=== PATIENT | male | born 1955 | race Caucasian/White ===

== ENCOUNTER → 2017-06-20 | Outpatient (CLI) | payer MEDICARE ==
[~2017-06-20] MED LIST: ACETAMINOPHEN-1 EAC1 PO; ACETAMINOPHEN325 M1 PO; ACID CONTROL20 MG; ALLOPURINOL 10100 M1 PO; AMOX TR-K CLV1 EAC3 PO; ANTACID650 MG PO; ANTIBIOTIC; APAP650 PO; ASCORBIC ACID500 MG PO; ASPIR 8181 MG PO; ASPIRIN325 PO; ATORVASTATIN CA40 MG PO; B COMPLEX1 EACH PO; BACITRACIN TOP; BACITRACIN3.5 GM TOP; BACTRIM 400-801 EACH PO; BACTRIM DS TAB1 EAC1 PO; BACTRIM DS TAB1 EACH PO; BACTROBAN CREAM30 G1 TOP; BENADRYL25 MG PO; BENGAY GREASELE57 GM TOP; BIOFREEZE118 ML TOP; BOUDREAUXS10 GM TOP; CARDIZEM CD120 MG PO; CARVEDILOL25 MG PO; CEFTIN 250250 MG/5 M PO; CEFTIN500 MG PO; CEFUROXIME500 MG PO; CENTRUM SILVER1 EAC2 PO; CEPHALEXIN 500500 M3 PO; CIPRO250 M1 PO; CIPRO500 MG PO; CIPROFLOXACIN500 M1 PO; CLONIDINE0.1 PO; COLACE100 MG PO; COREG25 MG PO; CRESTOR10 MG; CRESTOR10 MG PO; DARBEPOETIN ALFA IM; DIFLUCAN200 MG PO; EPOGEN10000 UNIT IV; FENTANYL 0.50 MCG/ML IV PUSH; FISH OIL 1,0001 EAC5; FISH OIL 1,001000 M2 PO; FLOMAX0.4 MG PO; FOLIC ACID 1 MG1 MG PO; FOLIC ACID1 MG PO; GABAPENTIN100 MG PO; GEMFIBROZIL 60600 MG; GEMFIBROZIL 60600 MG PO; GLUCAGEN1 MG IM; GLUCOSE1 EACH PO; HUMALOG KW100 UNIT/1 SUBQ; HUMALOG100 UNIT/1 SUBQ; HYDRALAZINE 2525 M1 PO; HYDRALAZINE 2525 MG; HYDRALAZINE 2525 MG PO; HYDROCODON-ACE1 EAC7 PO; HYDROCODONE-AP1 EAC6 PO; IBUPROFEN 800800 M1 PO; IMDUR 30 MG TAB30 M1 PO; IMDUR 60 MG TAB60 M1 PO; INDIGESTION MED; ISOSORBIDE MON120 MG PO; KEFLEX250 MG PO; KEFLEX500 MG PO; LANTUS SUBQ; LASIX 40 MG TAB40 MG; LEVAQUIN 500 M500 M2 PO; LEVSIN-SL0.125 MG SL; LEVSIN0.125 MG SUBLING; LIDOCAINE1 EACH TOP; LISINOPRIL20 MG PO; LOPRESSOR100 M1 PO; LOPRESSOR50 PO; MELATONIN5 M1 PO; MINOCIN100 MG PO; MIRALAX17 GM PO; NEURONTIN 300300 M1 PO; NITROSTAT0.4 MG SUBLING; NORCO 10-325 T1 EACH PO; NORCO 5-325 TA1 EACH PO; NORVASC10 MG; NORVASC10 MG PO; NOVOLOG100 UNIT/1; NYSTATIN 100,0015 G1 TOP; OMEGA 3 1,0001 EACH PO; OMEGA-31000 M1 PO; OMEPRAZOLE40 MG; OMEPRAZOLE40 MG PO; OXYCODONE HCL 55 MG PO; PANTOPRAZOLE SO40 M1 PO; PAXIL10 MG; PEPCID20 MG PO; PLAVIX 75 MG TA75 M1; PLAVIX 75 MG TA75 M1 PO; POTASSIUM20 PO; PROTONIX40 M1 PO; RANEXA1000 MG PO; RANEXA500 MG PO; REMERON15 MG PO; RENAL CAPS SOFTG1 MG PO; SIMVASTATIN40 MG; TOPROL XL100 MG PO; TRAMADOL 50 MG50 MG PO; TRULICITY0.75 MG/0. SUBQ; TYLENOL325 MG PO; VAN500AD IV; VENOFER50 MG/2.5 IV; VITAMIN B 50; VITAMIN B-12500 MCG PO; VITAMIN B-150 MG; VITAMIN D1000 UNI1 PO; VYTORIN 10-801 EACH; ZANTAC 150MG T150 MG; ZESTRIL20 MG; ZINC SULFATE 2220 M1 PO; ZYLOPRIM100 MG PO
--- NOTE | 2017-06-21 13:25 | CON ---
[address] [address] CONSULTATION Name: JESSICA GARCES Room: [facility] aGlindo#: [id number] Admission: 06/20/17 Attend Phys: Holden Vee DPM Discharge: Date of : 53 Report #: [id number] THIS REPORT FOR: //name// CC: Holden Suresh DATE OF SERVICE: 06/20/2017 Seen in wound care clinic. ATTENDING PHYSICIAN: Dr. Holden Vee. Follow up post-second toe amputation, removal from metatarsal as well. Chronic ulceration to the deep infection, probable chronic osteomyelitis. He generally has been doing fairly well. Denies any fevers or chills. Appetite has been fair. On examination, the wound actually showed some healing. There is much less depth. There is no exposed bone to probing. Overall, has improved. Chronic osteomyelitis. At this point, would extend the antibiotics. He does get the vancomycin with dialysis for additional 2 weeks. We will see him back at that time. Continue weekly labs. <ELECTRONICALLY SIGNED> By: Jesus Alberto Oneil MD 06/21/17 1325 0751 1057Jesus Alberto Oneil MD /nt
== END ==
LOC: M.WC 01:52
DX: T87.89 Other complications of amputation stump (principal); E11.621 Type 2 diabetes mellitus with foot ulcer; L97.421 Non-pressure chronic ulcer of left heel and midfoot limited to breakdown of skin; L97.521 Non-pressure chronic ulcer of other part of left foot limited to breakdown of skin; L89.893 Pressure ulcer of other site, stage 3; E11.40 Type 2 diabetes mellitus with diabetic neuropathy, unspecified; L84 Corns and callosities; E11.51 Type 2 diabetes mellitus with diabetic peripheral angiopathy without gangrene; E11.22 Type 2 diabetes mellitus with diabetic chronic kidney disease; I13.2 Hypertensive heart and chronic kidney disease with heart failure and with stage 5 chronic kidney disease, or end stage renal disease; N18.6 End stage renal disease; I50.9 Heart failure, unspecified; E78.5 Hyperlipidemia, unspecified; I25.10 Atherosclerotic heart disease of native coronary artery without angina pectoris; Z86.73 Personal history of transient ischemic attack (TIA), and cerebral infarction without residual deficits; Z89.421 Acquired absence of other right toe(s); Z72.89 Other problems related to lifestyle; Z99.2 Dependence on renal dialysis; Y83.5 Amputation of limb(s) as the cause of abnormal reaction of the patient, or of later complication, without mention of misadventure at the time of the procedure

== ENCOUNTER → 2017-06-27 | Outpatient (CLI) | payer MEDICARE | LOC: M.WC 02:43 | DX: E11.621 Type 2 diabetes mellitus with foot ulcer (principal); L97.511 Non-pressure chronic ulcer of other part of right foot limited to breakdown of skin; L89.893 Pressure ulcer of other site, stage 3; L89.894 Pressure ulcer of other site, stage 4; E11.40 Type 2 diabetes mellitus with diabetic neuropathy, unspecified; E11.51 Type 2 diabetes mellitus with diabetic peripheral angiopathy without gangrene; I25.10 Atherosclerotic heart disease of native coronary artery without angina pectoris; E11.22 Type 2 diabetes mellitus with diabetic chronic kidney disease; I13.0 Hypertensive heart and chronic kidney disease with heart failure and stage 1 through stage 4 chronic kidney disease, or unspecified chronic kidney disease; N18.6 End stage renal disease; Z99.2 Dependence on renal dialysis; I50.9 Heart failure, unspecified; E78.5 Hyperlipidemia, unspecified; Z72.89 Other problems related to lifestyle; Z86.73 Personal history of transient ischemic attack (TIA), and cerebral infarction without residual deficits; Z89.421 Acquired absence of other right toe(s) ==

== ENCOUNTER 2017-07-03 09:42 | Inpatient (IN) | payer MEDICARE ==
[~2017-07-03] VITALS: Ht 188 cm; Wt 104.8 kg
[~2017-07-03 09:42] MED LIST changes: -ACETAMINOPHEN325 M1 PO; -APAP650 PO; -BACITRACIN TOP; -BACITRACIN3.5 GM TOP; -BACTROBAN CREAM30 G1 TOP; -BENGAY GREASELE57 GM TOP; -BIOFREEZE118 ML TOP; -BOUDREAUXS10 GM TOP; -CEFUROXIME500 MG PO; -COREG25 MG PO; -DARBEPOETIN ALFA IM; -DIFLUCAN200 MG PO; -EPOGEN10000 UNIT IV; -FENTANYL 0.50 MCG/ML IV PUSH; -FISH OIL 1,001000 M2 PO; -FOLIC ACID 1 MG1 MG PO; -FOLIC ACID1 MG PO; -HUMALOG KW100 UNIT/1 SUBQ; -HYDRALAZINE 2525 MG PO; -LEVAQUIN 500 M500 M2 PO; -LIDOCAINE1 EACH TOP; -LOPRESSOR100 M1 PO; -MELATONIN5 M1 PO; -NORCO 10-325 T1 EACH PO; -NOVOLOG100 UNIT/1; -NYSTATIN 100,0015 G1 TOP; -OMEGA 3 1,0001 EACH PO; -OXYCODONE HCL 55 MG PO; -PEPCID20 MG PO; -POTASSIUM20 PO; -REMERON15 MG PO; -RENAL CAPS SOFTG1 MG PO; -TRULICITY0.75 MG/0. SUBQ; -VENOFER50 MG/2.5 IV; -VITAMIN B-12500 MCG PO; -VITAMIN D1000 UNI1 PO
[2017-07-03 09:44] VITALS: BP 169/83
[2017-07-03 10:19] LABS: ABSOLUTE BASOPHILS 0.1 thou/uL (0.0-0.2); ABSOLUTE EOSINOPHILS 0.2 thou/uL (0.0-0.7); ABSOLUTE LYMPHOCYTES 1.5 thou/uL (0.8-5.3); ABSOLUTE MONOCYTES 0.3 thou/uL (0.0-1.2); ABSOLUTE NEUTROPHILS 4.7 thou/uL (1.6-8.1); BASOPHILS 1.1 %; HEMATOCRIT 33.9 % (42.0-52.0); HEMOGLOBIN 11.3 gm/dL (14.0-18.0); LYMPHOCYTES 21.8 %; MCH 29.3 pg (26.0-34.0); MCHC 33.4 g/dL (28.0-37.0); MCV 87.5 fL (80.0-100.0); MONOCYTES 4.8 %; MPV 8.3 fl. (7.2-11.1); NUCLEATED RBCS 0 /100WBC; PLATELET COUNT* 217 thou/uL (150-400); POLYS 69.3 %; RBC 3.87 mil/uL (4.50-6.00); RDW-CV 15.9 % (10.5-14.5); WBC 6.7 thou/uL (4.0-11.0)
[2017-07-03 10:24] LABS: ANION GAP 11 mmol/L (7-16); BUN 66 mg/dL (7-18); CALCIUM 9.2 mg/dL (8.5-10.1); CHLORIDE 96 mmol/L (98-107); CO2 24 mmol/L (21-32); CREATININE 4.2 mg/dL (0.6-1.3); GLUCOSE 465 mg/dL (70-99); POTASSIUM 4.5 mmol/L (3.5-5.1); SODIUM 131 mmol/L (136-145)
[2017-07-03 10:35] LABS: ALBUMIN 3.4 g/dL (3.4-5.0); ALKALINE PHOSPHATASE 100 U/L (46-116); NT-PRO BRAIN NAT PEPTIDE 6324 pg/mL (<300); SGOT 20 U/L (15-37); SGPT 24 U/L (30-65); TOTAL BILIRUBIN 0.4 mg/dL (<0.1-1.0); TOTAL PROTEIN 8.1 g/dL (6.4-8.2); TROPONIN-I LEVEL <0.06 ng/mL (<0.06)
[2017-07-03 10:36] LABS: APTT 24.3 Seconds (25.0-31.3); PROTIME 9.7 Seconds (9.20-11.50)
[2017-07-03 13:32] VITALS: BP 143/68
[2017-07-03 13:55] VITALS: BP 146/76
[2017-07-03] MEDS ORDERED: HUMALOG100 UNIT/1 SUBQ (14:43)
[2017-07-03 15:46] LABS: CHOLESTEROL 204 mg/dL (<200); HDL CHOLESTEROL 37 mg/dL (>40); TC:HDL 5.5 Ratio (Not establshd); TRIGLYCERIDE 587 mg/dL (<150); VLDL 117 mg/dL (<40)
[2017-07-03 15:50] LABS: SERUM ASSESSMENT Slight Lipemia
[2017-07-03 15:53] VITALS: BP 149/77
--- NOTE | 2017-07-03 17:45 | EKG ---
[place] [address] ELECTROCARDIOGRAM REPORT Name: JESSICA GARCES Room: [address] ADM IN .R.#: [id number] Admission: 07/03/17 Attend Phys: Juliana Miller Discharge: Date of : 53 Report #: [id number] THIS REPORT FOR: //name// [facility] ED Test Date: 2017-07-03 Test Time: 09:48:36 Pat Name: JESSICA GARCES Department: Room: [facility] Gender: M Building Cleaning Supervisor: [facility] : 1955 Requested By: Ila Yoder Order Number: [id number] MD: Austin Brooks Measurements Intervals [place] Rate: 81 P: 29 W[place]: 143 QRS: -30 QRSD: 136 T: 140 QT: 400 QTc: 465 Interpretive Statements Sinus rhythm Left bundle branch block Baseline wander in lead(s) V6 Compared to ECG 09/30/2016 15:18:59 No significant changes Electronically Signed On 07-03-2017 17:45:48 PERSONNEL CLERK by Austin Brooks [email or web address] <ELECTRONICALLY SIGNED> By: Austin Brooks MD, FACC 07/03/17 1745 0948 0948 Austin Brooks MD, FAC /EPI
[2017-07-03 20:00] VITALS: BP 150/78
[2017-07-04] VITALS (21 sets, daily range): BP systolic 98–146; BP diastolic 58–80
--- NOTE | 2017-07-04 17:41 | EKG ---
[place] [address] ELECTROCARDIOGRAM REPORT Name: DEZJESSICA Room: [address] ADM IN M.R.#: [id number] Admission: 07/03/17 Attend Phys: Juliana Miller Discharge: Date of : 53 Report #: [id number] THIS REPORT FOR: //name// [facility] Test Date: 2017-07-04 Test Time: 14:29:33 Pat Name: JESSICA GARCES Department: Room: [address] Gender: M Operations Logistics Analyst: : 1955 Requested By: Vikas Gifford Order Number: [id number] Víctor MD: Austin Brooks Measurements Intervals [place] Rate: 61 P: 23 SD: 159 QRS: -26 QRSD: 128 T: 146 QT: 457 QTc: 461 Interpretive Statements Sinus rhythm Left bundle branch block Compared to ECG 07/03/2017 09:48:36 No significant changes Electronically Signed On 07-04-2017 17:41:44 REAMING MACHINE TENDER by Austin Brooks [email or web address] <ELECTRONICALLY SIGNED> By: Austin Brooks MD, [facility] 07/04/17 1741 1429 1429 Austin Brooks MD, FAC /EPI
--- NOTE | 2017-07-04 17:41 | EKG ---
[place] [address] ELECTROCARDIOGRAM REPORT Name: JESSICA GARCES Room: [address] ADM IN M.R.#: [id number] Admission: 07/03/17 Attend Phys: Juliana Miller Discharge: Date of : 53 Report #: [id number] THIS REPORT FOR: //name// [facility] Test Date: 2017-07-04 Test Time: 09:34:35 Pat Name: JESSICA GARCES Department: Room: [address] Gender: M Marketing Operations Assistant: : 1955 Requested By: Ila Yoder Order Number: [id number] Víctor MD: Austin Brooks Measurements Intervals [place] Rate: 67 P: 49 [place]: 203 QRS: -29 QRSD: 129 T: 144 QT: 437 QTc: 462 Interpretive Statements Sinus rhythm Left bundle branch block Baseline wander in lead(s) V1,V2 Compared to ECG 07/03/2017 09:48:36 No significant changes Electronically Signed On 07-04-2017 17:40:48 CONTINUOUS PICKLING LINE PICKLER by Austin Brooks [email or web address] <ELECTRONICALLY SIGNED> By: Austin Brooks MD, FAC 07/04/17 1740 0934 0934 Austin Brooks MD, [facility] /EPI
[2017-07-05 03:37] VITALS: BP 127/63
[2017-07-05 05:01] LABS: HEMATOCRIT 32.8 % (42.0-52.0); MCH 29.2 pg (26.0-34.0); MCHC 33.7 g/dL (28.0-37.0); MCV 86.7 fL (80.0-100.0); MPV 7.9 fl. (7.2-11.1); RBC 3.78 mil/uL (4.50-6.00); RDW-CV 15.7 % (10.5-14.5); WBC 6.1 thou/uL (4.0-11.0)
[2017-07-05 05:24] LABS: ANION GAP 10 mmol/L (7-16); BUN 45 mg/dL (7-18); CALCIUM 8.5 mg/dL (8.5-10.1); CHLORIDE 97 mmol/L (98-107); CO2 27 mmol/L (21-32); CREATININE 3.7 mg/dL (0.6-1.3); GLUCOSE 144 mg/dL (70-99); SODIUM 134 mmol/L (136-145); TROPONIN-I LEVEL <0.06 ng/mL (<0.06)
[2017-07-05 08:00] VITALS: BP 142/74
[2017-07-05 12:46] VITALS: BP 129/60
--- NOTE | 2017-07-05 12:50 | 2DMMODE ---
[place] [address] 2 D/M-MODE ECHOCARDIOGRAM Name: JESSICA GARCES Room: [address] IN [facility]#: [id number] Admission: 07/03/17 Attend Phys: Lance De Luna Discharge: Date of : 53 Date of Service: 07/05/17 1250 Report #: [id number] THIS REPORT FOR: //name// APPROVED REPORT Study performed: 07/05/2017 10:52:44 EXAM: Comprehensive 2D, Doppler, and color-flow Echocardiogram Patient Location: In-Patient Room #: [facility] Status: routine BSA: 2.31 HR: 70 bpm BP: 142/74 mmHg Rhythm: NSR Other Information Study Quality: Good Indications CAD Chest Pain 2D Dimensions LVEF(%): 61.36 (>50%) IVSd: 10.44 (7-11mm) LVOT Diam: 21.04 (18-24mm) LVDd: 57.82 mm PWd: 11.87 (7-11mm) Ascending Ao: 39.12 (22-36mm) LVDs: 38.49 (25-40mm) Aortic Root: 33.80 mm Polanco's LVEF: 61.36 % Volumes Left Atrial Volume (Systole) LA ESV Index: 34.50 mL/m2 Aortic Valve AoV Peak Zeus.: 2.07 m/s AO Peak Gr.: 17.12 mmHg LVOT Max P.26 mmHg AO Mean Gr.: 9.69 mmHg LVOT Mean P.95 mmHg LVOT Max V: 1.03 m/s AO V2 VTI: 39.06 cm LVOT Mean V: 0.63 m/s LALITA (VTI): 1.90 cm2 LVOT V1 VTI: 21.34 [place] [address] 2 D/M-MODE ECHOCARDIOGRAM Name: JESSICA GARCES Room: [address] IN .R.#: [id number] Admission: 07/03/17 Attend Phys: Lance De Luna Discharge: Date of : 53 Date of Service: 07/05/17 1250 Report #: [id number] E/A Ratio: 0.69 MV Decel. Time: 254.85 ms MV E Max Zeus.: 0.81 m/s MV PHT: 73.91 ms MVA (PHT): 2.98 cm2 TDI E/Lateral E': 8.10 E/Medial E': 20.25 Medial E' Zeus.: 0.04 m/s Lateral E' Zeus.: 0.10 m/s Pulmonary Valve PV Peak Zeus.: 1.20 m/s PV Peak Gr.: 5.80 mmHg Tricuspid Valve TR Peak Gr.: 16.66 mmHg RVSP: 21.00 mmHg Left Ventricle The left ventricle is normal size. There is normal LV segmental wall motion. There is normal left ventricular wall thickness. Left ventricular systolic function is mildly decreased. LVEF is 45-50%. Grade I - abnormal relaxation pattern. Right Ventricle The right ventricle is normal size. The right ventricular systolic function is normal. Atria Left atrium is mildly dilated. The right atrium size is normal. Aortic Valve Mild aortic valve sclerosis. Bioprosthetic aortic valve is present. Trace aortic regurgitation. No hemodynamically significant valvular aortic stenosis. Mitral Valve The mitral valve is normal in structure. Mild mitral regurgitation. No evidence of mitral valve stenosis. Tricuspid Valve The tricuspid valve is normal in structure. Trace tricuspid regurgitation. The RVSP is ___21____ mmHg. Pulmonic Valve The pulmonary valve is normal in structure. [place] [address] 2 D/M-MODE ECHOCARDIOGRAM Name: JESSICA GARCES Room: [address] IN ..#: [id number] Admission: 07/03/17 Attend Phys: Lance De Luna Discharge: Date of : 53 Date of Service: 07/05/17 1250 Report #: [id number] valvular regurgitation. Great Vessels The aortic root is normal in size. IVC is normal in size and collapses with >50% inspiration Pericardium There is no pericardial effusion. <Conclusion> The left ventricle is normal size. There is normal left ventricular wall thickness. Left ventricular systolic function is mildly decreased. Grade I - abnormal relaxation pattern. The right ventricle is normal size. Left atrium is mildly dilated. Mild aortic valve sclerosis. Trace aortic regurgitation. No hemodynamically significant valvular aortic stenosis. The mitral valve is normal in structure. Mild mitral regurgitation. The tricuspid valve is normal in structure. Trace tricuspid regurgitation. The RVSP is ___21____ mmHg. IVC is normal in size and collapses with >50% inspiration There is no pericardial effusion. There is normal LV segmental wall motion. Bioprosthetic aortic valve is present. LVEF is 45-50%. <ELECTRONICALLY SIGNED> By: Vikas Gifford MD, FACC 07/05/17 1250 1250 1250 Vikas Gifford MD, FACC /INF
[2017-07-05] MEDS ORDERED: COLACE100 MG PO (14:04)
[2017-07-05] MEDS ORDERED: PEPCID20 MG PO (14:05)
[2017-07-05] MEDS ORDERED: APAP650 PO (14:15)
[2017-07-05] MEDS ORDERED: MELATONIN5 M1 PO (14:15)
[2017-07-05] MEDS ORDERED: PLAVIX 75 MG TA75 M1 PO (14:33)
--- NOTE | 2017-07-05 15:49 | EKG ---
[place] [address] ELECTROCARDIOGRAM REPORT Name: JESSICA GARCES Room: [address] ADM IN M.R.#: [id number] Admission: 07/03/17 Attend Phys: Juliana Miller Discharge: Date of : 53 Report #: [id number] THIS REPORT FOR: //name// [facility] Test Date: 2017-07-05 Test Time: 09:35:32 Pat Name: JESSICA GARCES Department: Room: [address] Gender: M System Auditor: NIYA : 1955 Requested By: Vikas Gifford Order Number: [id number] Víctor MD: Vikas Gifford Measurements Intervals [place] Rate: 67 P: 0 [place]: 168 QRS: -32 QRSD: 131 T: 137 QT: 444 QTc: 469 Interpretive Statements Sinus rhythm Left bundle branch block Baseline wander in lead(s) V1 Compared to ECG 07/04/2017 14:29:33 No significant changes Electronically Signed On 07-05-2017 15:49:01 TAKER OFF BRAKER MACHINE by Vikas Gifford [email or web address] <ELECTRONICALLY SIGNED> By: Vikas Gifford MD, [facility] 07/05/17 1549 0935 0935 Vikas Gifford MD, [facility] /EPI
[2017-07-05] MEDS ORDERED: COREG25 MG PO (16:42)
--- NOTE | 2017-07-06 10:24 | CARD ---
[facility] [address] [place] [address] CARDIAC CATH REPORT Name: JESSICA GARCES Room: [address] IN [facility]#: [id number] Admission: 07/03/17 Attend Phys: Juliana Miller Discharge: 07/05/17 Date of : 53 Report #: [id number] THIS REPORT FOR: //name// APPROVED REPORT Patient Details Patient Status: In-Patient Room #: 228 The patient is a 62 year-old male Event Personnel Vikas Gifford Lead Game Designer, Maribel Welch RN Scene Painter, Leatha Stern Monitor, Ligia Hopper RTR Scrub, Peter Pritchard ARRT (R) Monitor Procedures Performed LUZ Place w/wo Plasty Single LAD, PTCA Single Vessel CIRC; selective coronary arteriography, saphenous vein graft the CORMIER graft study Indication Unstable angina Risk Factors Hypercholesterolemia, HypertensionRenal Failure Admission/Lab Medications/Medications given during procedure Aspirin, Platelet Aff. Inhib., Angiomax bolus and infusion Procedure Narrative The patient was brought electively to the Cardiac Catheterization Laboratory and was prepped and draped in a sterile manner. The left femoral was infiltrated with 1% Lidocaine subcutaneous anesthesia. A Erie 6 FR sheath was inserted into the left femoral artery. Coronary angiography was performed using coronary diagnostic catheters. The right coronary system was accessed and visualized with a Diagnostic AR1 Mod 6fr catheter. The left coronary system was accessed and visualized with a Diagnostic JL4 catheter. The patient tolerated the procedure well and there were no complications associated with the procedure. There was no hematoma. Fluid The CORMIER graft was accessed with a 6 [place] CORMIER catheter; the vein graft to the circumflex was accessed with a 6 [place] ARL-1 diagnostic catheter and the vein graft the right was accessed with a 6 [place] AR-1 [place] [address] CARDIAC CATH REPORT Name: JESSICA GARCES Room: [address]#: [id number] Admission: 07/03/17 Attend Phys: Juliana Miller Discharge: 07/05/17 Date of : 53 Report #: [id number] Sedation start time: 11:43 Case end Time: 13:11 Fentanyl 50 mcg Versed 2 mg Fluoro Time: 29.0 minutes Dose: DAP 340031 cGycm2 4301 mGy Contrast Type and Amount: Visipaque 340 ml [place] Artery Percent Stenosis #1 widely patent CORMIER graft to the LAD, #2 widely patent vein graft to 2 marginal branches of the circumflex, #3 widely patent vein graft to the dominant right coronary artery with 50% distal right coronary narrowing beyond the distal anastomotic site Diagnostic Cath Left Main 20% distal narrowing LAD 90% tubular proximal stenosis with total mid LAD occlusion Circumflex Total occlusion of the marginal branches with 80% ostial and proximal circumflex narrowing Right Coronary Total occlusion of this dominant vessel proximally Hemodynamics The aortic pressure is 105/52 mmHg with a mean of 69 mmHg. PCI Technique Lesion Anticoagulation was achieved with Angiomax. Patient was preloaded with Angiomax IV 16 mg per kg. Percutaneous coronary intervention was performed on the proximal left anterior descending artery segment. The lesion stenosis prior to intervention was 90% with COREY 3 flow. A 6FR XB 3.0 100CM Guide Catheter was used to engage the ostium. A IG: ProwaterFlex 180CM Interventional Guidewire was used to cross the lesion. BALLOON DILATION A Balloon catheter Trek RX 2.25 X 12 was inserted and inflated up to 16.00atm for 17seconds. Additional Inflation: 16.00atm for 12seconds. STENT DEPLOYMENT A drug-eluting stent Xience Alpine RX 2.5X18 [place] [address] CARDIAC CATH REPORT Name: JESSICA GARCES Room: [address]#: [id number] Admission: 07/03/17 Attend Phys: Juliana Miller Discharge: 07/05/17 Date of : 53 Report #: [id number] inflated up to 15atm for 15seconds. Final angiography reveals 10 % stenosis with COREY 3 flow. BALLOON DILATION A Balloon catheter was inserted and inflated up to 20.00atm for 17seconds. Additional Inflation: 22.00atm for 13seconds. Additional Inflation: 22.00atm for 16seconds. STENT DEPLOYMENT A drug-eluting stent Xience Alpine RX 2.5X18 was inserted and inflated up to 12.00atm for 14seconds. Additional Inflation: 16.00atm for 12seconds. Additional Inflation: 17.00atm for 10seconds. PCI Technique Lesion 2 Percutaneous Coronary Intervention was performed on the proximal circumflex artery segment. Percutaneous coronary intervention was performed on the proximal circumflex artery segment. The lesion stenosis prior to intervention was 80% with COREY 3 flow. A 6FR XB 3.0 100CM Guide Catheter was used to engage the ostium. A IG: BMW 190cm Interventional Guidewire was used to cross the lesion. Balloon Dilation A Balloon catheter NC Trek RX 2.5 X 12 was inserted and inflated up to 16.00atm for 16seconds. Additional Inflation: 22.00atm for 14seconds. Final angiography reveals 20 % stenosis with COREY 3 flow. PCI Technique Lesion Percutaneous coronary intervention was performed on the mid circumflex artery segment. BALLOON DILATION A Balloon catheter NC Trek RX 2.75 X 12 was inserted and inflated up to 16.00atm for 14seconds. Additional Inflation: 17.00atm for 15seconds. Additional Inflation: 16.00atm for 10seconds. PCI Technique Lesion 3 Percutaneous Coronary Intervention was performed on the proximal circumflex artery segment. Conclusion #1 significant coronary artery disease characterized by the following: [place] [address] CARDIAC CATH REPORT Name: JESSICA GARCES Room: [address] IN [facility].#: [id number] Admission: 07/03/17 Attend Phys: Juliana Miller Discharge: 07/05/17 Date of : 53 Report #: [id number] A 20% distal left main coronary artery narrowing, B 90% tubular proximal LAD stenosis with 100% mid vessel occlusion, C 80% ostial proximal circumflex narrowing with total occlusion of the marginal system, D dominant right coronary artery which is 100% occluded proximally #2 graft study characterized by the following: A widely patent CORMIER graft to the LAD, B widely patent vein graft to 2 marginal branches of the circumflex, C widely patent vein graft to the right coronary artery with 50% distal right coronary narrowing beyond the distal anastomotic site #3 normal systemic pressure throughout the study, #4 successful percutaneous coronary intervention with deployment of drug-eluting stent at the site of 90% proximal LAD stenosis with 10% residual narrowing following stent deployment and COREY-3 flow the distal vessel, #5 successful percutaneous transluminal coronary angioplasty at the site of 80% ostial proximal circumflex narrowing with 20% residual narrowing following final dilatation and COREY-3 flow the distal vessel. Recommendations Cardiac Risk Reduction Program Aggressive Medical Therapy Medications Administered Aspirin (any) Clopidogrel <ELECTRONICALLY SIGNED> By: Vikas Gifford MD, FACC 07/06/17 1024 1024 1024Vikas Gifford MD, FAC /INF
--- NOTE | 2017-07-16 09:12 | CON ---
[address] [address] CONSULTATION Name: JESSICA GARCES Room: [address]#: [id number] Admission: 07/03/17 Attend Phys: Juliana Miller Discharge: 07/05/17 Date of : 53 Report #: [id number] THIS REPORT FOR: //name// CC: Abhishek De Luna DATE OF SERVICE: 07/04/2017 REQUESTING PHYSICIAN: Lance De Luna DO. REASON FOR CONSULTATION: Assistance providing dialysis. HISTORY OF PRESENT ILLNESS: The patient is a very pleasant 62-year-old gentleman with medical history significant for end-stage renal disease, diabetes mellitus type 2, peripheral vascular disease, hypertension, coronary artery disease, nonhealing left foot ulcer. He presents to the hospital with complaints of chest pain. PAST MEDICAL HISTORY: As I described earlier. FAMILY HISTORY: Noncontributory. SOCIAL HISTORY: No current tobacco or alcohol abuse. MEDICATIONS: Reviewed. PHYSICAL EXAMINATION: GENERAL: Awake, alert, oriented, no acute distress. VITAL SIGNS: Blood pressure 136/66, heart rate is 61, afebrile. HEENT: Pupils are round. NECK: Supple. LUNGS: Clear. CARDIOVASCULAR: Regular rate. ABDOMEN: Soft. LOWER EXTREMITIES: Left foot is dressed. He also has left radiocephalic fistula, which is patent. LABORATORY DATA: Revealed hemoglobin 11.3. Serum sodium 131, potassium 4.5, BUN 66, creatinine 4.2. He had chest CTA that revealed no evidence of pulmonary embolism. No evidence of thoracic, aortic aneurysm or dissection. No acute infiltration, pleural effusion, or pneumothorax. Also, history of aortic valve replacement surgery and coronary artery bypass graft surgery. ASSESSMENT AND PLAN: End-stage renal disease. The patient admitted with chest pain. Workup as per Director Of Religious Life. From my standpoint, I will dialyze him today and tomorrow. He missed his dialysis yesterday, so [place] [address] CONSULTATION Name: JESSICA GARCES Room: [address] IN M.R.#: [id number] Admission: 07/03/17 Attend Phys: Juliana Miller Discharge: 07/05/17 Date of : 53 Report #: [id number] and full treatment tomorrow. Thank you very much for asking my assistance providing dialysis. <ELECTRONICALLY SIGNED> By: Hector Farmer MD 07/16/17 0912 1133 1520Hector Farmer MD /PMT
[2017-11-08] MEDS ORDERED: HUMALOG KW100 UNIT/1 SUBQ (08:51)
== END 2017-07-05 19:00 | disposition home health service (06) | DRG 246 ==
LOC: M.ERS 09:42 → M.TBA-ER 12:45 → M.2W 13:39
PROVIDERS: Internal Medicine; Personal Emergency Response Attendant; ADMIT Internal Medicine
PROC: B211YZZ Fluoroscopy of Multiple Coronary Arteries using Other Contrast (ICD-10-PCS; principal; 2017-07-05)
PROC: B21FYZZ Fluoroscopy of Other Bypass Graft using Other Contrast (ICD-10-PCS; principal; 2017-07-05)
PROC: 4A023N7 Measurement of Cardiac Sampling and Pressure, Left Heart, Percutaneous Approach (ICD-10-PCS; principal; 2017-07-05)
PROC: 027034Z Dilation of Coronary Artery, One Artery with Drug-eluting Intraluminal Device, Percutaneous Approach (ICD-10-PCS; principal; 2017-07-05)
DX: I25.119 Atherosclerotic heart disease of native coronary artery with unspecified angina pectoris (principal); N18.6 End stage renal disease; I12.0 Hypertensive chronic kidney disease with stage 5 chronic kidney disease or end stage renal disease; E78.5 Hyperlipidemia, unspecified; I25.10 Atherosclerotic heart disease of native coronary artery without angina pectoris; E11.42 Type 2 diabetes mellitus with diabetic polyneuropathy; E11.22 Type 2 diabetes mellitus with diabetic chronic kidney disease; E11.51 Type 2 diabetes mellitus with diabetic peripheral angiopathy without gangrene; A49.02 Methicillin resistant Staphylococcus aureus infection, unspecified site; Z82.49 Family history of ischemic heart disease and other diseases of the circulatory system; Z88.2 Allergy status to sulfonamides; Z88.8 Allergy status to other drugs, medicaments and biological substances; Z99.2 Dependence on renal dialysis; Z95.1 Presence of aortocoronary bypass graft; Z89.411 Acquired absence of right great toe; Z86.73 Personal history of transient ischemic attack (TIA), and cerebral infarction without residual deficits; Z83.6 Family history of other diseases of the respiratory system; I25.2 Old myocardial infarction; Z95.3 Presence of xenogenic heart valve; Z79.899 Other long term (current) drug therapy; Z79.82 Long term (current) use of aspirin

== ENCOUNTER → 2017-07-11 | Outpatient (CLI) | payer MEDICARE ==
[~2017-07-11] MED LIST changes: +ACETAMINOPHEN325 M1 PO; +APAP650 PO; +BACITRACIN TOP; +BACITRACIN3.5 GM TOP; +BACTROBAN CREAM30 G1 TOP; +BENGAY GREASELE57 GM TOP; +BIOFREEZE118 ML TOP; +BOUDREAUXS10 GM TOP; +CEFUROXIME500 MG PO; +COREG25 MG PO; +DARBEPOETIN ALFA IM; +DIFLUCAN200 MG PO; +EPOGEN10000 UNIT IV; +FENTANYL 0.50 MCG/ML IV PUSH; +FISH OIL 1,001000 M2 PO; +FOLIC ACID 1 MG1 MG PO; +FOLIC ACID1 MG PO; +HUMALOG KW100 UNIT/1 SUBQ; +HYDRALAZINE 2525 MG PO; +LEVAQUIN 500 M500 M2 PO; +LIDOCAINE1 EACH TOP; +LOPRESSOR100 M1 PO; +MELATONIN5 M1 PO; +NORCO 10-325 T1 EACH PO; +NOVOLOG100 UNIT/1; +NYSTATIN 100,0015 G1 TOP; +OMEGA 3 1,0001 EACH PO; +OXYCODONE HCL 55 MG PO; +PEPCID20 MG PO; +POTASSIUM20 PO; +REMERON15 MG PO; +RENAL CAPS SOFTG1 MG PO; +TRULICITY0.75 MG/0. SUBQ; +VENOFER50 MG/2.5 IV; +VITAMIN B-12500 MCG PO; +VITAMIN D1000 UNI1 PO
--- NOTE | 2017-07-12 10:51 | CON ---
[address] [address] CONSULTATION Name: GARCESJESSICA E Room: [facility] Galindo#: [id number] Admission: 07/11/17 Attend Phys: Holden Vee DPM Discharge: Date of : 53 Report #: [id number] THIS REPORT FOR: //name// CC: Holden Suresh DATE OF SERVICE: 07/11/2017 ATTENDING PHYSICIAN: Dr. Holden Vee. REASON FOR FOLLOWUP: Post osteoectomy for chronic osteomyelitis, left foot. He has got a persistent ulceration at the site. SUBJECTIVE: Generally, he has been doing fairly well, actually was hospitalized due to cardiac related disease with unstable angina, was discharged roughly a week ago with adjustment of his medications. Unfortunately, the IV antibiotic he was getting with dialysis was not continued. Therefore, he has been off the antibiotics for roughly a week. I do believe he completed roughly 6 weeks of parenteral therapy. OBJECTIVE: On examination, the wound actually looks quite good, in fact improved. There is no really significant depth to it at this point, no exposed bone. The surface does not exhibit significant or even mild inflammation. ASSESSMENT AND PLAN: Chronic osteomyelitis. At this point, would not reinstitute the antibiotics. Clearly, clinically he has continued to improve in spite of being off them. We will see him back as needed. <ELECTRONICALLY SIGNED> By: Jesus Alberto Oneil MD 07/12/17 1051 0757 0935Jesus Alberto Oneil MD /ana
== END ==
LOC: M.WC 01:20
DX: T87.89 Other complications of amputation stump (principal); E11.621 Type 2 diabetes mellitus with foot ulcer; L97.521 Non-pressure chronic ulcer of other part of left foot limited to breakdown of skin; L97.421 Non-pressure chronic ulcer of left heel and midfoot limited to breakdown of skin; E11.40 Type 2 diabetes mellitus with diabetic neuropathy, unspecified; E11.51 Type 2 diabetes mellitus with diabetic peripheral angiopathy without gangrene; E11.22 Type 2 diabetes mellitus with diabetic chronic kidney disease; I13.2 Hypertensive heart and chronic kidney disease with heart failure and with stage 5 chronic kidney disease, or end stage renal disease; N18.6 End stage renal disease; I50.9 Heart failure, unspecified; I25.10 Atherosclerotic heart disease of native coronary artery without angina pectoris; E78.5 Hyperlipidemia, unspecified; L84 Corns and callosities; Z86.73 Personal history of transient ischemic attack (TIA), and cerebral infarction without residual deficits; Z72.89 Other problems related to lifestyle; Y83.5 Amputation of limb(s) as the cause of abnormal reaction of the patient, or of later complication, without mention of misadventure at the time of the procedure

== ENCOUNTER → 2017-07-18 | Outpatient (CLI) | payer MEDICARE | LOC: M.WC 01:28 | DX: T87.89 Other complications of amputation stump (principal); E11.621 Type 2 diabetes mellitus with foot ulcer; L97.521 Non-pressure chronic ulcer of other part of left foot limited to breakdown of skin; L97.421 Non-pressure chronic ulcer of left heel and midfoot limited to breakdown of skin; E11.51 Type 2 diabetes mellitus with diabetic peripheral angiopathy without gangrene; E11.40 Type 2 diabetes mellitus with diabetic neuropathy, unspecified; I25.10 Atherosclerotic heart disease of native coronary artery without angina pectoris; E78.5 Hyperlipidemia, unspecified; E11.22 Type 2 diabetes mellitus with diabetic chronic kidney disease; I13.2 Hypertensive heart and chronic kidney disease with heart failure and with stage 5 chronic kidney disease, or end stage renal disease; I50.9 Heart failure, unspecified; N18.6 End stage renal disease; Z72.89 Other problems related to lifestyle; Z86.73 Personal history of transient ischemic attack (TIA), and cerebral infarction without residual deficits; Z89.421 Acquired absence of other right toe(s); Y83.5 Amputation of limb(s) as the cause of abnormal reaction of the patient, or of later complication, without mention of misadventure at the time of the procedure ==

== ENCOUNTER → 2017-07-25 | Outpatient (CLI) | payer MEDICARE | LOC: M.WC 02:57 | DX: T87.89 Other complications of amputation stump (principal); E11.621 Type 2 diabetes mellitus with foot ulcer; L97.421 Non-pressure chronic ulcer of left heel and midfoot limited to breakdown of skin; L97.521 Non-pressure chronic ulcer of other part of left foot limited to breakdown of skin; E11.40 Type 2 diabetes mellitus with diabetic neuropathy, unspecified; E11.51 Type 2 diabetes mellitus with diabetic peripheral angiopathy without gangrene; I25.10 Atherosclerotic heart disease of native coronary artery without angina pectoris; E78.5 Hyperlipidemia, unspecified; E11.22 Type 2 diabetes mellitus with diabetic chronic kidney disease; I13.2 Hypertensive heart and chronic kidney disease with heart failure and with stage 5 chronic kidney disease, or end stage renal disease; I50.9 Heart failure, unspecified; N18.6 End stage renal disease; Z72.89 Other problems related to lifestyle; Z86.73 Personal history of transient ischemic attack (TIA), and cerebral infarction without residual deficits; Z89.421 Acquired absence of other right toe(s) ==

== ENCOUNTER 2017-07-30 19:01 | Inpatient (IN) | payer MEDICARE ==
[~2017-07-30] VITALS: Ht 182.9 cm; Wt 100.7 kg
[~2017-07-30 19:01] MED LIST changes: -ACETAMINOPHEN325 M1 PO; -BACITRACIN TOP; -BACITRACIN3.5 GM TOP; -BACTROBAN CREAM30 G1 TOP; -BENGAY GREASELE57 GM TOP; -BIOFREEZE118 ML TOP; -BOUDREAUXS10 GM TOP; -CEFUROXIME500 MG PO; -DARBEPOETIN ALFA IM; -DIFLUCAN200 MG PO; -EPOGEN10000 UNIT IV; -FENTANYL 0.50 MCG/ML IV PUSH; -FISH OIL 1,001000 M2 PO; -FOLIC ACID 1 MG1 MG PO; -FOLIC ACID1 MG PO; -HUMALOG KW100 UNIT/1 SUBQ; -HYDRALAZINE 2525 MG PO; -LEVAQUIN 500 M500 M2 PO; -LIDOCAINE1 EACH TOP; -LOPRESSOR100 M1 PO; -NORCO 10-325 T1 EACH PO; -NOVOLOG100 UNIT/1; -NYSTATIN 100,0015 G1 TOP; -OMEGA 3 1,0001 EACH PO; -OXYCODONE HCL 55 MG PO; -POTASSIUM20 PO; -REMERON15 MG PO; -RENAL CAPS SOFTG1 MG PO; -TRULICITY0.75 MG/0. SUBQ; -VENOFER50 MG/2.5 IV; -VITAMIN B-12500 MCG PO; -VITAMIN D1000 UNI1 PO
[2017-07-30 19:19] VITALS: BP 139/73
[2017-07-30 19:52] LABS: ABSOLUTE BASOPHILS 0.1 thou/uL (0.0-0.2); ABSOLUTE EOSINOPHILS 0.1 thou/uL (0.0-0.7); ABSOLUTE LYMPHOCYTES 1.2 thou/uL (0.8-5.3); ABSOLUTE MONOCYTES 0.9 thou/uL (0.0-1.2); ABSOLUTE NEUTROPHILS 9.7 thou/uL (1.6-8.1); BASOPHILS 0.7 %; EOSINOPHILS 0.8 %; HEMATOCRIT 32.7 % (42.0-52.0); HEMOGLOBIN 10.9 gm/dL (14.0-18.0); MCH 28.9 pg (26.0-34.0); MCHC 33.2 g/dL (28.0-37.0); MONOCYTES 7.4 %; MPV 7.5 fl. (7.2-11.1); NUCLEATED RBCS 0 /100WBC; PLATELET COUNT* 255 thou/uL (150-400); POLYS 81.1 %; RBC 3.76 mil/uL (4.50-6.00); RDW-CV 15.7 % (10.5-14.5)
[2017-07-30 20:00] LABS: ANION GAP 13 mmol/L (7-16); BUN 54 mg/dL (7-18); CALCIUM 9.2 mg/dL (8.5-10.1); CHLORIDE 91 mmol/L (98-107); CO2 25 mmol/L (21-32); CREATININE 5.1 mg/dL (0.6-1.3); GLUCOSE 395 mg/dL (70-99); SODIUM 129 mmol/L (136-145)
[2017-07-30 20:03] LABS: INR 1.1; PROTIME 10.6 Seconds (9.20-11.50)
[2017-07-30 20:11] LABS: ALBUMIN 2.8 g/dL (3.4-5.0); ALKALINE PHOSPHATASE 84 U/L (46-116); LIPASE 194 U/L (73-393); NT-PRO BRAIN NAT PEPTIDE 10503 pg/mL (<300); SGOT 19 U/L (15-37); SGPT 19 U/L (30-65); TOTAL BILIRUBIN 0.7 mg/dL (<0.1-1.0); TROPONIN-I LEVEL <0.06 ng/mL (<0.06)
[2017-07-30] MEDS ORDERED: LOPRESSOR100 M1 PO (20:39)
[2017-07-30] MEDS ORDERED: NOVOLOG100 UNIT/1 (20:43)
[2017-07-30 20:52] LABS: INFLUENZA A ANTIGEN None Detected (None Detect); INFLUENZA B ANTIGEN None Detected (None Detect)
[2017-07-30 22:24] VITALS: BP 113/57
[2017-07-30 22:35] VITALS: BP 117/57
[2017-07-31 02:13] LABS: HEMATOCRIT 31.2 % (42.0-52.0); HEMOGLOBIN 10.4 gm/dL (14.0-18.0); MCH 29.2 pg (26.0-34.0); MCHC 33.4 g/dL (28.0-37.0); MCV 87.4 fL (80.0-100.0); MPV 7.8 fl. (7.2-11.1); RBC 3.57 mil/uL (4.50-6.00); RDW-CV 16.1 % (10.5-14.5); WBC 10.1 thou/uL (4.0-11.0)
[2017-07-31 02:52] LABS: ALBUMIN 2.4 g/dL (3.4-5.0); CALCIUM 8.5 mg/dL (8.5-10.1); CREATININE 5.3 mg/dL (0.6-1.3); POTASSIUM 3.7 mmol/L (3.5-5.1); TOTAL BILIRUBIN 0.5 mg/dL (<0.1-1.0); TOTAL PROTEIN 7.3 g/dL (6.4-8.2)
[2017-07-31 04:00] VITALS: BP 128/64
--- NOTE | 2017-07-31 06:49 | NUR ---
Pt arrived from ED at 2130. Denied pain at that time. Oriented but sleepy until this morning. Two wounds to L foot, look like non-healing ruptured blisters. One wound is on the sole just below the great toe, the other is on the heel. VSS. At 0638 pt given NTG SL X1 for CP, rated 5/10. Reported pain decreased to 3/10 afterwards, and denied need for additional NTG. Will continue to monitor.
[2017-07-31 08:48] VITALS: BP 145/66
--- NOTE | 2017-07-31 08:48 | NUR ---
PATIENT IS ALERT AND ORIENTED, ASSESSMENT CHARTED. NO CHEST PAIN AT THIS TIME, RELIEVED WITH MEDICATIONS BEFORE SHIFT CHANGE. NO NAUSEA OR SHORTNESS OF AIR. GOALS ARE TO CONTROL CHEST PAIN, CARDIO CONSULT, WOUND TREATMENT. BED IN LOWEST POSITION, CALL LIGHT IN REACH,
[2017-07-31 11:33] VITALS: BP 134/63
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
--- NOTE | 2017-07-31 14:31 | NUR ---
CM ASSESSMENT: Pt was sound asleep when CM went to assess, Pt known to this CM from previous hospital stay. CM reviewed chart and spoke with nurse. Pt resides at home with his . Independent with ADLs, assists as needed. Pt continues to drive. Pt has a RW and cane at home that he can use when needed. Hx of [facility]. Pt current at [facility] on a T, TH, Sat schedule. Hx of [employer] michael. CM will f/u with Pt tomorrow. Following for dc needs.
[2017-07-31 15:33] VITALS: BP 97/74
[2017-07-31 20:00] VITALS: BP 132/58
[2017-08-01 04:00] VITALS: BP 133/65
--- NOTE | 2017-08-01 04:05 | NUR ---
ASSUMED CARE OF PT AT 1930, NURSING ASSESSMENT COMPLETED AT START OF SHIFT, PT CONTINUES ON TELE MONITOR, TRACING SINUS RHYTHM THIS SHIFT. PT TAKEN UPSTAIRS TO DIALYSIS AT 2129. PT RETURNED AT 0. PER DIALYSIS NURSE, 2.2L FLUID DIALYSED FROM PT. PT C/O INTERMITTENT MILD PAIN TO RIGHT SIDE OF ABDOMEN, REFUSED PAIN MEDICATION, DENIES TENDERNESS. PT EDUCATED ON IMPORTANCE OF PAIN MANAGEMENT BEFORE PAIN GETS OUT OF HAND. HOURLY ROUNDING COMPLETED, CALL LIGHT WITHIN REACH. FALL PRECAUTIONS IN PLACE.
[2017-08-01 05:29] LABS: HEMATOCRIT 32.5 % (42.0-52.0); HEMOGLOBIN 10.7 gm/dL (14.0-18.0); MCH 28.5 pg (26.0-34.0); MCV 86.2 fL (80.0-100.0); MPV 8.1 fl. (7.2-11.1); RBC 3.77 mil/uL (4.50-6.00); RDW-CV 15.8 % (10.5-14.5)
[2017-08-01 05:46] LABS: CALCIUM 8.3 mg/dL (8.5-10.1); POTASSIUM 4.3 mmol/L (3.5-5.1)
[2017-08-01 05:55] LABS: CREATININE 3.5 mg/dL (0.6-1.3)
--- NOTE | 2017-08-01 06:15 | EKG ---
[place] [address] ELECTROCARDIOGRAM REPORT Name: JESSICA GARCES Room: [address] ADM IN M.R.#: [id number] Admission: 07/30/17 Attend Phys: Alexis Chavez MD Discharge: Date of : 53 Report #: [id number] THIS REPORT FOR: //name// [place] [facility] Test Date: 2017-07-30 Test Time: 19:11:34 Pat Name: JESSICA GARCES Department: Room: [facility] Gender: M Fur Dry Cleaner: TRUMAN : 1955 Requested By: Florence Lopez Order Number: [id number] MD: Austin Brooks Measurements Intervals [place] Rate: 81 P: IN: QRS: -27 QRSD: 125 T: 138 QT: 381 QTc: 443 Interpretive Statements Sinus rhythm Premature ventricular contraction Left bundle branch block Baseline wander in lead(s) V4,V6 Compared to ECG 07/05/2017 09:35:32 No significant changes noted Electronically Signed On 08-01-2017 6:15:13 PATCHER B[employer]LING BALL by Austin Brooks [email or web address] <ELECTRONICALLY SIGNED> By: Austin Brooks MD, FACC 08/01/17 0615 10 10 Austin Brooks MD, FAC /EPI
--- NOTE | 2017-08-01 06:25 | CON ---
[address] [address] CONSULTATION Name: JESSICA GARCES Room: [address] IN M.R.#: [id number] Admission: 07/30/17 Attend Phys: Alexis Chavez MD Discharge: Date of : 53 Report #: [id number] THIS REPORT FOR: //name// CC: Alexis Suresh DATE OF SERVICE: 07/31/2017 INDICATION: Chest pain. HISTORY OF PRESENT ILLNESS: The patient is a 62-year-old gentleman with coronary artery disease with remote history of coronary artery bypass grafting. He has had multiple interventions. He has a history of recent catheterization and intervention in June of this year. He was hospitalized with chest pain. Catheterization revealed a patent CORMIER graft to the LAD, patent saphenous vein graft to 2 obtuse marginal branches and a patent saphenous vein graft to the distal right coronary artery. The patient was found to have high-grade stenoses involving the proximal circumflex and proximal LAD for which he underwent a repeat intervention within a stent placement. He had excellent angiographic result. The patient returns to the hospital after being seen by his primary physician with complaints of foot pain. He does have severe peripheral vascular disease with nonhealing ulcers presently being evaluated by Vascular Surgery. Sometime yesterday, he developed chest discomfort as well that was prolonged in nature. He states that the pain persisted until he was given pain medication here at the hospital. The patient has had intermittent mild chest pain here in the hospital. Troponins are unremarkable. EKG shows sinus rhythm with left bundle-branch block, which is not new. At the time of my interview, the patient is comfortable and without chest pain. I did inquire as to his response to Ranexa in the past. He states that he has taken the medication without significant change in his symptoms. He denies orthopnea or paroxysmal nocturnal dyspnea. He does have end-stage renal disease and is on dialysis Tuesdays, and Saturdays. He is without other cardiac complaint. PAST MEDICAL HISTORY: 1. Coronary artery disease. 2. History of hypertension. 3. Hyperlipidemia. 4. Type 2 diabetes mellitus, insulin requiring. 5. Peripheral vascular disease. 6. End-stage renal disease, on dialysis. 7. Nonhealing ulcers secondary to diabetes [place] [address] CONSULTATION Name: JESSICA GARCES Room: [address]#: [id number] Admission: 07/30/17 Attend Phys: Alexis Chavez MD Discharge: Date of : 53 Report #: [id number] PAST SURGICAL HISTORY: 1. Four-vessel coronary artery bypass grafting with aortic valve replacement with a bioprosthetic aortic valve. 2. Multiple toe amputations. 3. Right herniorrhaphy with mesh placement. 4. Bilateral shoulder surgery. 5. Carpal tunnel surgery. FAMILY HISTORY: The patient's mother of heart attack. The patient's father of cancer. SOCIAL HISTORY: The patient is retired. He does not smoke. He does not drink alcohol. ALLERGIES: TOLECTIN, BACTRIM. HOME MEDICATIONS: Tylenol 650 mg q.4 hours p.r.n., aspirin 325 mg p.o. daily, carvedilol 12.5 mg b.i.d., clonidine 0.1 mg p.o. b.i.d., Plavix 75 mg daily, gabapentin 600 mg p.o. b.i.d., hydralazine 25 mg t.i.d., NovoLog 45 units at dinner, Lantus 65 units q.a.m., lispro 40 units q.a.m., Imdur 60 mg at bedtime, metoprolol tartrate 100 mg b.i.d., Nitrostat p.r.n., fish oil 1000 mg t.i.d., Crestor 40 mg at bedtime, Protonix 40 mg q. day, vitamin B complex 1 tablet daily. REVIEW OF SYSTEMS: A 14-point review of systems is positive for generalized weakness without focal paralysis, cough productive of clear sputum, chest discomfort, dyspnea, history of heart murmur, lower extremity edema, insulin requiring diabetes, remote history of ulcers, anemia and medical allergies as outlined above. Otherwise, 14-point review of systems unremarkable. PHYSICAL EXAMINATION: VITAL SIGNS: Stable. Blood pressure 134/63, pulse 83 and regular. GENERAL: This is a pleasant gentleman who is in no distress. Mood and affect appropriate. HEENT: Extraocular muscles intact. Mucous membranes are moist. NECK: Shows no jugular venous distention. I do not appreciate carotid bruit. CHEST: Reveals clear lung hannon. CARDIAC: Reveals a grade 2/6 holosystolic murmur heard throughout the precordium. I do not appreciate a gallop. ABDOMEN: Reveals normal bowel sounds. The abdomen is soft and nontender. EXTREMITIES: Show the left lower extremity to be wrapped. There is 1+ edema to the knees bilaterally. SKIN: Warm and dry. LABORATORY DATA: Reviewed. Sodium 129, potassium 3.7, chloride 95, bicarbonate 25, BUN 60, creatinine 5.3, serum glucose 396. LFTs within normal limits. [address] [place] [address] CONSULTATION Name: JESSICA GARCES Room: [address] ADM IN M.R.#: [id number] Admission: 07/30/17 Attend Phys: Alexis Chavez MD Discharge: Date of : 53 Report #: [id number] Troponin is less than 0.06. White blood cell count 10.1, hemoglobin 10.4, platelet count 234,000. Chest x-ray shows no acute cardiopulmonary abnormality. Echocardiogram in June of this year shows EF 45-50%. There is a grade 1 diastolic dysfunction. Bioprosthetic aortic valve functioning normally. IMPRESSION AND RECOMMENDATIONS: 1. Chest pain that is somewhat atypical in that it was prolonged with unremarkable enzymes. Doubt this represents acute coronary syndrome. The patient has had recent percutaneous coronary intervention. Would continue dual antiplatelet therapy at this point in time. I do not believe further invasive evaluation necessary. 2. 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 3. Hypertension, adequately controlled on current antihypertensive regimen. 4. History of hyperlipidemia. Continue Crestor 40 mg daily. 5. Peripheral vascular disease. The patient is being evaluated by Vascular Surgery with angiography tomorrow. 6. Nonhealing ulcers with infection. The patient is on IV antibiotics. Possible osteomyelitis. Infectious Disease following. 7. End-stage renal disease, on hemodialysis Tuesdays, and Saturdays. Nephrology is following. 8. Diabetes per primary physician. At the present time, the patient appears stable from a cardiac standpoint. I would not recommend further cardiac evaluation and continued current cardiac medications. We will follow as needed. <ELECTRONICALLY SIGNED> By: Austin Brooks MD, FACC 08/01/17 0625 1453 [id number] Brooks MD, FACC /nt
[2017-08-01 08:00] VITALS: BP 129/64
--- NOTE | 2017-08-01 08:40 | NUR ---
RECEIVED REPORT. ASSUMED CARE OF PT AT 0730. VSS, PT A&O X4. O2 SAT 99% ON ROOM AIR. SECOND CHEF IN PLACE TRACING SR. AM ASSESSMENT AND VITALS COMPLETED CHARTED. IV SALINE LOCKED. PT REPORTS PAIN IN HANDS AND FEET THAT IS CHRONIC, REFUSING MEDICATION FOR PAIN AT THIS TIME. PT NPO FOR POTENTIAL ANGIOGRAM. DRESSING TO LEFT FOOT C/D/I. LEFT HEEL BOOT ON. PT STATES HE HAS SEVERAL LOOSE STOOLS OVER THE NIGHT. WILL OBTAIN STOOL SAMPLE. FISTULA TO LEFT FOREARM NOTED. DIALYSIS T/TH/SAT. HIGH FALL RISK PRECAUTIONS IN PLACE. CALL LIGHT IS WITHIN REACH. WILL CONTINUE TO MONITOR.
[2017-08-01 11:25] VITALS: BP 104/60
--- NOTE | 2017-08-01 11:33 | CON ---
[address] [address] CONSULTATION Name: JESSICA GARCES Room: [address] IN M.R.#: [id number] Admission: 07/30/17 Attend Phys: Alexis Chavez MD Discharge: Date of : 53 Report #: [id number] THIS REPORT FOR: //name// CC: Alexis Suresh DATE OF SERVICE: 07/31/2017 INFECTIOUS DISEASE CONSULTATION ATTENDING PHYSICIAN: Alexis Chavez M.D. REASON FOR EVALUATION: Left foot deep infection, admitted with chest related pain and has a history of chronic unstable angina. HISTORY OF PRESENT ILLNESS: Chart reviewed, patient examined. This is a 62-year-old gentleman I am well familiar with, has extensive medical history given his age, much of which revolves around diabetes mellitus, type 2 complicated by diffuse and severe vasculopathy. He has got known coronary artery disease with multiple lesions, unstable angina, essentially ongoing basis, has had previous aortocoronary bypass grafting, has pretty profound peripheral neuropathy who as well as recently 3-4 weeks ago, has had an extended treatment of parenteral therapy post resection of second toe on the left. He noted over the course of the day or 2 prior to admission bilateral foot pain, somewhat confusing. It is unclear that he had any fevers initially, although developed some while here. Actually, the concerning part is he had chest pain that was not relieved by typical measures. He is not encephalopathic. Has dyspnea at rest noted. He is scheduled to undergo cardiac catheterization. He was started empirically on vancomycin. Review of cultures back in April 2017 with growth of oxacillin-resistant Staph aureus. At this point, he is not overtly toxic. ALLERGIES: LISTED TO BACTRIM. PAST MEDICAL HISTORY: As described above, the diabetes mellitus type 2 complicated by diffuse vasculopathy, peripheral neuropathy, end-stage renal disease, multiple amputations of distal lower extremities, previous strokes, hyperlipidemia. SOCIAL HISTORY: Nonsmoker, no ethanol. FAMILY HISTORY: Noncontributory. REVIEW OF SYSTEMS: As above. PHYSICAL EXAMINATION: [place] [address] CONSULTATION Name: GARCESJESSICA Room: [address]#: [id number] Admission: 07/30/17 Attend Phys: Alexis Chavez MD Discharge: Date of : 53 Report #: [id number] GENERAL: He is pleasant, alert and cooperative. He is chronically ill appearing, in mild to moderate distress. VITAL SIGNS: Temperature 97.3, pulse 71, respirations 18 and blood pressure 144/57. SKIN: Warm, dry, no rashes. HEENT: Otherwise, unremarkable. NECK: Supple. LUNGS: Diminished breath sounds, generally clear. HEART: Regular. No appreciated murmur. ABDOMEN: Soft, nontender. EXTREMITIES: Left distal lower extremity has what appears to be superficial ulcer overlying the first and second metatarsophalangeal sites. Additionally, he has plantar posterior heel ischemic pressure related ulcer as well. There is some moderate degree of inflammation. There is no particular odor. GENITOURINARY: Deferred. RECTAL: Deferred. LABORATORY DATA: Blood cultures sterile thus far. Prealbumin of 18.1. Electrolytes: Sodium 129, potassium 3.7, chloride 95, bicarbonate is 25, BUN and creatinine 60 and 5.3, glucose of 396. LFTs unremarkable. Albumin of 2.4, total protein 7.3, estimated GFR of 11. Troponin less than 0.06. Sed rate is elevated at 128. Culture in progress. Gram stain showed no white cells, few Gram-positive cocci. Influenza antigen was negative. Lactic acid of 1.0. Chest x-ray, no acute process. Foot x-ray compared to April 11, there has been erosion of the distal second metatarsal, which may be surgery related. CRP elevated at 666. ASSESSMENT AND PLAN: Inflammatory process involving the left foot. He is certainly at risk for deep infection, apparently as recently as last week was doing fairly well. We will continue the vancomycin. Await culture results. Discussed with Dr. Vee timing of the x-ray, comparison suggests this may have been prior to the last surgery. Certainly, his primary priority at this point is cardiac related. He is scheduled to undergo cardiac catheterization, certainly pending that there is the high risk for any sort of intervention. <ELECTRONICALLY SIGNED> By: Jesus Alberto Oneil MD 08/01/17 1133 1114 1947Jofederico Oneil MD /nt
--- NOTE | 2017-08-01 13:52 | NUR ---
CONTINUE TO FOLLOW. MET WITH PT AND . PT CONFIRMS HE IS USING A CANE NOW, GOING TO [facility] T/T/S AND IS CURRENT WITH LORET[facility] HUMPHREY. CALL TO LORETTA/FAHEEM, PT IS ON SERVICE, MADE AWARE HE IS IN THE HOSPITAL. [facility] ALSO. PT PLANS TO RETURN HOME WITH SAME SERVICES. WILL FOLLOW LORETTA [phone] FAX [phone]
[2017-08-01 16:01] VITALS: BP 115/46
[2017-08-01 16:08] LABS: HEPATITIS B SURFACE AG Negative (Negative)
--- NOTE | 2017-08-01 19:00 | NUR ---
VSS. PT REMAINS A&OX4 O2 SAT REMAINS >90% ON ROOM AIR. PROFESSOR OF SURGERY REMAINS IN PLACE WITH NO CHAGNES THIS SHIFT. IV SALINE LOCKED. PT DENIES PAIN OR DISCOMFORT AT THIS TIME. PT NPO STATUS CHAGNED EARLY THIS AFTERNOON, PT ABLE TO EAT LUNCH AND DINNER - EATING AND DRINKING WITHOUT ISSUE. PT SEEN BY DR LINTON, WOUND TO LEFT FOOT CLEANED AND READRESSED. THIS EVENING WOUND BLED THROUGH THE DRESSING, CHANGED DRESSING AGAIN. PT UP TO BEDSIDE COMMODE; STOOL SAMPLE OBTAINED AND SENT TO THE LAB. PT HAD VISITORS THIS AFTERNOON. ISOLATION MAINTAINED FOR MRSA; BLOOD CULTURES CAME BACK POSITIVE. FALL PRECAUTIONS IN PLACE. CALL LIGHT IS WITHIN REACH. HOURLY ROUNDING PERFORMED.
[2017-08-01 20:00] VITALS: BP 110/45
[2017-08-02] VITALS: BP 124/60
[2017-08-02 04:00] VITALS: BP 136/53
[2017-08-02 05:19] LABS: HEMATOCRIT 31.5 % (42.0-52.0); HEMOGLOBIN 10.3 gm/dL (14.0-18.0); MCH 28.7 pg (26.0-34.0); MCHC 32.8 g/dL (28.0-37.0); MCV 87.4 fL (80.0-100.0); MPV 7.9 fl. (7.2-11.1); RBC 3.61 mil/uL (4.50-6.00); RDW-CV 15.8 % (10.5-14.5); WBC 11.9 thou/uL (4.0-11.0)
[2017-08-02 05:54] LABS: CALCIUM 8.4 mg/dL (8.5-10.1); MAGNESIUM 2.3 mg/dL (1.8-2.4); POTASSIUM 4.9 mmol/L (3.5-5.1)
[2017-08-02 05:58] LABS: CREATININE 4.8 mg/dL (0.6-1.3)
[2017-08-02 08:00] VITALS: BP 128/60
--- NOTE | 2017-08-02 08:02 | NUR ---
ASSUMED CARE OF PT AT 1930, NURSING ASSESSMENT COMPLETED AT START OF SHIFT, PT VOICED NO CONCERNS THIS SHIFT, CONTINUES ON TELE MONITOR THIS SHIFT, HOURLY ROUNDING COMPLETED, PT CONTINUES ON CONTACT PRECAUTIONS FOR MRSA. FALL PRECAUTIONS IN PLACE. PT WEARING BOOT TO LEFT FOOT, DRESSING TO LEFT FOOT CDI. PT TO HAVE DIALYSIS TODAY, NO C/O PAIN THIS SHIFT.
--- NOTE | 2017-08-02 13:00 | NUR ---
ASSUMED CARE OF PT THIS AM ASSESSED AND DOCUMENTED. PT ON CARDIAC MONITER TRACING SR HR 80. PT WAS CHANGED TO MED SURG STATUS. VSS WNL. HELD PTS BP MEDS AND PT WAS TAKEN TO DYALYSIS. PT IS TO BE MOVED TO MED SURG AND REPORT WAS CALLED IN TO [facility]. PASSED ON FROM DR SPIVEY PT TO HAVE AN MRI WITHOUT CONTRAST OF THE L FOOT. DR SPIVEY WANTS A REPORT READ STAT AND CALLED TO HIM. HE ALSO WANTS VASCULAR CONSULT AND A L FISTULA EVAL. PASSED THIS ON TO ANGELITO BARNHART. PT WAS GIVEN 650 MG OF TYLENOL FOR PAIN RATED AN 8 ON PAIN SCALE.PT HAD SOME TREMORS NOTED IN HIS BL HANDS.
[2017-08-02 16:00] VITALS: BP 135/75
--- NOTE | 2017-08-02 19:51 | NUR ---
ASSUMED CARE OF PATIENT AT 1600 AFTER DIALYSIS TREATMENT. PATIENT SETTLED TO NEW ROOM. PATIENT HAS HAD COMPLAINTS OF PAIN TO LEFT FOOT X 1, HYDROCODONE GIVEN. PATIENT WENT FOR MRI THIS EVENING. DRESSING LOOSE UPON RETURN AND REDRESSED. PATIENT IS UP STANDBY TO COMMODE. PATIENT HAS GOOD APPETITE. WILL BE NPO AFTER MIDNIGHT FOR SURGERY TOMORROW AFTERNOON. PATIENT DENIES ANY NEEDS AT THIS TIME. CALL LIGHT WITHIN REACH. WILL CONTINUE TO MONITOR.
[2017-08-02 20:00] VITALS: BP 128/63
[2017-08-02 23:56] VITALS: BP 118/49
--- NOTE | 2017-08-03 07:28 | NUR ---
PT IS ALERT AND ORIENTED THIS SHIFT, COMPLAINS OF LEFT FOOT PAIN, MANAGED WITH PO AND IV MEDICATIONS, PT CONTINUES ON IV ABX FOR MRSA INFECTION AND IS ON ISOLATION, LEFT FOOT WOUND CLENSED AND DRESSINGS CHANGED THIS AM DUE TO INCREASED DRAINAGE, PT IS NPO, TO HAVE SURGERY THIS AFTERNOON, REPORTED TO DEEPALI EATON
[2017-08-03 08:09] VITALS: BP 92/46
[2017-08-03 09:10] VITALS: BP 92/46
--- NOTE | 2017-08-03 11:41 | NUR ---
Pt to go to surgery today. SW following as pt transferred to med surg floor. From previous notes, pt plans to be able to dc home with (pt was independent with ADLs). Pt is current with [facility]...orders to be faxed for resumption of care at pt dc. Pt has RW and cane. Pt may need IV Abx at dc to be determined if OP and on dialysis days (pt goes to [facility] T, , Sat) or home with HH. Pt has hx with Belen Chanel. SW to continue to follow to assist with safe dc planning.
[2017-08-03 13:18] VITALS: BP 92/46
--- NOTE | 2017-08-03 18:55 | NUR ---
PATIENT HAS BEEN ALERT AND ORIENTED TODAY, VITAL SIGNS STABLE. WENT FOR SURGERY THIS AFTERNOON AND JUST RETURNED TO THE FLOOR AT 1840 AND IS SLEEPING. CAPNO IN PLACE AFTER RETURNING AND 2 LITERS OF OXYGEN RUNNING. VITAL SIGNS STABLE. CALL LIGHT IS IN REACH, BED ALARM, WILL CONTINUE TO MONITOR.
[2017-08-03 20:00] VITALS: BP 112/59
[2017-08-04] VITALS (7 sets, daily range): BP systolic 105–127; BP diastolic 54–61
[2017-08-04 03:53] LABS: HEMATOCRIT 30.2 % (42.0-52.0); MCH 28.8 pg (26.0-34.0); MCV 87.3 fL (80.0-100.0); MPV 7.7 fl. (7.2-11.1); RBC 3.46 mil/uL (4.50-6.00); RDW-CV 15.7 % (10.5-14.5)
[2017-08-04 04:02] LABS: CALCIUM 8.9 mg/dL (8.5-10.1); MAGNESIUM 2.3 mg/dL (1.8-2.4); POTASSIUM 4.7 mmol/L (3.5-5.1)
[2017-08-04 04:19] LABS: CREATININE 6.3 mg/dL (0.6-1.3)
--- NOTE | 2017-08-04 05:23 | NUR ---
ASSUMED CARE OF PT AT 1900 PT STILL LETHARGIC FROM SURGERY BUT AROUSABLE AND ORIENTED X4. PT VS AND ASSESSMENT STABLE. DRSG TO LLE CDI AND TYREL REMAINS IN INTACT AND DRAINING SMALL AMOUNT SEROSANGENOUS FLUID. L ARM FISTULA POSITIVE BRUIT AND THRILL. PT DENIED ANY COMPLAINTS AND SLEPT THROUGHT THE NIGHT WILL CONTINUE PLAN OF CARE.
--- NOTE | 2017-08-04 10:15 | NUR ---
AT 0830 LAB CALLED WITH A CRITICAL VANCO OF 21. AT 0835 RAFAEL SHEN NP WAS CONTACTED AND SHE RECOMMENDED THAT I CONTACT ID AND HOLD CURRENT DOSE UNTIL VALUE WAS ACKNOWLEDGED. AT 0838 DR LANIER WAS CONTACTED AND HE SAID TO LET PHARMACY DOSE THE PATIENT. TAMMY IN PHARMACY SAID TO GIVE 0900 DOSAGE AND SHE WILL ADJUST FUTURE DOSES/FREQUENCY.
--- NOTE | 2017-08-04 19:43 | NUR ---
I ASSUMED CARE OF THE PATIENT AT 0700. HE IS ALERT AND ORIENTED X4 BUT SEEMS VERY DROWSY. HE IS BEDREST AND NON WEIGHTBEARING ON THE LEFT FOOT. DR FRYE CALLED AND WILL CHANGE THE BULKY SURGICAL DRESSING ON SUNDAY. CRITICAL VALUE VANC WAS CALLED IN. ISOLATION WAS MAINTAINED FOR MRSA IN THE WOUND. PATIENT WAS TAKEN TO DIALYSIS, BUT FISTULA WAS INFILTRATED AND THEY WERE NOT ABLE TO COMPLETE, THEREFORE 1800 VANC WAS HELD PER PHARMACY. HOURLY ROUNDING WAS COMPLETED AND PATIENT NEEDS WERE MET. PAIN WAS DENIED. TYREL DRAIN IS WORKING PROPERLY. WILL CONTINUE TO MONITOR.
[2017-08-05 00:11] LABS: ABSOLUTE BASOPHILS 0.1 thou/uL (0.0-0.2); ABSOLUTE EOSINOPHILS 0.3 thou/uL (0.0-0.7); ABSOLUTE LYMPHOCYTES 1.8 thou/uL (0.8-5.3); ABSOLUTE MONOCYTES 0.9 thou/uL (0.0-1.2); ABSOLUTE NEUTROPHILS 5.3 thou/uL (1.6-8.1); BASOPHILS 1.2 %; HEMATOCRIT 28.3 % (42.0-52.0); HEMOGLOBIN 9.4 gm/dL (14.0-18.0); LYMPHOCYTES 21.4 %; MCH 28.6 pg (26.0-34.0); MCHC 33.3 g/dL (28.0-37.0); MCV 85.9 fL (80.0-100.0); MONOCYTES 10.3 %; MPV 7.2 fl. (7.2-11.1); NUCLEATED RBCS 0 /100WBC; PLATELET COUNT* 315 thou/uL (150-400); POLYS 64.1 %; RDW-CV 15.4 % (10.5-14.5); WBC 8.3 thou/uL (4.0-11.0)
[2017-08-05 03:30] VITALS: BP 114/54
--- NOTE | 2017-08-05 04:52 | NUR ---
ASSUMED CARE OF PT AT 1900 PT ALERT AND ORIENTED X4 ASSESSMENT STABLE PT HAD T 100.0 GAVE PRN TYLENOL RECHECKED TEMP AT 2300 100.0 ALL OTHER VS STABLE NOTIFIED DR OBANDO ORDERS FOR CBC W/ DIFF ORDERED. PT HAD NO COMPLAINTS AND SLEPT THROUGH THE NIGHT. WILL CONTINUE PLAN OF CARE.
[2017-08-05 07:45] VITALS: BP 110/67
[2017-08-05 15:42] VITALS: BP 102/60
--- NOTE | 2017-08-05 19:42 | NUR ---
ALERT AND ORIENTED X4. UP WITH ASSISTANCE X1 TO THE COMMODE. IV IS PATENT AND SALINE LOCKED. DENIES NEED FOR PAIN MEDICATION. DENIES NAUSEA. TOLERATING DIET. DRESSING ON RIGHT FOOT CHANGED TODAY BY DR. LINTON. TYREL DRAIN IN PLACE. VSS ON ROOM AIR. HOURLY ROUNDS HAVE BEEN MAINTAINED THROUGHOUT SHIFT. CALL LIGHT IS WITHIN REACH. NURSING WILL CONTINUE TO MONITOR.
[2017-08-05 20:00] VITALS: BP 139/55
[2017-08-06 04:13] LABS: HEMATOCRIT 26.3 % (42.0-52.0); HEMOGLOBIN 8.8 gm/dL (14.0-18.0)
[2017-08-06 04:14] LABS: ALBUMIN 2.1 g/dL (3.4-5.0); CALCIUM 7.9 mg/dL (8.5-10.1); CREATININE 6.2 mg/dL (0.6-1.3); PHOSPHORUS* 6.5 mg/dL (2.5-4.9); POTASSIUM 4.7 mmol/L (3.5-5.1)
--- NOTE | 2017-08-06 04:26 | NUR ---
PATIENT RESTING QUIETLY THIS AM ON HOURLY ROUNDS. DENIES ANY PAIN. VOIDING ADEQUATELY PER URINAL, INCONTINENT AT TIMES. DRESSING INTACT TO LEFT FOOT, PRAFO BOOT IN PLACE. VITALS STABLE. REPOSITIONED FOR COMFORT. CONTINUE TO MONITOR.
--- NOTE | 2017-08-06 08:50 | NUR ---
Pt was seen d/t hospital LOS. Pt was admitted for CP & cellulitis to E. Note DM and insulin. Pt has good appetite and is tolerating diet without issue per RN note. Chart Reviewed. Pt considered low nutrition risk.
[2017-08-06 09:51] VITALS: BP 144/48
--- NOTE | 2017-08-06 12:35 | NUR ---
PATIENT HAS BEEN SLEEPING MOST OF THE DAY TODAY, NO COMPLAINTS OF ANY KIND. PATIENT IS GOING DOWN TO HAVE DIALYSIS FISTULA WORKED ON THIS AFTERNOON. VITAL SIGNS HAVE BEEN STABLE TODAY ON ROOM AIR. MEDICATIONS HELD TODAY EXCEPT HALF DOSE OF LEVEMIR AND CARVEDILOL. CALL LIGHT IS IN REACH, WILL CONTINUE TO MONITOR UNTIL REPORT IS PASSED ON TO ONCOMING NURSE.
[2017-08-06 13:48] VITALS: BP 144/48
[2017-08-06 13:49] VITALS: BP 92/46
[2017-08-06 13:50] VITALS: BP 92/46
--- NOTE | 2017-08-06 17:58 | NUR ---
PATIENT IS OFF UNIT AT THIS TIME. HAS BEEN ALERT AND ORIENTED X4. UP WITH STAND BY ASSIST TO THE COMMODE. IV PATENT AND SALINE LOCKED PRIOR TO LEAVING THE UNIT. VSS ON ROOM AIR. HOURLY ROUNDS HAVE BEEN MAINTAINED THROUGHOUT SHIFT WHILE ON UNIT. NURSING WILL CONTINUE TO MONITOR UPON ARRIVAL BACK TO UNIT.
[2017-08-06 20:20] VITALS: BP 128/60
[2017-08-06 23:55] VITALS: BP 105/47
[2017-08-07 03:35] VITALS: BP 104/52
[2017-08-07 04:22] LABS: CALCIUM 8.5 mg/dL (8.5-10.1); CREATININE 6.5 mg/dL (0.6-1.3); MAGNESIUM 2.4 mg/dL (1.8-2.4); POTASSIUM 5.1 mmol/L (3.5-5.1)
--- NOTE | 2017-08-07 05:17 | NUR ---
PT SLEPT ON AND OFF THROUGH NIGHT. ASSESSMENT DOCUMENTED. MEDS GIVEN PER E-AUG. IV PATENT. PT REPORTED PAIN IN HIS LOWER EXTREMETIES, TYLENOL GIVEN PER E-MAR WITH RELIEF. BANDAGE ON RIGHT FOOT C/D/I. DRESSING ON LEFT FOREARM C/D/I. INCISION ON LEFT AC IS WELL APROXIMATED, AREA DOES HAVE SOME EDEMA, BRUIT AND THRILL PRESENT. NO CONCERNS AT THIS TIME.
[2017-08-07 07:35] VITALS: BP 116/54
--- NOTE | 2017-08-07 12:04 | OP ---
[address] [address] OPERATIVE REPORT Name: JESSICA GARCES Room: [address] IN .R.#: [id number] Admission: 07/30/17 Attend Phys: Alexis Chavez MD Discharge: Date of : 53 Report #: [id number] THIS REPORT FOR: //name// CC: Alexis Suresh DATE OF SERVICE: 08/06/2017 PREOPERATIVE DIAGNOSIS: End-stage renal disease with poorly functioning left radiocephalic arteriovenous fistula. POSTOPERATIVE DIAGNOSIS: End-stage renal disease with poorly functioning left radiocephalic arteriovenous fistula. OPERATION: 1. Ultrasound-guided access to the left internal jugular vein. 2. Placement of left IJ tunneled dialysis catheter. 3. Creation of left brachiocephalic fistula. 4. Ligation of left radiocephalic fistula. SURGEON: Gutierrez Dubose DO GEOLOGICAL AIDE: None. ANESTHESIA: General LMA. ESTIMATED BLOOD LOSS: 75 mL. FLUIDS: 250 crystalloid. URINE OUTPUT: None. SPECIMENS: None. COMPLICATIONS: None. IMPLANTS: Bard RetrO 23 cm tunneled dialysis catheter in the left IJ. CLINICAL HISTORY: The patient is a 62-year-old man with end-stage renal disease, has been dialyzing through a left radiocephalic fistula; however, he has had multiple issues with this requiring multiple percutaneous interventions, most recently last week; however, over the week is accessing it. It was evaluated by Dr. Mayer, who recommended conversion to a left brachiocephalic fistula with tunneled dialysis catheter placement. [place] [address] OPERATIVE REPORT Name: JESSICA GARCES Room: [address] IN [facility].#: [id number] Admission: 07/30/17 Attend Phys: Alexis Chavez MD Discharge: Date of : 53 Report #: [id number] DETAILS OF PROCEDURE: After informed consent was obtained, the patient was taken to the operating room and placed on the OR bed in supine position. His left neck was prepped and draped in the usual sterile fashion. Full timeout was performed identifying correct patient and procedure. He was administered general anesthesia by the Anesthesia Team. Next, using ultrasound guidance, the left IJ was accessed with an 18 gauge needle. These images were preserved. Using a Seldinger technique, a wire was passed under fluoroscopic guidance in the IVC. A small skin incision was made in the neck. I then passed the introducer sheath over the wire and the second wire was passed under fluoroscopic guidance down the IVC. The tract was then serially dilated and then the catheter was passed over the wires with the tip at the right atrium SVC junction. The wires and stylets were removed. A small skin incision was made on the left chest wall. I then passed the tunneler in retrograde up to the left internal jugular vein. The catheter was affixed and tunneled under fluoroscopic guidance to ensure no kink or twist. The catheter was then tailored to length and both ports were applied. Both ports aspirated and flushed well. Both ports were then packed with concentrated heparin. Catheter was then secured into the left chest wall with 3-0 Monocryl suture and the neck incision was closed with 3-0 Monocryl suture. Sterile dressing was applied. We then turned our attention to the left upper extremity, which was then prepped and draped in usual sterile fashion. At this point, I made a transverse incision just proximal to antecubital fossa. Dissection was carried down through skin and subcutaneous tissues. I identified the cephalic vein, which was circumferentially mobilized proximally and distally and controlled with Silastic vessel loop. I then dissected out the left brachial artery, again circumferentially dissected this free proximally and distally and controlled with Silastic vessel loops in Galaviz fashion. I then administered 5000 units of intravenous heparin. This was allowed to circulate for 3 minutes. I then transected the vein distally and ligated the stump with a 2-0 silk suture ligature. I then tailored the vein her. The vein was easily 5-6 mm in diameter. I flushed with heparinized saline and marked it to prevent axial rotation. I then occluded the brachial artery. I made an arteriotomy and extended with Galaviz scissors. I then performed an end-to-side anastomosis with running 6-0 Prolene suture. Prior to completion of the suture line, the vein was allowed to backbleed. I then fore and backbled the artery and flushed the anastomosis with heparinized saline, completed the suture line and restored flow first up the fistula and then distally to the hand. He had a good thrill in the cephalic vein in the upper arm that augmented with proximal brachial artery compression. At this point, I partially reversed the heparin with 30 mg of protamine. Once hemostasis was ensured in the wound, it was irrigated with antibiotic solution and was closed in layers with 3-0 Vicryl and 4-0 Monocryl on the skin. I then turned my attention to the left wrist. I made a small incision over the cephalic vein, circumferentially dissected this free and ligated with 2-0 silk ties. Doppler interrogation confirmed no further flow through the radiocephalic fistula. At this point, the wound was irrigated. It was closed in layers with 3-0 Vicryl and 4-0 Monocryl on [place] [address] OPERATIVE REPORT Name: JESSICA GARCES Room: [address] IN M.R.#: [id number] Admission: 07/30/17 Attend Phys: Alexis Chavez MD Discharge: Date of : 53 Report #: [id number] was applied to all incisions. All sponge, sharp and instrument counts were reported as correct x 2. He tolerated the procedure well and was transferred to recovery room in stable condition. <ELECTRONICALLY SIGNED> By: Gutierrez Dubose DO 08/07/17 1204 1731 1828Amakayla Dubose DO /nt
--- NOTE | 2017-08-07 12:39 | CON ---
[address] [address] CONSULTATION Name: GARCESJESSICA E Room: [address] IN M.R.#: [id number] Admission: 07/30/17 Attend Phys: Alexis Chavez MD Discharge: Date of : 53 Report #: [id number] THIS REPORT FOR: //name// CC: Alexis Suresh DATE OF SERVICE: 07/31/2017 CONSULTING PHYSICIAN: Dr. Lopez. REASON FOR CONSULTATION: End-stage renal disease for maintenance hemodialysis. CHIEF COMPLAINT: Chest pain and left foot redness. HISTORY OF PRESENT ILLNESS: This is a 62-year-old male who has a past medical history of end-stage renal disease, goes to dialysis at [facility] [place], every Sunday, and Sunday; history of bilateral feet amputation of select toes with history of MRSA there, came in with a chief complaint of chest pain and he was also having pain in his left foot. Left foot x-ray shows osteomyelitis of distal second metatarsal bone. His troponin is negative and he is not having any chest pain right now. He is hemodynamically stable. His last dialysis was on Sunday. REVIEW OF SYSTEMS: The patient is not having any pain right now. A 10-point review of systems done, negative currently. PAST MEDICAL AND SURGICAL HISTORY: Includes: 1. CABG. 2. Diabetes type 2. 3. Hypertension. 4. Amputation of right great and right second toe. 5. MRSA of bilateral feet. 6. Seven heart attacks. 7. Fourteen stents. 8. Bilateral shoulder surgeries, carpal tunnel surgery, also has an artificial aortic valve, peripheral vascular disease, hyperlipidemia. 9. Stomach surgery. 10. He has a left arm AV graft. ALLERGIES: Reviewed. FAMILY HISTORY: Noncontributory. HOME MEDICATIONS: Reviewed. SOCIAL HISTORY: Does not smoke, drink alcohol [place] [address] CONSULTATION Name: JESSICA GARCES Room: [address]#: [id number] Admission: 07/30/17 Attend Phys: Alexis Chavez MD Discharge: Date of : 53 Report #: [id number] PHYSICAL EXAMINATION: VITAL SIGNS: Blood pressure is 144/57, temperature 36.3, pulse rate 71, respiratory rate is 18. He is on 2 L nasal cannula, pulse ox 95%. GENERAL: He is awake, alert, oriented x 3, no acute distress. HEAD, EYES, EARS, NOSE, THROAT: Mucous membranes are moist. NECK: No JVD. LUNGS: Clear to auscultation bilaterally. No crackles or wheezing. CARDIOVASCULAR: S1, S2 normal. No murmurs heard. ABDOMEN: Soft and nontender. Bowel sounds are present. EXTREMITIES: He has a left arm AV graft with good bruit. Lower extremities, he has symmetrical extremities and he has no edema and his left foot is in a dressing. NEUROLOGIC: Grossly neurological function is intact. PSYCHIATRIC: Mood and affect seem to be normal. LABORATORY DATA: Hemoglobin 10.4. Potassium was 3.7 yesterday and sodium was 129, but his glucose was 387. Other labs were reviewed. IMAGING: Chest x-ray and foot x-ray findings were reviewed. ASSESSMENT: 1. End-stage renal disease, on hemodialysis. 2. Hyponatremia. 3. Chest pain. 4. Left foot osteomyelitis. 5. Hypertension. PLAN: Blood pressure is currently controlled. From our standpoint, he will be dialyzed today as per his TTS dialysis schedule. His corrected sodium is 134, so it is not that bad. He is getting antibiotics for his left foot osteomyelitis as per primary team. His first troponin was negative. He is also going to be evaluated by Cardiology. Thank you for this consultation. I will continue to follow along. <ELECTRONICALLY SIGNED> By: Vani Faulkner MD 08/07/17 1239 0833 1058Anandini Faulkner MD /nt
--- NOTE | 2017-08-07 15:52 | S ---
[address] [address] SURGICAL PATH RPT PROCEDURE Name: VARGAS RODRIGUEZ Room: [address] IN M.R.#: [id number] Admission: 07/30/17 Date of : 53 Discharge: Report #: [id number] Path Case #: [id number] PATHOLOGY REPORT COLLECTION DATE: 08/03/2017 RECEIVED DATE: 08/03/2017 SUBMITTING PHYS: Dr. Holden Vee OTHER PHYS: Dr. Alexis Suresh SPECIMEN(S) RECEIVED: A.1st and 2nd metatarsals and 1st and 3rd toes left * * * * * * * * * * * * FINAL DIAGNOSIS: First and second metatarsals and first and third toes left: - Benign great toe with suggestion of remote fracture in phalangeal bone, without osteomyelitis. - Smaller (third) toe with chronic inflammation of soft tissues associated with stromal hemosiderin deposition and osteomyelitis near proximal aspect, with disarticulation margin free of involvement. - Larger (first) metatarsal segment with acute and chronic inflammation associated with abundant eosinophils in soft tissues near mid region with adjacent osteomyelitis and with transection margin free of osteomyelitis. - Second metatarsal segment with evidence or remote instrumentation and minimal osteomyelitis at one end and opposite transection end free of involvement. - Severe calcifying arteriosclerosis. - See comment. COMMENT: Per discussion of the operative findings with Dr. Tony Vee on afternoon of 08/07/17, the left distal first and second metatarsals were transected, with the 2nd toe having been previously, remotely amputated and the left great toe and third toe were disarticulated, with cultures also submitted from bone of left second metatarsal and from soft tissue left foot. The significance of the eosinophils in the inflammatory infiltrate in the soft tissues of the mid great toe metatarsal is not known but raises a question of an allergic response. (RICCARDO:db; 08/07/2017) PATHOLOGIST: Saw Troncoso M.D. REPORT ELECTRONICALLY SIGNED BY: Swa Troncoso M.D. DATE/TIME: 08/07/2017 15:52 * * * * * * * * * * * * [place] [address] SURGICAL PATH RPT PROCEDURE Name: VARGAS RODRIGUEZ Room: [address] IN [facility]#: [id number] Admission: 07/30/17 Date of : 53 Discharge: Report #: [id number] Path Case #: [id number] GROSS PATHOLOGY: The specimen is received in formalin labeled "Vargas Rodriguez, first and second metatarsals and first and third toe left foot". Received are two amputated digits measuring 8.3 x 4.8 x 3.4 and 6.5 x 2.6 x 2.0 cm in greatest dimensions. The bone margin of the large toe is smooth and concave in appearance, consistent with disarticulation. The bone and soft tissue margin is inked black. The nail is absent. The epidermal surface is pale chaudhry and wrinkled with a slight amount of overlying red-brown possible blood near the soft tissue margin. The bone margin of the smaller toe is not grossly identified. The soft tissue margin is inked black. The nail is present and is pale chaudhry and grossly unremarkable. The epidermal surface is pale chaudhry and wrinkled. The specimen is submitted representatively as follows: A1-A3 full-thickness longitudinal cross-section through large toe, from proximal to distal aspects, following decalcification A4-A6 full-thickness longitudinal cross-section through smaller toe, from proximal to distal aspects, following decalcification. Also received within the specimen container are two segments of bone measuring 5.3 x 3.6 x 2.1 and 3.4 x 1.2 x 1.2 cm in greatest dimension. The bone margins are blunt in appearance, consistent with transection. The bone margins are inked blue. The specimen is submitted representatively as follows: A7-A9 full-thickness longitudinal cross-section of larger segment of bone, from proximal to distal aspects, following decalcification A10-A11 full-thickness longitudinal cross-section of smaller segment of bone, from proximal to distal aspects, following decalcification. (CAA; 08/06/2017) CLINICAL HISTORY: Osteomyelitis left foot, end-stage renal disease INITIAL CPT CODE(S): A; 62372, 04891 Professional services performed by [facility] [place] [address] Technical services performed by [id number] at [address] [place] [address], [address], [place] [address]. [facility] [place] [address] PHONE: [phone] DIRECTOR: [place] [address] SURGICAL PATH RPT PROCEDURE Name: VARGAS RODRIGUEZ Room: [address] IN M.R.#: [id number] Admission: 07/30/17 Date of : 53 Discharge: Report #: [id number] Path Case #: [id number] * * * END OF REPORT * * *
[2017-08-07 16:00] VITALS: BP 119/57
--- NOTE | 2017-08-07 16:13 | NUR ---
PATEINT A&OX4, ROOM AIR, IV RIGHT FOREARM SALINE LOCK. UP WITH ASSISTX1 WITH NONWEIGHT BEARING TO LEFT FOOT. C/O PIAN, PARTIAL RELIEF WITH MEDICATION. NO C/O N/V. DIALYSIS TODAY, TEMPORY FISTULA LEFT CHEST. NO OTHER CONCERNS AT THIS TIME. APPROPRIATE AND COOPORATIVE WITH CARE.
[2017-08-07 20:00] VITALS: BP 113/53
--- NOTE | 2017-08-08 05:58 | NUR ---
ASSUMED PATIENT CARE AT 1900. PATIENT ALERT AND ORIENTED TIMED FOUR. DRESSING ON RIGHT FOOR CLEAN DRY AND INTACT. FALL RISK PRECAUTIONS IN PLACE. MINOR COMPLAINT OF "ACHINESS" IN LEFT UPPER ARM AREA WHERE NEW FISTULA WAS PLACED. FISTULA IS OPEN TO AIR, NO ORDERS FOUND FOR DRESSING. ALL OTHER WOUNDS ARE DRESSED AT THIS TIME. STAFF RADIOGRAPHER COMPLETED DOCUMENTED. HOURLY ROUNDING OCOMPLETED. IV PATENT TO FLUSHES.
[2017-08-08 08:00] VITALS: BP 102/44
[2017-08-08] MEDS ORDERED: VAN500AD IV (12:00)
[2017-08-08] MEDS ORDERED: NORCO 10-325 T1 EACH PO (12:07)
[2017-08-08 12:13] VITALS: BP 144/48
--- NOTE | 2017-08-08 13:12 | OP ---
[address] [address] OPERATIVE REPORT Name: JESSICA GARCES Room: [address] IN M.R.#: [id number] Admission: 07/30/17 Attend Phys: Alexis Chavez MD Discharge: Date of : 53 Report #: [id number] THIS REPORT FOR: //name// CC: Alexis Suresh MD DATE OF SERVICE: 08/03/2017 SURGEON: Holden Vee DPM PREOPERATIVE DIAGNOSIS: Osteomyelitis, left foot with nonhealing ulceration. POSTOPERATIVE DIAGNOSIS: Osteomyelitis, left foot with nonhealing ulceration. PROCEDURE: 1. Resection of left distal first and second metatarsals and left great toe and left third toes. 2. Pedicle skin flap, left foot. 3. Incision and drainage, left foot. ANESTHESIA: MAC. INJECTABLES: 30 mL of a 1:1 mixture of 0.5% Marcaine plain and 1% lidocaine plain. HEMOSTASIS: Left ankle pneumatic tourniquet at 275 mmHg. SPECIMENS: Left first and second metatarsals and first and third toes. CULTURES: 1. Bone, left second metatarsal, aerobic and anaerobic. 2. Soft tissue, left foot, aerobic and anaerobic. ESTIMATED BLOOD LOSS: Minimal. SUTURES: 3-0 nylon and 4-0 nylon. COMPLICATIONS: None. DESCRIPTION OF PROCEDURE: The patient was brought to the OR and placed on the table supine with induction of MAC anesthesia. A well-padded ankle pneumatic tourniquet was placed and a local ankle block was given. The extremity was prepped and draped aseptically. The foot was then exsanguinated with inflation of the tourniquet and a #10 blade was used to create a fishmouth incision around the remaining portion of the left distal foot. [place] [address] OPERATIVE REPORT Name: GARCESJESSICA Room: [address] IN [facility]#: [id number] Admission: 07/30/17 Attend Phys: Alexis Chavez MD Discharge: Date of : 53 Report #: [id number] utilized along with electrocautery for hemostasis. Dissection carried down to the proximal aspect of the first and second metatarsals, which were transected with a sagittal saw and removed. The great toe was also removed with the tibial and fibular sesamoids and the third toe was also removed. There was extensive lysis of the distal second metatarsal consistent with osteomyelitis. The bone was soft, discolored, and fragmented. The distal first metatarsal was also discolored and soft, as was the base of the great toe. The soft tissues surrounding the first MTP was inflamed and infected consistent with cellulitis and deep tissue infection. The skin flaps were reremodeled and the wounds were debrided of all tendons and as much infected tissue as possible. It was flushed with 1 liter of sterile saline with bacitracin irrigant and cauterization was further used. The plantar medial skin flap was mobilized dorsolaterally and sutured with simple interrupted fashion of 3-0 and 4-0 nylon. A #10 round TYREL was placed in the wound prior to complete closure. The tourniquet was deflated with vascular return to the carlos-incisional margins. A sterile bandage with Aquacel Ag, 4 x 4s, fluffs, Kerlix and Mathew were applied. The patient left the OR alert and oriented with no pain or complications. <ELECTRONICALLY SIGNED> By: Holden Vee DPM 08/08/17 1312 1328 1617Daantoinette Vee DPM /nt
--- NOTE | 2017-08-08 13:12 | CON ---
[address] [address] CONSULTATION Name: GARCESJESSICA E Room: [address] IN M.R.#: [id number] Admission: 07/30/17 Attend Phys: Alexis Chavez MD Discharge: Date of : 53 Report #: [id number] THIS REPORT FOR: //name// CC: Alexis Suresh MD CHIEF COMPLAINT: Followup of ulceration of left plantar first MTP joint with cellulitis. The patient's blood culture grew Staph aureus x 1. He is on parenteral vancomycin. Recent left foot x-ray shows bone resorption to the left second metatarsal, although I have worked on that bone through an open wound at [facility]. I performed serial bone debridements in the wound care setting using a rongeur to remove the distal aspect of the second metatarsal, which was necrotic consistent with osteomyelitis. Pathology of second metatarsal collected on 05/09/2017 was positive for osteomyelitis. He has been afebrile today, feels slightly better with less pain to both feet. LABORATORY DATA: WBC 11.0, RBC 3.77, hemoglobin 10.7, hematocrit 32.5, platelets 272. BUN 36, creatinine 3.5, glucose 213. PHYSICAL EXAMINATION: Ulceration to the left plantar first MTP is relatively unchanged since last week's wound care visit, although there has been a development of inflammation consistent with moderate cellulitis. There is no exposed bone, tendon or joint. There is no undermining, fluctuance or crepitation. The wound has a red granular base with an overlying thin film of translucent slough. There is mild macerated callus around parts of the large wound margin. The inflammation is surrounding the entire wound periphery and extends to the dorsal medial foot. There is no pallor, cyanosis or signs of acute vascular embarrassment. He does have dopplerable right dorsalis pedis and posterior tibial pulses. There is no right popliteal adenopathy or lymphangitis. The wound overlying the distal second metatarsal is well healed with no inflammation. IMPRESSION: Chronic ulceration, left plantar first metatarsophalangeal with cellulitis, septicemia, diabetes mellitus with peripheral arterial disease. PLAN: Excisional ulcer debridement with a scalpel to surgically excise subcutaneous tissue and slough from the left plantar foot wound. Bleeding was stopped with pressure. The wound was cleansed and rewrapped with silver foam, Kerlix gauze, and PRAFO boot. I performed an aerobic and anaerobic swab culture of the wound. I ordered a noninvasive arterial Doppler study with ABIs, segmental pressures and PVRs. I suspect he has adequate [place] [address] CONSULTATION Name: JESSICA GARCES Room: [address] IN .R.#: [id number] Admission: 07/30/17 Attend Phys: Alexis Chavez MD Discharge: Date of : 53 Report #: [id number] since he healed the second toe amputation and distal metatarsal site well over the last many weeks. <ELECTRONICALLY SIGNED> By: Holden Vee DPM 08/08/17 1312 1617 0527Holden Vee DPM /nt
--- NOTE | 2017-08-08 13:12 | CON ---
[address] [address] CONSULTATION Name: JESSICA GARCES Room: [address] IN M.R.#: [id number] Admission: 07/30/17 Attend Phys: Alexis Chavez MD Discharge: Date of : 53 Report #: [id number] THIS REPORT FOR: //name// CC: Alexis Suresh MD DATE OF SERVICE: 08/02/2017 CHIEF COMPLAINT: Followup of a chronic ulceration to the left plantar forefoot with cellulitis. His blood culture grew MRSA, as well as recent wound culture. He is on parenteral vancomycin with good tolerance. He is currently on hemodialysis. He is somewhat lethargic today, although responds to voice commands. He says he is tired, he relates left distal foot pain. Noninvasive arterial Doppler report is pending. Foot radiographs negative for bone destruction to the first MTP or first metatarsal. He has had resection of the distal right third metatarsal through his existing wound at the [facility] with subsequent overlying wound healing at the second toe amputation site. I spoke with his dialysis nurse, and she says his left fistula is sluggish and occludes easily. He does have an upcoming appointment with the vascular surgeon for a fistulogram; however, perhaps we can have this addressed during his current hospitalization. LABORATORY DATA: WBC 11.9, RBC 3.61, hemoglobin 10.3, hematocrit 31.5, platelets 282. BUN 52, creatinine 4.8, glucose 252. PHYSICAL EXAMINATION: Temperature 97.6, pulse 77, respirations 14, blood pressure 136/53. The left foot remains inflamed surrounding the plantar first MTP wound, relatively unchanged since yesterday. The foot is warm to the touch, immediate periwound capillary refill. No exposed bone, tendon or joint. The cellulitis appears roughly the same as yesterday. No pallor, cyanosis or signs of acute vascular embarrassment. IMPRESSION: Soft, chronic ulceration with soft tissue infection, rule out osteomyelitis to first metatarsophalangeal. PLAN: I ordered a Vascular Surgery consult to evaluate both the blood flow to the left lower extremity as well as his left arm fistula. I ordered a stat MRI without contrast to evaluate for osteomyelitis. [place] [address] CONSULTATION Name: JESSICA GARCES Room: [address] IN [facility]#: [id number] Admission: 07/30/17 Attend Phys: Alexis Chavez MD Discharge: Date of : 53 Report #: [id number] completion of the transmetatarsal amputation pending radiology results and clinical progress. <ELECTRONICALLY SIGNED> By: Holden Vee DPM 08/08/17 1312 1227 1852Dmarta Vee DPM /ana
--- NOTE | 2017-08-08 13:12 | CON ---
[address] [address] CONSULTATION Name: DEZJESSICA Rock Room: [address] IN M.R.#: [id number] Admission: 07/30/17 Attend Phys: Alexis Chavez MD Discharge: Date of : 53 Report #: [id number] THIS REPORT FOR: //name// CC: Alexis Suresh DATE OF SERVICE: 08/03/2017 CHIEF COMPLAINT: Follow up regarding chronic ulceration to the left plantar forefoot with chronic osteomyelitis to the distal second metatarsal and cellulitis. The patient's blood culture grew MRSA x 1, and foot wound from 07/30/2017 labelled blister grew MRSA as well. The left foot wound that I cultured is currently growing Staph aureus with pending sensitivities. He is on parenteral vancomycin with good tolerance. Left foot radiographs from 07/30/2017 show osteomyelitis of the distal second metatarsal bone with periosteal reaction. He did have confirmed osteomyelitis in this region from submitted bone I had previously removed in the outpatient wound clinic. MRI from 08/02/2017 shows findings consistent with osteomyelitis of the distal second metatarsal with probable extension to the proximal aspect to the level of the second metatarsal base. There is periosteal reaction and abnormal marrow signal consistent with osteomyelitis. There are no findings consistent with osteomyelitis to the first metatarsal or great toe. There are no new labs for review. He relates a slight decrease in left foot pain since yesterday. The patient has poor function of his left arm fistula graft, and requires surgical intervention for proper function. PHYSICAL EXAMINATION: Large plantar ulceration to left first MTP extending to the second metatarsal head unchanged in size since hospital admission. The inflammation is still fairly high grade, but decreased since yesterday. There is a red granulation tissue across the base of the first metatarsal head extending to the second metatarsal head region. There is some translucent slough overlying the granular bed with slough and callus around the margin. The foot is warm with no pallor, cyanosis or signs of acute vascular embarrassment. He has had prior transmetatarsal amputation of the left third, fourth and fifth metatarsals, so he only has the first and second metatarsals remaining. The second toe has previously been amputated, and he does have a third toe, there is no third metatarsal bone, so it is basically an appendage. IMPRESSION: Osteomyelitis, left second metatarsal with chronic ulceration and MRSA septicemia. PLAN: I discussed all the treatment options with the patient and his verbally today. We discussed conservative care such as prolonged oral and/or IV antibiotics and localized wound care when offloading. We also discussed possible surgical procedures, including resection [place] [address] CONSULTATION Name: GARCESJESSICA E Room: [address] IN .R.#: [id number] Admission: 07/30/17 Attend Phys: Alexis Chavez MD Discharge: Date of : 53 Report #: [id number] the second metatarsal versus removing an adjacent portion of the first metatarsal and great toe to attempt wound closure and give a more functional foot. The patient and his would like me to complete the transmetatarsal amputation through the first metatarsal bone, so that he will have a better chance of a more functional foot to bear weight in the future and hopefully eradicate the ulceration to the plantar foot. Certainly, by resecting the distal first metatarsal and removing the great toe, I will be able to remove most if not all the existing wound and hopefully achieve primary surgical closure. The patient understands the risks of blood loss and he is a Christianity and will not take blood transfusion products. His hemoglobin is currently at 10.3 as of yesterday, and he is willing to proceed with the surgery. He understands that he will have some degree of blood loss and his hemoglobin will likely drop. He and his understand this and they want to proceed with the surgery since they have done conservative treatment with previous IV antibiotics and the wound has not resolved and he has become septic. We will plan surgery today in conjunction with Dr. Mayer working on his left arm fistula. <ELECTRONICALLY SIGNED> By: Holden Vee DPM 08/08/17 1312 1318 [id number] Vee DPM /nt
--- NOTE | 2017-08-08 13:12 | CON ---
[address] [address] CONSULTATION Name: JESSICA GARCES Room: [address] IN M.R.#: [id number] Admission: 07/30/17 Attend Phys: Alexis Chavez MD Discharge: Date of : 53 Report #: [id number] THIS REPORT FOR: //name// CC: Alexis Suresh MD DATE OF SERVICE: 08/05/2017 CHIEF COMPLAINT: Postoperative day #2 for completion of left transmetatarsal amputation, which consisted of resection of left second and first metatarsals along with third digit and great toe. Surgical bone and tissue culture is growing MRSA. Surgical pathology is pending. He is on parenteral vancomycin with no intolerance. Apparently, his left arm fistula was not functioning well enough for dialysis yesterday, so they will attempt dialysis today. I have been told that Vascular Surgery has been informed of this. He has been afebrile since surgery. He spiked a 100.0 fever yesterday, but is now afebrile. His TYREL output has been 15 mL since surgery, although it did come off in the middle of the night with drainage on his bed sheets. He denies pain to the left foot. LABORATORY DATA: WBC 8.3, RBC 3.30, hemoglobin 9.4, hematocrit 28.3, platelets 315. BUN 51, creatinine 6.3, glucose 163. PHYSICAL EXAMINATION: Incision well coapted with mild inflammation to the medial aspect. No dehiscence, drainage, bleeding or necrosis. TYREL drain is functioning. The foot is warm with no pallor, cyanosis or signs of acute vascular embarrassment. No calf pain or popliteal adenopathy to either extremity. No postoperative complications thus far. PLAN: The incision and heel wounds were cleansed and redressed with Aquacel Ag, ABDs and Kerlix gauze with PRAFO boot. Continue nonweightbearing and elevation. Planned dialysis today pending the patient's fistula status. <ELECTRONICALLY SIGNED> By: Holden Vee DPM 08/08/17 1312 1147 [id number] Vee DPM /nt
--- NOTE | 2017-08-08 13:12 | CON ---
[address] [address] CONSULTATION Name: JESSICA GARCES Room: [address] IN M.R.#: [id number] Admission: 07/30/17 Attend Phys: Alexis Chavez MD Discharge: Date of : 53 Report #: [id number] THIS REPORT FOR: //name// CC: Alexis Suresh The patient is well known to me from outpatient wound care and prior foot surgeries. He was admitted for chest pain with coronary artery disease. His foot was cleansed and redressed today by the wound nurse, and there is no inflammation or cardinal signs of infection to it. I have reviewed their note and foot photos. I agree with topical wound treatment, I will see him tomorrow and change the bandage as I would do during his weekly wound care visit. <ELECTRONICALLY SIGNED> By: Holden Vee DPM 08/08/17 1312 1235 [id number] Vee DPM /nt
--- NOTE | 2017-08-08 13:12 | CON ---
[address] [address] CONSULTATION Name: JESSICA GARCES Room: [address] IN M.R.#: [id number] Admission: 07/30/17 Attend Phys: Alexis Chavez MD Discharge: Date of : 53 Report #: [id number] THIS REPORT FOR: //name// CC: Alexis Suresh DATE OF SERVICE: 08/06/2017 CHIEF COMPLAINT: Status post left foot surgery for resection distal first and second metatarsals for completion of the transmetatarsal amputation. Surgical bone and tissue growing MRSA, surgical pathology pending. He is on parenteral vancomycin. He is scheduled for a vascular procedure to the right arm today for dialysis access. He is tired, relates low grade left foot pain. Today's H and H was 8.8 and 26.3. PHYSICAL EXAMINATION: Incisions are well approximated. Minimal inflammation, no zhanna cellulitis. There is no dehiscence or drainage. The foot is warm to the touch with no pallor, cyanosis or signs of acute vascular embarrassment. TYREL drain is functioning. Heel wound was inspected and stable with contraction with smaller measurements since last week. No exposed bone, tendon or joint. No inflammation to the left heel wound. PLAN: The incision and heel wound were cleansed and redressed with Aquacel Ag, ABDs, and Kerlix gauze. He is offloading in a PRAFO boot. <ELECTRONICALLY SIGNED> By: Holden Vee DPM 08/08/17 1312 1351 [id number] Vee DPM /nt
--- NOTE | 2017-08-08 15:34 | OP ---
[address] [address] OPERATIVE REPORT Name: GARCESJESSICA E Room: [address] IN .R.#: [id number] Admission: 07/30/17 Attend Phys: Alexis Chavez MD Discharge: Date of : 53 Report #: [id number] THIS REPORT FOR: //name// CC: Alexis Suresh DATE OF SERVICE: 08/03/2017 PREOPERATIVE DIAGNOSIS: End-stage renal disease with poorly-functioning left upper extremity radiocephalic fistula. POSTOPERATIVE DIAGNOSIS: End-stage renal disease with poorly-functioning left upper extremity radiocephalic fistula. SURGEON: Robbin Mayer DO. CIRCUIT CLERK: Tonia Hirsch PA-C. ANESTHESIA: General. ESTIMATED BLOOD LOSS: Minimal. PROCEDURE: 1. Ultrasound-guided access of left cephalic vein. 2. Fistulogram. 3. Angioplasty with a 4 x 40 mm and 6 x 40 mm Ultraverse balloon at radiocephalic anastomosis. SPECIMEN: None. COMPLICATIONS: None. CONDITION: Stable. DISPOSITION: Floor. INDICATIONS FOR THE PROCEDURE AND CONSENT: The patient is a 62-year-old male with left upper extremity radiocephalic fistula, which has been declining in function over the last several weeks. He last had a fistulogram with angioplasty in April by my partner, Dr. Dubose, who ballooned the inflow anastomosis. This was likely a restenosing and a recommendation for repeat fistulogram with possible intervention, possible tunneled dialysis catheter, possible revision was made. Risks and benefits were discussed including infection, bleeding, need for additional procedures, pain, damage to the fistula, stroke, heart attack, . The patient wished to proceed, was consented and scheduled. [address] [address] OPERATIVE REPORT Name: GARCESJESSICA E Room: [address] IN .R.#: [id number] Admission: 07/30/17 Attend Phys: Alexis Chavez MD Discharge: Date of : 53 Report #: [id number] PROCEDURE IN DETAIL: After timeout was performed, the patient was placed in supine position with circumferential sterile prep and drape of left upper extremity. Ultrasound was utilized to map out the radiocephalic fistula. Two side branches were noted in the proximal forearm approaching the antecubital fossa. The rest of the cephalic vein fistula appeared to be free of significant branching. A soft portion of the vein away from usual access site was selected and a 5-Pakistani micropuncture needle used to access the vein. A micropuncture wire advanced, the needle was retracted and 5-Pakistani micropuncture sheath advanced over wire. This was then exchanged for a 5-Pakistani sheath. The fistula was then compressed and a retrograde fistulogram performed which demonstrated severe stenosis of the inflow anastomosis and a small 2-3 mm radial artery was noted. Although there was good flow, this was clearly inhibiting the flow within the fistula and likely the source of the patient's clinical difficulties. The patient was systemically heparinized with 4000 units of heparin. A Glidewire Advantage then advanced through the anastomosis into the radial artery distally. I was unable to advance it retrograde into the radial artery. The anastomosis was then ballooned with a 4 mm and 6 mm sequential angioplasty. Repeat fistulogram demonstrated improved radiographic result with improved inflow. Additionally, I did an outflow venogram, which demonstrated an excellent cephalic vein. I did additional ultrasound at proximal antecubital fossae. The patient does have an excellent cephalic vein for new brachiocephalic fistula formation. There was some concern of brachial artery stenosis at this level as well and this may need to be further worked up if brachiocephalic fistula is created. A sheath and wire were then removed and pressure was held for hemostasis. The patient tolerated the procedure well. All lap, needle, and instrument counts correct. <ELECTRONICALLY SIGNED> By: Robbin Mayer DO 08/08/17 1534 1740 [id number] Mayer DO /nt
--- NOTE | 2017-08-08 15:35 | CON ---
[address] [address] CONSULTATION Name: JESSICA GARCES Room: [address] IN .R.#: [id number] Admission: 07/30/17 Attend Phys: Alexis Chavez MD Discharge: Date of : 53 Report #: [id number] THIS REPORT FOR: //name// CC: Alexis Suresh DATE OF SERVICE: 08/02/2017 REASON FOR CONSULTATION: End-stage renal disease with poorly functioning left upper extremity arteriovenous fistula, peripheral artery disease with left foot wounds. HISTORY OF PRESENT ILLNESS: The patient is a very pleasant 62-year-old male who is well known to our service with a history of end-stage renal disease. He previously underwent creation of a left radiocephalic arteriovenous fistula on 08/14/2016. He underwent a fistulogram on 02/26/[address] Dubose with drug-coated balloon angioplasty of a juxta-anastomotic stenosis as well as stenosis of his cephalic vein. His dialysis unit contacted our outpatient office on 07/25 with concerns of poor low flow volumes. He was scheduled as an outpatient for fistulogram with Dr. Dubose on 08/08/2017. He was admitted to the hospital this admission with fever, diarrhea and a cough. He does have a history of bilateral diabetic foot ulcers, previously undergoing toe amputations with Dr. Aguilar. He currently has left foot wounds with MRSA septicemia. He is scheduled for surgical intervention with Dr. Aguilar tomorrow morning. We have also been asked to evaluate the patient for evaluation of the arterial perfusion for wound healing. He previously underwent a CO2 aortogram with bilateral lower extremity angiogram on 06/02/[address] Robbin Mayer. He was found to have occluded anterior tibial arteries bilaterally, otherwise patent arterial system, with no significant stenoses, no intervention was required. He currently complains of chills as well as generally not feeling well. He is lethargic, seen on dialysis. The dialysis nurse expresses concern that his fistula will not run for another treatment. She is having some difficulty with the arterial side of his fistula with poor flow pressures. PAST MEDICAL HISTORY: 1. End-stage renal disease, on chronic hemodialysis on Tuesdays, and Saturdays. 2. Hypertension. 3. Coronary artery disease. 4. Diabetes mellitus. 5. Peripheral neuropathy. 6. History of stroke. 7. Hyperlipidemia. PAST SURGICAL HISTORY: 1. Left brachiocephalic arteriovenous fistula creation in 07/2016. [place] [address] CONSULTATION Name: JESSICA GARCSE Room: [address]#: [id number] Admission: 07/30/17 Attend Phys: Alexis Chavez MD Discharge: Date of : 53 Report #: [id number] 2. Left upper extremity fistulogram with drug-coated balloon angioplasty on 02/26/2017. 3. Fistulogram on 04/23/2017. 4. Tunneled dialysis catheter placement and subsequent removal. 5. Aortogram, bilateral lower extremities on 06/02/2016. 6. Coronary artery bypass grafting in 2011. 7. Multiple coronary artery stents. 8. Multiple toe amputations. SOCIAL HISTORY: He is a former smoker, denies any alcohol or illicit drug use. He is . FAMILY HISTORY: Significant for cancer in his father who is . His mother of a heart attack. ALLERGIES: 1. TOLECTIN. 2. BACTRIM. HOME MEDICATIONS: 1. Tylenol 650 mg every 4 hours as needed for pain. 2. Aspirin 325 mg daily. 3. Carvedilol 12.5 mg twice daily. 4. Clonidine 0.1 mg twice daily. 5. Plavix 75 mg daily. 6. Gabapentin 600 mg twice daily. 7. Hydralazine 25 mg 3 times daily. 8. NovoLog insulin 45 units at dinner. 9. Lantus insulin 65 units in the morning. 10. Lispro 40 units per morning. 11. Imdur 60 mg at bedtime. 12. Metoprolol tartrate 100 mg twice daily. 13. Nitrostat as needed for chest pain. 14. Fish oil 1000 mg 3 times daily. 15. Crestor 40 mg daily. 16. Protonix 40 mg daily. 17. Vitamin B complex once daily. REVIEW OF SYSTEMS: A 12-point review of systems has been reviewed and is negative except for the above-mentioned in the history of present illness. PHYSICAL EXAMINATION: VITAL SIGNS: Temperature 36.8, heart rate 76, respiratory rate 16, blood pressure 128/60. GENERAL: He is alert, oriented, in no acute distress. HEENT: Head is normocephalic, atraumatic. [address] [address] CONSULTATION Name: JESSICA GARCES Room: [address] IN M.R.#: [id number] Admission: 07/30/17 Attend Phys: Alexis Chavez MD Discharge: Date of : 53 Report #: [id number] NECK: Supple, without jugular venous distention or carotid bruit. HEART: Regular rate and rhythm with a murmur. CHEST: Lungs are clear to auscultation bilaterally. ABDOMEN: Soft, mild generalized tenderness, hypoactive bowel sounds. EXTREMITIES: Nonpalpable bilateral radial, femoral, right DP and PT pulses, left PT pulse. I am unable to assess his left DP as he has a dressing that is clean, dry and intact. It was just changed by Dr. Vee. NEUROLOGIC: Alert and oriented, diminished sensation in his feet. LABORATORY DATA: Hemoglobin 10.3, hematocrit 31.5, white blood cell count 11.9, platelets 282. Sodium 138, potassium 4.9, chloride 99, CO2 25, BUN 52, creatinine 4.8, glucose is 351. ASSESSMENT AND PLAN: 1. End-stage renal disease, on chronic hemodialysis. He has a left upper extremity arteriovenous fistula that has not been running well with dialysis. The dialysis nurse is concerned that he will not be able to dialyze on Sunday. We will attempt to proceed with a fistulogram tomorrow if able to coordinate in the operating room as well as with Dr. Vee when he takes him for surgery for his foot debridement/toe amputations. 2. Peripheral artery disease. His previous aortogram with bilateral lower extremity arteriogram in 05/2016 demonstrated occluded bilateral anterior tibial arteries, otherwise no significant arterial disease. Ankle brachial indices obtained today demonstrate an PETE of 1.2 in the right, 1.3 on the left. He likely has adequate arterial perfusion for wound healing. He reportedly bled well following his recent debridement. 3. Diabetes mellitus. 4. Methicillin-resistant Staphylococcus aureus sepsis with left foot osteomyelitis. 5. Coronary artery disease. 6. Hypertension. We thank you for the opportunity to participate in the care of the patient. Please feel free to contact our office with any questions or concerns. <ELECTRONICALLY SIGNED> By: Robbin Mayer DO 08/08/17 1535 1603 [id number] Malloy /ana
[2017-08-08 17:37] VITALS: BP 144/48
--- NOTE | 2017-08-08 17:39 | NUR ---
CM SPOKE TO THE PATIENT TO DISCUSS DISCHARGE PLANNING NEEDS AND CHOICE OF HH. PATIENT CHOSE [facility]. CM SPOKE TO FAHEEM AT [facility] TO INFORM OF THE REFERRAL FOR HH AND FAXED PATIENTS FACESHEET, H&P, AND D/C ORDERS. CM ALSO CONTACTED [facility] TO INFORM OF THE PATIENTS D/C AND FAXED PATIENTS FACESHEET, H&P, AND D/C ORDERS. CM WILL REMAIN AVAILABLE TO ASSIST AND FOLLOW NEEDED.
--- NOTE | 2017-08-08 17:46 | NUR ---
PATEINT DISCHARGED TO HOME WITH HOME HEALTH. DISCHARGE PAPERS REVIEWED AND SIGNED. PRESCRIPTION AND INFORMATION SHEETS GIVEN. IV REMOVED. DRESSINGS CHANGED TO RIGHT FOOT AND PICTURES PLACED IN CHART. DRESSING CHANGE SUPPLIES GIVEN. [facility] TO SEE PATIENT FOR WOUND CARE. PATIENT ASSISTED WITH CLOTHING. PATIENT DENIES ANY FURTHER NEEDS. PATIENT TAKEN BY WHEELCHAIR TO EXIT. LEFT WITH BROTHER IN LAW.
--- NOTE | 2017-08-15 13:10 | CON ---
[address] [address] CONSULTATION Name: GARCESJESSICA Room: [address] IN M.R.#: [id number] Admission: 07/30/17 Attend Phys: Alexis Chavez MD Discharge: 08/08/17 Date of : 53 Report #: [id number] THIS REPORT FOR: //name// CC: Alexis Suresh DATE OF SERVICE: 08/08/2017 CHIEF COMPLAINT: Status post transection left distal first and second metatarsals with completion of the transmetatarsal amputation with primary closure over TYREL drain. He is scheduled for home discharge today. He dialyzes on a Sunday, , Sunday schedule. He is on parenteral vancomycin with dialysis, as his surgical bone and tissue cultures grew MRSA. PHYSICAL EXAMINATION: I did not examine his foot, as the nurse rewrapped it today. I discussed with her and she said the incision was well coapted with no bleeding or drainage or signs of vascular compromise. His TYREL drain is functioning. PLAN: I will have a home health nurse change his bandage 2 times a week and pull his TYREL drain this Sunday, which is in 2 days. I will follow up with him next week at [facility]. <ELECTRONICALLY SIGNED> By: Holden Vee DPM 08/15/17 1310 1349 Dao Vee DPM /ana
[2017-11-08] MEDS ORDERED: HUMALOG KW100 UNIT/1 SUBQ (08:51)
== END 2017-08-08 16:55 | disposition home health service (06) | DRG 853 ==
LOC: M.ERS 19:01 → M.TBA-ER 20:26 → M.2W 20:26 → M.3W 08-02 14:41
PROVIDERS: Emergency Medicine; Family Medicine; Internal Medicine; Internal Medicine Nephrology; ADMIT Internal Medicine
PROC: 5A1D70Z Performance of Urinary Filtration, Intermittent, Less than 6 Hours Per Day (ICD-10-PCS; 2017-07-31)
PROC: 5A1D70Z Performance of Urinary Filtration, Intermittent, Less than 6 Hours Per Day (ICD-10-PCS; 2017-08-01)
PROC: 5A1D70Z Performance of Urinary Filtration, Intermittent, Less than 6 Hours Per Day (ICD-10-PCS; 2017-08-02)
PROC: 0Y6S0Z3 Detachment at Left 2nd Toe, Low, Open Approach (ICD-10-PCS; 2017-08-03)
PROC: 0Y6Q0Z3 Detachment at Left 1st Toe, Low, Open Approach (ICD-10-PCS; 2017-08-03)
PROC: 0Y6U0Z0 Detachment at Left 3rd Toe, Complete, Open Approach (ICD-10-PCS; 2017-08-03)
PROC: B51N1ZZ Fluoroscopy of Left Upper Extremity Veins using Low Osmolar Contrast (ICD-10-PCS; 2017-08-03)
PROC: 05743ZZ Dilation of Left Innominate Vein, Percutaneous Approach (ICD-10-PCS; 2017-08-03)
PROC: 03180ZD Bypass Left Brachial Artery to Upper Arm Vein, Open Approach (ICD-10-PCS; principal; 2017-08-06)
PROC: 03LC0ZZ Occlusion of Left Radial Artery, Open Approach (ICD-10-PCS; 2017-08-06)
PROC: B544ZZA Ultrasonography of Left Jugular Veins, Guidance (ICD-10-PCS; 2017-08-06)
PROC: 05HN33Z Insertion of Infusion Device into Left Internal Jugular Vein, Percutaneous Approach (ICD-10-PCS; 2017-08-06)
PROC: 5A1D70Z Performance of Urinary Filtration, Intermittent, Less than 6 Hours Per Day (ICD-10-PCS; 2017-08-07)
DX: A41.02 Sepsis due to Methicillin resistant Staphylococcus aureus (principal); N18.6 End stage renal disease; L03.116 Cellulitis of left lower limb; I12.0 Hypertensive chronic kidney disease with stage 5 chronic kidney disease or end stage renal disease; I25.110 Atherosclerotic heart disease of native coronary artery with unstable angina pectoris; M86.172 Other acute osteomyelitis, left ankle and foot; K52.1 Toxic gastroenteritis and colitis; T82.858A Stenosis of other vascular prosthetic devices, implants and grafts, initial encounter; E87.1 Hypo-osmolality and hyponatremia; E11.22 Type 2 diabetes mellitus with diabetic chronic kidney disease; Y83.8 Other surgical procedures as the cause of abnormal reaction of the patient, or of later complication, without mention of misadventure at the time of the procedure; E11.51 Type 2 diabetes mellitus with diabetic peripheral angiopathy without gangrene; E11.42 Type 2 diabetes mellitus with diabetic polyneuropathy; E11.69 Type 2 diabetes mellitus with other specified complication; T36.95XA Adverse effect of unspecified systemic antibiotic, initial encounter; N13.9 Obstructive and reflux uropathy, unspecified; E78.5 Hyperlipidemia, unspecified; Z99.2 Dependence on renal dialysis; Z79.4 Long term (current) use of insulin; Z79.82 Long term (current) use of aspirin; Z95.1 Presence of aortocoronary bypass graft; Z80.9 Family history of malignant neoplasm, unspecified; Z88.1 Allergy status to other antibiotic agents; Z88.2 Allergy status to sulfonamides; Y92.89 Other specified places as the place of occurrence of the external cause; Z86.73 Personal history of transient ischemic attack (TIA), and cerebral infarction without residual deficits; I25.2 Old myocardial infarction; Z82.49 Family history of ischemic heart disease and other diseases of the circulatory system; Z83.6 Family history of other diseases of the respiratory system

== ENCOUNTER 2017-08-15 13:09 | Inpatient (IN) | payer MEDICARE ==
[~2017-08-15] VITALS: Ht 182.9 cm; Wt 92.5 kg
[~2017-08-15 13:09] MED LIST changes: +LOPRESSOR100 M1 PO; +NORCO 10-325 T1 EACH PO; +NOVOLOG100 UNIT/1
[2017-08-15 13:14] VITALS: BP 111/54
[2017-08-15 13:48] LABS: ABSOLUTE BASOPHILS 0.1 thou/uL (0.0-0.2); ABSOLUTE EOSINOPHILS 0.2 thou/uL (0.0-0.7); ABSOLUTE LYMPHOCYTES 1.5 thou/uL (0.8-5.3); ABSOLUTE MONOCYTES 0.8 thou/uL (0.0-1.2); ABSOLUTE NEUTROPHILS 6.6 thou/uL (1.6-8.1); BASOPHILS 1.1 %; HEMATOCRIT 23.4 % (42.0-52.0); HEMOGLOBIN 7.8 gm/dL (14.0-18.0); LYMPHOCYTES 16.1 %; MCH 28.6 pg (26.0-34.0); MCHC 33.3 g/dL (28.0-37.0); MCV 85.7 fL (80.0-100.0); MONOCYTES 9.1 %; MPV 7.3 fl. (7.2-11.1); NUCLEATED RBCS 0 /100WBC; PLATELET COUNT* 362 thou/uL (150-400); POLYS 71.7 %; RBC 2.73 mil/uL (4.50-6.00); RDW-CV 16.3 % (10.5-14.5); WBC 9.2 thou/uL (4.0-11.0)
[2017-08-15 13:57] LABS: ANION GAP 10 mmol/L (7-16); BUN 33 mg/dL (7-18); CALCIUM 8.5 mg/dL (8.5-10.1); CHLORIDE 94 mmol/L (98-107); CO2 26 mmol/L (21-32); CREATININE 4.5 mg/dL (0.6-1.3); GLUCOSE 326 mg/dL (70-99); POTASSIUM 4.2 mmol/L (3.5-5.1); SODIUM 130 mmol/L (136-145)
[2017-08-15 14:01] LABS: ALBUMIN 2.4 g/dL (3.4-5.0); ALKALINE PHOSPHATASE 75 U/L (46-116); SGOT 21 U/L (15-37); SGPT 17 U/L (30-65); TOTAL BILIRUBIN 0.4 mg/dL (<0.1-1.0); TROPONIN-I LEVEL <0.06 ng/mL (<0.06)
[2017-08-15 14:05] LABS: APTT 31.1 Seconds (25.0-31.3); INR 1.1; PROTIME 10.7 Seconds (9.20-11.50)
[2017-08-15 14:18] LABS: INFLUENZA A ANTIGEN None Detected (None Detect); INFLUENZA B ANTIGEN None Detected (None Detect)
[2017-08-15 18:28] VITALS: BP 112/52
[2017-08-15 20:00] VITALS: BP 119/49
[2017-08-16] VITALS: BP 116/55
[2017-08-16 04:00] VITALS: BP 122/55
[2017-08-16 08:20] VITALS: BP 119/58
[2017-08-16 11:48] VITALS: BP 94/37
--- NOTE | 2017-08-16 12:45 | EKG ---
[place] [address] ELECTROCARDIOGRAM REPORT Name: CIELO GARCESNIE Rock Room: [address] ADM IN M.R.#: [id number] Admission: 08/15/17 Attend Phys: Josh Burton Discharge: Date of : 53 Report #: [id number] THIS REPORT FOR: //name// [facility] ED Test Date: 2017-08-15 Test Time: 13:16:13 Pat Name: JESSICA GARCES Department: Room: [facility] Gender: M Black Top Raker: Oscar MIRELES : 1955 Requested By: Paulino Salazar Order Number: [id number] MD: Austin Brooks Measurements Intervals Reeds Rate: 70 P: 12 DE: 183 QRS: -25 QRSD: 127 T: 138 QT: 433 QTc: 468 Interpretive Statements Sinus rhythm Left bundle branch block Compared to ECG 07/30/2017 19:11:34 Ventricular premature complex(es) no longer present Electronically Signed On 08-16-2017 12:45:07 TOWER ERECTOR HELPER by Austin Brooks [email or web address] <ELECTRONICALLY SIGNED> By: Austin Brooks MD, FACC 08/16/17 1245 1316 1316 Austin Brooks MD, FAC /EPI
[2017-08-16 19:55] VITALS: BP 89/44
[2017-08-16 23:41] VITALS: BP 128/61
[2017-08-17 04:14] VITALS: BP 120/57
--- NOTE | 2017-08-17 07:53 | CON ---
[address] [address] CONSULTATION Name: DEZJESSICA Wilkerson Room: [address] IN M.R.#: [id number] Admission: 08/15/17 Attend Phys: Josh Burton Discharge: Date of : 53 Report #: [id number] THIS REPORT FOR: //name// CC: Holden Win DATE OF SERVICE: 08/16/2017 INFECTIOUS DISEASE CONSULTATION ATTENDING PHYSICIAN: Jerzy Win MD REASON FOR EVALUATION: Ongoing treatment for chronic osteomyelitis involving the left foot multisite. HISTORY OF PRESENT ILLNESS: Chart reviewed, patient examined. This is a 62-year-old with diabetes mellitus type 2 complicated by severe vasculopathy as well as other sequelae of end-stage renal disease on hemodialysis, has had issues with lower extremity wounds. He has had chronic osteomyelitis more than one occasion. He has had amputations now more recently earlier this month had a transmetatarsal amputation, culture proven MRSA and also noted at that time he had a septicemia that cleared fairly quickly. He has been on twice weekly vancomycin with dialysis. [facility] and felt he appeared quite ill. He was hypotensive. He notes he has not been feeling well for the last 24-36 hours. He notes he did have a fall, which he broke a rib in the left side, has had some difficulty breathing as well. Chest x-ray was performed, which showed no acute abnormality from a cardiopulmonary standpoint on 08/15/2017. Denies any recent fevers. Appetite has been diminished. He is not having significant abdominal related complain. ALLERGIES: Listed to BACTRIM, TOLECTIN. CURRENT MEDICATIONS: Include insulin, isosorbide mononitrate, vancomycin 500 three times a week, Sunday, , Sunday with dialysis, metoprolol, clopidogrel, aspirin, gabapentin, carvedilol, fish oil. PAST MEDICAL HISTORY: In addition to above, diabetes, sequelae of myocardial infarcts x 7, 14 stents, previous strokes x 2, peripheral vascular disease, obstructive uropathy, peripheral neuropathy. SOCIAL HISTORY: Nonsmoker, no ethanol. FAMILY HISTORY: [place] [address] CONSULTATION Name: JESSICA GARCES Room: [address]#: [id number] Admission: 08/15/17 Attend Phys: Josh Burton Discharge: Date of : 53 Report #: [id number] REVIEW OF SYSTEMS: As above. PHYSICAL EXAMINATION: GENERAL: He had flattened affect, appears mild distress. He is on dialysis. He is certainly not as responsive is typical for him, chronically ill appearing. VITAL SIGNS: Temperature 97.9, pulse 59, respirations 18, blood pressure is 94/37. SKIN: Warm, dry. HEENT: Unremarkable. NECK: Supple. LUNGS: Diminished breath sounds. HEART: Regular. There is a soft systolic murmur. ABDOMEN: Soft. EXTREMITIES: There is a layered compression dressing over his left foot. GENITOURINARY: Deferred. RECTAL: Deferred. LABORATORY DATA: Blood cultures sterile thus far. Prealbumin of 17.8. Chest x-ray as noted above. Influenza antigen for both A and B was not detected. Lactic acid 1.1. Electrolytes: Sodium 130, potassium 4.2, chloride 94, bicarbonate is 26, anion gap of 10, BUN and creatinine 33 and 4.5, glucose of 326, albumin of 2.4, total protein of 8.0, estimated GFR of 13. LFTs unremarkable. CBC: White count of 9.2, H and H 7.8 and 23.4, platelets of 362. ASSESSMENT AND PLAN: Chronic osteomyelitis involving his left foot. He is roughly 2-1/2 weeks into therapy. We will continue current plan as prescribed. He will need at least 3-1/2 additional weeks. We will try to inspect the site. Dr. Vee will see him as well. It is not clear to me exactly what is driving his ill feeling other than some of the totality of his medical disease burden. There is no evidence of pneumonitis on recent chest x-ray in spite of the fact that he does complain of significant pain with deep breathing, which he attributes to a rib fracture secondary to fall. We will await blood cultures. At this point, I do not see a focal pyogenic site of infection other than the foot. We will monitor expectantly. <ELECTRONICALLY SIGNED> By: Jesus Alberto Oneil MD 08/17/17 0753 1511 30Jofederico Oneil MD /nt
[2017-08-17 07:55] VITALS: BP 124/44
--- NOTE | 2017-08-17 17:27 | EKG ---
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
[2017-08-17 18:05] VITALS: BP 109/57
[2017-08-17 20:00] VITALS: BP 109/63
[2017-08-18] VITALS: BP 94/60
[2017-08-18 03:35] VITALS: BP 109/54
[2017-08-18 04:22] LABS: ABSOLUTE MONOCYTES 0.3 thou/uL (0.0-1.2); ABSOLUTE NEUTROPHILS 6.8 thou/uL (1.6-8.1); BASOPHILS 0.3 %; HEMATOCRIT 25.6 % (42.0-52.0); HEMOGLOBIN 8.6 gm/dL (14.0-18.0); LYMPHOCYTES 12.6 %; MCH 28.6 pg (26.0-34.0); MCHC 33.6 g/dL (28.0-37.0); MCV 85.2 fL (80.0-100.0); MONOCYTES 3.7 %; MPV 7.7 fl. (7.2-11.1); NUCLEATED RBCS 0 /100WBC; PLATELET COUNT* 401 thou/uL (150-400); POLYS 83.4 %; RBC 3.01 mil/uL (4.50-6.00); RDW-CV 16.2 % (10.5-14.5); WBC 8.2 thou/uL (4.0-11.0)
[2017-08-18 04:34] LABS: CALCIUM 8.2 mg/dL (8.5-10.1); CREATININE 4.7 mg/dL (0.6-1.3)
[2017-08-18 04:51] LABS: POTASSIUM 6.2 mmol/L (3.5-5.1)
[2017-08-18 06:42] LABS: ESR (SEDRATE) 138 mm/hr (0-20)
[2017-08-18 08:00] VITALS: BP 123/57
[2017-08-18 16:00] VITALS: BP 122/54
[2017-08-18 20:30] VITALS: BP 105/46
[2017-08-18 23:07] VITALS: BP 112/54
[2017-08-19 04:29] VITALS: BP 130/61
[2017-08-19 04:37] LABS: HEMATOCRIT 24.3 % (42.0-52.0); HEMOGLOBIN 8.1 gm/dL (14.0-18.0); MCH 28.4 pg (26.0-34.0); MCHC 33.5 g/dL (28.0-37.0); MCV 84.9 fL (80.0-100.0); MPV 7.6 fl. (7.2-11.1); RBC 2.86 mil/uL (4.50-6.00); RDW-CV 15.9 % (10.5-14.5)
[2017-08-19 05:55] LABS: CALCIUM 7.6 mg/dL (8.5-10.1); CREATININE 3.8 mg/dL (0.6-1.3); MAGNESIUM 1.7 mg/dL (1.8-2.4); POTASSIUM 3.8 mmol/L (3.5-5.1)
[2017-08-19 08:15] VITALS: BP 138/66
[2017-08-19 12:05] VITALS: BP 106/56
[2017-08-19 16:38] VITALS: BP 118/57
[2017-08-20 00:30] VITALS: BP 117/52
[2017-08-20 04:17] VITALS: BP 106/53
[2017-08-20 04:38] LABS: HEMATOCRIT 22.8 % (42.0-52.0); HEMOGLOBIN 7.6 gm/dL (14.0-18.0); MCH 28.5 pg (26.0-34.0); MCHC 33.5 g/dL (28.0-37.0); MCV 85.1 fL (80.0-100.0); MPV 7.5 fl. (7.2-11.1); RBC 2.68 mil/uL (4.50-6.00); RDW-CV 16.1 % (10.5-14.5); WBC 8.5 thou/uL (4.0-11.0)
[2017-08-20 05:07] LABS: CALCIUM 7.7 mg/dL (8.5-10.1); CREATININE 4.8 mg/dL (0.6-1.3); MAGNESIUM 1.6 mg/dL (1.8-2.4); POTASSIUM 4.1 mmol/L (3.5-5.1)
[2017-08-20 12:14] VITALS: BP 91/46
[2017-08-20 16:15] VITALS: BP 125/59
[2017-08-21 00:27] VITALS: BP 135/61
[2017-08-21 04:20] VITALS: BP 118/60
[2017-08-21 11:44] VITALS: BP 139/67
[2017-08-21 17:20] VITALS: BP 100/39
[2017-08-21 20:00] VITALS: BP 102/43
[2017-08-21 22:39] VITALS: BP 152/62
[2017-08-22] VITALS: BP 104/45
[2017-08-22 04:00] VITALS: BP 130/56
[2017-08-22 08:00] VITALS: BP 122/61
[2017-08-22 12:25] VITALS: BP 109/49
--- NOTE | 2017-08-22 12:49 | CON ---
[address] [address] CONSULTATION Name: DEZJESSICA Rock Room: [address] IN M.R.#: [id number] Admission: 08/15/17 Attend Phys: Josh Burton Discharge: Date of : 53 Report #: [id number] THIS REPORT FOR: //name// CC: Holden Win DATE OF SERVICE: 08/22/2017 CHIEF COMPLAINT: Followup of osteomyelitis, left foot with prior transmetatarsal amputation. Surgical bone and tissue cultures growing polymicrobial bacteria including MRSA, VRE, and achromobacter. He is on parenteral vancomycin with dialysis, he is scheduled for left BKA amputation in 2 days by Vascular Surgery. He has been afebrile with stable vitals, denies pain to the left lower extremity. His appetite is stable. Surgical pathology of the first metatarsal is pending. No new labs for review, his last hemoglobin from 08/20 was 7.6. PHYSICAL EXAMINATION: EXTREMITIES: Open wound to left foot, has Gelfoam with some fibronecrotic tissue. The foot is warm with no pallor, cyanosis or signs of acute vascular embarrassment. Good color, temperature, and turgor to the periwound. The heel wound is stable. There is no popliteal adenopathy, negative Homans' or Grimm sign to either leg. Overall, the left leg is stable with low-grade inflammation, but no zhanna cellulitis to the surgical wound. PLAN: The patient is scheduled for BKA amputation. Continue daily dressing change to keep the area clean. <ELECTRONICALLY SIGNED> By: Holden Vee DPM 08/22/17 1249 0808 0822Holden Vee DPM /nt
--- NOTE | 2017-08-22 12:49 | CON ---
[address] [address] CONSULTATION Name: JESSICA GARCES Room: [address] IN M.R.#: [id number] Admission: 08/15/17 Attend Phys: Josh Burton Discharge: Date of : 53 Report #: [id number] THIS REPORT FOR: //name// CC: Holden Win DATE OF SERVICE: 08/19/2017 CHIEF COMPLAINT: Postoperative day #2 for resection portion of left proximal first metatarsal with wound debridement. The patient had recent completion of a left transmetatarsal amputation with subsequent deep tissue infection. He was walking on the foot against medical advice after discharge and he had postoperative dehiscence with worsening of infection. Surgical bone and tissue was growing enterococcus species and Staphylococcus aureus, presumptive MRSA. Surgical pathology is pending. The patient feels well, has stable appetite, he has been afebrile with stable vitals since surgery. He denies left foot pain, although he has profound peripheral sensory neuropathy. He is on parenteral vancomycin with dialysis with good tolerance. LABORATORY DATA: WBC 9.0, RBC 2.86, hemoglobin 8.1, hematocrit 24.3 and platelets 358. ESR 138. BUN 27, creatinine 3.8 and glucose 228. PHYSICAL EXAMINATION: No active bleeding from wound, surgical wound margins stable with no pallor, cyanosis or necrosis. Moderate inflammation to the medial aspect of the dorsal skin flap. Gelfoam intact since placement surgery. Heel wound stable with no inflammation, no signs of acute vascular embarrassment. No active bleeding, although there was some sanguinous drainage on his bandage. PLAN: I removed a portion of Gelfoam and cleansed the wound interior. I left some of the Gelfoam in to aid in hemostasis, which can be removed later. The wound was dressed with Aquacel Ag, ABDs and Kerlix gauze and offloaded in the PRAFO boot. I discussed possible need for a left below knee amputation given the extensive infection. The patient would like to attempt to preserve his leg, if at all possible. I explained that the surgical bone pathology is still pending, and I have not confirmed whether he had osteomyelitis, and if so if the margin was clear. I explained to the patient that his foot will likely require further surgical debridement should we attempt foot salvage. He was agreeable to have vascular surgery discuss what a below-knee amputation entails in terms of the perioperative care, convalescence and [place] [address] CONSULTATION Name: JESSICA GARCES Room: [address] IN [facility]#: [id number] Admission: 08/15/17 Attend Phys: Josh Burton Discharge: Date of : 53 Report #: [id number] continue current daily wound care and follow the patient daily during his hospitalization. <ELECTRONICALLY SIGNED> By: Holden Vee DPM 08/22/17 1249 1715 0005Holden Vee DPM /nt
--- NOTE | 2017-08-22 12:49 | CON ---
[address] [address] CONSULTATION Name: DEZJESSICA Rock Room: [address] IN .R.#: [id number] Admission: 08/15/17 Attend Phys: Josh Burton Discharge: Date of : 53 Report #: [id number] THIS REPORT FOR: //name// CC: Holden Win DATE OF SERVICE: 08/16/2017 CHIEF COMPLAINT: The patient was admitted to the hospital from the wound care center yesterday due to hypotension, lethargy and hyperglycemia. He underwent completion of the left transmetatarsal amputation on 08/03/2017 with subsequent growth of MRSA species. He is on parenteral vancomycin with dialysis, managed by infectious disease. Since admission, he has been afebrile with stable vital signs. He is currently hemodialyzing. He denies fevers or chills, denies left foot pain. He admits to walking on his foot at home against medical advice. He purchased a new car battery and installed it, none other ambulatory activities, which he was instructed against. Blood cultures are negative x 2. He is anemic, Anabaptist, so denies blood transfusion products. LABORATORY DATA: WBC 9.2, RBC 2.73, hemoglobin 7.8, hematocrit 23.4, platelets 362. BUN 33, creatinine 4.5, glucose 326. PHYSICAL EXAMINATION: There is a high grade inflammation to the medial aspect of the left transmetatarsal site with incision dehiscence. I am able to probe acute sterile Q-tips through the medial sutures to the underlying bone, roughly 3 cm deep. I am unable to express any purulence, and there is no active bleeding. There is serosanguineous drainage on his bandage. The lateral 50% of the incision is intact and well coapted without inflammation. No popliteal adenopathy. No Homans' or Grimm sign in either extremity. No pallor, cyanosis or signs of acute vascular embarrassment. IMPRESSION: Soft tissue infection, left foot, possible osteomyelitis, type 2 diabetes mellitus with peripheral arterial disease. PLAN: The wound was examined with Ayla Donnelly, wound nurse. The incision was packed with Aquacel Ag and covered with Aquacel Ag, ABD and Kerlix. The left heel wound was also covered with Aquacel Ag. I ordered a PRAFO boot to offload the heel. I ordered foot x-rays and an MRI without contrast to evaluate for osteomyelitis. The patient will require some soft tissue debridement, but this could not be done today since he was currently dialyzing[place] [address] CONSULTATION Name: GARCESJESSICA E Room: [address] IN M.R.#: [id number] Admission: 08/15/17 Attend Phys: Josh Burton Discharge: Date of : 53 Report #: [id number] patient tomorrow at bedside for some limited suture removal, wound debridement and open packing. <ELECTRONICALLY SIGNED> By: Holden Vee DPM 08/22/17 1249 1722 [id number] Vee DPM /nt
--- NOTE | 2017-08-22 12:49 | OP ---
[address] [address] OPERATIVE REPORT Name: JESSICA GARCES Room: [address] IN M.R.#: [id number] Admission: 08/15/17 Attend Phys: Josh Burton Discharge: Date of : 53 Report #: [id number] THIS REPORT FOR: //name// CC: Holden Win DATE OF SERVICE: 08/17/2017 SURGEON: Holden Vee DPM PREOPERATIVE DIAGNOSES: Deep tissue infection of the left foot with history of osteomyelitis, diabetes mellitus with peripheral neuropathy and end-stage renal disease with peripheral vascular disease. POSTOPERATIVE DIAGNOSES: Deep tissue infection of the left foot with history of osteomyelitis, diabetes mellitus with peripheral neuropathy and end-stage renal disease with peripheral vascular disease. PROCEDURE: 1. Resection left proximal first metatarsal segment. 2. Excision soft tissue, left foot. 3. Incision and drainage, left foot. ANESTHESIA: General LMA. INJECTABLES: 20 mL of a 1:1 mixture of 0.5% Marcaine plain and 1% lidocaine plain. HEMOSTASIS: Left ankle pneumatic tourniquet at 250 mmHg. SPECIMENS: 1. Left proximal first metatarsal, distal resection segment. 2. Left proximal first metatarsal, proximal resection segment. CULTURES: 1. Bone, left proximal first metatarsal. 2. Soft tissue, left foot, aerobic and anaerobic. ESTIMATED BLOOD LOSS: Minimal. COMPLICATIONS: None. DESCRIPTION OF PROCEDURE: The patient was brought to the [place] [address] OPERATIVE REPORT Name: JESSICA GARCES Room: [facility] IN .R.#: [id number] Admission: 08/15/17 Attend Phys: Josh Burton Discharge: Date of : 53 Report #: [id number] table supine with induction of general LMA anesthesia. A well-padded left ankle pneumatic tourniquet was placed. A local anesthetic block was given to the left foot proximal to the surgical site and the extremity was prepped and draped aseptically. The foot was exsanguinated with an Esmarch and tourniquet inflated. A #10 blade surgical blade was used to excise the dehisced and infected surgical incision with removal of all sutures as well as all necrotic incisional tissue. I opened up the fishmouth incision of the transmetatarsal amputation and the wound had grossly necrotic tissue to the anterior. I thoroughly debrided the wound interior of all tendons and soft tissue, which was infected and nonviable. Electrocautery was utilized for hemostasis. I inspected the base of the first metatarsal at the proximal transection site, and it had a grayish brown appearance. The bone was hard to the touch with no visible lysis and had a smooth surgical transection margin. I used the sagittal bone saw to remove a slice of bone for pathology, which I labelled distal transection segment. I then removed a second section of bone for pathology, which I labelled proximal first metatarsal resection. I sent a direct marketing representative portion of bone from the distal resection specimen for aerobic and anaerobic bone cultures. I sent necrotic soft tissue for aerobic and anaerobic soft tissue cultures. The wound was pulse lavaged with 3 liters of sterile saline with 150,000 units of bacitracin irrigant and dried. The tourniquet was sequentially deflated and I inspected for any active bleeding, which was cauterized during the deflation process. The wound was packed with Gelfoam and the foot was dressed with fluffs, ABDs, Kerlix and Mathew wrap. The patient left the OR alert and oriented with no bleed through the dressing or pain. I did order CBC with diff and BMP in the morning. <ELECTRONICALLY SIGNED> By: Holden Vee DPM 08/22/17 1249 1136 1300Daantoinette Vee DPM /nt
--- NOTE | 2017-08-22 12:49 | CON ---
[address] [address] CONSULTATION Name: GARCESJESSICA E Room: [address] IN M.R.#: [id number] Admission: 08/15/17 Attend Phys: Josh Burton Discharge: Date of : 53 Report #: [id number] THIS REPORT FOR: //name// CC: Holden Win DATE OF SERVICE: 08/17/2017 CHIEF COMPLAINT: Followup of left foot infection, status post completion of transmetatarsal amputation roughly 2 weeks ago. He has had postoperative dehiscence of the wound with subsequent deep tissue infection. His MRI showed inflammation to the tarsometatarsal articulation with no osteolysis or zhanna bone destruction. These findings were felt most likely to represent a reactionary bone edema, but could possibly reflect osteomyelitis. No abscess was present. The patient is on parenteral vancomycin with dialysis. He feels better today. PHYSICAL EXAMINATION: There is extensive necrosis along the surgical incision with wound dehiscence. There is localized inflammation and I am able to express some slight purulence from the medial incision. I removed several sutures and I was able to probe to bone. I did a tissue debridement with a scalpel to excise subcutaneous tissue from the wound interior. This was an excisional surgical wound debridement. Bleeding was stopped with pressure. The wound was cleansed and packed with Aquacel Ag and covered with ABDs and Kerlix gauze. PLAN: I will take him to surgery later today for a thorough wound debridement and possible bone debridement. <ELECTRONICALLY SIGNED> By: Holden Vee DPM 08/22/17 1249 1157 1954Dmarta Vee DPM /ana
--- NOTE | 2017-08-22 12:49 | CON ---
[address] [address] CONSULTATION Name: GARCESJESSICA Room: [address] IN M.R.#: [id number] Admission: 08/15/17 Attend Phys: Josh Burton Discharge: Date of : 53 Report #: [id number] THIS REPORT FOR: //name// CC: Holden Win DATE OF SERVICE: 08/20/2017 CHIEF COMPLAINT: Postoperative left foot with bone cultures growing MRSA and Enterococcus species. Surgical pathology is pending. I consulted Vascular Surgery to discuss left B-K amputation, and the patient is agreeable to proceed. He has been afebrile with stable vitals. He dialyzes Tuesdays, and Saturdays. His dressing was changed earlier today, so I did not rechange it. There was no bleed through or drainage on it. LABORATORY DATA: WBC was 8.5, RBC 2.68, hemoglobin 7.6, hematocrit 22.8, platelets 355. PLAN: I will change his bandage tomorrow and inspect foot wound. The patient is agreeable to left below-knee amputation. <ELECTRONICALLY SIGNED> By: Holden Vee DPM 08/22/17 1249 1751 [id number] Vee DPM /ana
--- NOTE | 2017-08-22 12:49 | CON ---
[address] [address] CONSULTATION Name: JESSICA GARCES Room: [address] IN M.R.#: [id number] Admission: 08/15/17 Attend Phys: Josh Burton Discharge: Date of : 53 Report #: [id number] THIS REPORT FOR: //name// CC: Holden Win DATE OF SERVICE: 08/18/2017 CHIEF COMPLAINT: Postoperative day #1 for resection, left proximal first metatarsal with wound debridement and incision and drainage of left foot. He feels well, scheduled dialysis later today. He is on parenteral vancomycin with dialysis with good tolerance. Preoperative wound cultures growing gram-positive rods and gram-positive cocci. Surgical tissue cultures showed same on the Gram stain. Surgical pathology is pending. He has been afebrile with stable vitals. He has some postoperative hyperkalemia. LABORATORY DATA: WBC 8.2, RBC 3.01, hemoglobin 8.6, hematocrit 25.6, platelets 401. BUN 37, creatinine 4.7, glucose 272. PHYSICAL EXAMINATION: The foot is much improved with minimal inflammation. All the necrotic incisional tissue has been removed and the wound has intact Gelfoam with slight active bleeding during the dressing change. I left the Gelfoam intact. There is no pallor, cyanosis or signs of acute vascular embarrassment. The foot is warm to the touch. Heel wound is stable with no inflammation. Negative Homans or Grimm sign in either extremity. No calf tenderness or left popliteal adenopathy. IMPRESSION: Status post resection, right proximal first metatarsal with incision and drainage and tissue debridement. PLAN: The wound was cleansed and redressed with Aquacel Ag over the existing operative Gelfoam. The foot was then wrapped with ABDs, Kerlix and Mathew bandage and offloaded in a PRAFO boot. I will see the patient tomorrow for followup, awaiting further surgical cultures and pathology. <ELECTRONICALLY SIGNED> By: Holden Vee DPM 08/22/17 1249 1154 1953Dmarta Vee DPM /nt
[2017-08-22 16:02] VITALS: BP 97/34
--- NOTE | 2017-08-22 16:04 | S ---
[place] [address] SURGICAL PATH RPT PROCEDURE Name: VARGAS RODRIGUEZ Room: [address] IN M.R.#: [id number] Admission: 08/15/17 Date of : 53 Discharge: Report #: [id number] Path Case #: [id number] PATHOLOGY REPORT COLLECTION DATE: 08/17/2017 RECEIVED DATE: 08/20/2017 SUBMITTING PHYS: Dr. Holden Vee OTHER PHYS: Dr. Jerzy Suresh SPECIMEN(S) RECEIVED: A.Left first metatarsal distal B.Left first metatarsal proximal * * * * * * * * * * * * FINAL DIAGNOSIS: A. Left first metatarsal, distal: - Benign bone with osteomyelitis. B. Left first metatarsal, proximal: - Benign bone with osteomyelitis. (RICCARDO:[facility]; 08/21/2017) PATHOLOGIST: Saw Troncoso M.D. REPORT ELECTRONICALLY SIGNED BY: Saw Troncoso M.D. DATE/TIME: 08/22/2017 16:04 * * * * * * * * * * * * GROSS PATHOLOGY: A. Received in formalin labeled "Vargas Rodriguez, left first metatarsal, distal" and consists of a portion of bone measuring 2.5 cm in diameter by 0.7 cm in length. The periphery resembles cortical bone while the remainder resembles cancellous bone. Each margin is smooth. Receiver Bulk System sections are submitted as A1 following decalcification. B. Received in formalin labeled "left first metatarsal proximal" and consists of a flat portion of bone measuring 3.2 cm in diameter by 0.5 cm thick. The is no articular cartilage identified. Receiver Bulk System sections are submitted as B1 following decalcification. (MAIN; 08/20/2017) CLINICAL HISTORY: Necrotic left foot wound INITIAL CPT CODE(S): A; 13095, [address] [place] [address] SURGICAL PATH RPT PROCEDURE Name: VARGAS RODRIGUEZ [place] Room: [address]#: [id number] Admission: 08/15/17 Date of : 53 Discharge: Report #: [id number] Path Case #: [id number]; [id number], [id number] Professional services performed by [facility] at [facility], [address] [place] [address] [place] [address]. Technical services performed by [facility] at [address] [place] [address], [address], [place] [address]. [facility] [address] [place] [address] PHONE: [phone] DIRECTOR: Tiago Broussard M.D. * * * END OF REPORT * * *
[2017-08-22 20:00] VITALS: BP 93/38
[2017-08-23 00:31] VITALS: BP 115/54
[2017-08-23 03:56] LABS: HEMOGLOBIN 8.3 gm/dL (14.0-18.0)
[2017-08-23 04:08] VITALS: BP 85/29
[2017-08-23 04:42] LABS: ALBUMIN 2.3 g/dL (3.4-5.0); CALCIUM 8.2 mg/dL (8.5-10.1); CREATININE 4.8 mg/dL (0.6-1.3); PHOSPHORUS* 4.7 mg/dL (2.5-4.9)
[2017-08-23 05:45] VITALS: BP 122/55
[2017-08-23 08:15] VITALS: BP 134/63
[2017-08-23 09:51] LABS: URINE BILIRUBIN NEGATIVE (Negative); URINE BLOOD NEGATIVE (Negative); URINE CLARITY CLEAR; URINE COLOR YELLOW; URINE GLUCOSE-RANDOM NEGATIVE (Negative); URINE KETONES NEGATIVE (Negative); URINE LEUKOCYTES-REFLEX NEGATIVE (Negative); URINE NITRITE-REFLEX NEGATIVE (Negative); URINE PROTEIN TRACE (Negative); URINE SPECIFIC GRAVITY <= 1.005 (1.005-1.030); URINE UROBILINOGEN 0.2 E.U./dl (0.2-1.0)
[2017-08-23 20:00] VITALS: BP 131/57
[2017-08-24] VITALS (23 sets, daily range): BP systolic 75–163; BP diastolic 18–66
[2017-08-25] VITALS (14 sets, daily range): BP systolic 130–168; BP diastolic 33–63
[2017-08-25 04:00] LABS: ABSOLUTE BASOPHILS 0.1 thou/uL (0.0-0.2); ABSOLUTE EOSINOPHILS 0.1 thou/uL (0.0-0.7); ABSOLUTE LYMPHOCYTES 2.3 thou/uL (0.8-5.3); ABSOLUTE MONOCYTES 1.1 thou/uL (0.0-1.2); ABSOLUTE NEUTROPHILS 7.4 thou/uL (1.6-8.1); BASOPHILS 0.6 %; HEMATOCRIT 24.7 % (42.0-52.0); HEMOGLOBIN 7.8 gm/dL (14.0-18.0); MCH 27.2 pg (26.0-34.0); MCHC 31.6 g/dL (28.0-37.0); MONOCYTES 10.4 %; MPV 7.2 fl. (7.2-11.1); NUCLEATED RBCS 0 /100WBC; PLATELET COUNT* 367 thou/uL (150-400); RBC 2.87 mil/uL (4.50-6.00); RDW-CV 16.4 % (10.5-14.5)
[2017-08-25 04:24] LABS: CALCIUM 8.3 mg/dL (8.5-10.1); CREATININE 5.3 mg/dL (0.6-1.3)
[2017-08-25 04:50] LABS: POTASSIUM 6.2 mmol/L (3.5-5.1)
[2017-08-26] VITALS (7 sets, daily range): BP systolic 85–142; BP diastolic 36–69
[2017-08-26 05:27] LABS: HEMATOCRIT 22.5 % (42.0-52.0); HEMOGLOBIN 7.4 gm/dL (14.0-18.0); MCH 27.9 pg (26.0-34.0); MCHC 32.7 g/dL (28.0-37.0); MCV 85.5 fL (80.0-100.0); MPV 6.8 fl. (7.2-11.1); RBC 2.63 mil/uL (4.50-6.00); RDW-CV 16.2 % (10.5-14.5); WBC 10.8 thou/uL (4.0-11.0)
[2017-08-26 05:44] LABS: ALBUMIN 2.4 g/dL (3.4-5.0); CALCIUM 8.8 mg/dL (8.5-10.1); POTASSIUM 4.4 mmol/L (3.5-5.1); TOTAL BILIRUBIN 0.6 mg/dL (<0.1-1.0); TOTAL PROTEIN 7.4 g/dL (6.4-8.2)
[2017-08-26 05:54] LABS: CREATININE 4.2 mg/dL (0.6-1.3)
[2017-08-27 04:23] VITALS: BP 158/69
[2017-08-27 05:29] LABS: HEMATOCRIT 22.4 % (42.0-52.0); HEMOGLOBIN 7.3 gm/dL (14.0-18.0); MCH 27.9 pg (26.0-34.0); MCHC 32.6 g/dL (28.0-37.0); MCV 85.6 fL (80.0-100.0); MPV 7.4 fl. (7.2-11.1); RBC 2.62 mil/uL (4.50-6.00); RDW-CV 16.1 % (10.5-14.5); WBC 12.7 thou/uL (4.0-11.0)
[2017-08-27 05:34] LABS: CALCIUM 8.9 mg/dL (8.5-10.1); CREATININE 5.1 mg/dL (0.6-1.3); MAGNESIUM 2.1 mg/dL (1.8-2.4); POTASSIUM 3.9 mmol/L (3.5-5.1)
[2017-08-27 08:00] VITALS: BP 137/68
[2017-08-27 11:39] VITALS: BP 107/59
[2017-08-27 15:53] VITALS: BP 118/60
[2017-08-27 20:00] VITALS: BP 124/50
[2017-08-28] VITALS: BP 123/59
[2017-08-28 08:00] VITALS: BP 111/51
--- NOTE | 2017-08-28 11:21 | S ---
[place] [address] SURGICAL PATH RPT PROCEDURE Name: VARGAS RODRIGUEZ Room: [address] IN M.R.#: [id number] Admission: 08/15/17 Date of : 53 Discharge: Report #: [id number] Path Case #: [id number] PATHOLOGY REPORT COLLECTION DATE: 08/24/2017 RECEIVED DATE: 08/24/2017 SUBMITTING PHYS: Dr. Robbin Mayer OTHER PHYS: Dr. Jerzy Salazar SPECIMEN(S) RECEIVED: A.L leg below knee amputation * * * * * * * * * * * * FINAL DIAGNOSIS: Leg, "left leg below knee amputation": - Multifocal acute ulceration of the heel and at the transmetatarsal previous surgery site extending deeply into the underlying bone with acute osteomyelitis. - Extensive necrosis of the skin with ulceration and necrotic acute inflammatory infiltrate with gangrenous type of necrosis. - The anterior and posterior tibial arteries reveal calcific atherosclerotic narrowing with almost total occlusion. - The proximal skin and soft tissue resection margins appear viable. - Financial Services Rep sections of the tibia and fibular bone margins also appear viable. ([facility]:; 08/28/2017) COMMENT: PATHOLOGIST: Ran Rogers M.D. REPORT ELECTRONICALLY SIGNED BY: Ran Rogers M.D. DATE/TIME: 08/28/2017 11:20 * * * * * * * * * * * * GROSS PATHOLOGY: Received fresh labeled "Vargas Rodriguez, left below the knee amputation" is a left below knee amputation specimen which measures 38.5 cm from proximal bone resection margin to heel, with the leg measuring 8.5 cm from anterior to posterior, and 7.2 cm from medial to lateral. The proximal tibia and fibular resection margins are smooth and grossly consistent with surgical resections. The foot has a previous transmetatarsal amputation stump, with the remaining proximal foot measuring 17.2 cm from anterior to posterior, 8.5 cm from medial to lateral, and 8.0 cm from superior to [place] [address] SURGICAL PATH RPT PROCEDURE Name: VARGAS RODRIGUEZ Room: [address] IN [facility].#: [id number] Admission: 08/15/17 Date of : 53 Discharge: Report #: [id number] Path Case #: [id number] soft tissue flap defect on the posterior aspect of the leg, which measures 10.5 x 6.5 x 4.0 cm. The transmetatarsal stump site is pink-red and ulcerated with circumferential chaudhry-brown possible necrotic discoloration over a 7.8 x 6.0 cm area. This area is located 22.6 cm from the closest skin and soft tissue resection margin (at flap defect area), and 37.2 cm from the tibia and fibula bone resection margins. Present on the heel is a separate chaudhry-brown ulcerated discolored area which measures 5.7 x 3.8 cm, and is located 16.2 cm from the closest skin and soft tissue resection margin and 29.8 cm from the closest bone resection margin. The remaining uninvolved skin is chaudhry-white with pink edematous discoloration in the foot. The skin and soft tissue resection margins appear grossly viable. The anterior and posterior tibial arteries are palpable and calcified at the resection margin, and the anterior artery appears approximately 20% stenosed. Financial Services Rep sections of the specimen are submitted as follows: A1 closest skin and soft tissue resection margin A2 student services representative tibia and fibula bone margins following decalcification A3 anterior and posterior tibial arteries at resection margin A4-A5 sections of skin and soft tissue at transmetatarsal resection site A6 bone underlying ulcerated area at transmetatarsal resection site following decalcification A7-A8 section of skin and soft tissue at heel ulceration A9 bone underlying heel ulceration following decalcification ([facility]; 08/26/2017) CLINICAL HISTORY: ESRD, non-healing wounds left leg. INITIAL CPT CODE(S): A; 18246, 64665 Professional services performed by [facility] at [facility], [address] [place], [place] [address] [address]. Technical services performed by [employer] at [address] [place] [address], [address], [place] [address]. [facility] [address] [place] [address] PHONE: [phone] DIRECTOR: Tiago Broussard M.D. * * * END OF REPORT * * *
[2017-08-28 17:27] VITALS: BP 109/50
[2017-08-28 20:28] VITALS: BP 118/57
[2017-08-29 05:17] LABS: MCH 27.7 pg (26.0-34.0); MCHC 32.9 g/dL (28.0-37.0); MCV 84.1 fL (80.0-100.0); MPV 7.7 fl. (7.2-11.1); RBC 2.38 mil/uL (4.50-6.00); RDW-CV 16.1 % (10.5-14.5); WBC 11.9 thou/uL (4.0-11.0)
[2017-08-29 05:23] LABS: HEMOGLOBIN 6.6 gm/dL (14.0-18.0)
[2017-08-29 05:51] LABS: CALCIUM 8.5 mg/dL (8.5-10.1); CREATININE 4.4 mg/dL (0.6-1.3); MAGNESIUM 2.2 mg/dL (1.8-2.4); POTASSIUM 4.8 mmol/L (3.5-5.1)
[2017-08-29 08:00] VITALS: BP 115/59
[2017-08-29 09:15] LABS: URINE BILIRUBIN NEGATIVE (Negative); URINE BLOOD 2+ (Negative); URINE CLARITY CLEAR; URINE COLOR YELLOW; URINE GLUCOSE-RANDOM NEGATIVE (Negative); URINE KETONES NEGATIVE (Negative); URINE LEUKOCYTES NEGATIVE (Negative); URINE NITRITE NEGATIVE (Negative); URINE PROTEIN 2+ (Negative); URINE SPECIFIC GRAVITY 1.025 (1.005-1.030); URINE UROBILINOGEN 0.2 E.U./dl (0.2-1.0)
[2017-08-29 09:22] LABS: AMORPHOUS URATES Moderate /LPF (None Seen); BACTERIA 1-9 Few /HPF (None Seen); CASTS None Seen /LPF (None Seen); SQUAMOUS 0-3 Few /LPF (0-3)
[2017-08-29 09:23] LABS: URINE RBC 3-10 Few /HPF (0-2); URINE WBC None Seen /HPF (0-5)
--- NOTE | 2017-08-29 10:41 | CON ---
[facility] [address] [place] [address] CONSULTATION Name: GARCESJESSICA Rock Room: [address] IN M.R.#: [id number] Admission: 08/15/17 Attend Phys: Josh Burton Discharge: Date of : 53 Report #: [id number] THIS REPORT FOR: //name// CC: Holden Bob [facility] Jerzy Win DATE OF SERVICE: 08/16/2017 REQUESTING PHYSICIAN: Jerzy Win M.D. REASON FOR CONSULTATION: Assistance providing dialysis. HISTORY OF PRESENT ILLNESS: The patient is a very pleasant 62-year-old gentleman, with medical history significant for end-stage renal disease, anemia, coronary artery disease, presents to the hospital with complaints of being very weak and tired. He was having hypotensive episodes after dialysis. He also has a history of coronary artery disease, diabetes mellitus type 2. MEDICATIONS: Reviewed. FAMILY HISTORY: Noncontributory. SOCIAL HISTORY: No current tobacco or alcohol abuse. PHYSICAL EXAMINATION: GENERAL: He is awake and alert. VITAL SIGNS: His blood pressure 119/58, heart rate 69, afebrile. HEENT: Pupils are round. NECK: Supple. He has a tunneled dialysis catheter in the left internal jugular vein. He also has a newly placed fistula in his left upper arm. ABDOMEN: Soft. LUNGS: Clear. CARDIOVASCULAR: Regular rate. LABORATORY DATA: Revealed hemoglobin 7.8, serum sodium 130, potassium 4.2, BUN 33, creatinine 4.5, this is from yesterday. ASSESSMENT: A 62-year-old gentleman admitted with complaints of being weak, tired and being hypotensive after dialysis. We will dialyze him today. I will try to be gentle on his fluid removal. Hopefully, he will be able to tolerate [place] [address] CONSULTATION Name: JESSICA GARCES Room: [address]#: [id number] Admission: 08/15/17 Attend Phys: Josh Burton Discharge: Date of : 53 Report #: [id number] Thank you very much for asking my assistance providing dialysis for this patient. <ELECTRONICALLY SIGNED> By: Hector Farmer MD 08/29/17 1041 1113 [id number] Farmer MD /[facility]
[2017-08-29 17:58] VITALS: BP 112/56
[2017-08-29 20:10] VITALS: BP 111/60
[2017-08-30] VITALS: BP 117/59
[2017-08-30 05:05] LABS: MCH 27.6 pg (26.0-34.0); MCHC 32.7 g/dL (28.0-37.0); MCV 84.3 fL (80.0-100.0); MPV 7.9 fl. (7.2-11.1); RBC 2.19 mil/uL (4.50-6.00); RDW-CV 15.8 % (10.5-14.5); WBC 11.8 thou/uL (4.0-11.0)
[2017-08-30 05:15] LABS: HEMATOCRIT 18.5 % (42.0-52.0)
[2017-08-30 06:00] LABS: CALCIUM 8.3 mg/dL (8.5-10.1); POTASSIUM 5.3 mmol/L (3.5-5.1)
[2017-08-30 19:50] VITALS: BP 123/63
[2017-08-31 04:31] LABS: MCHC 33.3 g/dL (28.0-37.0); MPV 7.9 fl. (7.2-11.1); RBC 2.09 mil/uL (4.50-6.00); RDW-CV 16.5 % (10.5-14.5); WBC 9.9 thou/uL (4.0-11.0)
[2017-08-31 05:12] LABS: HEMATOCRIT 17.5 % (42.0-52.0); HEMOGLOBIN 5.8 gm/dL (14.0-18.0)
[2017-08-31 05:13] LABS: CALCIUM 8.3 mg/dL (8.5-10.1)
[2017-08-31 05:16] LABS: CREATININE 4.1 mg/dL (0.6-1.3)
[2017-08-31 08:40] VITALS: BP 123/61
[2017-08-31 16:06] VITALS: BP 114/58
[2017-09-01 00:15] VITALS: BP 114/55
[2017-09-01 02:07] LABS: HEPATITIS B SURFACE AG Negative (Negative)
[2017-09-01 08:00] VITALS: BP 115/64
--- NOTE | 2017-09-01 14:18 | OP ---
[address] [address] OPERATIVE REPORT Name: GARCESJESSICA Room: [address] IN M.R.#: [id number] Admission: 08/15/17 Attend Phys: Josh Burton Discharge: Date of : 53 Report #: [id number] THIS REPORT FOR: //name// CC: Holden Win DATE OF SERVICE: 08/24/2017 PREOPERATIVE DIAGNOSIS: Nonhealing left foot ulcers. POSTOPERATIVE DIAGNOSIS: Nonhealing left foot ulcers. SURGEON: Robbin Mayer DO. CHIEF DIVERSITY OFFICER: None. PROCEDURE: Left below-knee amputation. ANESTHESIA: General endotracheal anesthesia. ESTIMATED BLOOD LOSS: 300 mL. SPECIMEN: Left lower extremity. COMPLICATIONS: None. CONDITION: Stable. DISPOSITION: Floor. INDICATIONS FOR THE PROCEDURE AND CONSENT: The patient is a 62-year-old male who presented with diabetic foot ulcers, status post transmetatarsal amputation, which had failed to heal. Recommendation for left below-knee amputation was made. Risks and benefits were discussed including infection, bleeding, need for additional procedures. The patient wished to proceed, was consented and scheduled. PROCEDURE IN DETAIL: After timeout was performed, the patient was placed in supine position with circumferential sterile prep and drape of the left lower extremity. A transverse incision was made at about a handbreadth below the tibial tuberosity and dissection carried down using Bovie electrocautery. The saphenous vein was ligated between silk sutures and divided. The anterior tibial artery bundle was also identified and ligated and transected between 2-0 silk sutures. The tibia was freed of its attachments using a hopkins periosteal [address] [address] OPERATIVE REPORT Name: JESSICA GARCES Room: [address] IN .R.#: [id number] Admission: 08/15/17 Attend Phys: Josh Burton Discharge: Date of : 53 Report #: [id number] elevators and Bovie electrocautery. The fibula was identified, cleaned of its attachments as well and transected with a bone cutter proximally within the wound and tibia was then transected with a bone saw. The posterior flap was then created using amputation knife. Prior to doing this, the tourniquet was applied to 250 mmHg. There was some delay as it was not actually hooked to the machine. This was discovered when the bleeding was still persistent despite the tourniquet. We did hold pressure on the popliteal artery with a digit while it was applied. I then passed the leg as specimen. All bleeding vessels were then controlled with 3-0 silk pop-off sutures. The wound was then copiously irrigated with a liter of antibiotic saline. The tibia was beveled with the bone saw and sanded for a smooth anterior surface to avoid ulceration of the anterior portion of the prosthetic at a later date. The wound was then irrigated again. The posterior flap was cut to length using Bovie electrocautery and additional bleeding was controlled with a 3-0 silk pop-off sutures. The posterior flap was then mobilized and closed using 2-0 Vicryl suture in an interrupted fashion. The subdermal layer was then closed with 2-0 Vicryl as well and rashel were applied. A Prevena wound VAC, Kerlix, Mathew and a posterior knee immobilizer applied as dressing. The patient tolerated the procedure well. Lap, needle and instrument counts were correct. <ELECTRONICALLY SIGNED> By: Robbin Mayer DO 09/01/17 1418 1238 [id number] Mayer DO /nt
[2017-09-02 00:41] VITALS: BP 128/61
[2017-09-02 00:53] VITALS: BP 132/59
[2017-09-02 08:00] VITALS: BP 122/56
[2017-09-02 08:32] VITALS: BP 122/56
[2017-09-02 15:43] VITALS: BP 114/65
[2017-09-02 23:30] VITALS: BP 133/63
[2017-09-03 10:30] VITALS: BP 141/66
[2017-09-03 16:30] VITALS: BP 119/56
[2017-09-03 21:20] VITALS: BP 117/49
[2017-09-04 05:38] LABS: CALCIUM 8.4 mg/dL (8.5-10.1); CREATININE 5.4 mg/dL (0.6-1.3); POTASSIUM 3.9 mmol/L (3.5-5.1)
[2017-09-04 05:57] LABS: ABSOLUTE BASOPHILS 0.1 thou/uL (0.0-0.2); ABSOLUTE EOSINOPHILS 0.4 thou/uL (0.0-0.7); ABSOLUTE LYMPHOCYTES 1.9 thou/uL (0.8-5.3); ABSOLUTE MONOCYTES 1.1 thou/uL (0.0-1.2); ABSOLUTE NEUTROPHILS 7.2 thou/uL (1.6-8.1); BASOPHILS 0.6 %; EOSINOPHILS 3.3 %; LYMPHOCYTES 17.6 %; MCH 27.5 pg (26.0-34.0); MCHC 32.8 g/dL (28.0-37.0); MCV 83.9 fL (80.0-100.0); MONOCYTES 10.6 %; MPV 8.1 fl. (7.2-11.1); NUCLEATED RBCS 0 /100WBC; PLATELET COUNT* 447 thou/uL (150-400); POLYS 67.9 %; RBC 2.36 mil/uL (4.50-6.00); RDW-CV 16.9 % (10.5-14.5); WBC 10.6 thou/uL (4.0-11.0)
[2017-09-04 06:03] LABS: HEMATOCRIT 19.8 % (42.0-52.0); HEMOGLOBIN 6.5 gm/dL (14.0-18.0)
[2017-09-04 11:50] VITALS: BP 130/60
[2017-09-04 12:42] VITALS: BP 116/59
[2017-09-04 19:40] VITALS: BP 110/56
[2017-09-05 09:15] VITALS: BP 124/62
[2017-09-05 16:11] VITALS: BP 115/58
[2017-09-06 04:00] VITALS: BP 115/60
[2017-09-06 09:19] VITALS: BP 122/74
[2017-09-06 12:50] LABS: % SATURATION 11 % (20-39); IRON 17 ug/dL (50-175)
[2017-09-06 16:19] VITALS: BP 96/50
[2017-09-06 23:07] VITALS: BP 114/56
[2017-09-07 16:15] VITALS: BP 107/52
[2017-09-07 23:31] VITALS: BP 98/50
[2017-09-08 07:30] VITALS: BP 115/61
[2017-09-08 16:54] VITALS: BP 136/54
[2017-09-08 21:00] VITALS: BP 121/58
[2017-09-09 07:30] VITALS: BP 122/60
[2017-09-09 16:52] VITALS: BP 104/51
[2017-09-09 23:54] VITALS: BP 120/62
[2017-09-10 06:55] LABS: HEMATOCRIT 19.8 % (42.0-52.0); HEMOGLOBIN 6.5 gm/dL (14.0-18.0)
[2017-09-10 08:00] VITALS: BP 119/57
[2017-09-10 16:00] VITALS: BP 124/64
[2017-09-11 00:12] VITALS: BP 111/59
[2017-09-11 08:00] VITALS: BP 111/59; BP 140/88
[2017-09-11 16:00] VITALS: BP 103/52
[2017-09-11 23:21] VITALS: BP 99/57
--- NOTE | 2017-09-12 07:39 | OP ---
[address] [address] OPERATIVE REPORT Name: GARCESJESSICA E Room: [address] IN M.R.#: [id number] Admission: 08/15/17 Attend Phys: Josh Burton Discharge: Date of : 53 Report #: [id number] THIS REPORT FOR: //name// CC: Holden Win DATE OF SERVICE: 09/11/2017 PREOPERATIVE DIAGNOSIS: Necrosed left below knee amputation incision and anterior ulcer. POSTOPERATIVE DIAGNOSIS: Necrosed left below knee amputation incision and anterior ulcer. SURGEON: Robbin Mayer DO. NEURORADIOLOGIST: None. PROCEDURE: Incision and drainage of left BKA stump with excisional debridement of 10 x 10 cm area of muscle, tendon, and full thickness skin. ESTIMATED BLOOD LOSS: 50 mL. SPECIMEN: Muscle for culture. COMPLICATIONS: None. CONDITION: Stable. DISPOSITION: Floor. INDICATIONS FOR THE PROCEDURE AND CONSENT: The patient is a 62-year-old male, a Jehovah Witness, who underwent a below-knee amputation. He did have down trending of his hemoglobin postoperatively, was not able to have blood transfusions due to his caodaism beliefs. He did appear to have developed a small hematoma underneath his below knee amputation incision; however, the suture line remained intact and appeared viable. However, anteriorly he developed full thickness skin necrosis of uncertain reason as he was thought preoperatively to have adequate blood flow for amputation. Several discussions were had with the family given his low preoperative anemia with hemoglobin of less than 7, renal failure. Several long discussions were had to discuss best approach and safest approach. We did give them opportunity as well as the patient to consider autologous blood transfusion methods as well to hopefully enrich his oxygenated blood to assist with wound [place] [address] OPERATIVE REPORT Name: GARCESJESSICA Room: [address] IN [facility].#: [id number] Admission: 08/15/17 Attend Phys: Josh Burton Discharge: Date of : 53 Report #: [id number] surgical needs. I did discuss with them attempt at below-knee amputation salvage with excisional debridement, possible wound VAC therapy and stump salvage. I also discussed above knee amputation. I was concerned about proceeding immediately to above-knee amputation as there is a higher propensity for blood loss and he has already had significant anemia without ability to transfuse. Ultimately, we decided to plan for incision and drainage of his below knee amputation with hopeful wound VAC therapy and delayed primary closure over several months. He was consented for this with plan for Cell Sa[employer] technology, which the patient also agreed to and he stated it was within his belief system. PROCEDURE IN DETAIL: After timeout was performed, the patient was placed in supine position with circumferential sterile prep and drape of the left lower extremity. A 10 blade scalpel was used to open the incision after removing rashel with a hemostat. This demonstrated full tissue necrosis with necrosed muscle, tendon and flap. The anterior tibia was immediately exposed with no viable tissue between the skin and the bone. The entire area of full thickness necrosis was then excised with a 10 blade scalpel and a small area of necrosed muscle was sent for culture. I then debrided and excised a large area of muscle, which appeared decayed. It was clearly apparent that there was no option for below knee salvage at this point. I continued to debride the deadened areas to hopefully avoid a secondary infection. I then cauterized one area of venous oozing that was primarily from the bone marrow. I then briefly irrigated the wound and packed the wound with Surgicel, Mo and iodoform 1/2 inch gauze tightly to hopefully avoid any additional oozing. The wound was then wrapped with a Kerlix, ABD and GAEL compression. The patient tolerated the procedure well. Lap, needle and instrument counts were correct. The patient was transferred to recovery in stable condition. <ELECTRONICALLY SIGNED> By: Robbin Mayer DO 09/12/17 0739 1524 [id number] Mayer DO /nt
[2017-09-12 07:50] VITALS: BP 131/60
[2017-09-12 15:58] VITALS: BP 110/56
[2017-09-12 22:00] VITALS: BP 118/60; BP 128/62
[2017-09-13 04:30] LABS: HEMOGLOBIN 6.6 gm/dL (14.0-18.0)
[2017-09-13 04:31] LABS: HEMATOCRIT 19.9 % (42.0-52.0)
[2017-09-13 04:34] LABS: ALBUMIN 1.8 g/dL (3.4-5.0); CALCIUM 8.6 mg/dL (8.5-10.1); CREATININE 4.1 mg/dL (0.6-1.3); PHOSPHORUS* 3.7 mg/dL (2.5-4.9); POTASSIUM 3.7 mmol/L (3.5-5.1)
[2017-09-13 07:40] VITALS: BP 119/58
--- NOTE | 2017-09-13 15:33 | S ---
[place] [address] SURGICAL PATH RPT PROCEDURE Name: VARGAS RODRIGUEZ Room: [address] IN .R.#: [id number] Admission: 08/15/17 Date of : 53 Discharge: Report #: [id number] Path Case #: [id number] PATHOLOGY REPORT COLLECTION DATE: 09/11/2017 RECEIVED DATE: 09/12/2017 SUBMITTING PHYS: Dr. Robbin Mayer OTHER PHYS: Dr. Abhishek Win SPECIMEN(S) RECEIVED: A.Necrotic muscle left leg * * * * * * * * * * * * FINAL DIAGNOSIS: Necrotic muscle left leg: - Necrotic, benign skeletal muscle with acute inflammation and calcification. (RICCARDO:db; 09/13/2017) PATHOLOGIST: Saw Troncoso M.D. REPORT ELECTRONICALLY SIGNED BY: Saw Troncoso M.D. DATE/TIME: 09/13/2017 15:33 * * * * * * * * * * * * GROSS PATHOLOGY: Received in formalin labeled "Vargas Rodriguez, necrotic muscle left leg" and consists of a red to red-brown and slightly reyes portion of skeletal muscle which is serially sectioned and entirely submitted as A1. (MAIN; 09/12/2017) CLINICAL HISTORY: Necrotic left BKA wound INITIAL CPT CODE(S): 71648 Professional services [place] [facility] [address] Technical services performed by [facility] at [address] [place] [address], [address], [place] [address]. [facility] [address] [place] [address] SURGICAL PATH RPT PROCEDURE Name: VARGAS RODRIGUEZ Room: [address] IN M.R.#: [id number] Admission: 08/15/17 Date of : 53 Discharge: Report #: [id number] Path Case #: [id number] [facility] [id number] [address] PHONE: [phone] DIRECTOR: Tiago Broussard M.D. * * * END OF REPORT * * *
[2017-09-13 16:30] VITALS: BP 94/46
[2017-09-13 20:20] VITALS: BP 104/53
[2017-09-14 08:00] VITALS: BP 107/48
[2017-09-14 19:35] VITALS: BP 88/38
[2017-09-14 23:50] VITALS: BP 133/67
[2017-09-15 03:59] VITALS: BP 150/68
[2017-09-15 05:52] LABS: CALCIUM 8.6 mg/dL (8.5-10.1); CREATININE 3.3 mg/dL (0.6-1.3); PHOSPHORUS* 3.5 mg/dL (2.5-4.9); POTASSIUM 4.4 mmol/L (3.5-5.1)
[2017-09-15 05:59] LABS: HEMOGLOBIN 6.7 gm/dL (14.0-18.0)
[2017-09-15 08:00] VITALS: BP 139/68
[2017-09-15 16:00] VITALS: BP 118/57
[2017-09-15 20:15] VITALS: BP 139/68
[2017-09-16 08:00] VITALS: BP 145/67
[2017-09-16 15:57] VITALS: BP 100/45
[2017-09-16 23:25] VITALS: BP 122/57
[2017-09-17 08:00] VITALS: BP 117/76
--- NOTE | 2017-09-17 15:06 | CON ---
[address] [address] CONSULTATION Name: GARCESJESSICA Room: [address] IN .R.#: [id number] Admission: 08/15/17 Attend Phys: Josh Burton Discharge: Date of : 53 Report #: [id number] THIS REPORT FOR: //name// CC: Holden Win REASON FOR CONSULTATION: Evaluation and recommendations regarding post-acute rehabilitation in a 62-year-old male, status post end-stage renal disease, on dialysis and multiple chronic wounds, where he was then admitted on 08/15/2017 and ultimately, underwent below-knee amputation. He has had significant debility in the postoperative period, with some altered mental status and fevers. He is being followed by Internal Medicine as well as by Infectious Disease. He has not been able to participate in much therapy as previous level of function was modified independent. His current level of function is dependent for most or all cares. PAST MEDICAL HISTORY: He has got multiple medical problems including anemia; cellulitis; chest pain; non-healing diabetic foot ulcer; end-stage renal disease, on dialysis; obstructive uropathy; open toe wound and elevated white count. ALLERGIES: BACTRIM AND TRIMETHOPRIM. LABORATORY DATA: Laboratories are reviewed. VITAL SIGNS: Reviewed. REVIEW OF SYSTEMS: A 14-point review of systems is unable to be obtained due to the patient's altered mental status and inability to follow multi-step commands and questions. PHYSICAL EXAMINATION: Limited again due to the patient's current state. He is not really following greater than one-step commands. He does appear to have 5/5 strength in the bilateral upper and lower extremities. Skin is warm and dry. Incision is not visualized at this time. It is freshly dressed. At the time of this, he is running a low-grade fever. ASSESSMENT: 1. Status post below-knee amputation due to non-healing diabetic foot ulcer with methicillin-resistant Staphylococcus aureus. 2. Multiple medical comorbidities. 3. Altered mental status, unknown etiology. PLAN: We will follow along with the patient through his acute phase and continue to make attempts with physical and [place] [address] CONSULTATION Name: JESSICA GARCES Room: [address] IN [facility]#: [id number] Admission: 08/15/17 Attend Phys: Josh Burton Discharge: Date of : 53 Report #: [id number] speech and language pathology as needed. We will make recommendations on post-acute rehabilitation when appropriate. <ELECTRONICALLY SIGNED> By: Kim Renee DO 09/17/17 1506 1226 [id number] Renee DO /nt
[2017-09-17 15:58] VITALS: BP 111/51
[2017-09-17 23:21] VITALS: BP 109/59
[2017-09-18 05:40] LABS: HEMATOCRIT 20.3 % (42.0-52.0); MCH 27.3 pg (26.0-34.0); MCHC 31.8 g/dL (28.0-37.0); MPV 6.7 fl. (7.2-11.1); RBC 2.36 mil/uL (4.50-6.00); RDW-CV 19.6 % (10.5-14.5)
[2017-09-18 05:45] LABS: HEMOGLOBIN 6.5 gm/dL (14.0-18.0)
[2017-09-18 05:53] LABS: CALCIUM 8.5 mg/dL (8.5-10.1); MAGNESIUM 2.3 mg/dL (1.8-2.4); POTASSIUM 4.1 mmol/L (3.5-5.1)
[2017-09-18 05:56] LABS: CREATININE 4.3 mg/dL (0.6-1.3)
[2017-09-18 07:35] VITALS: BP 118/60
[2017-09-18] MEDS ORDERED: EPOGEN10000 UNIT IV (12:40)
[2017-09-18] MEDS ORDERED: FENTANYL 0.50 MCG/ML IV PUSH (12:42)
[2017-09-18] MEDS ORDERED: FISH OIL 1,001000 M2 PO (12:43)
[2017-09-18] MEDS ORDERED: FLOMAX0.4 MG PO (12:45)
[2017-09-18] MEDS ORDERED: FOLIC ACID 1 MG1 MG PO (12:47)
[2017-09-18] MEDS ORDERED: LIDOCAINE1 EACH TOP (12:49)
[2017-09-18] MEDS ORDERED: OXYCODONE HCL 55 MG PO (12:50)
[2017-09-18] MEDS ORDERED: PLAVIX 75 MG TA75 M1 PO (12:51)
[2017-09-18] MEDS ORDERED: PROTONIX40 M1 PO (12:52)
[2017-09-18] MEDS ORDERED: REMERON15 MG PO (12:53)
[2017-09-18] MEDS ORDERED: ACETAMINOPHEN325 M1 PO (12:54)
[2017-09-18] MEDS ORDERED: VENOFER50 MG/2.5 IV (12:56)
[2017-09-18] MEDS ORDERED: VITAMIN B-12500 MCG PO (12:57)
[2017-09-18 13:54] VITALS: BP 118/60
[2017-09-18 16:00] VITALS: BP 113/57
--- NOTE | 2017-09-18 17:36 | S ---
[place] [address] SURGICAL PATH RPT PROCEDURE Name: DEZVARGAS E Room: [address] IN M.R.#: [id number] Admission: 08/15/17 Date of : 53 Discharge: Report #: [id number] Path Case #: [id number] PATHOLOGY REPORT COLLECTION DATE: 09/14/2017 RECEIVED DATE: 09/17/2017 SUBMITTING PHYS: Dr. Adama Fountain OTHER PHYS: Dr. Jerzy Suresh SPECIMEN(S) RECEIVED: A.Left upper extremity, midthigh to knee * * * * * * * * * * * * FINAL DIAGNOSIS: Left upper extremity, mid thigh to knee: - Benign portion of above the knee extremity with prominent necrosis and acute inflammation of soft tissues at distal aspect including around stapled incision and with severe calcifying arteriosclerosis of popliteal artery. (see comment) COMMENT: Sections of the marrow from the exposed distal tibia show abundant acute inflammation in association with bone fragments, attributable to recent amputation wound, and possibly in association with osteomyelitis. Marrow submitted from the femur margin is benign and does not show evidence of osteomyelitis. (RICCARDO:mgnicky; 09/18/2017) PATHOLOGIST: Saw Troncoso M.D. REPORT ELECTRONICALLY SIGNED BY: Saw Troncoso M.D. DATE/TIME: 09/18/2017 17:36 * * * * * * * * * * * * GROSS PATHOLOGY: Received fresh in a biohazard bag labeled Vargas Rodriguez, left above knee amputation and consists of a leg amputated above the knee. The specimen is status post below knee amputation. The "stump" measures 35 cm proximal-distal and up to 17 cm in diameter. There is 7.5 cm of femur extending above the soft tissue margin. There is a non-healing gangrenous wound at the distal anterior leg that measures 13.7 x 9.5 cm. The distal stump shows a partially healed incision that measures 13.0 cm in length. The incision is closed with metallic rashel. The skin surrounding the incision is necrotic. Sectioning the anterior distal leg reveals marked soft tissue necrosis. The necrotic tissue clears [place] [address] SURGICAL PATH RPT PROCEDURE Name: VARGAS RODRIGUEZ Room: [address] IN [facility].#: [id number] Admission: 08/15/17 Date of : 53 Discharge: Report #: [id number] Path Case #: [id number] 8.0 cm. The probable popliteal artery shows marked atherosclerosis beginning at the cut margin and extending for a linear length of 7.0 cm. The soft tissue and cutaneous margins appear grossly viable. Waste Treatment Operator sections are submitted A1 necrotic tissue A2 popliteal artery A3 margin (skeletal muscle and skin A4 marrow from tibia, exposed at anterior distal wound A5 marrow of femur at margin (MAIN; 09/17/2017) CLINICAL HISTORY: Left chronic leg wound. Patient has had a previous gagwa-wtfv-javwelxsyk. INITIAL CPT CODE(S): A; 27780 Professional services performed by [facility] at [facility], [address], [place] [address]. Technical services performed by [employer] at [address] [place] [address], [address], [place] [address]. [facility] [address] [place] [address] PHONE: [phone] DIRECTOR: Tiago Broussard M.D. * * * END OF REPORT * * *
[2017-09-18 21:00] VITALS: BP 117/62
[2017-09-19 08:15] VITALS: BP 113/58
[2017-09-19 08:48] LABS: ABSOLUTE BASOPHILS 0.1 thou/uL (0.0-0.2); ABSOLUTE EOSINOPHILS 0.2 thou/uL (0.0-0.7); ABSOLUTE LYMPHOCYTES 1.7 thou/uL (0.8-5.3); ABSOLUTE MONOCYTES 0.7 thou/uL (0.0-1.2); ABSOLUTE NEUTROPHILS 3.9 thou/uL (1.6-8.1); BASOPHILS 1.3 %; EOSINOPHILS 2.4 %; LYMPHOCYTES 25.7 %; MCH 27.7 pg (26.0-34.0); MCHC 32.3 g/dL (28.0-37.0); MCV 85.5 fL (80.0-100.0); MONOCYTES 10.7 %; MPV 7.2 fl. (7.2-11.1); NUCLEATED RBCS 0 /100WBC; PLATELET COUNT* 418 thou/uL (150-400); POLYS 59.9 %; RBC 2.46 mil/uL (4.50-6.00); RDW-CV 18.9 % (10.5-14.5); WBC 6.5 thou/uL (4.0-11.0)
[2017-09-19 08:50] LABS: HEMOGLOBIN 6.8 gm/dL (14.0-18.0)
[2017-09-19] MEDS ORDERED: ASPIR 8181 MG PO (09:24)
--- NOTE | 2017-09-19 12:05 | OP ---
[facility] [address] [place] [address] OPERATIVE REPORT Name: DEZJESSICA Rock Room: [address] IN M.R.#: [id number] Admission: 08/15/17 Attend Phys: Josh Burton Discharge: Date of : 53 Report #: [id number] THIS REPORT FOR: //name// CC: Holden Win DATE OF SERVICE: 09/14/2017 PREOPERATIVE DIAGNOSIS: Infected necrotic left below knee amputation. POSTOPERATIVE DIAGNOSIS: Infected necrotic left below knee amputation. SURGEON: Robbin Mayer DO EMD TEACHER: Tonia Hirsch PA-C PROCEDURE: Left above knee amputation. ESTIMATED BLOOD LOSS: 100 mL. SPECIMEN: None. COMPLICATIONS: None. CONDITION: Stable. DISPOSITION: Floor. INDICATIONS FOR THE PROCEDURE AND CONSENT: The patient is a 62-year-old male with end-stage renal disease, diabetes mellitus who also has a significant anemia and is a Advent. The patient underwent a below-knee amputation for failing left foot necrosis and inability to heal. The patient unfortunately necrosed his incision in anterior skin postoperatively despite a presumed adequate blood flow. The patient underwent I and D and was found to have necrosed posterior flap. Recommendation for a left above knee amputation was made. Risks and benefits were discussed; infection, bleeding, blood loss and inability to transfuse due to the patient's wishes and a belief system. The patient wished to proceed, was consented and scheduled. PROCEDURE IN DETAIL: After timeout was performed, the patient was placed in supine position with sterile prep and drape of the left lower extremity. A sterile tourniquet was applied to the high thigh and made available for use. It was tested preoperatively [place] [address] OPERATIVE REPORT Name: JESSICA GARCES Room: [address]#: [id number] Admission: 08/15/17 Attend Phys: Josh Burton Discharge: Date of : 53 Report #: [id number] Once this was done, the tourniquet was let down immediately. A Cell Saver was requested given the patient's Advent status and severe anemia. A transverse incision was then made using 10 blade scalpel and careful dissection down with Bovie electrocautery to maintain hemostasis throughout the procedure. The femur was identified and cleaned meticulously with Bovie electrocautery instead of hopkins or Soto dissection to avoid any unnecessary blood loss. The femoral artery and vein were then identified and suture ligated with a 3-0 Prolene and divided. The great saphenous vein was also identified and ligated with 2-0 silk ties. The femur was then transected with the bone saw and the posterior muscle belly divided with an amputation knife. The tourniquet was applied to limit blood loss while meticulous hemostasis was achieved with Bovie cautery and 2-3 [id number] 2-0 Vicryl sutures were required as well. The tourniquet was then released to identify any additional bleeding and none was seen. The wound was copiously irrigated with a liter of normal saline. The bone saw sanded anteriorly to avoid sharp edge. Wound was then again briefly irrigated and then the muscle bellies closed in layers using 2-0 Vicryl, 3-0 Vicryl and rashel. Prevena VAC was applied and a compressive dressing was applied. The patient tolerated the procedure well. Lap, needle, instrument counts correct. <ELECTRONICALLY SIGNED> By: Robbin Mayer DO 09/19/17 1205 1751 1814Robbin Mayer DO /nt
[2017-09-19] MEDS ORDERED: BENGAY GREASELE57 GM TOP (14:10)
[2017-09-19] MEDS ORDERED: HUMALOG100 UNIT/1 SUBQ (14:12)
[2017-09-19 15:11] VITALS: BP 106/52
== END 2017-09-19 20:10 | DRG 474 ==
LOC: M.WC 14:00 → M.3W 15:30 → M.TBA-ER 15:30 → M.3W 18:53 → M.ICU 08-24 14:58 → M.2W 08-25 15:38 → M.3W 08-30 15:50
PROVIDERS: Emergency Medicine Emergency Medical Services; Family Medicine; Internal Medicine; Internal Medicine Nephrology; Podiatrist Foot & Ankle Surgery; Registered Nurse; Specialist; Surgery; ADMIT Internal Medicine
PROC: 0QTP0ZZ Resection of Left Metatarsal, Open Approach (ICD-10-PCS; principal; 2017-08-18)
PROC: 5A1D70Z Performance of Urinary Filtration, Intermittent, Less than 6 Hours Per Day (ICD-10-PCS; 2017-08-21)
PROC: 0Y6J0Z1 Detachment at Left Lower Leg, High, Open Approach (ICD-10-PCS; 2017-08-24)
PROC: 5A1D70Z Performance of Urinary Filtration, Intermittent, Less than 6 Hours Per Day (ICD-10-PCS; 2017-08-25)
PROC: 5A1D70Z Performance of Urinary Filtration, Intermittent, Less than 6 Hours Per Day (ICD-10-PCS; 2017-08-30)
PROC: 5A1D70Z Performance of Urinary Filtration, Intermittent, Less than 6 Hours Per Day (ICD-10-PCS; 2017-09-02)
PROC: 0LBR0ZZ Excision of Left Knee Tendon, Open Approach (ICD-10-PCS; 2017-09-11)
PROC: 0Y6J0Z1 Detachment at Left Lower Leg, High, Open Approach (ICD-10-PCS; 2017-09-14)
DX: M86.172 Other acute osteomyelitis, left ankle and foot (principal); A41.9 Sepsis, unspecified organism; N18.6 End stage renal disease; G93.40 Encephalopathy, unspecified; E87.1 Hypo-osmolality and hyponatremia; N13.4 Hydroureter; Z99.2 Dependence on renal dialysis; B95.62 Methicillin resistant Staphylococcus aureus infection as the cause of diseases classified elsewhere; E11.69 Type 2 diabetes mellitus with other specified complication; E11.51 Type 2 diabetes mellitus with diabetic peripheral angiopathy without gangrene; K21.9 Gastro-esophageal reflux disease without esophagitis; I10 Essential (primary) hypertension; E87.5 Hyperkalemia; I25.10 Atherosclerotic heart disease of native coronary artery without angina pectoris; D50.9 Iron deficiency anemia, unspecified; R33.9 Retention of urine, unspecified; E78.5 Hyperlipidemia, unspecified; E11.42 Type 2 diabetes mellitus with diabetic polyneuropathy; D63.1 Anemia in chronic kidney disease; Z95.1 Presence of aortocoronary bypass graft; Z89.411 Acquired absence of right great toe; Z89.421 Acquired absence of other right toe(s); Z79.02 Long term (current) use of antithrombotics/antiplatelets; Z79.82 Long term (current) use of aspirin; Z79.899 Other long term (current) drug therapy; Z95.5 Presence of coronary angioplasty implant and graft; I25.2 Old myocardial infarction; Z79.4 Long term (current) use of insulin; Z79.84 Long term (current) use of oral hypoglycemic drugs; Z86.73 Personal history of transient ischemic attack (TIA), and cerebral infarction without residual deficits; Z80.7 Family history of other malignant neoplasms of lymphoid, hematopoietic and related tissues; Z83.6 Family history of other diseases of the respiratory system; Z82.49 Family history of ischemic heart disease and other diseases of the circulatory system

== ENCOUNTER → 2017-09-27 | Outpatient (CLI) | payer MEDICARE ==
[~2017-09-27] VITALS: Ht 182.9 cm; Wt 76.2 kg
[~2017-09-27] MED LIST changes: +ACETAMINOPHEN325 M1 PO; +BACITRACIN TOP; +BACITRACIN3.5 GM TOP; +BACTROBAN CREAM30 G1 TOP; +BENGAY GREASELE57 GM TOP; +BIOFREEZE118 ML TOP; +BOUDREAUXS10 GM TOP; +CEFUROXIME500 MG PO; +DARBEPOETIN ALFA IM; +DIFLUCAN200 MG PO; +DOXYCYCLINE 10100 MG PO; +EPOGEN10000 UNIT IV; +FENTANYL 0.50 MCG/ML IV PUSH; +FISH OIL 1,001000 M2 PO; +FOLIC ACID 1 MG1 MG PO; +FOLIC ACID1 MG PO; +HYDRALAZINE 2525 MG PO; +LEVAQUIN 500 M500 M2 PO; +LIDOCAINE1 EACH TOP; +NYSTATIN 100,0015 G1 TOP; +OMEGA 3 1,0001 EACH PO; +OXYCODONE HCL 55 MG PO; +POTASSIUM20 PO; +REMERON15 MG PO; +RENAL CAPS SOFTG1 MG PO; +TRULICITY0.75 MG/0. SUBQ; +VENOFER50 MG/2.5 IV; +VITAMIN B-12500 MCG PO; +VITAMIN D1000 UNI1 PO
[2017-09-27 10:26] VITALS: BP 125/50
[2017-09-27 12:48] VITALS: BP 134/56
== END | disposition home or self-care (01) ==
LOC: M.INT 09:44
DX: Z49.01 Encounter for fitting and adjustment of extracorporeal dialysis catheter (principal); I13.2 Hypertensive heart and chronic kidney disease with heart failure and with stage 5 chronic kidney disease, or end stage renal disease; N18.6 End stage renal disease; E11.22 Type 2 diabetes mellitus with diabetic chronic kidney disease; I25.2 Old myocardial infarction; I25.10 Atherosclerotic heart disease of native coronary artery without angina pectoris; E78.5 Hyperlipidemia, unspecified; I73.89 Other specified peripheral vascular diseases; Z95.1 Presence of aortocoronary bypass graft; Z86.73 Personal history of transient ischemic attack (TIA), and cerebral infarction without residual deficits; Z98.890 Other specified postprocedural states; Z88.2 Allergy status to sulfonamides; Z88.8 Allergy status to other drugs, medicaments and biological substances; Z79.82 Long term (current) use of aspirin; Z79.891 Long term (current) use of opiate analgesic; Z79.4 Long term (current) use of insulin; Z79.899 Other long term (current) drug therapy

== ENCOUNTER 2017-11-08 08:31 | Inpatient (IN) | payer MEDICARE ==
[~2017-11-08] VITALS: Ht 182.9 cm; Wt 81.2 kg
[~2017-11-08 08:31] MED LIST changes: -BACITRACIN TOP; -BACITRACIN3.5 GM TOP; -BACTROBAN CREAM30 G1 TOP; -BIOFREEZE118 ML TOP; -BOUDREAUXS10 GM TOP; -CEFUROXIME500 MG PO; -DARBEPOETIN ALFA IM; -DIFLUCAN200 MG PO; -DOXYCYCLINE 10100 MG PO; -FOLIC ACID1 MG PO; -HYDRALAZINE 2525 MG PO; -LEVAQUIN 500 M500 M2 PO; -NYSTATIN 100,0015 G1 TOP; -OMEGA 3 1,0001 EACH PO; -POTASSIUM20 PO; -RENAL CAPS SOFTG1 MG PO; -TRULICITY0.75 MG/0. SUBQ; -VITAMIN D1000 UNI1 PO
[2017-11-08 08:32] VITALS: BP 138/64
[2017-11-08] MEDS ORDERED: BACITRACIN TOP (08:47)
[2017-11-08] MEDS ORDERED: BACTROBAN CREAM30 G1 TOP (08:48)
[2017-11-08] MEDS ORDERED: BIOFREEZE118 ML TOP (08:49)
[2017-11-08] MEDS ORDERED: DARBEPOETIN ALFA IM (08:49)
[2017-11-08] MEDS ORDERED: DIFLUCAN200 MG PO (08:50)
[2017-11-08] MEDS ORDERED: HUMALOG100 UNIT/1 SUBQ (08:51)
[2017-11-08] MEDS ORDERED: REMERON15 MG PO (08:51)
[2017-11-08] MEDS ORDERED: NYSTATIN 100,0015 G1 TOP (08:52)
[2017-11-08] MEDS ORDERED: OMEGA 3 1,0001 EACH PO (08:52)
[2017-11-08] MEDS ORDERED: POTASSIUM20 PO (08:53)
[2017-11-08] MEDS ORDERED: TRULICITY0.75 MG/0. SUBQ (08:53)
[2017-11-08] MEDS ORDERED: BOUDREAUXS10 GM TOP (08:54)
[2017-11-08 08:58] LABS: HEMATOCRIT 35.7 % (42.0-52.0); HEMOGLOBIN 11.8 gm/dL (14.0-18.0); MCH 28.6 pg (26.0-34.0); MCHC 32.9 g/dL (28.0-37.0); MCV 86.9 fL (80.0-100.0); MPV 8.2 fl. (7.2-11.1); NUCLEATED RBCS 0 /100WBC; PLATELET COUNT* 231 thou/uL (150-400); RBC 4.11 mil/uL (4.50-6.00); RDW-CV 15.9 % (10.5-14.5)
[2017-11-08 09:12] LABS: CALCIUM 9.1 mg/dL (8.5-10.1); CREATININE 4.3 mg/dL (0.6-1.3); POTASSIUM 5.5 mmol/L (3.5-5.1)
[2017-11-08 09:13] LABS: APTT 28.7 Seconds (25.0-31.3); INR 1.1; PROTIME 10.7 Seconds (9.20-11.50)
[2017-11-08 09:28] LABS: ALBUMIN 2.9 g/dL (3.4-5.0); CK-MB MASS 0.6 ng/mL (<0.5-3.6); TOTAL BILIRUBIN 0.8 mg/dL (<0.1-1.0); TOTAL PROTEIN 8.4 g/dL (6.4-8.2); TROPONIN-I LEVEL 0.07 ng/mL (<0.06)
[2017-11-08 09:43] LABS: ABSOLUTE LYMPHOCYTES 0.8 thou/uL (0.8-5.3); ABSOLUTE MONOCYTES 0.2 thou/uL (0.0-1.2); ABSOLUTE NEUTROPHILS 10.9 thou/uL (1.6-8.1); ANISOCYTOSIS 1+; PLATELET ESTIMATE ADEQUATE; POIKILOCYTOSIS 1+
[2017-11-08 09:46] LABS: URINE BILIRUBIN NEGATIVE (Negative); URINE BLOOD 2+ (Negative); URINE CLARITY CLEAR; URINE COLOR YELLOW; URINE GLUCOSE-RANDOM NEGATIVE (Negative); URINE KETONES NEGATIVE (Negative); URINE NITRITE-REFLEX NEGATIVE (Negative); URINE PROTEIN 2+ (Negative); URINE UROBILINOGEN 0.2 E.U./dl (0.2-1.0)
[2017-11-08 09:47] LABS: URINE LEUKOCYTES-REFLEX 3+ (Negative)
[2017-11-08 09:54] LABS: CRYSTALS None Seen /LPF (None Seen); SQUAMOUS NONE SEEN /LPF (0-3); URINE WBC-REFLEX >25 Many /HPF (0-5)
[2017-11-08 09:55] LABS: BACTERIA-REFLEX >30 Many /HPF (None Seen); CASTS None Seen /LPF (None Seen); URINE RBC 3-10 Few /HPF (0-2)
[2017-11-08 12:53] VITALS: BP 109/51
[2017-11-08 13:23] VITALS: BP 135/55
[2017-11-08] MEDS ORDERED: BACITRACIN3.5 GM TOP (13:54)
[2017-11-08 15:58] VITALS: BP 141/66
[2017-11-08 20:00] VITALS: BP 99/55
[2017-11-09 00:39] VITALS: BP 140/59
[2017-11-09 04:10] VITALS: BP 114/56
--- NOTE | 2017-11-09 07:32 | CON ---
[address] [address] CONSULTATION Name: GARCESJESSICA Room: [address] IN .R.#: [id number] Admission: 11/08/17 Attend Phys: Juliana Miller Discharge: Date of : 53 Report #: [id number] THIS REPORT FOR: //name// CC: Stas De Luna DATE OF SERVICE: 11/08/2017 ATTENDING PHYSICIAN: Dr. De Luna. REASON FOR EVALUATION: Sepsis, complicated urinary tract infection. HISTORY OF PRESENT ILLNESS: Chart reviewed, patient examined. This is a 62-year-old gentleman, well familiar with, who has extensive medical history given his age, has longstanding diabetes mellitus with severe complications including vasculopathy, has end-stage renal disease, on dialysis,. He had a recent left above the knee amputation who presented to the Emergency Room with significant encephalopathy, also apparently had fevers, myalgias, nonproductive cough. At this point, he is quite somnolent, difficult to arouse. Evaluation noted pyuria, greater than 25 white cells, greater than 30 bacteria. Chest x-ray was otherwise unrevealing. He was started on broad spectrum antimicrobials, given a dose of Zosyn and Levaquin. ALLERGIES: LISTED TO BACTRIM. CURRENT MEDICATIONS: Include antibiotics and aspirin. Medications taken at home include gabapentin, insulin lispro, nitroglycerin, insulin glargine, metoprolol, tamsulosin, oxycodone, pantoprazole, cyanocobalamin, aspirin, mupirocin, thrombopoietin, mirtazapine, omega-3 fatty acids, potassium chloride, Trulicity, zinc oxide. PAST MEDICAL HISTORY: Includes diabetes mellitus, is complicated by widespread vasculopathy, has known coronary artery disease, peripheral vascular disease. Has got end-stage renal disease, on hemodialysis. Recent above-knee amputation on the left. Chronic anemia, peripheral neuropathy, hypertension, aortic valve replacement, previous strokes, hyperlipidemia. SOCIAL AND FAMILY HISTORY: Available in chart. REVIEW OF SYSTEMS: As above. PHYSICAL EXAMINATION: GENERAL: He is in lateral decubitus position, somewhat oriented, difficult to arouse. It is not clear that he recognized me in spite of multiple interactions. VITAL SIGNS: T-max 102.2, more recently 99. Pulse 72, respirations 16, [place] [address] CONSULTATION Name: JESSICA GARCES Room: [address] IN [facility]#: [id number] Admission: 11/08/17 Attend Phys: Juliana Miller Discharge: Date of : 53 Report #: [id number] pressure 135/55. SKIN: Warm, dry, no rashes. NECK: Supple. LUNGS: Few scattered coarse breath sounds. HEART: Regular. He does have soft systolic murmur. ABDOMEN: Soft. There are no apparent peritoneal signs. GENITOURINARY AND RECTAL: Deferred. LABORATORY DATA: Urinalysis described above, greater than 25 white cells, greater than 30 bacteria. CBC: White count of 12.0, H and H 11.8 and 35.7, platelets of 231. Electrolytes: Sodium 133, potassium 5.5, chloride 97, bicarbonate is 27, BUN and creatinine 41 and 4.3, anion gap of 9, glucose of 247. Albumin of 2.9, total protein of 8.4. Lactic acid 1.7. ASSESSMENT: Early sepsis, likely secondary to complicated urinary tract infection. Other sources include pneumonitis, although evidence infection, otherwise unremarkable as well on exam. There could be viral or some septicemia. We will go ahead and continue therapy with cefepime, vancomycin, pending those results. <ELECTRONICALLY SIGNED> By: Jesus Alberto Oneil MD 11/09/17 0732 1443 1734Jofederico Oneil MD /nt
[2017-11-09 08:30] VITALS: BP 155/68
[2017-11-09 11:52] VITALS: BP 158/70
[2017-11-09 13:34] LABS: CALCIUM 8.2 mg/dL (8.5-10.1); POTASSIUM 3.9 mmol/L (3.5-5.1)
[2017-11-09 13:36] LABS: CREATININE 2.8 mg/dL (0.6-1.3)
[2017-11-09 16:18] VITALS: BP 146/74
--- NOTE | 2017-11-09 17:05 | EKG ---
[place] [address] ELECTROCARDIOGRAM REPORT Name: JESSICA GARCES Room: [address] IN [facility]#: [id number] Admission: 11/08/17 Attend Phys: Juliana Miller Discharge: Date of : 53 Report #: [id number] THIS REPORT FOR: //name// [facility] ED Test Date: 2017-11-08 Test Time: 08:40:45 Pat Name: JESSICA GARCES Department: Room: Gender: Crystal Gazer: Oscar MIRELES : 1955 Requested By: Paulino Salazar Order Number: [id number] MD: Yovanny Couch Measurements Intervals [place] Rate: 80 P: 44 MI: 196 QRS: -30 QRSD: 120 T: 132 QT: 399 QTc: 461 Interpretive Statements Sinus rhythm Ventricular bigeminy Incomplete left bundle branch block LVH with secondary repolarization abnormality Anterior ST elevation, probably due to LVH Compared to ECG 08/17/2017 08:31:11 Ventricular premature complex(es) now present Left ventricular hypertrophy now present Early repolarization now present ST (T wave) deviation now present Electronically Signed On 11-09-2017 17:05:02 CDT by Yovanny Couch [email or web address] <ELECTRONICALLY SIGNED> By: Yovanny Couch MD, [facility] 11/09/17 1705 9 08 Yovanny Couch MD, [facility] /EPI
[2017-11-09 20:00] VITALS: BP 146/54
[2017-11-10] VITALS: BP 118/83
[2017-11-10 04:00] VITALS: BP 153/69
[2017-11-10 04:49] LABS: CALCIUM 8.4 mg/dL (8.5-10.1); CREATININE 2.9 mg/dL (0.6-1.3); POTASSIUM 3.7 mmol/L (3.5-5.1)
[2017-11-10 07:45] VITALS: BP 156/66
[2017-11-10 16:00] VITALS: BP 128/69
[2017-11-10 20:00] VITALS: BP 125/67
[2017-11-11] VITALS: BP 138/57
[2017-11-11 04:00] VITALS: BP 126/66
[2017-11-11 05:18] LABS: CREATININE 2.3 mg/dL (0.6-1.3); POTASSIUM 3.4 mmol/L (3.5-5.1)
[2017-11-11 07:45] VITALS: BP 150/67
[2017-11-11 12:00] VITALS: BP 133/62
[2017-11-11 16:00] VITALS: BP 133/70
[2017-11-11 20:15] VITALS: BP 148/67
[2017-11-12] VITALS: BP 155/73
[2017-11-12 04:50] VITALS: BP 138/69
[2017-11-12 06:10] LABS: CALCIUM 8.3 mg/dL (8.5-10.1); CREATININE 2.7 mg/dL (0.6-1.3); POTASSIUM 3.9 mmol/L (3.5-5.1)
[2017-11-12 08:00] VITALS: BP 133/62
--- NOTE | 2017-11-12 09:53 | CON ---
[address] [address] CONSULTATION Name: JESSICA GARCES Room: [address] IN .R.#: [id number] Admission: 11/08/17 Attend Phys: Juliana Miller Discharge: Date of : 53 Report #: [id number] THIS REPORT FOR: //name// CC: Stas De Luna DATE OF SERVICE: 11/08/2017 REQUESTING PHYSICIAN: Lance De Luna DO. REASON FOR CONSULTATION: Assist in providing dialysis. HISTORY OF PRESENT ILLNESS: The patient is a 62-year-old male with medical history significant for end-stage renal disease, peripheral artery disease, history of left above-knee amputation, history of coronary artery disease, diabetes mellitus type 1. He presents with confusion. He was found to have most likely urosepsis. His urine looked infected. His white count in the blood was with a left shift. Cultures are pending. So, he is admitted with diagnosis of possible urosepsis and today is his dialysis day, so we will provide dialysis. PHYSICAL EXAMINATION: GENERAL: The patient is examined on dialysis. He is confused, has been shivering. VITAL SIGNS: His blood pressure 141/66, heart rate 87, respiratory rate 18. He is producing urine and he already produced 1000 mL of urine. HEENT: Pupils are round. NECK: Supple. LUNGS: Fairly clear. CARDIOVASCULAR: Regular rate. ABDOMEN: Soft. EXTREMITIES: He has got left below-knee amputation. ASSESSMENT: This is a 62-year-old gentleman, admitted with pictures of urosepsis. He is a dialysis patient, so the patient is on dialysis now. He is tolerating treatment, received already a liter and half of fluids, but still looks dry. We will continue with IV fluids, a total of 3 liters and antibiotics. I will provide dialysis while he is here. <ELECTRONICALLY SIGNED> By: Hector Farmer MD 11/12/17 0953 1702 0122Alexflaco Farmer MD /[facility]
[2017-11-12 11:00] VITALS: BP 136/65
[2017-11-12 15:00] VITALS: BP 128/74
[2017-11-12 20:40] VITALS: BP 145/57
[2017-11-13] VITALS: BP 154/71
[2017-11-13 04:00] VITALS: BP 117/69
[2017-11-13 05:13] LABS: HEMATOCRIT 33.7 % (42.0-52.0); HEMOGLOBIN 11.1 gm/dL (14.0-18.0); MCH 28.7 pg (26.0-34.0); MCHC 33.1 g/dL (28.0-37.0); MCV 86.8 fL (80.0-100.0); MPV 7.5 fl. (7.2-11.1); RBC 3.88 mil/uL (4.50-6.00); RDW-CV 15.6 % (10.5-14.5); WBC 7.6 thou/uL (4.0-11.0)
[2017-11-13 05:36] LABS: CALCIUM 8.5 mg/dL (8.5-10.1)
[2017-11-13 08:00] VITALS: BP 152/75
[2017-11-13 11:00] VITALS: BP 124/60
[2017-11-13 15:57] VITALS: BP 124/60
[2017-11-13] MEDS ORDERED: KEFLEX250 MG PO (16:14)
== END 2017-11-13 17:49 | DRG 871 ==
LOC: M.ERS 08:31 → M.TBA-ER 09:59 → M.2W 09:59
PROVIDERS: Emergency Medicine Emergency Medical Services; Nurse Practitioner Family; ADMIT Internal Medicine
PROC: 5A1D70Z Performance of Urinary Filtration, Intermittent, Less than 6 Hours Per Day (ICD-10-PCS; principal; 2017-11-08)
PROC: 5A1D70Z Performance of Urinary Filtration, Intermittent, Less than 6 Hours Per Day (ICD-10-PCS; 2017-11-10)
PROC: 5A1D70Z Performance of Urinary Filtration, Intermittent, Less than 6 Hours Per Day (ICD-10-PCS; 2017-11-13)
DX: A41.9 Sepsis, unspecified organism (principal); N18.6 End stage renal disease; G93.40 Encephalopathy, unspecified; N39.0 Urinary tract infection, site not specified; I12.0 Hypertensive chronic kidney disease with stage 5 chronic kidney disease or end stage renal disease; I25.10 Atherosclerotic heart disease of native coronary artery without angina pectoris; E11.22 Type 2 diabetes mellitus with diabetic chronic kidney disease; E78.5 Hyperlipidemia, unspecified; B96.20 Unspecified Escherichia coli [E. coli] as the cause of diseases classified elsewhere; E87.6 Hypokalemia; D64.9 Anemia, unspecified; I73.9 Peripheral vascular disease, unspecified; E11.42 Type 2 diabetes mellitus with diabetic polyneuropathy; E11.51 Type 2 diabetes mellitus with diabetic peripheral angiopathy without gangrene; Z79.4 Long term (current) use of insulin; Z99.2 Dependence on renal dialysis; Z89.422 Acquired absence of other left toe(s); Z88.1 Allergy status to other antibiotic agents; Z88.0 Allergy status to penicillin; Z89.411 Acquired absence of right great toe; Z95.5 Presence of coronary angioplasty implant and graft; Z95.1 Presence of aortocoronary bypass graft; Z86.73 Personal history of transient ischemic attack (TIA), and cerebral infarction without residual deficits; Z88.8 Allergy status to other drugs, medicaments and biological substances; Z79.82 Long term (current) use of aspirin; Z79.899 Other long term (current) drug therapy; Z86.14 Personal history of Methicillin resistant Staphylococcus aureus infection; Z89.612 Acquired absence of left leg above knee; Z95.2 Presence of prosthetic heart valve; Z82.5 Family history of asthma and other chronic lower respiratory diseases; Z82.49 Family history of ischemic heart disease and other diseases of the circulatory system

== ENCOUNTER 2018-01-05 10:34 | Inpatient (IN) | payer MEDICARE ==
[~2018-01-05] VITALS: Ht 182.9 cm; Wt 86.6 kg
[~2018-01-05 10:34] MED LIST changes: +BACITRACIN TOP; +BACITRACIN3.5 GM TOP; +BACTROBAN CREAM30 G1 TOP; +BIOFREEZE118 ML TOP; +BOUDREAUXS10 GM TOP; +DARBEPOETIN ALFA IM; +DIFLUCAN200 MG PO; +NYSTATIN 100,0015 G1 TOP; +OMEGA 3 1,0001 EACH PO; +POTASSIUM20 PO; +TRULICITY0.75 MG/0. SUBQ
[2018-01-05 10:35] VITALS: BP 90/52
[2018-01-05] MEDS ORDERED: HUMALOG100 UNIT/1 SUBQ ×2 (10:49)
[2018-01-05] MEDS ORDERED: FOLIC ACID1 MG PO (10:51)
[2018-01-05] MEDS ORDERED: DIFLUCAN200 MG PO (10:51)
[2018-01-05] MEDS ORDERED: VITAMIN D1000 UNI1 PO (10:52)
[2018-01-05] MEDS ORDERED: PROTONIX40 M1 PO (10:52)
[2018-01-05] MEDS ORDERED: RENAL CAPS SOFTG1 MG PO ×2 (10:52→10:55)
[2018-01-05] MEDS ORDERED: HYDRALAZINE 2525 MG PO (10:52)
[2018-01-05] MEDS ORDERED: IMDUR 60 MG TAB60 M1 PO (10:55)
[2018-01-05 12:16] LABS: ABSOLUTE BASOPHILS 0.1 thou/uL (0.0-0.2); ABSOLUTE EOSINOPHILS 0.3 thou/uL (0.0-0.7); ABSOLUTE LYMPHOCYTES 2.3 thou/uL (0.8-5.3); ABSOLUTE MONOCYTES 0.9 thou/uL (0.0-1.2); ABSOLUTE NEUTROPHILS 6.5 thou/uL (1.6-8.1); EOSINOPHILS 2.7 %; HEMATOCRIT 32.5 % (42.0-52.0); HEMOGLOBIN 10.9 gm/dL (14.0-18.0); LYMPHOCYTES 23.1 %; MCH 30.2 pg (26.0-34.0); MCHC 33.4 g/dL (28.0-37.0); MCV 90.5 fL (80.0-100.0); MONOCYTES 9.1 %; MPV 8.2 fl. (7.2-11.1); NUCLEATED RBCS 0 /100WBC; PLATELET COUNT* 156 thou/uL (150-400); POLYS 64.1 %; RBC 3.59 mil/uL (4.50-6.00); RDW-CV 17.7 % (10.5-14.5); WBC 10.2 thou/uL (4.0-11.0)
[2018-01-05 12:24] LABS: URINE BLOOD 3+ (Negative); URINE CLARITY CLOUDY; URINE COLOR DARK YELLOW; URINE GLUCOSE-RANDOM NEGATIVE (Negative); URINE KETONES TRACE (Negative); URINE NITRITE-REFLEX NEGATIVE (Negative); URINE PROTEIN 3+ (Negative); URINE SPECIFIC GRAVITY 1.025 (1.005-1.030); URINE UROBILINOGEN 0.2 E.U./dl (0.2-1.0)
[2018-01-05 12:26] LABS: CALCIUM 9.3 mg/dL (8.5-10.1); CREATININE 6.9 mg/dL (0.6-1.3); POTASSIUM 4.3 mmol/L (3.5-5.1)
[2018-01-05 12:27] LABS: URINE BILIRUBIN 1+ (Negative); URINE LEUKOCYTES-REFLEX 3+ (Negative)
[2018-01-05 12:28] LABS: ICTOTEST (BILI CONFIRMATORY) Positive (Negative)
[2018-01-05 12:30] LABS: ALBUMIN 2.9 g/dL (3.4-5.0); TOTAL BILIRUBIN 0.5 mg/dL (<0.1-1.0); TOTAL PROTEIN 7.6 g/dL (6.4-8.2)
[2018-01-05 12:39] LABS: BACTERIA-REFLEX >30 Many /HPF (None Seen); CRYSTALS None Seen /LPF (None Seen); HYALINE CASTS 0-3 Few /LPF (None Seen); MUCUS 4-6 Moderate strn/LPF (None Seen); SQUAMOUS 0-3 Few /LPF (0-3); URINE RBC 3-10 Few /HPF (0-2); URINE WBC-REFLEX >25 Many /HPF (0-5)
[2018-01-05 14:20] VITALS: BP 107/54
--- NOTE | 2018-01-05 15:00 | NUR ---
PT. ARRIVED TO ROOM 206. HE IS AROUSABLE AND ORIENTED X4, BUT DROWSY AND FALLING ASLEEP QUICKLY POST CONVERSATIONS. PT. ON 2L NC @ 99%. BP IMPROVED AT 107/55. FULL ASSESSMENT AND ADMISSION PROCESS COMPLETED, REFER TO CHARTING. PT. DENIES ANY BODY PAIN EXCEPT AT CATHETER SITE IN PENIS. PT. ORIENTED TO ROOM/PROCEDURES. PROVIDED BOX LUNCH AT THIS TIME. CALL LIGHT IN REACH, FALL PRECAUTIONS IN PLACE.
[2018-01-05 15:19] VITALS: BP 107/55
[2018-01-05 16:00] VITALS: BP 104/53
--- NOTE | 2018-01-05 18:33 | NUR ---
PT. STABLE THROUGH REMAINDER OF SHIFT. MORE AWAKE AND ALERT THIS AFTERNOON. SPOKE WITH NEPHROLOGY, UPDATE GIVEN. HOLDING OFF ON DIALYSIS TODAY. HOURLY ROUNDING COMPLETED THROUGH OUT THE SHIFT FOR PT. SAFETY.
[2018-01-05 19:35] VITALS: BP 98/52
[2018-01-05 23:44] VITALS: BP 101/49
[2018-01-06 04:00] VITALS: BP 117/54
[2018-01-06 08:11] VITALS: BP 130/61
--- NOTE | 2018-01-06 08:11 | NUR ---
ASSUMED PT. CARE AND RECEIVED REPORT AT 0730. PT A/OX4 WITH IMPROVED DROWSINESS FROM YESTERDAY, VSS, MONITOR ON TRACING SR BBB. PT. DENIES CURRENT PAIN EXCEPT AT CATHETER SITE. DENIES SOB ON 2L NC @ 100%. STOVALL NOTED TO DD WITH DARK YELLOW URINE. FULL ASSESSMENT COMPLETED, REFER TO CHARTING. PT. REPORTS VISION IS IMPROVED, BUT REMAINS BLURRY. CALL LIGHT IN REACH, WILL CONTINUE WITH PLAN OF CARE.
[2018-01-06 08:38] LABS: CALCIUM 8.5 mg/dL (8.5-10.1); CREATININE 7.1 mg/dL (0.6-1.3); POTASSIUM 4.7 mmol/L (3.5-5.1)
[2018-01-06 11:40] VITALS: BP 137/65
--- NOTE | 2018-01-06 12:03 | EKG ---
[place] [address] ELECTROCARDIOGRAM REPORT Name: JESSICA GARCES Room: [address] ADM IN M.R.#: [id number] Admission: 01/05/18 Attend Phys: Juliana Miller Discharge: Date of : 53 Report #: [id number] THIS REPORT FOR: //name// [facility] ED Test Date: 2018-01-05 Test Time: 13:29:45 Pat Name: JESSICA GARCES Department: Room: [address] Gender: M Making Machine Operator: : 1955 Requested By: Ila Yoder Order Number: [id number] Víctor MD: Yovanny Couch Measurements Intervals [place] Rate: 71 P: 36 PA: 208 QRS: -25 QRSD: 127 T: 128 QT: 455 QTc: 495 Interpretive Statements Sinus rhythm Left bundle branch block Baseline wander in lead(s) V2 Compared to ECG 11/08/2017 08:40:45 Ventricular premature complex(es) no longer present Left ventricular hypertrophy no longer present Early repolarization no longer present ST (T wave) deviation no longer present Electronically Signed On 01-06-2018 12:03:39 CDT by Yovanny Couch [email or web address] <ELECTRONICALLY SIGNED> By: Yovanny Couch MD, [facility] 01/06/18 1203 1329 1329 Yovanny Couch MD, [facility] /EPI
--- NOTE | 2018-01-06 12:03 | EKG ---
[place] [address] ELECTROCARDIOGRAM REPORT Name: JESSICA GARCES Room: [address] IN [facility].#: [id number] Admission: 01/05/18 Attend Phys: Juliana Miller Discharge: Date of : 53 Report #: [id number] THIS REPORT FOR: //name// [facility] ED Test Date: 2018-01-05 Test Time: 11:05:34 Pat Name: JESSICA GARCES Department: Room: Gender: Plasma Specialist: : 1955 Requested By: Ila Yoder Order Number: [id number] MD: Yovanny Couch Measurements Intervals [place] Rate: 65 P: 34 OR: 204 QRS: -26 QRSD: 126 T: 147 QT: 455 QTc: 474 Interpretive Statements Sinus rhythm Left bundle branch block Baseline wander in lead(s) V2 Compared to ECG 11/08/2017 08:40:45 Ventricular premature complex(es) no longer present Left ventricular hypertrophy no longer present Early repolarization no longer present ST (T wave) deviation no longer present Electronically Signed On 01-06-2018 12:03:23 CDT by Yovanny Couch [email or web address] <ELECTRONICALLY SIGNED> By: Yovanny Couch MD, [facility] 01/06/18 1203 1105 1105 Yovanny Couch MD, [facility] /EPI
[2018-01-06 15:41] VITALS: BP 148/62
[2018-01-06 19:10] VITALS: BP 141/65
[2018-01-07] VITALS: BP 134/58
[2018-01-07 04:00] VITALS: BP 141/65
--- NOTE | 2018-01-07 04:00 | NUR ---
RESTING IN BED MOST OF NIGHT. DIALYSIS THIS AM THEN POSSIBLE DC HM. DENIES COMPLAINTS O PAIN, DISCOMFORT, OR SOA. WILL CONT. TO MONITOR TELL. SR WITH BBB ON MONITOR. BED IN LWO POSITION, CALL LIGHT IN REACH BED ALARM ON. NO SIGN OF DISTRESS. CONT. WITH PLAN OF CARE AT THIS TIME.
[2018-01-07 08:00] VITALS: BP 153/66
[2018-01-07] MEDS ORDERED: CEFUROXIME500 MG PO (10:19)
[2018-01-07 10:31] VITALS: BP 153/66
[2018-01-07 11:26] VITALS: BP 153/66
--- NOTE | 2018-01-07 11:32 | NUR ---
CM SPOKE TO THE PATIENT TO DISCUSS HOME SITUATION, DISCHARGE PLANNING, AND TO INFORM OF THE ROLE OF CM. PATIENT ALERT AND ORIENTED, BUT FORGETFUL. PATIENT RESIDES AT HOME WITH SPOUSE, AND HAD RECENTLY DISCHARGED FROM [facility] ON SUNDAY (01/02/18). PATIENT WAS ON SERVICE WITH [facility] PRIOR TO ADMISSION WITH PT/OT/ST. PATIENT RECIEVES DIALAYSIS AT [facility]. PATIENT PLANS TO RETURN HOME AT D/C. CM WILL REMAIN AVAILABLE TO ASSIST AND FOLLOW NEEDED.
--- NOTE | 2018-01-07 11:42 | NUR ---
ASSESSMENT COMPLETED REFER TO COMPUTER. PATIENT RESTING IN BED REPORTING NO PAIN, NAUSEA OR SHORTNESS OF BREATH. BED IN LOW AND LOCKED POSITION. CALL LIGHT WITHIN REACH. IV AND LIFELINE REPRESENTATIVES DISCONTINUED AND REMOVED. ALL PERSONAL BELONGINGS GATHERED AND SENT WITH PATIENT. HERE AT THIS TIME. PATIENT TAKEN TO THE FRONT DOORS VIA WHEEL CHAIR BY NURSING STAFF.
--- NOTE | 2018-01-09 13:36 | CON ---
[address] [address] CONSULTATION Name: JESSICA GARCES Room: [address] IN M.R.#: [id number] Admission: 01/05/18 Attend Phys: Juliana Miller Discharge: 01/07/18 Date of : 53 Report #: [id number] THIS REPORT FOR: //name// CC: STEPHON physician/PCP Lance De Luna DATE OF SERVICE: 01/06/2018 CHIEF COMPLAINT: The patient well known to me from prior foot surgery and wounds. He has a wound to the distal aspect of the right fourth toe, he denies drainage or pain. He has had prior left AK amputation. He has type 2 diabetes mellitus, peripheral arterial disease and end-stage renal disease, on dialysis. PHYSICAL EXAMINATION: There is a dry scab to the right distal fourth toe with no inflammation or drainage. The toenail is thickened, dystrophic and the distal aspect of the nail blends into the corn. He has a hammertoe deformity. IMPRESSION: Keratoma with ulceration right distal fourth toe, onychomycosis. PLAN: I debrided the corn and the distal toenail. Scant bleeding was achieved and stopped. I applied Neosporin and a bordered foam gauze. We will have nursing do the same daily. No further treatment needed. <ELECTRONICALLY SIGNED> By: Holden Vee DPM 01/09/18 1336 1007 1220Holden Vee DPM /ana
--- NOTE | 2018-01-10 08:40 | CON ---
[address] [address] CONSULTATION Name: JESSICA GARCES Room: [address] IN M.R.#: [id number] Admission: 01/05/18 Attend Phys: Juliana Miller Discharge: 01/07/18 Date of : 53 Report #: [id number] THIS REPORT FOR: //name// CC: STEPHON physician/PCP Lance De Luna DATE OF SERVICE: 01/06/2018 ATTENDING PHYSICIAN: Dr. De Luna REASON FOR NEPHROLOGY CONSULTATION: End-stage renal disease on hemodialysis for maintenance hemodialysis needs REASON FOR ADMISSION: The patient was sent from his dialysis unit because he was seeing blurry and also his blood pressure was really low. HISTORY OF PRESENT ILLNESS: This is a 62-year-old male who has a past medical history of end-stage renal disease was on hemodialysis every Sunday, and Sunday, was sent in from his dialysis unit yesterday because his blood pressure was 60-70 systolic and he was also not able to see clear. He was brought to the ER, given 1 liter of normal saline and his blood pressure improved. He still makes some urine, but his urine output has declined and he does have a chronic Wilson catheter. His blood pressure is good in 130s today and he is feeling okay. His labs yesterday showed potassium of 4.3 and BMP from today is not back yet. He has a left arm AV fistula. REVIEW OF SYSTEMS: The patient was weak and he was seeing blurry, which has now improved. Other review of system was done and they were negative. ALLERGIES: HIS ALLERGIES WHICH ARE TO BACTRIM, TRIMETHOPRIM AND TOLECTIN. PAST MEDICAL AND SURGICAL HISTORY: Which includes coronary artery disease. 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 CURRENT HOME MEDICATIONS: Include Remeron, gabapentin, oxycodone, omega 3 fatty acid, nitroglycerin, metoprolol, tamsulosin, clopidogrel, pantoprazole, acetaminophen, cyanocobalamin, Lantus, lispro, fluconazole, hydralazine, folic acid, cholecalciferol [place] [id number] CONSULTATION Name: JESSICA GARCES Room: [address]#: [id number] Admission: 01/05/18 Attend Phys: Juliana Miller Discharge: 01/07/18 Date of : 53 Report #: [id number] FAMILY HISTORY: Which is noncontributory. SOCIAL HISTORY: Lives at home with his and does not smoke or take alcohol or recreational drugs. PHYSICAL EXAMINATION: VITAL SIGNS: Blood pressure is 130/61, respiratory rate is 14, pulse rate 65, temperature 36.3 and pulse ox is on room air 100%. GENERAL: He is awake, alert and oriented and eating his breakfast. HEAD, EYES, EARS, NOSE AND THROAT: Mucous membranes are moist. NECK: There is no JVD. CHEST: Clear to auscultation bilaterally. No crackles or wheezing. CARDIOVASCULAR: S1, S2 normal. No murmur heard. ABDOMEN: Soft, nondistended, nontender. Bowel sounds are present. EXTREMITIES: No lower extremity edema. He has bilateral lower extremity weakness. NEUROLOGIC FUNCTION: Gross neurological function is intact. He has lower extremity weakness bilaterally. PSYCHIATRIC: Mood and affect seems to be normal. LABORATORY DATA: From yesterday, hemoglobin was 10.9 and from today potassium is 4.7, his BUN is 63, his CO2 of 24, his sodium is 136 and other labs were reviewed. His imaging, there was a chest x-ray, which was normal. ASSESSMENT AND PLAN: 1. End-stage renal disease on hemodialysis every Sunday, and Sunday: The patient was not able to be dialyzed yesterday because he was hypotensive and the exact reason for hypotension is not known. He does not need any acute dialysis today. His potassium is normal and he is looking euvolemic. We will plan for 2 hours dialysis tomorrow and then again his regular treatment on Sunday. Extensive labs are okay today. If team wants to discharge him that will be also okay from renal standpoint. 2. Hypotension: Exact reason for hypotension was not known. Hold any antihypertensive medications if he is on any and he did have not a clear urine and some bacteria in the urine, but at the same time he does have a chronic Wilson catheter as well and he is having no fevers and no other signs or symptoms of infection. 3. Anemia of chronic kidney disease: Hemoglobin is 10.9 and the patient gets Epogen with dialysis and that will be continued. Thank you for this consultation and we will continue to follow for dialysis needs. Discussed with the patient as well as the patient's nurse. <ELECTRONICALLY SIGNED> By: Vani Faulkner MD 01/10/18 0840 0906 1233Anandini Faulkner MD /nt
== END 2018-01-07 11:49 | disposition home or self-care (01) | DRG 314 ==
LOC: M.ERS 10:34 → M.2W 13:26 → M.TBA-ER 13:26 → M.2W 14:29
PROVIDERS: Internal Medicine; Personal Emergency Response Attendant; ADMIT Internal Medicine
DX: I95.9 Hypotension, unspecified (principal); N18.6 End stage renal disease; I12.0 Hypertensive chronic kidney disease with stage 5 chronic kidney disease or end stage renal disease; N39.0 Urinary tract infection, site not specified; D63.1 Anemia in chronic kidney disease; Z66 Do not resuscitate; E78.5 Hyperlipidemia, unspecified; E11.51 Type 2 diabetes mellitus with diabetic peripheral angiopathy without gangrene; L57.0 Actinic keratosis; B35.1 Tinea unguium; L97.519 Non-pressure chronic ulcer of other part of right foot with unspecified severity; I25.10 Atherosclerotic heart disease of native coronary artery without angina pectoris; Z99.2 Dependence on renal dialysis; Z89.612 Acquired absence of left leg above knee; Z79.2 Long term (current) use of antibiotics; Z79.899 Other long term (current) drug therapy; Z88.2 Allergy status to sulfonamides; Z88.8 Allergy status to other drugs, medicaments and biological substances; Z95.1 Presence of aortocoronary bypass graft; Z95.5 Presence of coronary angioplasty implant and graft; Z89.411 Acquired absence of right great toe; Z86.73 Personal history of transient ischemic attack (TIA), and cerebral infarction without residual deficits; Z89.422 Acquired absence of other left toe(s); Z79.4 Long term (current) use of insulin; Z82.49 Family history of ischemic heart disease and other diseases of the circulatory system; Z82.5 Family history of asthma and other chronic lower respiratory diseases; Z80.8 Family history of malignant neoplasm of other organs or systems

== ENCOUNTER 2018-02-20 09:49 | Emergency (ER) | payer MEDICARE ==
[~2018-02-20] VITALS: Ht 182.9 cm; Wt 83.9 kg
[~2018-02-20 09:49] MED LIST changes: +CEFUROXIME500 MG PO; +FOLIC ACID1 MG PO; +HYDRALAZINE 2525 MG PO; +RENAL CAPS SOFTG1 MG PO; +VITAMIN D1000 UNI1 PO
[2018-02-20 10:09] LABS: ABSOLUTE BASOPHILS 0.1 thou/uL (0.0-0.2); ABSOLUTE EOSINOPHILS 0.2 thou/uL (0.0-0.7); ABSOLUTE LYMPHOCYTES 2.5 thou/uL (0.8-5.3); ABSOLUTE MONOCYTES 0.8 thou/uL (0.0-1.2); ABSOLUTE NEUTROPHILS 5.4 thou/uL (1.6-8.1); EOSINOPHILS 2.4 %; HEMATOCRIT 32.2 % (42.0-52.0); HEMOGLOBIN 10.9 gm/dL (14.0-18.0); LYMPHOCYTES 27.7 %; MCH 30.6 pg (26.0-34.0); MCHC 33.9 g/dL (28.0-37.0); MCV 90.4 fL (80.0-100.0); MONOCYTES 8.6 %; MPV 7.5 fl. (7.2-11.1); NUCLEATED RBCS 0 /100WBC; PLATELET COUNT* 220 thou/uL (150-400); POLYS 60.3 %; RBC 3.56 mil/uL (4.50-6.00); RDW-CV 16.6 % (10.5-14.5); WBC 8.9 thou/uL (4.0-11.0)
[2018-02-20 10:11] LABS: URINE BLOOD 3+ (Negative); URINE CLARITY TURBID; URINE COLOR BROWN; URINE GLUCOSE-RANDOM 1+ (Negative); URINE KETONES TRACE (Negative); URINE PROTEIN 3+ (Negative); URINE SPECIFIC GRAVITY 1.025 (1.005-1.030)
[2018-02-20 10:16] LABS: CALCIUM 8.7 mg/dL (8.5-10.1); CREATININE 4.6 mg/dL (0.6-1.3); POTASSIUM 3.8 mmol/L (3.5-5.1)
[2018-02-20 10:21] LABS: TOTAL BILIRUBIN 0.5 mg/dL (<0.1-1.0); TOTAL PROTEIN 7.9 g/dL (6.4-8.2)
[2018-02-20 10:21] LABS: URINE BILIRUBIN 2+ (Negative); URINE LEUKOCYTES-REFLEX 3+ (Negative); URINE NITRITE-REFLEX POSITIVE (Negative)
[2018-02-20 10:24] LABS: ICTOTEST (BILI CONFIRMATORY) Negative (Negative)
[2018-02-20 10:38] LABS: SQUAMOUS NONE SEEN /LPF (0-3); WBC CLUMPS Moderate (None Seen)
[2018-02-20 10:39] LABS: BACTERIA-REFLEX >30 Many /HPF (None Seen); CASTS None Seen /LPF (None Seen); CRYSTALS None Seen /LPF (None Seen); MUCUS None Seen strn/LPF (None Seen); URINE RBC >20 Many /HPF (0-2); URINE WBC-REFLEX >25 Many /HPF (0-5)
[2018-02-20] MEDS ORDERED: LEVAQUIN 500 M500 M2 PO (11:33)
[2018-02-20 12:05] VITALS: BP 98/65
== END 2018-02-20 12:05 | disposition home or self-care (01) ==
LOC: M.ERS 09:49
PROVIDERS: Personal Emergency Response Attendant
DX: N30.91 Cystitis, unspecified with hematuria (principal); I25.10 Atherosclerotic heart disease of native coronary artery without angina pectoris; I12.0 Hypertensive chronic kidney disease with stage 5 chronic kidney disease or end stage renal disease; E11.22 Type 2 diabetes mellitus with diabetic chronic kidney disease; N18.6 End stage renal disease; E78.5 Hyperlipidemia, unspecified; I73.9 Peripheral vascular disease, unspecified; E11.42 Type 2 diabetes mellitus with diabetic polyneuropathy; Z95.1 Presence of aortocoronary bypass graft; Z89.411 Acquired absence of right great toe; Z98.890 Other specified postprocedural states; Z88.1 Allergy status to other antibiotic agents; Z99.2 Dependence on renal dialysis; Z79.4 Long term (current) use of insulin; Z86.14 Personal history of Methicillin resistant Staphylococcus aureus infection; Z95.5 Presence of coronary angioplasty implant and graft; Z88.2 Allergy status to sulfonamides; Z88.8 Allergy status to other drugs, medicaments and biological substances

== ENCOUNTER → 2018-02-27 | Day surgery (SDC) | payer MEDICARE ==
[~2018-02-27] MED LIST changes: +DOXYCYCLINE 10100 MG PO; +LEVAQUIN 500 M500 M2 PO
[2018-02-27 13:20] LABS: CALCIUM 9.2 mg/dL (8.5-10.1); CREATININE 4.8 mg/dL (0.6-1.3); POTASSIUM 3.9 mmol/L (3.5-5.1)
--- NOTE | 2018-03-05 11:10 | PATH ---
[address] [place] [address] PATHOLOGY RPT PROCEDURE Name: VARGAS RODRIGUEZ Room: [facility].Stuart.#: [id number] Admission: 02/27/18 Date of : 53 Discharge: Report #: [id number] Path Case #: [id number] LCA Accession Number: [id number] . 01 Material submitted: . RIGHT 4TH AND 5TH TOES . 01 Clinician provided ICD-10: L97.519 . 01 Clinical history: . Ulceration to right 4th and 5th toes non-healing . 02 Diagnosis: Right fourth and fifth toes: - Benign, larger (fourth) toe with nonspecific ulceration and osteomyelitis ofphalanx, with disarticulation margin free of osteomyelitis. - Benign, smaller (fifth) toe including phalangeal bones, without osteomyelitis identified. (RICCARDO:aguila; 03/04/2018) QMS/03/05/2018 . 02 Electronically signed: . Saw Troncoso MD, Pathologist NPI- [id number] . 01 Gross description: . Received in formalin labeled "Vargas Rodriguez, right 4th and 5th toes" are two digit amputation segments measuring 5.2 x 2.3 x 2.2 cm and 4.7 x 1.8 x 1.7 cm in greatest dimensions. The digits are loosely attached by a narrow segment of skin. The larger digit displays a bone margin that is smooth and concave in appearance, consistent with disarticulation. The nail is absent, and the nailbed is obscured by an ulcerative lesion measuring 1.6 x 1.5 cm that extends to within 1.5 cm of the nearest soft tissue margin. The ulcerative lesion is partially surrounded by thickened, yellow-brown skin. The bone and soft tissue margins are inked black. A full-thickness cross-section is submitted proximal to distal in cassettes A1 through A3, following decalcification. Additional representative personal service sections of the nailbed ulcerative lesion are submitted in cassette A4, following decalcification. . The smaller digit displays a bone margin that is smooth and concave in appearance, consistent with disarticulation. A nail is present in the nailbed that is slightly thickened and yellow-chaudhry in appearance. The epidermal surface is pale chaudhry in appearance, and no lesions are noted grossly. The bone and soft tissue margins are inked red. A full-thickness cross section is submitted proximal to distal in cassettes A5 and A6, [place] [address] PATHOLOGY RPT PROCEDURE Name: VARGAS RODRIGUEZ Room: [facility]#: [id number] Admission: 02/27/18 Date of : 53 Discharge: Report #: [id number] Path Case #: [id number] (DAC; 03/01/2018) XDC/XDC . 02 Pathologist provided ICD-10: L97.519, M86.8X7 . 02 CPT . 972472, 118064 Specimen Comment: A courtesy copy of this report has been sent to Specimen Comment: [phone]. Specimen Comment: Report sent to Performed at: [address] [facility] [id number] [facility] [address], [place], [place] [id number] MD John Gonzalez MD Phone: [phone] Performed at: [facility] [address], [place], [place] [id number] MD Saw Troncoso MD Phone: [phone]
--- NOTE | 2018-03-06 13:56 | OP ---
[address] [address] OPERATIVE REPORT Name: DEZJESSICA Wilkerson Room: [facility]#: [id number] Admission: 02/27/18 Attend Phys: Holden Vee DPM Discharge: Date of : 53 Report #: [id number] THIS REPORT FOR: //name// CC: Holden Suresh DATE OF SERVICE: 02/27/2018 SURGEON: Holden Vee DPM. PREOPERATIVE DIAGNOSIS: Likely osteomyelitis, right distal fourth toe with nonhealing ulceration and soft tissue infection. POSTOPERATIVE DIAGNOSIS: Likely osteomyelitis, right distal fourth toe with nonhealing ulceration and soft tissue infection. PROCEDURE: Amputation, right fourth and fifth toes with primary closure at MTP joint. ESTIMATED BLOOD LOSS: None. SUTURES: 3-0 nylon. HEMOSTASIS: Right ankle pneumatic tourniquet at 250 mmHg. SPECIMENS: Right fourth and fifth toes. CULTURES: Soft tissue, right fourth toe, aerobic and anaerobic. COMPLICATIONS: None. DESCRIPTION OF PROCEDURE: The patient was brought to the OR and placed on the table supine with induction of MAC anesthesia. A well-padded right ankle pneumatic tourniquet was placed. Local anesthetic block was given to the foot and the extremity was prepped and draped aseptically. After exsanguination, the tourniquet was inflated and a #15 blade was used to create a circumferential incision around the base of the fourth and fifth toes. Electrocautery was utilized for cutting and coagulation. Dissection carried down to the MTP joints, and the toes were disarticulated with the surgical scalpel from the fourth and fifth MTPs. A payable representative portion of soft tissue from the fourth toe ulcer was sent for aerobic and anaerobic wound culture. The fourth and fifth toes were sent for pathology. The wound was debulked, cauterized and flushed with sterile saline and dried. The skin flaps were closed with 3-0 nylon in simple interrupted fashion. The tourniquet was deflated with normal vascular return. A sterile gentle compressive bandage [place] [address] OPERATIVE REPORT Name: JESSICA GARCES Room: [facility]#: [id number] Admission: 02/27/18 Attend Phys: Holden Vee DPM Discharge: Date of : 53 Report #: [id number] Adaptic, 4 x 4s, Kerlix and Mathew wrap were applied. The patient left the OR alert and oriented with no pain or complications noted. <ELECTRONICALLY SIGNED> By: Holden Vee DPM 03/06/18 1356 1608 1710Holden Vee DPM /nt
== END | disposition home or self-care (01) ==
LOC: M.SUR 07:07
PROVIDERS: Podiatrist Foot & Ankle Surgery
DX: L97.519 Non-pressure chronic ulcer of other part of right foot with unspecified severity (principal); E11.621 Type 2 diabetes mellitus with foot ulcer; M86.8X7 Other osteomyelitis, ankle and foot; I25.10 Atherosclerotic heart disease of native coronary artery without angina pectoris; G89.29 Other chronic pain; E11.22 Type 2 diabetes mellitus with diabetic chronic kidney disease; I12.0 Hypertensive chronic kidney disease with stage 5 chronic kidney disease or end stage renal disease; N18.6 End stage renal disease; Z79.899 Other long term (current) drug therapy; Z79.4 Long term (current) use of insulin; Z99.2 Dependence on renal dialysis; Z98.890 Other specified postprocedural states

== ENCOUNTER → 2018-04-24 | Outpatient (CLI) | payer MEDICARE ==
[~2018-04-24] VITALS: Ht 182.9 cm; Wt 83.4 kg
[2018-04-24 13:54] LABS: HEMATOCRIT 36.6 % (42.0-52.0); HEMOGLOBIN 12.3 gm/dL (14.0-18.0); MCH 30.6 pg (26.0-34.0); MCHC 33.5 g/dL (28.0-37.0); MCV 91.5 fL (80.0-100.0); MPV 8.7 fl. (7.2-11.1); WBC 5.4 thou/uL (4.0-11.0)
[2018-04-24 14:04] LABS: POTASSIUM 3.8 mmol/L (3.5-5.1)
[2018-04-24 14:08] LABS: ALBUMIN 3.3 g/dL (3.4-5.0); TOTAL BILIRUBIN 0.6 mg/dL (<0.1-1.0); TOTAL PROTEIN 7.8 g/dL (6.4-8.2)
[2018-04-24 14:27] VITALS: BP 153/78; BP 160/55
[2018-04-24 14:36] LABS: APTT 24.7 Seconds (25.0-31.3); PROTIME 9.9 Seconds (9.20-11.50)
[2018-04-24 17:00] VITALS: BP 174/65
[2018-04-24 17:18] VITALS: BP 174/65
[2018-04-24 17:30] VITALS: BP 160/70
--- NOTE | 2018-04-25 13:12 | OP ---
[address] [address] OPERATIVE REPORT Name: GARCESJESSICA Rock [facility] [id number] Admission: 04/24/18 Attend Phys: Gutierrez Dubose DO Discharge: Date of : 53 Report #: [id number] THIS REPORT FOR: //name// CC: Gutierrez Suresh DATE OF SERVICE: 04/24/2018 PREOPERATIVE DIAGNOSIS: Functioning left upper extremity arteriovenous fistula with high venous pressures and prolonged decannulation bleeding. POSTOPERATIVE DIAGNOSIS: Functioning left upper extremity arteriovenous fistula with high venous pressures and prolonged decannulation bleeding. OPERATION: 1. Ultrasound-guided access to left upper extremity fistula. 2. Left upper extremity fistulogram. 3. Angioplasty of the left innominate vein. SURGEON: Gutierrez Dubose DO CREAM DUMPER: NARGIS Giron ANESTHESIA: Local. ESTIMATED BLOOD LOSS: 25 mL. FLUIDS: 100 crystalloid. URINE OUTPUT: None. FINDINGS: Ultrasound demonstrated patent fistula circuit suitable for access. Left upper extremity fistulogram demonstrated again a patent fistula circuit. There is no real stenosis within the cephalic vein or anastomosis, but he did have moderately severe to severe stenosis in the left innominate vein. Following angioplasty, there was a good result with some mild residual stenosis in the collateral veins, there were no longer filling around this segment. CLINICAL HISTORY: The patient is a 63-year-old man with end-stage renal disease, currently dialyzing through left upper extremity fistula. There have been having issues with high venous pressures and some prolonged decannulation bleeding. Recommendation was made for fistulogram and presents today for the same. DESCRIPTION OF PROCEDURE: After informed consent was obtained, the patient was taken to the angio suite, placed on the angio bed in supine position, was [address] [address] OPERATIVE REPORT Name: JESSICA GARCES Room: [facility] DAISHA Medley#: [id number] Admission: 04/24/18 Attend Phys: Gutierrez Dubose DO Discharge: Date of : 53 Report #: [id number] administered 25 mcg of fentanyl and local anesthetic was infiltrated. The fistula was just proximal to antecubital fossa. The left upper extremity was prepped and draped in the usual sterile fashion. Full timeout was performed identifying correct patient and procedure. Using ultrasound guidance, the fistula was accessed with a micropuncture needle. These images were preserved. Using Seldinger technique, a microwire and microsheath was placed. I performed a left upper extremity fistulogram with the findings noted above. I then exchanged out for a 7-Kazakh sheath over a Glidewire Advantage, confirmed that the Glidewire Advantage was in the superior vena cava angiographically. I then did serial angioplasty of the innominate vein stenosis with a 10 mm and then subsequently a 14 mm Weehawken balloon. Followup imaging demonstrated good result with mild residual stenosis showing no filling of the collateral veins around the segment at this point. The fistula had improved thrill. At this point, the wire and the sheath were removed and 4-0 Monocryl pursestring suture was placed. Once hemostasis was ensured, sterile dressing was applied. All sponge, sharp and instrument counts reported correct x 2. He tolerated the procedure well and was transferred back to recovery in stable condition. The fistula may be used immediately for dialysis needs. <ELECTRONICALLY SIGNED> By: Gutierrez Dubose DO 04/25/18 1312 1713 1835Amakayla Dubose DO /nt
== END | disposition home or self-care (01) ==
LOC: M.INT 12:30
PROVIDERS: Surgery
DX: T82.838A Hemorrhage due to vascular prosthetic devices, implants and grafts, initial encounter (principal); I13.2 Hypertensive heart and chronic kidney disease with heart failure and with stage 5 chronic kidney disease, or end stage renal disease; E11.22 Type 2 diabetes mellitus with diabetic chronic kidney disease; N18.6 End stage renal disease; Z99.2 Dependence on renal dialysis; E11.621 Type 2 diabetes mellitus with foot ulcer; E11.42 Type 2 diabetes mellitus with diabetic polyneuropathy; I25.10 Atherosclerotic heart disease of native coronary artery without angina pectoris; I25.2 Old myocardial infarction; E78.5 Hyperlipidemia, unspecified; I73.9 Peripheral vascular disease, unspecified; Z79.01 Long term (current) use of anticoagulants; Z95.2 Presence of prosthetic heart valve; Z89.612 Acquired absence of left leg above knee; Z98.890 Other specified postprocedural states; Z86.73 Personal history of transient ischemic attack (TIA), and cerebral infarction without residual deficits; Z87.440 Personal history of urinary (tract) infections; Z95.1 Presence of aortocoronary bypass graft; Z88.2 Allergy status to sulfonamides; Z88.8 Allergy status to other drugs, medicaments and biological substances; Z79.899 Other long term (current) drug therapy; Y83.8 Other surgical procedures as the cause of abnormal reaction of the patient, or of later complication, without mention of misadventure at the time of the procedure

== ENCOUNTER 2018-05-08 07:37 | Inpatient (IN) | payer MEDICARE ==
[~2018-05-08] VITALS: Ht 182.9 cm; Wt 85.7 kg
[~2018-05-08 07:37] MED LIST changes: -DOXYCYCLINE 10100 MG PO
[2018-05-08 07:39] VITALS: BP 169/78
[2018-05-08 08:07] LABS: ABSOLUTE BASOPHILS 0.1 thou/uL (0.0-0.2); ABSOLUTE EOSINOPHILS 0.1 thou/uL (0.0-0.7); ABSOLUTE LYMPHOCYTES 1.1 thou/uL (0.8-5.3); ABSOLUTE MONOCYTES 0.4 thou/uL (0.0-1.2); ABSOLUTE NEUTROPHILS 5.9 thou/uL (1.6-8.1); HEMATOCRIT 30.5 % (42.0-52.0); HEMOGLOBIN 10.3 gm/dL (14.0-18.0); LYMPHOCYTES 14.4 %; MCH 30.6 pg (26.0-34.0); MCHC 33.8 g/dL (28.0-37.0); MCV 90.8 fL (80.0-100.0); MONOCYTES 5.1 %; MPV 8.7 fl. (7.2-11.1); NUCLEATED RBCS 0 /100WBC; PLATELET COUNT* 196 thou/uL (150-400); POLYS 78.5 %; RBC 3.36 mil/uL (4.50-6.00); RDW-CV 14.4 % (10.5-14.5); WBC 7.5 thou/uL (4.0-11.0)
[2018-05-08 08:12] LABS: ANION GAP 8 mmol/L (7-16); BUN 31 mg/dL (7-18); CALCIUM 8.5 mg/dL (8.5-10.1); CHLORIDE 93 mmol/L (98-107); CO2 28 mmol/L (21-32); CREATININE 2.9 mg/dL (0.6-1.3); GLUCOSE 485 mg/dL (70-99); POTASSIUM 3.4 mmol/L (3.5-5.1); SODIUM 129 mmol/L (136-145)
[2018-05-08 08:13] LABS: APTT 27.5 Seconds (25.0-31.3); PROTIME 10.1 Seconds (9.20-11.50)
[2018-05-08 08:18] LABS: BE 3.9 mmol/L (-2 to +3); HCO3 27.6 mmol/L (22.0-26.0); PCO2 38.3 mmHg (35.0-45.0); PO2 93.6 mmHg (75.0-100.0); pH 7.476 (7.340-7.450)
[2018-05-08 08:25] LABS: ALBUMIN 2.7 g/dL (3.4-5.0); ALKALINE PHOSPHATASE 92 U/L (46-116); NT-PRO BRAIN NAT PEPTIDE > 35000 pg/mL (<300); SGOT 14 U/L (15-37); SGPT 16 U/L (30-65); TOTAL PROTEIN 6.9 g/dL (6.4-8.2); TROPONIN-I LEVEL 0.09 ng/mL (<0.06)
[2018-05-08 10:30] VITALS: BP 157/80
--- NOTE | 2018-05-08 10:30 | NUR ---
ADMIT ER TO 212 TELEPHONE REPORT GIVEN PATIENT TO VIA CART SETTLED INTO BED PATIENT DENIES PAIN VITAL SIGNS STABLE ORIENTED TO AND CALL LIGHT
[2018-05-08 10:40] VITALS: BP 136/72
--- NOTE | 2018-05-08 13:22 | NUR ---
WOUND CARE NOTE: CONSULT RECEIVED FOR DM FOOT ULCER. PATIENT PRESENTS WITH A FULL THICKNESS ULCERATION TO THE RIGHT LATERAL FOOT NEAR THE 5TH METATARSAL HEAD. CHONG-WOUND WITH SLIGHT ERYTHEMA AND CALLUS. WOUND BED IS MOIST, YELLOW. WOUND MEASURES 0.4X0.4X0.7. CLEANSED WITH WOUND CLEANSER, PATTED DRY. LEFT OPEN TO AIR AT THIS TIME, PHOTOGRAPHS NEEDED. ABLE TO DOPPLE PEDAL PULSES. 2+ PITTING EDEMA NEAR MEDIAL MALLEOLUS. HEEL DRY, FLAKEY WITH FISSURE. BLANCHABLE REDNESS. RECOMMEND PODUS BOOT TO OFFLOAD HEEL PODIATRY CONSULT TIGHT BLOOD GLUCOSE CONTROL ENCOURAGE GOOD NUTRTION/HYDRATION POSSIBLE DEBRIDEMENT OF CALLUSED AREA
--- NOTE | 2018-05-08 14:31 | EKG ---
[place] [address] ELECTROCARDIOGRAM REPORT Name: JESSICA GARCES Room: [address] ADM IN .R.#: [id number] Admission: 05/08/18 Attend Phys: Lion Romero MD Discharge: Date of : 53 Report #: [id number] THIS REPORT FOR: //name// [facility] ED Test Date: 2018-05-08 Test Time: 07:45:40 Pat Name: JESSICA GARCES Department: Room: [facility] Gender: Script Artist: Oscar MIRELES : 1955 Requested By: Gus Sheridan Order Number: [id number] MD: Janak Malloy Measurements Intervals [place] Rate: 98 P: 77 NE: 125 QRS: -31 QRSD: 141 T: 147 QT: 280 QTc: 358 Interpretive Statements Sinus rhythm Multiple premature complexes, vent & supraven Left bundle branch block Baseline wander in lead(s) V1 Compared to ECG 01/05/2018 13:29:45 pvc noted Electronically Signed On 05-08-2018 14:31:00 INDUSTRIAL MAINTENANCE MANAGER by Janak Malloy [email or web address] <ELECTRONICALLY SIGNED> By: Janak Malloy MD, FACC 05/08/18 1431 0745 0745 Janak Malloy MD, [facility] /EPI
[2018-05-08 16:00] VITALS: BP 143/61
[2018-05-08 20:00] VITALS: BP 131/64
--- NOTE | 2018-05-09 01:58 | NUR ---
ASSUMED PT CARE AT 1930. ASSESSMENT COMPLETED CHARTED. PT WENT TO DIALYSIS AT BEGINNING OF SHIFT AND ARRIVED BACK ON THE UNIT AT 0055. ABLE TO MAKE NEEDS KNOWN. C/O HEADACHE DURING RETURN TO ROOM, GAVE PRN PAIN MEDICATION. PT RESTING IN BED AT THIS TIME. WILL CONTINUE TO MONITOR.
[2018-05-09 04:00] VITALS: BP 110/66
[2018-05-09 04:59] LABS: HEMOGLOBIN 9.9 gm/dL (14.0-18.0); MCH 30.1 pg (26.0-34.0); MCHC 34.2 g/dL (28.0-37.0); MCV 87.9 fL (80.0-100.0); MPV 8.5 fl. (7.2-11.1); NUCLEATED RBCS 0 /100WBC; PLATELET COUNT* 247 thou/uL (150-400); RDW-CV 14.6 % (10.5-14.5); WBC 14.2 thou/uL (4.0-11.0)
[2018-05-09 05:16] LABS: % SATURATION 20 % (20-39); IRON 39 ug/dL (50-175)
[2018-05-09 05:29] LABS: CALCIUM 8.8 mg/dL (8.5-10.1); CREATININE 2.1 mg/dL (0.6-1.3); PHOSPHORUS* 2.1 mg/dL (2.5-4.9); POTASSIUM 3.7 mmol/L (3.5-5.1)
[2018-05-09 06:06] LABS: ABSOLUTE LYMPHOCYTES 0.9 thou/uL (0.8-5.3); ABSOLUTE NEUTROPHILS 13.3 thou/uL (1.6-8.1); PLATELET ESTIMATE ADEQUATE
[2018-05-09 08:30] VITALS: BP 120/68
[2018-05-09 12:00] VITALS: BP 110/57
[2018-05-09 16:00] VITALS: BP 114/54
--- NOTE | 2018-05-09 16:39 | NUR ---
ASSUMED PT CARE AT 0700 PT DENIES PAIN OR SOA ON 2L/NC, PT IS ALERT AND ORIENTED X 4 PT IS A FALL RISK BED ALARM IS ON, PT IS SR ON THE MONITOR, PT PROGRESSING TOWARD GOALS, PT IS Q 2 TURNS, PT HAS SLEPT DURING SHIFT, WILL CONTINUE TO MONITOR
[2018-05-09 20:00] VITALS: BP 114/60
[2018-05-10 00:11] VITALS: BP 128/62
--- NOTE | 2018-05-10 04:13 | NUR ---
ASSUMED PT CARE AT 1930. NURSING ASSESSMENT COMPLETED AT START OF SHIFT. 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
[2018-05-10 04:28] VITALS: BP 134/70
[2018-05-10 04:53] LABS: HEMATOCRIT 30.1 % (42.0-52.0); MCH 29.7 pg (26.0-34.0); MCHC 33.1 g/dL (28.0-37.0); MCV 89.8 fL (80.0-100.0); RBC 3.36 mil/uL (4.50-6.00); RDW-CV 14.3 % (10.5-14.5); WBC 13.3 thou/uL (4.0-11.0)
[2018-05-10 05:10] LABS: CREATININE 3.8 mg/dL (0.6-1.3); MAGNESIUM 2.1 mg/dL (1.8-2.4); POTASSIUM 3.9 mmol/L (3.5-5.1)
[2018-05-10 08:30] VITALS: BP 131/61
--- NOTE | 2018-05-10 10:12 | CON ---
[address] [address] CONSULTATION Name: JESSICA GARCES Room: [address] IN .R.#: [id number] Admission: 05/08/18 Attend Phys: Lion Romero MD Discharge: Date of : 53 Report #: [id number] THIS REPORT FOR: //name// CC: Abhishek Romero DATE OF SERVICE: 05/08/2018 CONSULTING PHYSICIAN: Dr. Sheridan. REASON FOR NEPHROLOGY CONSULTATION: End-stage renal disease for hemodialysis need. REASON FOR ADMISSION: Shortness of breath. HISTORY OF PRESENT ILLNESS: This is a 63-year-old male who is on hemodialysis every Sunday, and Sunday, but this week he is going Sunday, Sunday and Sunday because of Day schedule; history of COPD and other medical problems who came in with shortness of breath and was unable to go for his dialysis today, hence came to the hospital. His chest x-ray does not show evidence of fluid, but he does have edema in his right ankle and he was given breathing treatment and he is feeling better. He is due for dialysis today. REVIEW OF SYSTEMS: As mentioned above. ALLERGIES: SULFA, TRIMETHOPRIM, TOLECTIN. PAST MEDICAL AND SURGICAL HISTORY: CAD, CABG, ESRD due to diabetes, diabetic nephropathy, on hemodialysis normally Sunday, , Sunday; hypertension, amputation of right great and right second toe, MRSA of bilateral feet, 7 heart attacks 14 stents, right groin mesh, bilateral shoulder surgery, carpal tunnel surgery in 2006, failed right leg bypass, artificial aortic valve, CVA x 2, he had a broken back in 1977, hyperlipidemia, peripheral vascular disease, left ring finger repair, obstructive uropathy, peripheral neuropathy, left above-knee amputation. HOME MEDICATIONS: Include mirtazapine, cholecalciferol, nitroglycerin, gabapentin, insulin glargine, metoprolol, oxycodone, acetaminophen, insulin lispro, omega 3 fatty acid, hydralazine, folic acid, isosorbide, tamsulosin, clopidogrel, pantoprazole and cyanocobalamin. FAMILY HISTORY: Noncontributory. SOCIAL HISTORY: He lives at home. Does not smoke or take alcohol [place] [address] CONSULTATION Name: JESSICA GARCES Room: [address]#: [id number] Admission: 05/08/18 Attend Phys: Lion Romero MD Discharge: Date of : 53 Report #: [id number] PHYSICAL EXAMINATION: VITAL SIGNS: Blood pressure is 157/80, oxygen flow rate is 2 liters, pulse rate is 97, temperature 37.2, respiratory rate of 16. GENERAL: He is awake and alert, in no acute distress. HEAD, EYES, EARS, NOSE AND THROAT: Mucous membranes are moist. NECK: There is no JVD. LUNGS: Bilateral diminished breath sounds anteriorly. No crackles or wheezing. CARDIOVASCULAR: S1, S2 normal. No murmurs. ABDOMEN: Soft, nontender, nondistended. Bowel sounds are present. EXTREMITIES: There is left above knee amputation and right 2+ ankle edema. NEUROLOGICAL: Gross neurological function is intact. PSYCHOLOGICAL: Mood and affect seem to be normal. LABORATORY DATA: Hemoglobin 10.3. Sodium is 129, potassium 3.4 and his BUN is 31. Other labs were reviewed. IMAGING: Chest x-ray was reviewed. ASSESSMENT: 1. End-stage renal disease, on hemodialysis Sunday, and Sunday, but this week he was supposed to be on Sunday, Sunday, Sunday and could not go for his dialysis today. 2. Shortness of breath, chronic obstructive pulmonary disease exacerbation plus some element of fluid overload. 3. Anemia of chronic kidney disease, hemoglobin is 10.3. 4. Hyponatremia due to impaired free water excretion. 5. Hypokalemia, potassium is 3.4. PLAN: We will dialyze him today, will use a 4 K bath to help with his dialysis and will use a constant sodium bath of 137 to prevent rapid improvement in the sodium level. We will try to remove 2-2.5 liters off of him if he tolerates it. We will continue to follow along with you. His next dialysis will be most likely on Sunday or Sunday now depending upon if he stays in the hospital or not and depending upon if he has any urgent need develop for dialysis. We will give him a break from dialysis tomorrow. Thank you for this consultation. <ELECTRONICALLY SIGNED> By: Vani Faulkner MD 05/10/18 1012 1047 1559Anandini Faulkner MD /nt
[2018-05-10 12:14] VITALS: BP 134/72
--- NOTE | 2018-05-10 12:57 | NUR ---
Pt was sound asleep when CM went to assess, will f/u later
[2018-05-10 16:16] VITALS: BP 130/70
--- NOTE | 2018-05-10 16:38 | NUR ---
ASSUMED PT CARE AT 0700 PT IS ALERT AND ORIENTED X 4 PT DENIES PAIN OR SOA ON 2L/NC, PT IS A FALL RISK BED ALARM IS ON, PT IS SR ON HTE MONITOR, NEPHROLOGY SAW PT WILL DO DIALYSIS TOMORROW ON SUNDAY, CHANGED PT DRESSING, WILL CONTINUE TO MONITOR
[2018-05-10 20:00] VITALS: BP 133/65
[2018-05-11] VITALS: BP 121/72
[2018-05-11 04:00] VITALS: BP 123/61
[2018-05-11 04:34] LABS: HEMATOCRIT 29.3 % (42.0-52.0); MCH 30.9 pg (26.0-34.0); MCHC 34.2 g/dL (28.0-37.0); MCV 90.3 fL (80.0-100.0); MPV 8.8 fl. (7.2-11.1); RBC 3.24 mil/uL (4.50-6.00); RDW-CV 14.3 % (10.5-14.5); WBC 10.8 thou/uL (4.0-11.0)
[2018-05-11 04:42] LABS: CALCIUM 9.2 mg/dL (8.5-10.1); CREATININE 4.5 mg/dL (0.6-1.3); MAGNESIUM 2.1 mg/dL (1.8-2.4); POTASSIUM 3.8 mmol/L (3.5-5.1)
--- NOTE | 2018-05-11 06:45 | NUR ---
THIS NURSE ASSUMES CARE OF PT 05/10/18 AT 1900, PT IS ALERT AND ORIENTED X4, PLEASANT MOOD, DENIES PAIN/DISCOMFORT, PT DOES DESCRIBE CHRONIC PAIN AND NUMBNESS TO HANDS, AND NUMBNESS TO RT LOWER EXTREMITY, PT ON ROOM AIR, SATS 95%, DENIES SOA, DENIES COUGH, DENIES CHEST PAIN, PT TRACING NSR WITH PVCS AND BBB NOTED THROUGHOUT THE NIGHT, PT NOT UP OUT OF BED THIS SHIFT, INDEPENDENT BED MOBILITY IS GOOD, CONTINUES ON CONTACT ISOLATION FOR MRSA IN WOUND, DRESSING TO WOUND ON RT FOOD DRY AND INTACT, NO S/S ACUTE DISTRESS
[2018-05-11 08:26] VITALS: BP 140/69
--- NOTE | 2018-05-11 11:15 | NUR ---
REC'D REPORT FROM NOC RN, ASSUMED CARE OF PT APPROX 0730. A&O X4, ABLE TO COMMUNICATE NEEDS TO STAFF. LAYOUT TECHNICIAN IN PLACER, SR, BBB, 1ST DEGREE AV BLOCK. O2 SATS >92% RA. ASSESSMENT COMPLETE, DOCUMENTED. VSS. MEDS PER MAR. CALL LIGHT WITHIN REACH.
[2018-05-11] MEDS ORDERED: DOXYCYCLINE 10100 MG PO (14:27)
[2018-05-11 14:29] VITALS: BP 140/69
--- NOTE | 2018-05-13 13:08 | CON ---
[address] [address] CONSULTATION Name: JESSICA GARCES Room: [address] IN M.R.#: [id number] Admission: 05/08/18 Attend Phys: Lion Romero MD Discharge: 05/11/18 Date of : 53 Report #: [id number] THIS REPORT FOR: //name// CC: Abhishek Romero DATE OF SERVICE: 05/08/2018 TYPE OF REPORT: Cardiology consultation. HISTORY OF PRESENT ILLNESS: The patient is a 63-year-old white male who I was asked to see in the hospital today after he complained of chest pain. The patient has an extensive past medical history. He has a long history of diabetes, hypertension and hyperlipidemia. He states that he has had a total of 14 coronary artery stents placed in the past. He has had stents placed at [facility]. He actually had a coronary artery stent placed here at [facility] in June of this year by Dr. Gifford. Heart catheterization at that time from the left femoral artery showed a patent CORMIER graft to the LAD, a vein graft to the circumflex and vein graft to the right coronary artery. The mid [place] LAD was occluded, the circumflex was occluded and right coronary artery was occluded. Dr. Gifford then placed a single drug-eluting stent in the proximal circumflex artery. The patient has had significant leg disease. He has been followed by the [facility]. Lower extremity arterial Doppler in 2016 showed moderate atherosclerosis. He has required a left bpcir-zua-mneh amputation. He has had multiple toes removed from the right foot. He currently developed a sore on his right foot and has been receiving therapy. Because of toe pain, he finally came to Emergency Room today and was admitted. The patient does have frequent episodes of chest pain, occurs about every other day. He described a sharp pain in his chest, can make him short of breath. It is not related to food. He has had no bleeding. He does get short of breath on exertion. He uses a cane. He has had no palpitations or syncope. PAST MEDICAL HISTORY: Significant for end-stage renal disease, the patient has been on dialysis in the past couple of years. CURRENT MEDICATIONS: Consist of Remeron, insulin, Neurontin, metoprolol, hydralazine, Imdur, Flomax, Plavix and Protonix. ALLERGIES: He has an intolerance to SULFA DRUGS. FAMILY HISTORY: His mother of heart disease. SOCIAL HISTORY: He is . He and his live in [place], [place]. 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 No smoking and no longer uses alcohol. REVIEW OF SYSTEMS: He has had apparently previous [place] [address] CONSULTATION Name: JESSICA GARCES Room: [address] IN ..#: [id number] Admission: 05/08/18 Attend Phys: Lion Romero MD Discharge: 05/11/18 Date of : 53 Report #: [id number] side of his body. He has no history of asthma, liver disease or peptic ulcer disease. He has chronic renal failure. No cancer. No psychiatric illness. PHYSICAL EXAMINATION: GENERAL: Revealed an elderly male, lying in bed, appeared in no acute distress. VITAL SIGNS: Blood pressure 130/70, pulse 90s and he is afebrile. HEENT: He is anicteric. Conjunctivae pink. Mucous membranes moist. NECK: Veins do not appear distended. CHEST: Clear to auscultation. CARDIOVASCULAR: Regular rate and rhythm. ABDOMEN: Soft. EXTREMITIES: The right lower extremity had no edema. SKIN: Cool and dry. NEUROLOGICAL: Nonfocal. RADIOLOGICAL DATA: ECG on admission showed a sinus rhythm, nonspecific T-wave changes. Workup in the Emergency Room today, he had portable chest x-ray, normal heart size and clear lung hannon. The patient had an echocardiogram in June that showed left ventricular systolic function was mildly decreased, left atrial enlargement, aortic sclerosis and the ejection fraction was estimated at 45%. LABORATORY DATA: BUN 31 and creatinine 2.9. Liver function studies were normal. Troponin 0.07. His white blood cell count 7.5 and hemoglobin 10.3. IMPRESSION AND RECOMMENDATIONS: 1. Coronary artery disease. Multiple stents. The patient is on aspirin and Plavix. He currently is on a beta nadia and nitrates. I will continue aspirin and Plavix. I would consider adding Ranexa. 2. Hypertension. The patient is on hydralazine and a beta nadia. 3. Diabetes. 4. Hyperlipidemia. I would consider statin drug. 5. End-stage renal disease. 6. Neuropathy with previous ubszl-def-jjxu amputation. <ELECTRONICALLY SIGNED> By: Janak Malloy MD, FACC 05/13/18 1308 1638 2104Dprecious Malloy MD, FAC /nt
[2018-05-14 02:06] LABS: ADENOVIRUS Negative (Negative); INFLUENZA A Negative (Negative); INFLUENZA B Negative (Negative); METAPNEUMOVIRUS Negative (Negative); PARAINFLUENZA 1 Negative (Negative); PARAINFLUENZA 2 Negative (Negative); PARAINFLUENZA 3 Negative (Negative); RHINOVIRUS Negative (Negative); RSV A Negative (Negative); RSV B Positive (Negative)
== END 2018-05-11 18:00 | disposition home or self-care (01) | DRG 637 ==
LOC: M.ERS 07:37 → M.2W 08:48 → M.TBA-ER 08:48 → M.2W 10:48
PROVIDERS: Family Medicine; ADMIT Family Medicine
PROC: 5A1D70Z Performance of Urinary Filtration, Intermittent, Less than 6 Hours Per Day (ICD-10-PCS; principal; 2018-05-11)
DX: E11.00 Type 2 diabetes mellitus with hyperosmolarity without nonketotic hyperglycemic-hyperosmolar coma (NKHHC) (principal); N18.6 End stage renal disease; J44.1 Chronic obstructive pulmonary disease with (acute) exacerbation; E87.1 Hypo-osmolality and hyponatremia; I50.32 Chronic diastolic (congestive) heart failure; I13.2 Hypertensive heart and chronic kidney disease with heart failure and with stage 5 chronic kidney disease, or end stage renal disease; R65.10 Systemic inflammatory response syndrome (SIRS) of non-infectious origin without acute organ dysfunction; I25.10 Atherosclerotic heart disease of native coronary artery without angina pectoris; E87.6 Hypokalemia; E78.5 Hyperlipidemia, unspecified; E11.51 Type 2 diabetes mellitus with diabetic peripheral angiopathy without gangrene; J40 Bronchitis, not specified as acute or chronic; G89.29 Other chronic pain; E11.622 Type 2 diabetes mellitus with other skin ulcer; E11.22 Type 2 diabetes mellitus with diabetic chronic kidney disease; D63.8 Anemia in other chronic diseases classified elsewhere; E11.42 Type 2 diabetes mellitus with diabetic polyneuropathy; Z88.2 Allergy status to sulfonamides; Z82.49 Family history of ischemic heart disease and other diseases of the circulatory system; Z95.5 Presence of coronary angioplasty implant and graft; I25.2 Old myocardial infarction; Z95.1 Presence of aortocoronary bypass graft; Z89.411 Acquired absence of right great toe; Z86.73 Personal history of transient ischemic attack (TIA), and cerebral infarction without residual deficits; Z89.612 Acquired absence of left leg above knee; Z88.8 Allergy status to other drugs, medicaments and biological substances; Z83.6 Family history of other diseases of the respiratory system; Z80.8 Family history of malignant neoplasm of other organs or systems; Z79.4 Long term (current) use of insulin; Z79.899 Other long term (current) drug therapy; Z99.2 Dependence on renal dialysis

== ENCOUNTER → 2018-05-15 | Outpatient (CLI) | payer MEDICARE ==
[~2018-05-15] MED LIST changes: +DOXYCYCLINE 10100 MG PO
== END ==
LOC: M.WC 12:55
DX: T81.89XD Other complications of procedures, not elsewhere classified, subsequent encounter (principal); E11.40 Type 2 diabetes mellitus with diabetic neuropathy, unspecified; E11.51 Type 2 diabetes mellitus with diabetic peripheral angiopathy without gangrene; E11.22 Type 2 diabetes mellitus with diabetic chronic kidney disease; I13.2 Hypertensive heart and chronic kidney disease with heart failure and with stage 5 chronic kidney disease, or end stage renal disease; N18.6 End stage renal disease; I50.9 Heart failure, unspecified; E78.5 Hyperlipidemia, unspecified; I25.10 Atherosclerotic heart disease of native coronary artery without angina pectoris; K21.9 Gastro-esophageal reflux disease without esophagitis; Z86.73 Personal history of transient ischemic attack (TIA), and cerebral infarction without residual deficits; Z99.2 Dependence on renal dialysis; Y92.89 Other specified places as the place of occurrence of the external cause; Y83.8 Other surgical procedures as the cause of abnormal reaction of the patient, or of later complication, without mention of misadventure at the time of the procedure

== ENCOUNTER 2018-05-22 13:14 | Inpatient (IN) | payer MEDICARE ==
[2018-05-22] VITALS (10 sets, daily range): BP systolic 128–172; BP diastolic 66–84
[~2018-05-22] VITALS: Ht 182.9 cm; Wt 25.9 kg
--- NOTE | ~2018-05-22 | CON ---
[address] [address] CONSULTATION Name: DEZJESSICA Rock Room: [address] IN .R.#: [id number] Admission: 05/22/18 Attend Phys: Alexis Chavez MD Discharge: Date of : 53 Report #: [id number] THIS REPORT FOR: //name// CC: Alexis Lovelaceterry Weiss Suresh DATE OF SERVICE: 05/23/2018 REQUESTING PHYSICIAN: Alexis Chavez MD REASON FOR CONSULTATION: End-stage renal disease, need for dialysis. HISTORY OF PRESENT ILLNESS: The patient is a 63-year-old white male with medical history significant for end-stage renal disease. He missed his dialysis. He got admitted with chest discomfort. He does have history of diabetes mellitus type 2 and history of severe peripheral artery disease. FAMILY HISTORY: Noncontributory. SOCIAL HISTORY: No current tobacco or alcohol abuse. MEDICATIONS: Prior to admission reviewed. PHYSICAL EXAMINATION: GENERAL: Examined on dialysis, no acute distress. HEENT: Pupils are round. LUNGS: Decreased air movement. CARDIOVASCULAR: Regular rate. ABDOMEN: Soft. VASCULAR: Dialysis via IV fistula in his left arm. ASSESSMENT: 1. A 63-year-old female admitted with chest pain and cardiac catheterization done yesterday showed some chronic disease, but no need for acute intervention. 2. End-stage renal disease. Examined on dialysis. Dialysis without any complications. PLAN: Continue dialysis if he stays inpatient as necessary, but from my standpoint, he could be discharged as soon as he is cleared by fitness director. By: 1201 1922Alexflaco Farmer MD /nt
[2018-05-22 13:54] LABS: BE -1.5 mmol/L (-2 to +3); HCO3 20.5 mmol/L (22.0-26.0); PCO2 25.7 mmHg (35.0-45.0); pH 7.519 (7.340-7.450)
[2018-05-22 13:55] LABS: ABSOLUTE BASOPHILS 0.1 thou/uL (0.0-0.2); ABSOLUTE EOSINOPHILS 0.1 thou/uL (0.0-0.7); ABSOLUTE LYMPHOCYTES 1.3 thou/uL (0.8-5.3); ABSOLUTE MONOCYTES 0.3 thou/uL (0.0-1.2); ABSOLUTE NEUTROPHILS 7.4 thou/uL (1.6-8.1); BASOPHILS 0.7 %; EOSINOPHILS 1.1 %; HEMATOCRIT 30.3 % (42.0-52.0); HEMOGLOBIN 10.3 gm/dL (14.0-18.0); LYMPHOCYTES 13.9 %; MCH 30.2 pg (26.0-34.0); MCV 88.8 fL (80.0-100.0); MONOCYTES 3.5 %; MPV 8.4 fl. (7.2-11.1); NUCLEATED RBCS 0 /100WBC; PLATELET COUNT* 214 thou/uL (150-400); POLYS 80.8 %; RBC 3.41 mil/uL (4.50-6.00); RDW-CV 14.9 % (10.5-14.5); WBC 9.2 thou/uL (4.0-11.0)
[2018-05-22 13:56] LABS: PO2 137.3 mmHg (75.0-100.0)
[2018-05-22 14:03] LABS: CALCIUM 9.2 mg/dL (8.5-10.1); CREATININE 3.6 mg/dL (0.6-1.3); POTASSIUM 3.7 mmol/L (3.5-5.1)
[2018-05-22 14:10] LABS: ALBUMIN 2.9 g/dL (3.4-5.0); MAGNESIUM 1.9 mg/dL (1.8-2.4); TOTAL BILIRUBIN 0.8 mg/dL (<0.1-1.0); TOTAL PROTEIN 7.6 g/dL (6.4-8.2); TROPONIN-I LEVEL 0.23 ng/mL (<0.06)
--- NOTE | 2018-05-22 15:14 | EKG ---
[place] [address] ELECTROCARDIOGRAM REPORT Name: CIELO GARCESNIRock Wilkerson Room: [place] [address] ADM IN .R.#: [id number] Admission: 05/22/18 Attend Phys: Janak Malloy MD, F Discharge: Date of : 53 Report #: [id number] THIS REPORT FOR: //name// [facility] ED Test Date: 2018-05-22 Test Time: 13:19:07 Pat Name: JESSICA GARCES Department: Room: [facility] Gender: M Outside Sales: [facility] : 1955 Requested By: Ila Yoder Order Number: [id number] MD: Janak Malloy Measurements Intervals [place] Rate: 98 P: 69 NM: 142 QRS: -33 QRSD: 138 T: 139 QT: 383 QTc: 490 Interpretive Statements Sinus rhythm LVH with secondary repolarization abnormality Anterior Q waves, possibly due to LVH Baseline wander in lead(s) V4 Compared to ECG 05/08/2018 07:45:40 pvc no longer noted Electronically Signed On 05-22-2018 15:13:54 ADJUNCT WRITING INSTRUCTOR by Janak Malloy [email or web address] <ELECTRONICALLY SIGNED> By: Janak Malloy MD, [facility] 05/22/18 1513 1319 1319 Janak Malloy MD, [facility] /EPI
--- NOTE | 2018-05-22 18:15 | CARD ---
[address] [address] CARDIAC CATH REPORT Name: JESSICA GARCES Room: [address] IN .R.#: [id number] Admission: 05/22/18 Attend Phys: Janak Malloy MD, F Discharge: Date of : 53 Report #: [id number] THIS REPORT FOR: //name// APPROVED REPORT Study performed: 05/22/2018 15:05:34 Patient Details Patient Status: ED Room #: 17 The patient is a 63 year-old male Event Personnel Janak Malloy Physical Science Teacher, Christin Rucker RN RN, Aaliyah Mazariegos RN Monitor, Peter Pritchard (R) Scrub, Patricia Williamson RTR Scrub Procedures Performed Art Access - R femoral artery* Coronaries Angiography and Bypass Grafts Hemostasis w/ Mynx Indication Abnormal ECG, Dyspnea, Chest pain Risk Factors Coronary Artery DiseaseHypertensionRenal Failure, Diabetes Previous Procedures/Diagnoses Previous CABGPrevious PCI Procedure Narrative The patient was brought electively to the Cardiac Catheterization Laboratory and was prepped and draped in a sterile manner. The right femoral was infiltrated with 2% Lidocaine subcutaneous anesthesia. A [place] 6 FR sheath was inserted into the right femoral artery. Coronary angiography was performed using coronary diagnostic catheters. The right coronary system was accessed and visualized with a 6Fr. JR4 catheter. The left coronary system was accessed and visualized with a 6Fr. JL4 catheter. Pre-demployment femoral angiogram was performed [place]. Closure device was deployed with a 6 Fr MynxGrip. The patient tolerated the procedure well and there were no complications associated with the procedure. There was no hematoma. Arteriograms of the 2 separate SVG's were visualized using the JR4 catheter. Arteriogram of the CORMIER graft was visualized using the CORMIER catheter. The aortic valve was not crossed because of the presence of [place] [address] CARDIAC CATH REPORT Name: JESSICA GARCES Room: [address] IN [facility].#: [id number] Admission: 05/22/18 Attend Phys: Janak Malloy MD, F Discharge: Date of : 53 Report #: [id number] Intraoperative Conscious Sedation Sedation start time: 15:53 Case end Time: 16:25 Versed 2 mg Fluoro Time: 4.7 minutes Dose: DAP 79094 cGycm2 1243 mGy Contrast Type and Amount: Visipaque 210 ml Coronary Angiography The patient's coronary anatomy is co- dominant. [place] Artery Percent Stenosis Patent CORMIER graft noted to the mid lad. 2 SVG's were identified. The first arose from the aorta and had anastomoses to the mid and distal marginal branches of the circumflex. 50% stenosis noted in the jump portion of the vein graft between the 2 marginal branches. The second arose from the aorta and had an anastomosis to the distal RCA. Diagnostic Cath Left Main stent noted with 40% restenosis LAD proximal stent noted with 50% restenosis. 90% stenosis noted beyond the stent and the lad 99% stenosis beyond the second diagonal branch Circumflex 50% mid stenosis noted OM1 stent noted and was occluded Right Coronary 100% occluded Left Ventriculography Left Ventriculography was not performed. Hemodynamics The aortic pressure is 157/71 mmHg with a mean of 105 mmHg. Conclusion 1. patent stents in the left main, proximal lad, and proximal circumflex 2. patent SVG's to the mid and distal marginal branches, and separate SVG to the rca 3. patent [place] [address] CARDIAC CATH REPORT Name: JESSICA GARCES Room: [address] IN [facility].#: [id number] Admission: 05/22/18 Attend Phys: Janak Malloy MD, F Discharge: Date of : 53 Report #: [id number] Recommendations Aggressive Medical Therapy <ELECTRONICALLY SIGNED> By: Janak Malloy MD, [facility] 05/22/181814 14 14Damercedes Malloy MD, FACC /INF
[2018-05-23] VITALS: BP 122/63; BP 134/70
[2018-05-23 04:00] VITALS: BP 139/71
[2018-05-23 04:52] LABS: ABSOLUTE BASOPHILS 0.1 thou/uL (0.0-0.2); ABSOLUTE EOSINOPHILS 0.1 thou/uL (0.0-0.7); ABSOLUTE LYMPHOCYTES 1.4 thou/uL (0.8-5.3); ABSOLUTE MONOCYTES 0.4 thou/uL (0.0-1.2); ABSOLUTE NEUTROPHILS 5.4 thou/uL (1.6-8.1); BASOPHILS 0.7 %; EOSINOPHILS 1.8 %; HEMOGLOBIN 9.4 gm/dL (14.0-18.0); MCH 30.2 pg (26.0-34.0); MCHC 33.7 g/dL (28.0-37.0); MCV 89.7 fL (80.0-100.0); MONOCYTES 5.7 %; MPV 8.2 fl. (7.2-11.1); NUCLEATED RBCS 0 /100WBC; PLATELET COUNT* 200 thou/uL (150-400); POLYS 72.8 %; RBC 3.12 mil/uL (4.50-6.00); RDW-CV 14.9 % (10.5-14.5); WBC 7.5 thou/uL (4.0-11.0)
[2018-05-23 05:30] LABS: CALCIUM 8.6 mg/dL (8.5-10.1); CREATININE 3.4 mg/dL (0.6-1.3)
[2018-05-23 08:00] VITALS: BP 141/71
[2018-05-23 08:51] VITALS: BP 139/71
--- NOTE | 2018-05-23 14:46 | CON ---
[address] [address] CONSULTATION Name: JESSICA GARCES Room: [address] IN M.R.#: [id number] Admission: 05/22/18 Attend Phys: Alexis Chavez MD Discharge: Date of : 53 Report #: [id number] THIS REPORT FOR: //name// CC: Alexis Suresh DATE OF SERVICE: 05/22/2018 TYPE OF REPORT: Cardiology consultation. HISTORY OF PRESENT ILLNESS: The patient is a 63-year-old white male who I was asked to see in the hospital today after he had an episode of chest pain. The patient has a long history of diabetes, hypertension and hyperlipidemia. He apparently has had a total of 14 coronary artery stents placed in the past. Most of the stents were placed at [facility]. He eventually required coronary artery bypass surgery at [facility] about 3 years ago. Apparently, a total of 5 grafts were performed. In June of this year, Dr. Gifford performed a repeat cardiac catheterization from the left femoral artery. There is a patent CORMIER graft to the LAD. There is a vein graft to the circumflex and a vein graft to the right coronary artery. The mid LAD was chronically occluded. The circumflex and right coronaries were also chronically occluded. Dr. Gifford placed a single drug-eluting stent in the proximal circumflex artery. He also has a long history of PAD. He eventually required left mmrrk-rim-ojuf amputation. He has also had multiple toes removed from the right foot. He was actually admitted to [facility] 2 weeks ago with a sharp pain in his chest. He ruled out for myocardial infarction. He was treated medically. He was discharged but continues to have the chest pain. It is not related to exertion or meals. It can make him nauseated. He occasionally takes nitroglycerin. He has been coughing and short of breath. He has been complaining of fatigue. He has had no syncope. He did fall recently. He was brought to the Emergency Room today for further evaluation and treatment. PAST MEDICAL HISTORY: Significant for end-stage renal disease, has been on dialysis past couple of years with a fistula in the left arm. MEDICATIONS: Include Remeron, insulin, Neurontin, metoprolol, hydralazine, Imdur, Flomax, Plavix and Protonix. ALLERGIES: He has intolerance to SULFA DRUGS. FAMILY HISTORY: His mother of heart disease. SOCIAL HISTORY: He is . He and his live in [place], [place]. 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 No smoking[place] [address] CONSULTATION Name: GARCESJESSICA Room: [address] IN M.R.#: [id number] Admission: 05/22/18 Attend Phys: Alexis Chavez MD Discharge: Date of : 53 Report #: [id number] REVIEW OF SYSTEMS: He apparently has had a previous stroke involving the left side of his body. No history of asthma, liver disease, peptic ulcer disease. He has renal failure. He is on dialysis. No cancer. No psychiatric illness. PHYSICAL EXAMINATION: GENERAL: Elderly male, lying in stretcher, appeared in no acute distress. VITAL SIGNS: Blood pressure 130/70, pulse 80 and he was afebrile. HEENT: He is anicteric. Conjunctivae pink. Mucous members moist. NECK: Veins do not appear distended. Neck was supple. CHEST: Clear to auscultation. CARDIOVASCULAR: Regular rate and rhythm. ABDOMEN: Soft and nontender. EXTREMITIES: Right lower extremity had no edema. SKIN: Cool and dry. NEUROLOGICAL: Nonfocal. RADIOLOGICAL DATA: ECG, sinus rhythm, left ventricular hypertrophy, repolarization changes. X-rays, portable chest x-ray showed cardiomegaly, clear lung hannon. He had a CT scan of the head last October that showed prior infarction of the right posterior medial occipital lobe and no acute hemorrhage. LABORATORY DATA: Sodium 136, BUN 47, creatinine 3.6 and glucose 200. Albumin is 2.9. Troponin 0.23. His white blood cell count 9.2; hemoglobin 10.3, which is unchanged from December and hematocrit .3. IMPRESSION AND RECOMMENDATIONS: 1. Possible unstable angina. Recommend repeat cardiac catheterization. 2. End-stage renal disease. The patient is on dialysis. 3. Hypertension. 4. Hyperlipidemia. 5. Peripheral artery disease with previous amputation. 6. Anemia. <ELECTRONICALLY SIGNED> By: Janak Malloy MD, [facility] 05/23/18 1446 1506 2020Davicandi Malloy MD, FACC /nt
[2018-05-23 17:00] VITALS: BP 122/62
[2018-05-23 20:00] VITALS: BP 127/59
[2018-05-24] VITALS (7 sets, daily range): BP systolic 103–127; BP diastolic 50–60
[2018-05-24 04:54] LABS: ABSOLUTE BASOPHILS 0.1 thou/uL (0.0-0.2); ABSOLUTE EOSINOPHILS 0.1 thou/uL (0.0-0.7); ABSOLUTE LYMPHOCYTES 1.4 thou/uL (0.8-5.3); ABSOLUTE MONOCYTES 0.4 thou/uL (0.0-1.2); ABSOLUTE NEUTROPHILS 5.7 thou/uL (1.6-8.1); BASOPHILS 0.8 %; EOSINOPHILS 1.5 %; HEMATOCRIT 25.8 % (42.0-52.0); HEMOGLOBIN 8.9 gm/dL (14.0-18.0); LYMPHOCYTES 18.2 %; MCH 30.8 pg (26.0-34.0); MCHC 34.5 g/dL (28.0-37.0); MCV 89.2 fL (80.0-100.0); MONOCYTES 5.6 %; MPV 8.1 fl. (7.2-11.1); NUCLEATED RBCS 0 /100WBC; PLATELET COUNT* 208 thou/uL (150-400); POLYS 73.9 %; RBC 2.89 mil/uL (4.50-6.00); RDW-CV 14.8 % (10.5-14.5); WBC 7.7 thou/uL (4.0-11.0)
[2018-05-24 05:13] LABS: ALBUMIN 2.2 g/dL (3.4-5.0); CALCIUM 8.1 mg/dL (8.5-10.1); CREATININE 3.2 mg/dL (0.6-1.3); POTASSIUM 3.9 mmol/L (3.5-5.1); TOTAL BILIRUBIN 0.5 mg/dL (<0.1-1.0); TOTAL PROTEIN 6.1 g/dL (6.4-8.2)
[2018-05-24 09:39] LABS: URINE BILIRUBIN NEGATIVE (Negative); URINE BLOOD 1+ (Negative); URINE CLARITY CLEAR; URINE COLOR YELLOW; URINE GLUCOSE-RANDOM 1+ (Negative); URINE KETONES NEGATIVE (Negative); URINE NITRITE-REFLEX NEGATIVE (Negative); URINE PROTEIN 2+ (Negative); URINE UROBILINOGEN 0.2 E.U./dl (0.2-1.0)
[2018-05-24 09:43] LABS: URINE LEUKOCYTES-REFLEX 3+ (Negative)
[2018-05-24 09:46] LABS: CASTS None Seen /LPF (None Seen); CRYSTALS None Seen /LPF (None Seen); MUCUS None Seen strn/LPF (None Seen); SQUAMOUS 0-3 Few /LPF (0-3); URINE RBC 3-10 Few /HPF (0-2); URINE WBC-REFLEX >25 Many /HPF (0-5)
[2018-05-25 01:10] VITALS: BP 107/54
[2018-05-25 04:22] VITALS: BP 136/63
[2018-05-25 08:00] VITALS: BP 107/52
[2018-05-25 12:30] VITALS: BP 115/55
[2018-05-25] MEDS ORDERED: CEFUROXIME500 MG PO (16:17)
--- NOTE | 2018-05-29 13:02 | CON ---
[facility] [address] [place] [address] CONSULTATION Name: JESSICA GARCES Room: [address] IN M.R.#: [id number] Admission: 05/22/18 Attend Phys: Alexis Chavez MD Discharge: 05/25/18 Date of : 53 Report #: [id number] THIS REPORT FOR: //name// CC: Alexis Suresh DATE OF SERVICE: 05/25/2018 CHIEF COMPLAINT: Followup of postoperative wound to the right lateral digital amputation site. 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 b.i.d. with good tolerance. He was recently hospitalized for chest pain with coronary artery disease and recent coronary artery stenting, likely discharge back today after dialysis. PHYSICAL EXAMINATION: Ulceration measures roughly 1.3 x 1.3 x 0.2 cm, red granulation with some pale slough and callus around the margins, low grade inflammation, no underlying fluctuance or crepitation. No signs of acute vascular embarrassment with immediate periwound capillary refill. IMPRESSION: Postoperative wound, right fifth toe amputation site, complicated by type 2 diabetes mellitus, peripheral arterial disease and end-stage renal disease, on dialysis. PLAN: Excisional ulcer debridement with scissors and forceps to remove subcutaneous tissue, slough and callus from the wound. Scant bleeding stopped with pressure. The wound was cleansed and dressed with silver foam and a below-knee Tubigrip stockinette. The patient to follow up with me in roughly 10 days at [facility]. <ELECTRONICALLY SIGNED> By: [place] Vee DPM 05/29/18 1302 1118 [id number] Vee DPM /nt
== END 2018-05-25 19:20 | disposition home or self-care (01) | DRG 264 ==
LOC: M.ERS 13:14 → M.TBA-ER 14:07 → M.2W 14:07 → M.TBA-ER 14:47 → M.2W 17:09
PROVIDERS: Internal Medicine Cardiovascular Disease; Personal Emergency Response Attendant; ADMIT Internal Medicine
PROC: B2111ZZ Fluoroscopy of Multiple Coronary Arteries using Low Osmolar Contrast (ICD-10-PCS; principal; 2018-05-22)
PROC: B2181ZZ Fluoroscopy of Left Internal Mammary Bypass Graft using Low Osmolar Contrast (ICD-10-PCS; principal; 2018-05-22)
PROC: B2131ZZ Fluoroscopy of Multiple Coronary Artery Bypass Grafts using Low Osmolar Contrast (ICD-10-PCS; principal; 2018-05-22)
PROC: 4A023N7 Measurement of Cardiac Sampling and Pressure, Left Heart, Percutaneous Approach (ICD-10-PCS; principal; 2018-05-22)
PROC: 5A1D70Z Performance of Urinary Filtration, Intermittent, Less than 6 Hours Per Day (ICD-10-PCS; 2018-05-23)
PROC: 0JBQ0ZZ Excision of Right Foot Subcutaneous Tissue and Fascia, Open Approach (ICD-10-PCS; 2018-05-25)
PROC: 5A1D70Z Performance of Urinary Filtration, Intermittent, Less than 6 Hours Per Day (ICD-10-PCS; 2018-05-25)
DX: I21.4 Non-ST elevation (NSTEMI) myocardial infarction (principal); N18.6 End stage renal disease; I13.2 Hypertensive heart and chronic kidney disease with heart failure and with stage 5 chronic kidney disease, or end stage renal disease; G93.40 Encephalopathy, unspecified; N39.0 Urinary tract infection, site not specified; I25.110 Atherosclerotic heart disease of native coronary artery with unstable angina pectoris; I50.9 Heart failure, unspecified; E11.22 Type 2 diabetes mellitus with diabetic chronic kidney disease; E78.5 Hyperlipidemia, unspecified; E11.51 Type 2 diabetes mellitus with diabetic peripheral angiopathy without gangrene; D64.9 Anemia, unspecified; E11.42 Type 2 diabetes mellitus with diabetic polyneuropathy; E11.621 Type 2 diabetes mellitus with foot ulcer; L97.509 Non-pressure chronic ulcer of other part of unspecified foot with unspecified severity; Z86.73 Personal history of transient ischemic attack (TIA), and cerebral infarction without residual deficits; Z99.2 Dependence on renal dialysis; I25.2 Old myocardial infarction; Z95.1 Presence of aortocoronary bypass graft; Z89.411 Acquired absence of right great toe; Z89.421 Acquired absence of other right toe(s); Z86.14 Personal history of Methicillin resistant Staphylococcus aureus infection; Z95.5 Presence of coronary angioplasty implant and graft; Z91.15 Patient's noncompliance with renal dialysis; Z95.2 Presence of prosthetic heart valve; Z89.612 Acquired absence of left leg above knee; Z79.02 Long term (current) use of antithrombotics/antiplatelets; Z79.4 Long term (current) use of insulin; Z79.899 Other long term (current) drug therapy; Z88.1 Allergy status to other antibiotic agents; Z88.2 Allergy status to sulfonamides; Z88.8 Allergy status to other drugs, medicaments and biological substances; Z82.49 Family history of ischemic heart disease and other diseases of the circulatory system; Z80.8 Family history of malignant neoplasm of other organs or systems

== ENCOUNTER → 2018-06-05 | Outpatient (CLI) | payer MEDICARE | LOC: M.WC 04:40 | DX: T87.89 Other complications of amputation stump (principal); E11.51 Type 2 diabetes mellitus with diabetic peripheral angiopathy without gangrene; E11.40 Type 2 diabetes mellitus with diabetic neuropathy, unspecified; E11.22 Type 2 diabetes mellitus with diabetic chronic kidney disease; I13.2 Hypertensive heart and chronic kidney disease with heart failure and with stage 5 chronic kidney disease, or end stage renal disease; I50.9 Heart failure, unspecified; N18.6 End stage renal disease; E78.5 Hyperlipidemia, unspecified; I25.10 Atherosclerotic heart disease of native coronary artery without angina pectoris; K21.9 Gastro-esophageal reflux disease without esophagitis; Z95.4 Presence of other heart-valve replacement; Z86.73 Personal history of transient ischemic attack (TIA), and cerebral infarction without residual deficits; Z99.2 Dependence on renal dialysis; Y83.5 Amputation of limb(s) as the cause of abnormal reaction of the patient, or of later complication, without mention of misadventure at the time of the procedure ==

== ENCOUNTER → 2018-06-12 | Outpatient (CLI) | payer MEDICARE | LOC: M.WC 01:53 | DX: T81.89XD Other complications of procedures, not elsewhere classified, subsequent encounter (principal); E11.40 Type 2 diabetes mellitus with diabetic neuropathy, unspecified; E11.51 Type 2 diabetes mellitus with diabetic peripheral angiopathy without gangrene; E11.22 Type 2 diabetes mellitus with diabetic chronic kidney disease; I13.2 Hypertensive heart and chronic kidney disease with heart failure and with stage 5 chronic kidney disease, or end stage renal disease; N18.6 End stage renal disease; I50.9 Heart failure, unspecified; E78.5 Hyperlipidemia, unspecified; I25.10 Atherosclerotic heart disease of native coronary artery without angina pectoris; L84 Corns and callosities; Z89.421 Acquired absence of other right toe(s); Z86.73 Personal history of transient ischemic attack (TIA), and cerebral infarction without residual deficits; Y83.8 Other surgical procedures as the cause of abnormal reaction of the patient, or of later complication, without mention of misadventure at the time of the procedure ==

== ENCOUNTER → 2018-06-19 | Outpatient (CLI) | payer MEDICARE | LOC: M.WC 13:48 | DX: T87.89 Other complications of amputation stump (principal); E11.51 Type 2 diabetes mellitus with diabetic peripheral angiopathy without gangrene; E11.42 Type 2 diabetes mellitus with diabetic polyneuropathy; E11.22 Type 2 diabetes mellitus with diabetic chronic kidney disease; I13.2 Hypertensive heart and chronic kidney disease with heart failure and with stage 5 chronic kidney disease, or end stage renal disease; N18.6 End stage renal disease; I50.9 Heart failure, unspecified; E78.5 Hyperlipidemia, unspecified; I25.10 Atherosclerotic heart disease of native coronary artery without angina pectoris; K21.9 Gastro-esophageal reflux disease without esophagitis; Z99.2 Dependence on renal dialysis; Z86.73 Personal history of transient ischemic attack (TIA), and cerebral infarction without residual deficits; Y83.5 Amputation of limb(s) as the cause of abnormal reaction of the patient, or of later complication, without mention of misadventure at the time of the procedure ==

== ENCOUNTER 2018-07-30 18:35 | Emergency (ER) | payer MEDICARE ==
[~2018-07-30] VITALS: Ht 182.9 cm; Wt 79.4 kg
[2018-07-30 19:35] LABS: URINE BLOOD 3+ (Negative); URINE CLARITY CLOUDY; URINE COLOR BROWN; URINE GLUCOSE-RANDOM 2+ (Negative); URINE KETONES 1+ (Negative); URINE PROTEIN 3+ (Negative); URINE SPECIFIC GRAVITY >= 1.030 (1.005-1.030)
[2018-07-30 19:36] LABS: URINE BILIRUBIN 2+ (Negative); URINE LEUKOCYTES-REFLEX 2+ (Negative); URINE NITRITE-REFLEX POSITIVE (Negative)
[2018-07-30 19:41] LABS: ICTOTEST (BILI CONFIRMATORY) Negative (Negative)
[2018-07-30 19:42] LABS: URINE RBC >20 Many /HPF (0-2)
[2018-07-30 19:43] LABS: CASTS None Seen /LPF (None Seen); CRYSTALS None Seen /LPF (None Seen); MUCUS None Seen strn/LPF (None Seen); SQUAMOUS NONE SEEN /LPF (0-3)
[2018-07-30 20:37] LABS: ABSOLUTE BASOPHILS 0.1 thou/uL (0.0-0.2); ABSOLUTE EOSINOPHILS 0.2 thou/uL (0.0-0.7); ABSOLUTE LYMPHOCYTES 1.3 thou/uL (0.8-5.3); ABSOLUTE MONOCYTES 0.4 thou/uL (0.0-1.2); ABSOLUTE NEUTROPHILS 4.4 thou/uL (1.6-8.1); BASOPHILS 1.2 %; EOSINOPHILS 3.4 %; HEMATOCRIT 33.7 % (42.0-52.0); HEMOGLOBIN 11.8 gm/dL (14.0-18.0); LYMPHOCYTES 20.3 %; MCH 30.5 pg (26.0-34.0); MCHC 34.9 g/dL (28.0-37.0); MCV 87.5 fL (80.0-100.0); MONOCYTES 6.4 %; NUCLEATED RBCS 0 /100WBC; PLATELET COUNT* 183 thou/uL (150-400); POLYS 68.7 %; RBC 3.85 mil/uL (4.50-6.00); RDW-CV 14.9 % (10.5-14.5); WBC 6.4 thou/uL (4.0-11.0)
[2018-07-30 20:52] LABS: CALCIUM 8.5 mg/dL (8.5-10.1); CREATININE 2.6 mg/dL (0.6-1.3); POTASSIUM 3.2 mmol/L (3.5-5.1)
[2018-07-30 20:57] LABS: ALBUMIN 2.8 g/dL (3.4-5.0); TOTAL BILIRUBIN 0.5 mg/dL (<0.1-1.0); TOTAL PROTEIN 6.9 g/dL (6.4-8.2)
[2018-07-30] MEDS ORDERED: MACROBID 100 M100 M1 PO (21:36)
[2018-07-30] MEDS ORDERED: PYRIDIUM200 MG PO (21:36)
[2018-07-30 21:53] VITALS: BP 156/78
== END 2018-07-30 21:55 | disposition home or self-care (01) ==
LOC: M.ERS 18:35
PROVIDERS: Emergency Medicine
DX: N39.0 Urinary tract infection, site not specified (principal); I25.10 Atherosclerotic heart disease of native coronary artery without angina pectoris; E78.5 Hyperlipidemia, unspecified; I73.9 Peripheral vascular disease, unspecified; I12.0 Hypertensive chronic kidney disease with stage 5 chronic kidney disease or end stage renal disease; E11.22 Type 2 diabetes mellitus with diabetic chronic kidney disease; N18.6 End stage renal disease; E11.42 Type 2 diabetes mellitus with diabetic polyneuropathy; Z99.2 Dependence on renal dialysis; Z88.2 Allergy status to sulfonamides; Z88.1 Allergy status to other antibiotic agents; Z88.8 Allergy status to other drugs, medicaments and biological substances; Z95.1 Presence of aortocoronary bypass graft; Z86.14 Personal history of Methicillin resistant Staphylococcus aureus infection; Z95.5 Presence of coronary angioplasty implant and graft; Z86.73 Personal history of transient ischemic attack (TIA), and cerebral infarction without residual deficits; Z79.4 Long term (current) use of insulin

== ENCOUNTER → 2018-08-12 | Outpatient (CLI) | payer MEDICARE ==
[~2018-08-12] MED LIST changes: +MACROBID 100 M100 M1 PO; +PYRIDIUM200 MG PO
[2018-08-12 13:14] LABS: URINE BILIRUBIN NEGATIVE (Negative); URINE BLOOD 3+ (Negative); URINE CLARITY CLOUDY; URINE COLOR YELLOW; URINE GLUCOSE-RANDOM 3+ (Negative); URINE KETONES NEGATIVE (Negative); URINE LEUKOCYTES 1+ (Negative); URINE NITRITE NEGATIVE (Negative); URINE PROTEIN 2+ (Negative); URINE SPECIFIC GRAVITY >= 1.030 (1.005-1.030); URINE UROBILINOGEN 0.2 E.U./dl (0.2-1.0)
[2018-08-12 13:30] LABS: BACTERIA >30 Many /HPF (None Seen); CASTS None Seen /LPF (None Seen); CRYSTALS None Seen /LPF (None Seen); MUCUS None Seen strn/LPF (None Seen); SQUAMOUS NONE SEEN /LPF (0-3); URINE RBC 3-10 Few /HPF (0-2); URINE WBC >25 Many /HPF (0-5); WBC CLUMPS Moderate (None Seen)
[2018-08-12 13:31] LABS: YEAST Present (None Seen)
== END ==
LOC: M.LAB 12:23
PROVIDERS: Nurse Practitioner Family
DX: R35.0 Frequency of micturition (principal)

== ENCOUNTER 2018-09-05 08:38 | Emergency (ER) | payer MEDICARE ==
[~2018-09-05] VITALS: Ht 182.9 cm; Wt 83.9 kg
[2018-09-05 08:56] LABS: URINE BILIRUBIN NEGATIVE (Negative); URINE BLOOD 2+ (Negative); URINE CLARITY CLEAR; URINE COLOR YELLOW; URINE GLUCOSE-RANDOM 3+ (Negative); URINE KETONES NEGATIVE (Negative); URINE NITRITE-REFLEX NEGATIVE (Negative); URINE PROTEIN 2+ (Negative); URINE SPECIFIC GRAVITY >= 1.030 (1.005-1.030); URINE UROBILINOGEN 0.2 E.U./dl (0.2-1.0)
[2018-09-05 09:02] LABS: URINE LEUKOCYTES-REFLEX 2+ (Negative)
[2018-09-05 09:10] LABS: MUCUS 0-3 Light strn/LPF (None Seen); SQUAMOUS 0-3 Few /LPF (0-3); URINE RBC 3-10 Few /HPF (0-2); URINE WBC-REFLEX >25 Many /HPF (0-5)
[2018-09-05 09:11] LABS: CASTS None Seen /LPF (None Seen); CRYSTALS None Seen /LPF (None Seen); YEAST-REFLEX Present (None Seen)
[2018-09-05 09:24] LABS: HEMATOCRIT 32.6 % (42.0-52.0); HEMOGLOBIN 11.1 gm/dL (14.0-18.0); MCH 29.3 pg (26.0-34.0); MCHC 33.9 g/dL (28.0-37.0); MCV 86.4 fL (80.0-100.0); MPV 8.2 fl. (7.2-11.1); RBC 3.77 mil/uL (4.50-6.00); WBC 5.9 thou/uL (4.0-11.0)
[2018-09-05 09:39] LABS: ALBUMIN 3.1 g/dL (3.4-5.0); CALCIUM 9.2 mg/dL (8.5-10.1); CREATININE 4.3 mg/dL (0.6-1.3); POTASSIUM 4.1 mmol/L (3.5-5.1); TOTAL BILIRUBIN 0.6 mg/dL (<0.1-1.0); TOTAL PROTEIN 7.4 g/dL (6.4-8.2)
[2018-09-05] MEDS ORDERED: HYDROCODONE-AP1 EAC6 PO (10:39)
[2018-09-05] MEDS ORDERED: KEFLEX500 M1 PO (10:39)
[2018-09-05 10:52] VITALS: BP 100/40
== END 2018-09-05 10:53 | disposition home or self-care (01) ==
LOC: M.ERS 08:38
PROVIDERS: Emergency Medicine Emergency Medical Services
DX: N39.0 Urinary tract infection, site not specified (principal); I25.10 Atherosclerotic heart disease of native coronary artery without angina pectoris; E11.9 Type 2 diabetes mellitus without complications; E78.5 Hyperlipidemia, unspecified; I73.9 Peripheral vascular disease, unspecified; E11.22 Type 2 diabetes mellitus with diabetic chronic kidney disease; N18.9 Chronic kidney disease, unspecified; I12.0 Hypertensive chronic kidney disease with stage 5 chronic kidney disease or end stage renal disease; N18.6 End stage renal disease; G62.9 Polyneuropathy, unspecified; Z79.4 Long term (current) use of insulin; Z88.2 Allergy status to sulfonamides; Z95.5 Presence of coronary angioplasty implant and graft; Z99.2 Dependence on renal dialysis; Z86.73 Personal history of transient ischemic attack (TIA), and cerebral infarction without residual deficits; Z88.8 Allergy status to other drugs, medicaments and biological substances

== ENCOUNTER 2018-10-29 06:01 | Inpatient (IN) | payer MEDICARE ==
[~2018-10-29] VITALS: Ht 182.9 cm; Wt 86.3 kg
[~2018-10-29 06:01] MED LIST changes: +KEFLEX500 M1 PO
[2018-10-29 06:08] VITALS: BP 139/70
[2018-10-29 06:48] LABS: ABSOLUTE EOSINOPHILS 0.1 thou/uL (0.0-0.7); ABSOLUTE MONOCYTES 0.4 thou/uL (0.0-1.2); ABSOLUTE NEUTROPHILS 6.3 thou/uL (1.6-8.1); BASOPHILS 0.6 %; EOSINOPHILS 0.9 %; HEMATOCRIT 31.4 % (42.0-52.0); HEMOGLOBIN 10.8 gm/dL (14.0-18.0); LYMPHOCYTES 12.6 %; MCH 30.5 pg (26.0-34.0); MCHC 34.6 g/dL (28.0-37.0); MCV 88.2 fL (80.0-100.0); MPV 8.4 fl. (7.2-11.1); NUCLEATED RBCS 0 /100WBC; PLATELET COUNT* 154 thou/uL (150-400); POLYS 80.9 %; RBC 3.56 mil/uL (4.50-6.00); RDW-CV 14.7 % (10.5-14.5); WBC 7.8 thou/uL (4.0-11.0)
[2018-10-29 06:56] LABS: PROTIME 10.1 Seconds (9.20-11.50)
[2018-10-29 06:57] LABS: CALCIUM 8.5 mg/dL (8.5-10.1); CREATININE 4.1 mg/dL (0.6-1.3); POTASSIUM 3.9 mmol/L (3.5-5.1)
[2018-10-29 07:07] LABS: ALBUMIN 3.3 g/dL (3.4-5.0); TOTAL BILIRUBIN 0.7 mg/dL (<0.1-1.0); TOTAL PROTEIN 7.3 g/dL (6.4-8.2); TROPONIN-I LEVEL 0.18 ng/mL (<0.06)
--- NOTE | 2018-10-29 10:33 | NUR ---
ASSUMED PT CARE
--- NOTE | 2018-10-29 11:13 | NUR ---
TALKED WITH JENNIFER MAYEN ON CONTACT PRECAUTION FOR MRSA AND VRE. PATIENT WILL GET DIALYSIS TODAY, THIS RN TALKED WITH DR ALMEIDA. PATIENT ED RN AWARE.
--- NOTE | 2018-10-29 13:01 | NUR ---
MEAL TRAY GIVEN TO PT
--- NOTE | 2018-10-29 13:37 | NUR ---
PT C/O CP IN ROOM AT BEDSIDE
--- NOTE | 2018-10-29 15:37 | EKG ---
[place] [address] ELECTROCARDIOGRAM REPORT Name: JESSICA GARCES OCTAVIANO Room: [place] [address] ADM IN .R.#: [id number] Admission: 10/29/18 Attend Phys: Alexis Chavez MD Discharge: Date of : 53 Report #: [id number] THIS REPORT FOR: //name// [facility] ED Test Date: 2018-10-29 Test Time: 06:10:22 Pat Name: JESSICA GARCES Department: Room: [facility] Gender: Watch Assembler: Oscar MIRELES : 1955 Requested By: Adama Edge Order Number: [id number] MD: Austin Brooks Measurements Intervals [place] Rate: 96 P: 89 CT: 170 QRS: -33 QRSD: 133 T: 141 QT: 377 QTc: 477 Interpretive Statements Sinus rhythm Multiform ventricular premature complexes Left bundle branch block Compared to ECG 05/22/2018 13:19:07 Ventricular premature complex(es) now present Left bundle-branch block now present Left ventricular hypertrophy no longer present Early repolarization no longer present Q waves no longer present Electronically Signed On 10-29-2018 15:37:13 CDT by Austin Brooks [email or web address] <ELECTRONICALLY SIGNED> By: Austin Brooks MD, [facility] 10/29/18 1537 0610 0610 Austin Brooks MD, [facility] /EPI
[2018-10-29 15:47] VITALS: BP 176/85
[2018-10-29 16:20] VITALS: BP 130/62
[2018-10-29] MEDS ORDERED: CARVEDILOL12.5 MG PO (17:28)
[2018-10-29] MEDS ORDERED: CLONIDINE0.1 PO (17:30)
--- NOTE | 2018-10-29 17:30 | NUR ---
REC'D REPORT FROM JIGMAN. PATIENT UP TO UNIT VIA HOSPITAL BED AND ER STAFF. Ox4, ABLE TO COMMUNICATE NEEDS TO STAFF. ASSESSMENT COMPLETE, VS OBTAINED. 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 O2 SAT 96% 2L. FEBRILE 102.1 F. PRN ACETAMINOPHEN GIVEN PER AUG. FIELD AIDE TO DIALYZE WITHIN THE HOUR. C/O PAIN IN L BKA, PHANTOM LIMB PAIN, 11/25. , VIVIEN, AT BS. HEPARIN GTTS INFUSING ORDERED. CALL LIGHT WITHIN REACH.
[2018-10-29] MEDS ORDERED: NITROGLYCERIN0.4 MG SUBLING (17:31)
--- NOTE | 2018-10-29 18:19 | NUR ---
PATIENT OFF UNIT FOR DIALYSIS VIA HOSPITAL BED AND NURSING STAFF. CHART AND FLUIDS SENT WITH PATIENT. REPORT GIVENT TO MAINTAINER CENTRAL OFFICE.
--- NOTE | 2018-10-29 18:30 | NUR ---
PATIENT STATES "I WOULD LIKE TO SEE DR. NIETO ABOUT MY FOOT WHILE I'M HERE." PATIENT'S STATES THAT HE HAS A CALLOUSED AREA ON HIS FOOT NEAR THE MOST RECENT TOE AMPUTATION SITE THAT DR. NIETO WOULD LIKELY WANT CUT OFF. THE AREA IS NOT REDDENED OR OPEN SKIN BUT DRY AND CALLOUSED.
[2018-10-29 22:00] VITALS: BP 112/71
--- NOTE | 2018-10-30 02:43 | NUR ---
ASSUMED CARE OF PT AT 2200 FROM DIALYSIS. PT IS VERY SLEEPY AFTER DIALYSIS. PT ALSO RUNNING A TEMP. PT GIVEN TYLENOL. PT IS ON CONTACT PRECAUTIONS. PT IS IN SINUS RYTHM ON THE TELEMETRY. PT IS RESTING COMFORTABLY IN BED. RESPIRATIONS ARE EVEN AND NONLABORED. WILL CONTINUE TO MONITOR PT.
[2018-10-30 05:27] LABS: ABSOLUTE BASOPHILS 0.1 thou/uL (0.0-0.2); ABSOLUTE EOSINOPHILS 0.1 thou/uL (0.0-0.7); ABSOLUTE LYMPHOCYTES 1.4 thou/uL (0.8-5.3); ABSOLUTE MONOCYTES 0.5 thou/uL (0.0-1.2); BASOPHILS 0.8 %; EOSINOPHILS 0.7 %; HEMATOCRIT 30.3 % (42.0-52.0); HEMOGLOBIN 10.5 gm/dL (14.0-18.0); LYMPHOCYTES 17.8 %; MCH 30.9 pg (26.0-34.0); MCHC 34.8 g/dL (28.0-37.0); MCV 88.9 fL (80.0-100.0); MPV 8.6 fl. (7.2-11.1); NUCLEATED RBCS 0 /100WBC; PLATELET COUNT* 148 thou/uL (150-400); POLYS 74.7 %; RBC 3.41 mil/uL (4.50-6.00); RDW-CV 14.4 % (10.5-14.5)
[2018-10-30 05:48] LABS: ANION GAP 10 mmol/L (7-16); BUN 36 mg/dL (7-18); CALCIUM 9.3 mg/dL (8.5-10.1); CHLORIDE 101 mmol/L (98-107); CHOLESTEROL 192 mg/dL (<200); CO2 28 mmol/L (21-32); CREATININE 3.3 mg/dL (0.6-1.3); GLUCOSE 103 mg/dL (70-99); HDL CHOLESTEROL 52 mg/dL (>40); LDL CHOLESTEROL 114 mg/dL (<100); SODIUM 139 mmol/L (136-145); TC:HDL 3.7 Ratio (Not establshd); TRIGLYCERIDE 132 mg/dL (<150); VLDL 26 mg/dL (<40)
[2018-10-30 05:49] LABS: SERUM ASSESSMENT Clear
[2018-10-30 08:00] VITALS: BP 104/54
--- NOTE | 2018-10-30 08:49 | CON ---
[address] [address] CONSULTATION Name: GARCESJESSICA OCTAVIANO Room: [address] IN M.R.#: [id number] Admission: 10/29/18 Attend Phys: Alexis Chavez MD Discharge: Date of : 53 Report #: [id number] THIS REPORT FOR: //name// CC: Alexis Suresh CARDIOLOGY CONSULTATION INDICATION: Chest pain, elevated troponin and heart failure. HISTORY OF PRESENT ILLNESS: The patient is a 63-year-old white male who is well known to our service. He has a history of coronary artery disease with previous myocardial infarctions and stenting on multiple occasions. He has had previous bypass surgery. His most recent catheterization in 05/2018 showed his grafts to be patent. He had a chronically occluded right coronary artery and left anterior descending coronary artery. No intervention was undertaken at that time. He has a patent CORMIER graft to the left anterior descending, a patent vein graft to the circumflex and a patent vein graft to the right coronary artery. He has a history of peripheral vascular disease with left ccdzr-atw-rfrq amputation. He has had several toes removed from the right foot. He has a chronically elevated troponin. He is on dialysis. He presented to the Emergency Room with complaints of right lower extremity pain and chest pain. In this setting, his troponin was minimally elevated. PAST MEDICAL HISTORY: 1. Coronary artery disease with multiple previous interventions of myocardial infarctions. 2. Coronary artery bypass grafting as outlined above. 3. End-stage renal disease, on dialysis. 4. Type 2 diabetes mellitus. 5. Peripheral vascular disease as outlined above. 6. Chronic anemia. 7. CVA x 2. 8. Hyperlipidemia. PAST SURGICAL HISTORY: 1. Coronary artery bypass grafting. 2. Amputation of right great and right second toe. 3. Bilateral shoulder surgeries. 4. Right groin mesh placed for herniorrhaphy. 5. Right leg bypass, failed. 6. Carpal tunnel release, 2006. 7. Aortic valve replacement with bypass surgery. 8. Back fracture, 1977. 9. Left ring finger crush [place] in [address] [address] CONSULTATION Name: GARCESJESSICA Room: [address] IN [facility].#: [id number] Admission: 10/29/18 Attend Phys: Alexis Chavez MD Discharge: Date of : 53 Report #: [id number] 10. Stomach surgery as an infant. 11. Fistula in left arm. 12. Left gxekl-fkj-hwtf amputation. FAMILY HISTORY: Positive for heart disease and lung disease. SOCIAL HISTORY: The patient denies use of tobacco or alcohol. HOME MEDICATIONS: 1. Vitamin D 1000 units daily. 2. Gabapentin 300 mg t.i.d. 3. Lantus 65 units at bedtime. 4. Metoprolol 50 mg p.o. b.i.d. 5. Insulin 25 units of with lunch. 6. Fish oil 1000 mg daily. 7. Lispro insulin 40 units with breakfast and 45 units with dinner. 8. Imdur 60 mg daily. 9. Plavix 75 mg daily. ALLERGIES: BACTRIM and TOLECTIN. PHYSICAL EXAMINATION: VITAL SIGNS: Blood pressure 141/63, pulse 91. GENERAL: This is a pleasant gentleman in no distress. Mood and affect appropriate. HEENT: Extraocular muscles intact. Mucous membranes moist. NECK: Shows no jugular venous distention. I do not appreciate carotid bruit. CHEST: Reveals clear lung hannon. CARDIAC: Reveals a regular rhythm with a grade 2/6 systolic ejection murmur. I do not appreciate a gallop. ABDOMEN: Reveals normal bowel sounds. The abdomen is soft and nontender. EXTREMITIES: Left AKA present to right lower extremity. SKIN: Warm and dry. EKG shows sinus rhythm without acute ST or T-wave abnormality. LABORATORY DATA: Reviewed. Sodium 136, potassium 3.9, chloride 102, bicarbonate 22, BUN 68, creatinine 4.1, serum glucose 296, AST 15, lipase 303. Total bilirubin 0.7, direct bilirubin 0.1, calcium 8.5, phosphorus 2.1, magnesium 1.9, alkaline phosphatase 74, ALT 19, total protein 7.3, albumin 3.3. Lactic acid 1.3. Troponin of 0.18, 0.19 and 0.27. NT-proBNP 29,819. Chest x-ray shows mild cardiomegaly and pulmonary vascular at the upper limits of normal. IMPRESSION AND RECOMMENDATIONS: [place] [address] CONSULTATION Name: JESSICA GARCES OCTAVIANO Room: [address] IN [facility]#: [id number] Admission: 10/29/18 Attend Phys: Alexis Chavez MD Discharge: Date of : 53 Report #: [id number] 1. Hkgky-gc-rzmfxqo combined heart failure. Recommend dialysis per Nephrology. 2. Chronically elevated troponin, likely due to underlying chronic renal insufficiency and significant severe 3-vessel coronary artery disease, possibly representing type 2 myocardial infarction with acute heart failure. 3. End-stage renal disease, on dialysis per Nephrology. 4. Hyperlipidemia. Repeat fasting lipid profile. Consider statin agent. 5. Hypertension, presently stable. <ELECTRONICALLY SIGNED> By: Austin Brooks MD, FACC 10/30/18 0849 1250 [id number] Brooks MD, FACC /nt
--- NOTE | 2018-10-30 10:51 | NUR ---
MET WITH PT TO DISCUSS HOME SITUATION/DC PLANNING. PT LIVES WITH . HE GOES TO DIALYSIS AT [place] TUES/THURS/SAT. OR HIS FRIEND PROVIDE TRANSPORT. PT HAS PROSTHESIS FOR LLE BUT STATES DOESN'T ALWAYS WEAR IT, NEEDS ADJUSTED. ENCOURAGED PT TO CONTACT SUPPLIER TO GET ADJUSTED. PT IS ABLE TO TRANSFER ON HIS OWN AND GET IN AND OUT OF CAR TO W/C. HE USES [employer]OWER [employer] AND CAN DO HIS OWN ADLS. HAS W/C AND WALKER. PT HAS HAD HH IN THE PAST BUT STATED HIS DOESN'T LIKE FOR HH TO COME OUT. HE HAS BEEN TO SNF AT [facility] IN PAST ALSO. PT PLANS TO RETURN HOME AT [place]. IS DPOA.
[2018-10-30 12:12] VITALS: BP 96/45
--- NOTE | 2018-10-30 12:37 | NUR ---
Nutrition: Pt admitted with NSTEMI. Consult recevied for "BMI." Pt's wt fluctuates d/t ESRD on HD. Currently, wt is 195# which is typical. BMI is 26.5. Renal diet ordered. Statin, insulin. BUN 36, cr 3.3, GFR 19, alb 3.3, BG 108. H/o ESRD on HD, IDDM, HTN, PVD, CABG. No nutrition interventions needed at this time. Low to mild risk.
[2018-10-30 16:20] VITALS: BP 134/61
--- NOTE | 2018-10-30 18:31 | NUR ---
Nutrition: Consult received for "DM, renal, HF request." See RD education form for details.
--- NOTE | 2018-10-30 18:55 | NUR ---
PT ALERT AND ORIENTED. TELE TRACKIN SR WITH PVC'S AND ALL VSS ON 2L/ROOM AIR. PT WITH SOME SOA THIS SHIFT- ORDER FOR BREATHING TX OBTAINED AND PT STATES THEY ARE HELPING. DENIES CP. UP IN CHAIR FOR SEVERAL HOURS THIS SHIFT. HEPARING GTT INFUSING PER PROTOCOL. EDUCATED ON SAFETY AND PLAN OF CARE. PLEASE SEE ASSESSMENT FOR ADDITIONAL INFORMATION. WILL CONT TO MONITOR
[2018-10-30 20:00] VITALS: BP 107/52
[2018-10-31] VITALS (7 sets, daily range): BP systolic 79–111; BP diastolic 27–89
[2018-10-31 04:18] LABS: HEMATOCRIT 29.7 % (42.0-52.0); HEMOGLOBIN 10.3 gm/dL (14.0-18.0); MCH 30.9 pg (26.0-34.0); MCHC 34.7 g/dL (28.0-37.0); MPV 8.4 fl. (7.2-11.1); RBC 3.33 mil/uL (4.50-6.00); RDW-CV 14.9 % (10.5-14.5)
--- NOTE | 2018-10-31 06:50 | NUR ---
ASSUMED PT CARE AT 1930. NURSING ASSESSMENT COMPLETED AT START OF SHIFT. SR WITH PVCS ON CARDIC MONITOR. PT VOICED NO CONCERNS THIS SHIFT. PRODUCTIVE COUGH, THICK WHITE/YELLOW. FALL PRECAUTIONS IN PLACE, HOURLY ROUNDING COMPLETED. PT CONTINUES ON HEPARIN DRIP/THERAPEUTIC RATE. CALL LIGHT WITHIN REACH.
[2018-10-31 06:56] LABS: URINE BILIRUBIN NEGATIVE (Negative); URINE BLOOD TRACE (Negative); URINE CLARITY SL CLOUDY; URINE COLOR YELLOW; URINE GLUCOSE-RANDOM NEGATIVE (Negative); URINE KETONES NEGATIVE (Negative); URINE LEUKOCYTES-REFLEX 2+ (Negative); URINE NITRITE-REFLEX NEGATIVE (Negative); URINE PROTEIN 2+ (Negative); URINE SPECIFIC GRAVITY 1.025 (1.005-1.030); URINE UROBILINOGEN 0.2 E.U./dl (0.2-1.0)
[2018-10-31 07:07] LABS: SQUAMOUS >10 Many /LPF (0-3); TRANSITIONAL EPITHEL CELL 0-3 Few /LPF (None Seen); URINE WBC-REFLEX >25 Many /HPF (0-5); WBC CLUMPS Moderate (None Seen)
[2018-10-31 07:08] LABS: BACTERIA-REFLEX 1-9 Few /HPF (None Seen); CASTS None Seen /LPF (None Seen); MUCUS None Seen strn/LPF (None Seen); URINE RBC 3-10 Few /HPF (0-2)
[2018-10-31 07:09] LABS: AMORPHOUS URATES Moderate /LPF (None Seen); YEAST-REFLEX Present (None Seen)
--- NOTE | 2018-10-31 09:05 | NUR ---
REC'D REPORT FROM NOC RN, ASSUMED CARE OF PATIENT APPROX 0730. A&OX4, ABLE TO COMMUNICATE NEEDS TO STAFF. ASSESSMENT COMPLETE, VS OBTAINED. 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 O2 SAT 97% 2L. NONSKID SOCK ON R FOOT. PATIENT WITH L BKA REQUIRES ASSIST OF 2 TO TRANSFER TO CHAIR. TRANSFERRED TO DIALYSIS ROOM VIA HOSPITAL BED AND NURSING STAFF. REPORT TO CREDIT RISK ANALYST. PATIENT GIVEN SNACK AND INSULIN PRIOR TO LEAVING UNIT.
--- NOTE | 2018-10-31 10:37 | CON ---
[address] [address] CONSULTATION Name: GARCESJESSICA OCTAVIANO Room: [address] IN M.R.#: [id number] Admission: 10/29/18 Attend Phys: Alexis Chavez MD Discharge: Date of : 53 Report #: [id number] THIS REPORT FOR: //name// CC: Alexis Suresh DATE OF SERVICE: 10/30/2018 Infectious Disease Consultation ATTENDING PHYSICIAN: Alexis Chavez MD REASON FOR EVALUATION: Febrile illness. HISTORY OF PRESENT ILLNESS: This is a 63-year-old well known to myself, has diabetes mellitus with severe sequelae, primarily related vasculopathy. He has had previous distal lower extremity issues, also has chronic renal failure, on dialysis, presented with severe cardiomyopathy of ischemic nature. He has frequent angina, presented with complaints of constant chest pain associated with dyspnea, felt to be likely secondary to non-ST elevation myocardial infarction. Subsequent to the admission, he had high-grade temperature to greater than 102 degrees Fahrenheit. Does admit to sore throat, which he says has been apparent and perhaps worsening over the last 3-4 days, productive of some colored sputum. Also has had some burning with urination. He does make smaller volume urine, particularly voiding in the morning. He was noted to be initially quite encephalopathic that seems to have resolved to a great extent as well. Blood cultures were collected. He was then started empirically on ceftriaxone. Chest x-ray did not confirm any sort of acute process in the chest. Lactic acid was normal at 1.3. Blood cultures are sterile thus far. ALLERGIES: Listed to TOLECTIN and BACTRIM. MEDICATIONS: Include atorvastatin, ipratropium and albuterol inhaler, ceftriaxone, clopidogrel, cholecalciferol, pantoprazole, metoprolol, gabapentin, fentanyl, isosorbide mononitrate, p.r.n. analgesics and antiemetics. PAST MEDICAL HISTORY: Diabetes mellitus, severe sequelae. He has end-stage renal disease, on hemodialysis, has got diffuse vasculopathy, atherosclerotic coronary artery disease with previous aortocoronary bypass grafting. He has had coronary artery stents. He has amputation of toes on the right foot, previous strokes, left [id number] amputation, obstructive uropathy, and peripheral neuropathy. SOCIAL HISTORY: Nonsmoker, no ethanol. FAMILY HISTORY: [place] [address] CONSULTATION Name: JESSICA GARCES Room: [address]#: [id number] Admission: 10/29/18 Attend Phys: Alexis Chavez MD Discharge: Date of : 53 Report #: [id number] REVIEW OF SYSTEMS: He denies significant gastrointestinal-related complaints at this point. He did have about 24-hour period of diarrhea that has resolved. His appetite has been fair. No current dyspnea, otherwise unremarkable. PHYSICAL EXAMINATION: GENERAL: He appears chronically ill, undernourished. He is pleasant and cooperative. He is not encephalopathic at this point. He has good recall. VITAL SIGNS: Temperature 98.2. He did have a T-max of 102.4 roughly 24 hours ago, pulse 78, respirations 16, blood pressure 96/45. SKIN: Warm, dry, no rashes. HEENT: Normocephalic. Extraocular muscles intact. NECK: Supple. LUNGS: Generally clear to auscultation. HEART: Irregular, has a soft systolic murmur. ABDOMEN: Soft, nontender. There is mild distention. I do not appreciate any peritoneal signs. There is AV fistula in the proximal aspect of left upper extremity. Below-knee amputation on the left. LABORATORY DATA: Rapid Strep A was negative. Troponin elevated at 0.19, serial 0.27, and repeat was 0.27. Blood cultures sterile thus far. Electrolytes: Sodium 139, potassium 4.0, chloride 101, bicarbonate is 28, BUN and creatinine 36 and 3.3. CBC: White count of 8.0, H and H 10.5 and 30.3, platelets of 148. Differential unremarkable. IMAGING DATA: Arterial Doppler on the right lower extremity showed no significant focal arterial stenosis. ASSESSMENT: Febrile illness in the setting of perhaps acute ischemic cardiac event. At present, it is not clear is based on history and physical. There is a focus of pyogenic infection at this point. He does make urine. We will collect the urinalysis and monitor expectantly. Certainly, early pneumonitis may present as well. Although he is not at baseline, significantly within 24 hours, can exclude a viral etiology or food borne illness. We will see how he does clinically in the next 24 to 48 hours. I think ceftriaxone is a reasonable empiric treatment. We will await pending studies. <ELECTRONICALLY SIGNED> By: Jesus Alberto Oneil MD 10/31/18 1037 1614 [id number] Oneil MD /nt
--- NOTE | 2018-10-31 14:00 | NUR ---
PATIENT TRANSFERRED FROM DIALYSIS UNIT TO ROOM VIA HOSPITAL BED. DROWSY, ORIENTED TO SELF AND SITUATION. LUNCH TRAY BROUGHT TO ROOM. OXYGEN VIA NC AT 2L. PATIENT MAKING SMALL AMOUNT OF URINE. CALL LIGHT WITHIN REACH. HOURLY ROUNDING FOR SAFETY AND PATIENT NEEDS.
--- NOTE | 2018-10-31 14:13 | NUR ---
CONTINUE TO FOLLOW, SPOKE WITH PT'S /VIVIEN OVER THE PHONE. SHE STATED PT HAD BEEN DOING WELL AT HOME PRIOR TO THIS ILLNESS. PLAN IS FOR HIM TO RETURN HOME AT [place], SHE WOULD BE OPEN TO HAVING HH IF PT AGREEABLE. SHE STATED PT WILL NOT WEAR HIS PROSTHESIS D/T HIS RIGHT LEG NOT BEING ABLE TO BE STRAIGHTENED OUT AND NO TOES ON RIGHT FOOT, HE FALLS WHEN HE WEARS IT AND HAS REFUSED TO TRY. PT HAD [facility] IN THE PAST WILL FOLLOW
--- NOTE | 2018-10-31 16:20 | 2DMMODE ---
[place] [address] 2 D/M-MODE ECHOCARDIOGRAM Name: JESSICA GARCES Room: [address] IN [facility]#: [id number] Admission: 10/29/18 Attend Phys: Alexis Chavez, Discharge: Date of : 53 Date of Service: 10/31/18 1619 Report #: [id number] THIS REPORT FOR: //name// APPROVED REPORT Study performed: 10/31/2018 14:42:34 EXAM: Comprehensive 2D, Doppler, and color-flow Echocardiogram Patient Location: In-Patient Room #: 229 Status: routine BSA: 2.11 HR: 89 bpm BP: 98/53 mmHg Rhythm: NSR Other Information Study Quality: Good Indications Congestive Heart Failure Non STEMI Elevated Troponin 2D Dimensions IVSd: 9.76 (7-11mm) LVOT Diam: 21.44 (18-24mm) LVDd: 60.01 mm PWd: 10.27 (7-11mm) Ascending Ao: 39.21 (22-36mm) LVDs: 49.15 (25-40mm) Aortic Root: 29.84 mm Volumes Left Atrial Volume (Systole) LA ESV Index: 44.70 mL/m2 Aortic Valve AoV Peak Zeus.: 2.16 m/s AO Peak Gr.: 18.72 mmHg LVOT Max P.93 mmHg AO Mean Gr.: 11.61 mmHg LVOT Mean P.49 mmHg LVOT Max V: 0.86 m/s AO V2 VTI: 36.90 cm LVOT Mean V: 0.56 m/s LALITA (VTI): 1.45 cm2 LVOT V1 VTI: 14.84 cm Mitral Valve E/A Ratio: 2.18 [place] [address] 2 D/M-MODE ECHOCARDIOGRAM Name: JESSICA GARCES Room: [address] IN M.R.#: [id number] Admission: 10/29/18 Attend Phys: Alexis Chavez, Discharge: Date of : 53 Date of Service: 10/31/18 1619 Report #: [id number] MV Decel. Time: 146.13 ms MV E Max Zeus.: 1.37 m/s MV PHT: 42.38 ms MVA (PHT): 5.19 cm2 TDI E/Lateral E': 11.42 E/Medial E': 19.57 Medial E' Zeus.: 0.07 m/s Lateral E' Zeus.: 0.12 m/s Pulmonary Valve PV Peak Zeus.: 1.19 m/s PV Peak Gr.: 5.68 mmHg Tricuspid Valve RAP Estimate: 5.00 mmHg TR Peak Gr.: 41.80 mmHg RVSP: 46.00 mmHg PA Pressure: 46.00 mmHg Left Ventricle The left ventricle is normal size. Global hypokinesis with left ventricular systolic is dyssynergy noted consistent with underlying bundle branch block. There is normal left ventricular wall thickness. Left ventricular systolic function is moderately decreased. LVEF is 35-40%. Transmitral Doppler flow pattern suggests restrictive physiology. Right Ventricle Right ventricle is mildly dilated. The right ventricular systolic function is normal. Atria Left atrium is moderately dilated. Right atrium is mildly dilated. Aortic Valve Bioprosthetic aortic valve is present. Trace aortic regurgitation. There is no aortic valvular stenosis. Mitral Valve The mitral valve is normal in structure. Mild to moderate mitral regurgitation. No evidence of mitral valve stenosis. Tricuspid Valve The tricuspid valve is normal in structure. Trace tricuspid regurgitation. Mod[place] [address] 2 D/M-MODE ECHOCARDIOGRAM Name: JESSICA GARCES Room: [address] IN [facility]#: [id number] Admission: 10/29/18 Attend Phys: Alexis Chavez, Discharge: Date of : 53 Date of Service: 10/31/18 1619 Report #: [id number] Pulmonic Valve The pulmonary valve is normal in structure. There is no pulmonic valvular regurgitation. Great Vessels Aortic root is mildly dilated. IVC is normal in size and collapses >50% with inspiration. Pericardium There is no pericardial effusion. <Conclusion> The left ventricle is normal size. There is normal left ventricular wall thickness. Left ventricular systolic function is moderately decreased. LVEF is 35-40%. Transmitral Doppler flow pattern suggests restrictive physiology. Right ventricle is mildly dilated. Left atrium is moderately dilated. Right atrium is mildly dilated. Bioprosthetic aortic valve is present. Trace aortic regurgitation. Trace tricuspid regurgitation. Moderate pulmonary hypertension. IVC is normal in size and collapses >50% with inspiration. <ELECTRONICALLY SIGNED> By: Austin Brooks MD, FACC 10/31/18 1619 1619 1619 Austin Brooks MD, FACC /INF
--- NOTE | 2018-10-31 23:22 | NUR ---
NOTIFIED DR. JONES OF PT'S LOW BP'S. PT ASYMPTOMATIC. NO NEW ORDERS AT THIS TIME, WILL CONTINUE TO MONITOR PT AT THIS TIME. AM HOSPITALIST TO ADDRESS HEPARIN DRIP.
[2018-11-01] VITALS (8 sets, daily range): BP systolic 89–126; BP diastolic 41–62
[2018-11-01 04:10] LABS: HEMATOCRIT 30.7 % (42.0-52.0); HEMOGLOBIN 10.6 gm/dL (14.0-18.0); MCH 30.7 pg (26.0-34.0); MCHC 34.6 g/dL (28.0-37.0); MCV 88.7 fL (80.0-100.0); RBC 3.47 mil/uL (4.50-6.00); RDW-CV 14.8 % (10.5-14.5); WBC 9.1 thou/uL (4.0-11.0)
[2018-11-01 04:31] LABS: CALCIUM 8.9 mg/dL (8.5-10.1); CREATININE 4.2 mg/dL (0.6-1.3); MAGNESIUM 1.9 mg/dL (1.8-2.4); POTASSIUM 3.6 mmol/L (3.5-5.1)
--- NOTE | 2018-11-01 05:21 | NUR ---
ASSUMED PT CARE AT 1930. NURSING ASSESSMENT COMPLETED. BREEDING TECHNICIAN IN PLACE, TRACING SR WITH BBB. PT TEMP 101.0 AT 2100. PRN ACETAMINOPHEN ADMINISTERED AND EFFECTIVE. SOFT BP'S THIS SHIFT. PT ASYMTOMATIC, 0400 BP 120/62. HOURLY ROUNDING COMPLETED. CALL LIGHT WITHIN REACH.
--- NOTE | 2018-11-01 09:58 | NUR ---
RE: heart failure medication education. Met with the pt to discuss CHF medication. Our review focused primarily on metoprolol (also discussed isosorbide as it is on the medication review sheet). We reviewed rationale for therapy and importance of compliance with regimen. Discussed possible side efffects and potential management strategies. Pt was in a drowsy state and did require some repetition. Left medication information sheet with patient and provided pharmacy contact information for any further questions or issues. Thank you.
--- NOTE | 2018-11-01 10:19 | NUR ---
CONTINUE TO FOLLOW, MET [facility] PT. HAS SOME CONFUSION TODAY. REVIEWED WITH PT CONVERSATION WITH PT'S YESTERDAY AND AGREEABLE TO HH. PT IS AGREEABLE ALSO, PT HAS USED [facility] IN THE PAST. WILL FOLLOW [facility] [phone] FAX [phone]
[2018-11-02 04:00] VITALS: BP 104/50
--- NOTE | 2018-11-02 06:30 | NUR ---
PATIENT NOT PROGRESSING TOWARDS GOALS: PATIENT HAS C/O CHEST PAIN INTERMITTENTLY. PAIN MEDICATION GIVEN WITH RELIEF. 2L O2 NC APPLIED FOR O2 SATURATION OF 89% ON ROOM AIR AND CHEST PAIN PROTOCOL. SATURATION IMPROVED AND >92%. VSS. PATIENT CONTINUES TO HAVE NPC AND COARSE, WHEEZES. THROAT LOZENGES AND THROAT SPRAY GIVEN WITH MILD IMPROVEMENT OF SORE THROAT AND COUGH. CALL LIGHT WITHIN REACH
[2018-11-02 08:00] VITALS: BP 103/46
[2018-11-02 12:13] VITALS: BP 113/60
--- NOTE | 2018-11-02 18:20 | NUR ---
VSS, ASSUMED CARE IN THE AM, ASSESSMENT PERFORMED AND CHARTED, FALL PRECAUTIONS IN PLACE AND CALL LIGHT IN REACH, PT IS UP WITH TWO TO BSC, IS ON 2L NC PRN AND RA, HE IS SA WITH PAC AND BBB ON THE MONITOR, STATES PAIN IN HANDS, PT GOAL IS TO COMPLETE DIALYSIS AND HE IS A Q2 TURN, PT IS A&O3-4 AND CAN BE CONFUSEDED AT TIMES HOURLY ROUNDS COMPLETED AND AT THIS TIME PT IS IN DIALYSIS.
[2018-11-02 20:00] VITALS: BP 90/46
[2018-11-03] VITALS: BP 133/63
[2018-11-03 04:00] VITALS: BP 107/50
[2018-11-03 04:52] LABS: ABSOLUTE EOSINOPHILS 0.3 thou/uL (0.0-0.7); ABSOLUTE MONOCYTES 0.6 thou/uL (0.0-1.2); ABSOLUTE NEUTROPHILS 4.3 thou/uL (1.6-8.1); EOSINOPHILS 4.1 %; HEMOGLOBIN 9.3 gm/dL (14.0-18.0); MPV 8.4 fl. (7.2-11.1); POLYS 60.3 %; WBC 7.1 thou/uL (4.0-11.0)
[2018-11-03 04:59] LABS: ABSOLUTE LYMPHOCYTES 1.8 thou/uL (0.8-5.3); BASOPHILS 0.7 %; HEMATOCRIT 26.4 % (42.0-52.0); LYMPHOCYTES 26.1 %; MCHC 35.1 g/dL (28.0-37.0); MCV 88.3 fL (80.0-100.0); MONOCYTES 8.8 %; NUCLEATED RBCS 0 /100WBC; PLATELET COUNT* 174 thou/uL (150-400); RBC 2.99 mil/uL (4.50-6.00); RDW-CV 14.9 % (10.5-14.5)
[2018-11-03 05:10] LABS: ALBUMIN 2.6 g/dL (3.4-5.0); CALCIUM 8.5 mg/dL (8.5-10.1); CREATININE 3.9 mg/dL (0.6-1.3); POTASSIUM 3.9 mmol/L (3.5-5.1); TOTAL BILIRUBIN 0.8 mg/dL (<0.1-1.0); TOTAL PROTEIN 6.7 g/dL (6.4-8.2)
--- NOTE | 2018-11-03 06:35 | NUR ---
PATIENT PARTIALLY PROGRESSING TOWARDS GOALS: VSS ON ROOM AIR. PATIENT HAS PRODUCTIVE COUGH, PATIENT REPORTS YELLOWISH SPUTUM BUT THIS HAS NOT BEEN OBSERVED. LUNG BLANTON REMAIN COARSE WITH WHEEZES. PATIENT HAD C/O CHEST PAIN RELIEVED WITH FENTANYL. BLOOD PRESSURE MEDICATION HELD DUE TO LOW BP. CALL LIGHT WITHIN REACH
[2018-11-03 08:00] VITALS: BP 113/58
[2018-11-03 12:00] VITALS: BP 96/50
[2018-11-03 16:00] VITALS: BP 119/53
--- NOTE | 2018-11-03 17:47 | NUR ---
VSS, ASSUMED CARE IN THE AM, ASSESSMENT PERFORMED AND CHARTED, FALL PRECAUTIONS IN PLACE AND CALL LIGHT IN REACH, PT IS A&O4 UP WITH MAX ASSIST, PT IS TRAING SR ON THE SUNIOTR ON RA AND DENIES ANY PAIN, PT GOAL IS TO SIT UP IN CHAIR AND IMPROVE BREATHING, AT THIS TIME PT GOAL HAS MEET, PT WAS UP IN CHAIR AND HE REAMINS ON RA, WILL FOLLOW WITH PLAN OF CARE.
[2018-11-03 20:00] VITALS: BP 105/79
[2018-11-04] VITALS: BP 146/65
[2018-11-04 04:00] VITALS: BP 117/62
[2018-11-04 04:55] LABS: CALCIUM 8.1 mg/dL (8.5-10.1); POTASSIUM 3.9 mmol/L (3.5-5.1)
[2018-11-04 04:58] LABS: PREALBUMIN 19.2 mg/dL (18.0-35.7)
[2018-11-04 05:00] LABS: ABSOLUTE BASOPHILS 0.1 thou/uL (0.0-0.2); ABSOLUTE EOSINOPHILS 0.4 thou/uL (0.0-0.7); ABSOLUTE LYMPHOCYTES 1.6 thou/uL (0.8-5.3); ABSOLUTE MONOCYTES 0.5 thou/uL (0.0-1.2); ABSOLUTE NEUTROPHILS 5.1 thou/uL (1.6-8.1); BASOPHILS 0.9 %; EOSINOPHILS 4.6 %; HEMATOCRIT 26.8 % (42.0-52.0); HEMOGLOBIN 9.4 gm/dL (14.0-18.0); LYMPHOCYTES 21.3 %; MCH 30.9 pg (26.0-34.0); MCHC 34.9 g/dL (28.0-37.0); MCV 88.4 fL (80.0-100.0); MPV 8.3 fl. (7.2-11.1); NUCLEATED RBCS 0 /100WBC; PLATELET COUNT* 214 thou/uL (150-400); POLYS 66.2 %; RBC 3.04 mil/uL (4.50-6.00); RDW-CV 14.8 % (10.5-14.5); WBC 7.7 thou/uL (4.0-11.0)
[2018-11-04 05:37] LABS: CREATININE 5.1 mg/dL (0.6-1.3)
[2018-11-04 07:30] VITALS: BP 111/51
--- NOTE | 2018-11-04 08:04 | NUR ---
ASSUMED PT CARE AT APPROX 1930. PT IS AWAKE AND ORIENTED X4. CAN BE FORGETFUL AND CONFUSED AT TIMES. VSS ON ROOM AIR. INSURANCE BROKER IN PLACE TRACING SR BBB. PT DENIES PAIN/DISCOMFORT. PT REFUSED SOME POSITION CHANGES, EDUCATION GIVEN. PT HAS INTACT AVF ON HIS LEFT UPPER ARM, BRUITS NOTED. CALL LIGHT WITHIN REACH. HOURLY ROUNDING DONE FOR PT SAFETY.
--- NOTE | 2018-11-04 11:19 | NUR ---
CONTINUE TO FOLLOW, DISCUSSED WITH DR ANDRE, ANTICIPATE DC SOON. PT STATES HE PLANS TO RET[facility] HOME [facility]. THAT HE IS AGREEABLE TO HH, WANTS TO USE [facility] AGAIN AND THAT HIS CAN ASSIST. DISCUSSED HIS WEAKNESS AND NEEDS AT THIS TIME. PT DOES NOT WANT TO GO TO SNF. HE STATED THERE IS A 'BIG' SESSION GOING ON AT HIS [employer] WHERE HE IS AN ELDER THIS WEEK AND HE WANTS TO BE ABLE TO GO HOME. HE PLANS TO DISCUSS WITH HIS . WILL FOLLOW
[2018-11-04 12:00] VITALS: BP 110/57
--- NOTE | 2018-11-04 15:14 | NUR ---
PT. NOT SEEN DUE TO OT SCHEDULE CONFLICT
[2018-11-04 15:54] VITALS: BP 107/51
--- NOTE | 2018-11-04 19:10 | NUR ---
PATIENT PROGRESSING TOWARDS GOALS. UP IN THE CHAIR MOST OF THE AFTERNOON. TOLERATED THERAPY WELL. NO COMPLAINTS OF SOA. TOLERATES HIS DIET WELL WITHOUT NAUSEA OR VOMITING. HOURLY ROUNDING CHARTED. CALL LIGHT WITHIN REACH. WILL CONTINUE TO MONITOR.
[2018-11-04 20:00] VITALS: BP 104/48
[2018-11-05] VITALS: BP 107/52
[2018-11-05 04:00] VITALS: BP 107/42
--- NOTE | 2018-11-05 05:12 | NUR ---
ASSUMED PT CARE AT 1930. PT IS A&O X4. VSS, O2 SAT-100% ON ROOM AIR. PT DENIES PAIN AND DISCOMFORT. PT ABLE TO SLEEP MOST OF THE NIGHT. POSITION CHANGES DONE. AV FISTULA ON RIGHT UPPER ARM INTACT, BRUITS AND THRILLS NOTED. PT IS FOR DIALYSIS TODAY. HOURLY ROUNDING DONE FOR PT SAFETY. CALL LIGHT WITHIN REACH. FALL PRECAUTIONS IN PLACE.
[2018-11-05 07:30] VITALS: BP 97/46
--- NOTE | 2018-11-05 08:35 | CON ---
[address] [address] CONSULTATION Name: JESSICA GARCES OCTAVIANO Room: [address] IN M.R.#: [id number] Admission: 10/29/18 Attend Phys: Alexis Chavez MD Discharge: Date of : 53 Report #: [id number] THIS REPORT FOR: //name// CC: Alexis Suresh DATE OF SERVICE: 10/30/2018 REASON FOR NEPHROLOGY CONSULTATION: End-stage renal disease, on maintenance hemodialysis. REASON FOR ADMISSION: Right lower extremity pain and chest pain. HISTORY OF PRESENT ILLNESS: This is a 63-year-old male with past medical history of end-stage renal disease, on hemodialysis every Sunday, and Sunday, came in with chest pain and right lower extremity pain. His chest pain has resolved and his right lower extremity pain is getting better. Arterial duplex of the right lower extremity did not reveal anything. He was dialyzed yesterday because yesterday was his dialysis day. He also had slightly elevated troponin and Cardiology evaluated him for that and they do not feel this was an acute non-STEMI. ALLERGIES: SULFAMETHOXAZOLE, TRIMETHOPRIM AND TOLMETIN. REVIEW OF SYSTEMS: As mentioned in the history of present illness, otherwise negative. PAST MEDICAL HISTORY: Includes medical and surgical history, which includes coronary artery disease, CABG; diabetes type 2; hypertension; amputation of right-sided toes, MRSA of bilateral feet; MT, multiple stents about 14 stents; right groin mesh; bilateral shoulder surgery; carpal tunnel surgery; failed right leg bypass; artificial aortic valve; CVA x 2; broken back in 1977; hyperlipidemia; peripheral vascular disease; coronary artery disease; left ring finger crushed off 1983; chronic kidney disease stage 5; ESRD, on dialysis every Sunday, and Sunday; stomach surgery; left and right durand to the bottom of bilateral feet; amputation of left leg; fistula in left arm; obstructive uropathy; peripheral neuropathy; left above-knee amputation. HOME MEDICATIONS: Include cholecalciferol, gabapentin, insulin glargine, metoprolol, insulin lispro, omega-3 fatty acid, Imdur, and clopidogrel. FAMILY HISTORY: No history of kidney disease in the family. SOCIAL HISTORY: He does not smoke, take alcohol or use illicit drugs. He lives at [place] [address] CONSULTATION Name: JESSICA GARCES Room: [address]#: [id number] Admission: 10/29/18 Attend Phys: Alexis Chavez MD Discharge: Date of : 53 Report #: [id number] PHYSICAL EXAMINATION: VITAL SIGNS: Blood pressure is 104/54, pulse rate is 81, temperature is 37.9, respiratory rate is 16, pulse ox 97% on 2 liters of oxygen via nasal cannula. GENERAL: He is awake, alert, oriented x 3. HEAD, EYES, EARS, NOSE, AND THROAT: Atraumatic, normocephalic. Mucous membranes are moist. NECK: There is no JVD. CHEST: Bilateral clear to auscultation posteriorly. No crackles or wheezing. CARDIOVASCULAR: S1, S2 normal. No murmurs. ABDOMEN: Soft, nondistended, nontender. Bowel sounds are present. EXTREMITIES: He has a left arm AV fistula with good bruit and thrill. Lower extremities: Left lower extremity above-knee amputation. Right extremity, multiple toes amputated, but there is no edema. NEUROLOGICAL FUNCTION: Moving all extremities. PSYCHIATRIC: Seems to be depressed. LABORATORY DATA: Hemoglobin is 10.5, platelet count is 148. His potassium was 4.0, sodium was 139, BUN 36. Other labs were reviewed. IMAGING: Arterial ultrasound of right leg was reviewed and chest x-ray was reviewed. ASSESSMENT: 1. End-stage renal disease, on hemodialysis every Sunday, and Sunday. 2. Diabetes type 2. Primary team is managing. 3. Hypertension. Blood pressure is controlled. 4. Anemia of chronic kidney disease. Hemoglobin 10.5. 5. The patient with chest pain, non-ST elevation myocardial infarction ruled out by Cardiology. 6. Right leg pain, now has resolved, etiology unclear. PLAN: 1. The patient was dialyzed yesterday according to his regular dialysis schedule. 2. We will continue Epogen with dialysis. 3. Next dialysis is going to be tomorrow. 4. We will continue to follow for dialysis need. Thank you for this consultation. <ELECTRONICALLY SIGNED> By: Vani Faulkner MD 11/05/18 0835 [id number] [id number] Faulkner MD /nt
--- NOTE | 2018-11-05 13:36 | NUR ---
ORDERS NOTED FOR DC HOME WITH HH. PT HAD REFUSED SNF YESTERDAY. CALL TO , PT ON DIALYSIS, CHOSE [facility]. CALLED AND FAXED ORDERS TO [facility]. DR ANDRE CONTACTED STATING PT NOW WOULD LIKE TO GO TO SNF. MET WITH PT AND SPOKE WITH OVER THE PHONE, PT IN AGREEMENT AND WOULD LIKE TO GO TO [facility]. AGREES. CALLED AND FAXED REFERRAL AND ORDERS TO [facility], AWAIT CALL BACK
[2018-11-05 14:29] VITALS: BP 130/55
[2018-11-05 15:12] VITALS: BP 130/55
[2018-11-05] MEDS ORDERED: IPRAT-ALBUT 0.5-3 ML INH (16:11)
[2018-11-05] MEDS ORDERED: MINOCIN50 MG PO (16:12)
[2018-11-05] MEDS ORDERED: HUMALOG100 UNIT/1 SUBQ (16:26)
--- NOTE | 2018-11-05 16:49 | NUR ---
RECEIVED DISCHARGE ORDERS PER DR ANDRE. IV DISCONTINUED. [facility] REMOVED AND RETURNED TO [facility]'S DESK. CALLED REPORT TO YASMEEN EATON AT [facility]. ALL BELONGINGS ARE PACKED AND TRANSFERRING WITH THE PATIENT. NO QUESTIONS OR CONCERNS AT TIME OF DISCHARGE. LEAVING VIA WHEELCHAIR VAN.
== END 2018-11-05 16:44 | DRG 871 ==
LOC: M.ERS 06:01 → M.TBA-ER 08:26 → M.2W 08:26
PROVIDERS: Emergency Medicine; Specialist; ADMIT Internal Medicine
PROC: 5A1D70Z Performance of Urinary Filtration, Intermittent, Less than 6 Hours Per Day (ICD-10-PCS; principal; 2018-10-29)
PROC: 5A1D70Z Performance of Urinary Filtration, Intermittent, Less than 6 Hours Per Day (ICD-10-PCS; 2018-10-31)
PROC: 5A1D70Z Performance of Urinary Filtration, Intermittent, Less than 6 Hours Per Day (ICD-10-PCS; 2018-11-02)
PROC: 5A1D70Z Performance of Urinary Filtration, Intermittent, Less than 6 Hours Per Day (ICD-10-PCS; 2018-11-05)
DX: A41.9 Sepsis, unspecified organism (principal); N18.6 End stage renal disease; I50.43 Acute on chronic combined systolic (congestive) and diastolic (congestive) heart failure; J18.9 Pneumonia, unspecified organism; G93.41 Metabolic encephalopathy; I13.2 Hypertensive heart and chronic kidney disease with heart failure and with stage 5 chronic kidney disease, or end stage renal disease; N39.0 Urinary tract infection, site not specified; I25.10 Atherosclerotic heart disease of native coronary artery without angina pectoris; E11.22 Type 2 diabetes mellitus with diabetic chronic kidney disease; E78.5 Hyperlipidemia, unspecified; E11.51 Type 2 diabetes mellitus with diabetic peripheral angiopathy without gangrene; E11.42 Type 2 diabetes mellitus with diabetic polyneuropathy; D63.1 Anemia in chronic kidney disease; E11.649 Type 2 diabetes mellitus with hypoglycemia without coma; I25.2 Old myocardial infarction; Z89.421 Acquired absence of other right toe(s); Z79.2 Long term (current) use of antibiotics; Z82.49 Family history of ischemic heart disease and other diseases of the circulatory system; Z83.6 Family history of other diseases of the respiratory system; Z95.2 Presence of prosthetic heart valve; Z79.1 Long term (current) use of non-steroidal anti-inflammatories (NSAID); Z88.2 Allergy status to sulfonamides; Z88.8 Allergy status to other drugs, medicaments and biological substances; Z86.73 Personal history of transient ischemic attack (TIA), and cerebral infarction without residual deficits; Z89.612 Acquired absence of left leg above knee; Z88.1 Allergy status to other antibiotic agents; Z79.84 Long term (current) use of oral hypoglycemic drugs; Z95.5 Presence of coronary angioplasty implant and graft; Z95.1 Presence of aortocoronary bypass graft; Z99.2 Dependence on renal dialysis

== ENCOUNTER 2018-11-28 09:11 | Emergency (ER) | payer MEDICARE ==
[~2018-11-28] VITALS: Ht 182.9 cm; Wt 94.3 kg
[~2018-11-28 09:11] MED LIST changes: +CARVEDILOL12.5 MG PO; +IPRAT-ALBUT 0.5-3 ML INH; +MINOCIN50 MG PO; +NITROGLYCERIN0.4 MG SUBLING
[2018-11-28 09:32] LABS: ABSOLUTE BASOPHILS 0.1 thou/uL (0.0-0.2); ABSOLUTE EOSINOPHILS 0.1 thou/uL (0.0-0.7); ABSOLUTE MONOCYTES 0.4 thou/uL (0.0-1.2); BASOPHILS 1.1 %; EOSINOPHILS 1.8 %; HEMATOCRIT 35.5 % (42.0-52.0); LYMPHOCYTES 13.2 %; MCH 31.2 pg (26.0-34.0); MCHC 33.9 g/dL (28.0-37.0); MCV 91.9 fL (80.0-100.0); MONOCYTES 5.9 %; MPV 8.7 fl. (7.2-11.1); NUCLEATED RBCS 0 /100WBC; PLATELET COUNT* 140 thou/uL (150-400); RBC 3.86 mil/uL (4.50-6.00); RDW-CV 16.1 % (10.5-14.5); WBC 7.6 thou/uL (4.0-11.0)
[2018-11-28 09:40] LABS: ANION GAP 12 mmol/L (7-16); BUN 57 mg/dL (7-18); CALCIUM 9.1 mg/dL (8.5-10.1); CHLORIDE 103 mmol/L (98-107); CO2 24 mmol/L (21-32); CREATININE 3.9 mg/dL (0.6-1.3); GLUCOSE 341 mg/dL (70-99); POTASSIUM 4.8 mmol/L (3.5-5.1); SODIUM 139 mmol/L (136-145)
[2018-11-28 09:56] LABS: ALBUMIN 3.3 g/dL (3.4-5.0); ALKALINE PHOSPHATASE 87 U/L (46-116); CK-MB MASS 4.2 ng/mL (<0.5-3.6); LIPASE 247 U/L (73-393); MAGNESIUM 1.8 mg/dL (1.8-2.4); NT-PRO BRAIN NAT PEPTIDE > 35000 pg/mL (<300); SGOT 19 U/L (15-37); SGPT 20 U/L (30-65); TOTAL BILIRUBIN 1.3 mg/dL (<0.1-1.0); TOTAL PROTEIN 7.6 g/dL (6.4-8.2); TROPONIN-I LEVEL 0.07 ng/mL (<0.06)
[2018-11-28 10:15] LABS: APTT 27.8 Seconds (25.0-31.3); PROTIME 10.6 Seconds (9.20-11.50)
[2018-11-28 12:07] VITALS: BP 166/74
--- NOTE | 2018-11-28 17:17 | EKG ---
[place] [address] ELECTROCARDIOGRAM REPORT Name: GARCES,JESSICA BRUMFIELD Room: [facility]#: [id number] Admission: 11/28/18 Attend Phys: Discharge: 11/28/18 Date of : 53 Report #: [id number] THIS REPORT FOR: //name// [facility] ED Test Date: 2018-11-28 Test Time: 09:17:08 Pat Name: JESSICA GARCES Department: Room: Gender: M Lineman Apprentice: JOEY : 1955 Requested By: Gus Sheridan Order Number: [id number] MD: Austin Brooks Measurements Intervals [place] Rate: 99 P: 73 NJ: 182 QRS: -41 QRSD: 133 T: 132 QT: 379 QTc: 487 Interpretive Statements Sinus rhythm Left bundle branch block Baseline wander in lead(s) V2,V4 Compared to ECG 10/29/2018 06:10:22 Ventricular premature complex(es) no longer present Electronically Signed On 11-28-2018 17:17:41 CDT by Austin Brooks [email or web address] <ELECTRONICALLY SIGNED> By: Austin Brooks MD, FAC 11/28/18 1717 6 6 Austin Brooks MD, [facility] /EPI
== END 2018-11-28 12:08 | disposition home or self-care (01) ==
LOC: M.ERS 09:11
PROVIDERS: Family Medicine
DX: R07.89 Other chest pain (principal); I25.10 Atherosclerotic heart disease of native coronary artery without angina pectoris; E78.5 Hyperlipidemia, unspecified; E11.42 Type 2 diabetes mellitus with diabetic polyneuropathy; I12.0 Hypertensive chronic kidney disease with stage 5 chronic kidney disease or end stage renal disease; E11.22 Type 2 diabetes mellitus with diabetic chronic kidney disease; N18.6 End stage renal disease; Z99.2 Dependence on renal dialysis; Z79.4 Long term (current) use of insulin; Z88.2 Allergy status to sulfonamides; Z88.1 Allergy status to other antibiotic agents; Z88.8 Allergy status to other drugs, medicaments and biological substances; Z95.1 Presence of aortocoronary bypass graft; Z86.14 Personal history of Methicillin resistant Staphylococcus aureus infection; Z86.73 Personal history of transient ischemic attack (TIA), and cerebral infarction without residual deficits

== ENCOUNTER 2019-01-18 16:49 | Inpatient (IN) | payer MEDICARE ==
[~2019-01-18] VITALS: Ht 182.9 cm; Wt 89.4 kg
[2019-01-18 16:55] VITALS: BP 147/72
[2019-01-18] MEDS ORDERED: PROTONIX40 M1 PO (17:07)
[2019-01-18 17:24] LABS: BE -3.6 mmol/L (-2 to +3); PCO2 31.5 mmHg (35.0-45.0); PO2 96.1 mmHg (75.0-100.0); pH 7.422 (7.340-7.450)
[2019-01-18 17:38] LABS: ABSOLUTE BASOPHILS 0.1 thou/uL (0.0-0.2); ABSOLUTE EOSINOPHILS 0.2 thou/uL (0.0-0.7); ABSOLUTE LYMPHOCYTES 1.5 thou/uL (0.8-5.3); ABSOLUTE MONOCYTES 0.4 thou/uL (0.0-1.2); ABSOLUTE NEUTROPHILS 5.6 thou/uL (1.6-8.1); BASOPHILS 1.2 %; HEMOGLOBIN 10.7 gm/dL (14.0-18.0); LYMPHOCYTES 19.7 %; MCH 30.6 pg (26.0-34.0); MCHC 33.5 g/dL (28.0-37.0); MCV 91.2 fL (80.0-100.0); MONOCYTES 4.6 %; MPV 9.4 fl. (7.2-11.1); NUCLEATED RBCS 0 /100WBC; PLATELET COUNT* 227 thou/uL (150-400); POLYS 72.5 %; RBC 3.51 mil/uL (4.50-6.00); RDW-CV 15.2 % (10.5-14.5); WBC 7.8 thou/uL (4.0-11.0)
--- NOTE | 2019-01-18 17:45 | NUR ---
PT GETTING BLOOD WORK DRAWN BY FASHION PATTERNMAKER. FASHION PATTERNMAKER CALLED OUT FOR HELP. NURSE WENT INTO ROOM. PT SLOUCHED IN BED, STATES "I CAN'T BREATH". NURSE X2 ASSISTED PT IN MOVING HIGHER IN BED. HOB ELEVATED TO HIGH FOWLERS AND O2 INCREASED TO 4 LITERS. PT STATED "I FEEL BETTER" ONCE THOSE INTERVENTIONS WERE PERFORMED. DR. TAMAYO AT BEDSIDE. ASKED FOR CENTRAL LINE TO BE STARTED.
[2019-01-18 17:47] LABS: ANION GAP 11 mmol/L (7-16); APTT 25.2 Seconds (25.0-31.3); BUN 63 mg/dL (7-18); CHLORIDE 87 mmol/L (98-107); CO2 25 mmol/L (21-32); CREATININE 4.3 mg/dL (0.6-1.3); POTASSIUM 4.5 mmol/L (3.5-5.1); PROTIME 10.7 Seconds (9.20-11.50); SODIUM 123 mmol/L (136-145)
[2019-01-18 17:49] LABS: GLUCOSE 820 mg/dL (70-99)
[2019-01-18 17:56] LABS: ALBUMIN 3.1 g/dL (3.4-5.0); ALKALINE PHOSPHATASE 102 U/L (46-116); MAGNESIUM 2.2 mg/dL (1.8-2.4); NT-PRO BRAIN NAT PEPTIDE > 35000 pg/mL (<300); SGOT 11 U/L (15-37); SGPT 23 U/L (30-65); TOTAL BILIRUBIN 0.8 mg/dL (<0.1-1.0); TOTAL PROTEIN 7.6 g/dL (6.4-8.2); TROPONIN-I LEVEL 0.51 ng/mL (<0.06)
[2019-01-18 20:40] VITALS: BP 164/87
[2019-01-18 20:54] LABS: URINE BILIRUBIN NEGATIVE (Negative); URINE BLOOD TRACE (Negative); URINE CLARITY CLEAR; URINE COLOR YELLOW; URINE GLUCOSE-RANDOM 3+ (Negative); URINE KETONES NEGATIVE (Negative); URINE LEUKOCYTES-REFLEX NEGATIVE (Negative); URINE NITRITE-REFLEX NEGATIVE (Negative); URINE PROTEIN 1+ (Negative); URINE SPECIFIC GRAVITY <= 1.005 (1.005-1.030); URINE UROBILINOGEN 0.2 E.U./dl (0.2-1.0)
[2019-01-18 21:11] VITALS: BP 154/77
[2019-01-18 22:00] VITALS: BP 112/56
[2019-01-18 23:00] VITALS: BP 137/70
[2019-01-19] VITALS (47 sets, daily range): BP systolic 83–146; BP diastolic 43–77
--- NOTE | 2019-01-19 01:02 | NUR ---
PT ADMITTED TO ICU AT 2100. PT REPORTED CHEST PAIN. PT GIVEN ONE NITRO WITH RELIEF. PT REPORTED SHORTNESS OF AIR. PT LACED ON 2 LITERS O2, SAT 98%. PT STILL SHORT OF BREATH. RT PAGED, DR GASPAR NOTIFIED. PT GIVEN BREATHING TREATMENT AND PLACED ON BIPAP TO EASE WORK OF BREATHING. RECIED CALL FROM DR GASPAR AT 2200. WAS GIVEN ORDERS TO CONSULT NEPHROLOGY TONIGHT AND DIALYSE PT. DR CODY NOTIFIED AND DIALYSIS NURSE CAME TO UNIT AND BEGAN HEMODIALYSIS AT 2348. PT SLEEPING WITH OU CLOSED AT THIS TIME, DIALYSIS STILL IN PROGRESS.
[2019-01-19 04:14] LABS: BUN 35 mg/dL (7-18); CHLORIDE 97 mmol/L (98-107); CHOLESTEROL 203 mg/dL (<200); CO2 30 mmol/L (21-32); GLUCOSE 328 mg/dL (70-99); HDL CHOLESTEROL 35 mg/dL (>40); LDL CHOLESTEROL 131 mg/dL (<100); TC:HDL 5.8 Ratio (Not establshd); TRIGLYCERIDE 186 mg/dL (<150); VLDL 37 mg/dL (<40)
[2019-01-19 04:16] LABS: ANION GAP 10 mmol/L (7-16); CREATININE 2.8 mg/dL (0.6-1.3); POTASSIUM 3.3 mmol/L (3.5-5.1); SODIUM 137 mmol/L (136-145)
--- NOTE | 2019-01-19 04:43 | NUR ---
DIALYSIS COMPLETED AT 0240. 3.5 LITERS TAKEN OFF. PT CONTINUED ON INSULIN DRIP UNTIL 0430. SERUM GLUCOSE AT THAT TIME 328. DRIP STOPPED AT THAT TIME DUE TO PT RECIEVING 45 UNITS OF LANTUS. PT'S RESPIRATIONS NOW EVEN AND NON LABORED. PT CONTINUED ON BIPAP. VITAL SIGNS WITHIN NORMAL LIMITS, WILL CONTINUE TO MONITOR CLOSELY.
[2019-01-19 06:18] LABS: SERUM ASSESSMENT Clear
--- NOTE | 2019-01-19 17:20 | NUR ---
ASSUMED CARE OF PT AROUND 0730 THIS AM. REFER TO ASSESSMENT. PT TITRATED OFF BIPAP TO RA THIS SHIFT. TOLERATED WELL. NO COMPLAINTS OF SHORTNESS OF AIR THIS SHIFT. PT HAD CTA TO R/O PE. CTA NEGATIVE FOR PE AND HEPARIN GTT DC'D. PT NOTED TO HAVE BLEEDING FROM CENTRAL LINE. APPEARS UNDER CONTROL AT THIS TIME. CENTRAL LINE DRESSING HAS MODERATE AMOUNT OF DRIED BLOOD. DRESSING REMAINS INTACT. PT TOLERATING CARB CONTROLLED DIET. TITRATED OFF INSULIN GTT THIS AM. BLOOD SUGARS MANAGED WITH SQ INSULIN. PT REQUIRES SELF CATHETERIZATION TO EMPTY BLADDER. PT GIVEN MEDICAL EQUIPMENT AND ABLE TO COMPLETE HIMSELF. BLOOD PRESSURE SOFT THIS SHIFT AFTER ADMINISTRATION OF HOME DOSE HTN MEDS. NO OTHER CONCERNS AT THIS TIME. CLWR. WCTM.
[2019-01-19 22:10] LABS: HEPATITIS B SURFACE AG Negative (Negative)
[2019-01-20] VITALS (9 sets, daily range): BP systolic 108–127; BP diastolic 51–66
[2019-01-20 03:10] LABS: GLYCOHEMOGLOBIN (HGB A1C) 13.5 % (4.8-5.6)
[2019-01-20 04:37] LABS: HEMATOCRIT 26.2 % (42.0-52.0); HEMOGLOBIN 8.9 gm/dL (14.0-18.0); MCH 30.1 pg (26.0-34.0); MCV 88.5 fL (80.0-100.0); MPV 8.6 fl. (7.2-11.1); RBC 2.96 mil/uL (4.50-6.00); RDW-CV 15.1 % (10.5-14.5)
[2019-01-20 04:54] LABS: CALCIUM 8.4 mg/dL (8.5-10.1); POTASSIUM 3.3 mmol/L (3.5-5.1)
[2019-01-20 04:56] LABS: CREATININE 3.8 mg/dL (0.6-1.3)
--- NOTE | 2019-01-20 10:35 | NUR ---
Nutrition: Consult "per admit." Wt: 197# Per RN, RD does not need to see pt. Pt follows DM diet at home, BG is ok, on HD. CHO controlled diet ordered. Defer further assessment at this time.
--- NOTE | 2019-01-20 11:29 | NUR ---
INT. ROUNDS: MET WITH PT AND SPOKE IWTH /VIVIEN OVER THE PHONE. PT IS NOW M/S TELE STATUS. PT LIVES WITH , USES W/C, IS NON AMBULATORY, HAS AMPUTATION ON LEFT. HAS PROSTHESIS BUT DOESN'T WEAR. PT IS FAIRLY INDEPENDENT WITH ADLS. HAS WALKER ALSO BUT DOESN'T USE EITHER. TAKES PT TO DIALYSIS T/R/S AT [facility]. HAS HAD HH WITH [facility] IN PAST AND AGREEABLE TO USE AGAIN, ALSO BEEN TO SNF AT [facility]. PT PLANS TO RETURN HOME AT [place] AND AWARE MAY BE EARLIER TOMORROW. CM TO FOLLOW [facility] [phone] FAX [phone]
--- NOTE | 2019-01-20 16:13 | NUR ---
PT RESTING IN BED,UP IN CHAIR FOR MEALS. CALLS APPROPRIATELY FOR ASSIST. TOLERATING PO WELL. BG STABLE. NSR ON MONITOR. AT BS AND UPDATED ON PLAN OF CARE.
--- NOTE | 2019-01-20 16:30 | NUR ---
REPORT CALLED TO GHASSAN EATON ON 2EAST
--- NOTE | 2019-01-20 17:16 | NUR ---
PT ARRIVED TO UNIT FROM ICU AT APPROX 1700, REPORT RECEIVED FROM ANGELITO VELASCO. THIS NURSE DOES AGREE WITH FULL REPORT/ASSESSMENT FROM PREVIOUS NURSE. PT ORIENTED TO CALL LIGHT AND ROOM, WILL CONT POC.
[2019-01-21] VITALS: BP 103/55
[2019-01-21 04:00] VITALS: BP 98/59
--- NOTE | 2019-01-21 04:29 | NUR ---
PATIENT PARTIALLY PROGRESSING TOWARDS GOALS: BLOOD SUGAR STABLE. VSS ON ROOM AIR. PATIENT C/O SHORTNESS OF AIR. O2 SATURATION >92%. LUNG SOUNDS CLEAR. ENCOURAGED PATIENT TO DEEP BREATHE. HOB ELEVATED. PLACED ON 2L O2 NC FOR COMFORT. REPORTS SOME IMPROVEMENT. CALL LIGHT WITHIN REACH
[2019-01-21 11:54] VITALS: BP 102/53
--- NOTE | 2019-01-21 20:31 | NUR ---
ASSUMED PT CARE AT 0700, PT A&O X4, VSS, RA, PILOT SUPERVISOR TRACING SINUS RHYTHM, FULL ASSESSMENT CHARTED. DIALYSIS THIS SHIFT, PT ABLE TO STRAIGHT CATH SELF BID, LS CTA, HOURLY ROUNDING COMPLETED.
[2019-01-22] VITALS: BP 105/58
[2019-01-22 04:30] VITALS: BP 99/61
--- NOTE | 2019-01-22 05:40 | NUR ---
ASSUMED PATIENT CARE AT 1900. PATIENT ALERT AND ORIENTED TIMES FOUR. NO COMPLAINTS OF PAIN OR DISCOMFORT NOTED. CLAY MINE CUTTING MACHINE OPERATOR AND HOURLY ROUNDING COMPLETED DOCUMENTED.
[2019-01-22 08:20] VITALS: BP 100/52
--- NOTE | 2019-01-22 09:40 | NUR ---
ASSUMED CARE OF PT THIS AM AROUND 07- CHILD CARE ATTENDANT SCHOOL IN PLACE ORDERED, TRACING SR/BBB- UPON ASSESSMENT PT NOTED TO BE RESTING IN BED, WATCHING TV- PT A&O X4- CONTINENT OF BOWEL, STRAIGHT CATH PREFORMED SELF R/T RETENTION- L-AKA NOTED, SBA NOTED FOR SAFETY- LCTA, RESP EVEN AND RE-PLUUHAS-EPU, O2 SAT 100% ON RA- PT WEARS O2 AT 2L PRN FOR COMFORT- LUE FISTULA NOTED WITH POSITIVE BRUIT/THRILL- RIGHT SUB-CLAV TRIPLE LUMEN IV NOTED, AND SL- ABD SOFT/ROUND/NON-TENDER, BS X4 QUADS- LAST BM REPORTED 01/21/19- BS MONITORED ORDERED WITH SSI AND SCHEDULED INSULIN GIVEN PRESCIBED- PT STATES PAIN TO BOTTOM, PT REPOSITIONED THIS AM- CALL LIGHT AND PERSONAL BELONGINGS WITH IN REACH- PT MAKES NEEDS KNOWN- ALL NEEDS MET AT THIS TIME-WCTM
[2019-01-22] MEDS ORDERED: PREDNISONE 20 M20 MG PO (10:51)
[2019-01-22] MEDS ORDERED: AZITHROMYCIN 2250 MG PO (10:51)
[2019-01-22] MEDS ORDERED: LIPITOR 20 MG T20 M1 PO (10:51)
[2019-01-22] MEDS ORDERED: CEFUROXIME250 MG PO (10:51)
[2019-01-22] MEDS ORDERED: CARVEDILOL3.125 MG PO (10:52)
[2019-01-22] MEDS ORDERED: IMDUR 30 MG TAB30 M1 PO (10:52)
[2019-01-22] MEDS ORDERED: 1ST TIER UNILE1 EAC1 SUBQ (10:55)
[2019-01-22 12:00] VITALS: BP 91/35
--- NOTE | 2019-01-22 12:09 | NUR ---
RECRUITING OPERATIONS CONSULTANT INFORMED THAT PATIENT WOULD D/C TODAY WITH [facility], AND RETURN TO DIALYSIS AT [facility] SCHEDULE. D/C ASSOCIATE ACCOUNT DIRECTOR SPOKE TO FAHEEM WITH INTAKE AT [facility] TO INFORM OF PATIENT'S D/C. [facility]HE[facility] ACCEPTS PATIENT'S HH REFERRAL AND WILL CONTACT THE PATIENT TO ARRANGE VISIT. D/C ASSOCIATE ACCOUNT DIRECTOR FAXED [facility] PATIENT'S FACESHEET, H&P, AND D/C ORDER. D/C ASSOCIATE ACCOUNT DIRECTOR ALSO SPOKE TO FRANKLIN WITH [facility] TO INFORM OF PATIENT'S D/C AND FAXED PATIENT'S FACESHEET, H&P, D/C SUMMARY, AND FLOW SHEETS. CM WILL REMAIN AVAILABLE TO ASSIST AND FOLLOW NEEDED. [facility] PHONE: [phone] FAX: [phone] [facility] PHONE: [phone] FAX: [phone]
[2019-01-22 16:00] VITALS: BP 104/54
--- NOTE | 2019-01-22 16:18 | NUR ---
ORDERS RECIEVIED FOR OKAY FOR PT TO BE D/C'D THIS SHIFT PER TO SKILLED- CM HERE TO ARRANGE FOR PT TO BE D/C'D TO [facility] WITH COMPENSATION CONSULTANT TIME PER W/C VAN OF 1630- RIGHT SUB-CLAV LINE D/C'D PRIOR TO D/C WITH PRESSURE APPLIED X5 MINS AND PRESSURE DRESSING APPLIED; TIP NOTED TO BE INTACT- FRAUD INVESTIGATOR D/C'D- D/C EDUCATION/TEACHING GIVEN TO PT AND PRIOR TO D/C, WITH ALL QUESTIONS AND CONCERNS ADDRESSED- WRITTEN EDUCATION PROVIDED AT TIME OF D/C- REPORT CALLED TO JIE ARANA AT [facility] AT 1600, ALL QUESTIONS AND CONCERNS ADDRESSED- PT CURRENTLY DRESSED AND AWAITTING TRANSFER AT THIS TIME- ALL NEEDS MET AT THIS TIME-WCTM
== END 2019-01-22 19:10 | disposition home health service (06) | DRG 637 ==
LOC: M.ERS 16:49 → M.TBA-ER 19:04 → M.ICU 19:04 → M.2W 01-20 16:42
PROVIDERS: Internal Medicine Nephrology; Personal Emergency Response Attendant; ADMIT Internal Medicine
PROC: 5A1D70Z Performance of Urinary Filtration, Intermittent, Less than 6 Hours Per Day (ICD-10-PCS; 2019-01-18)
PROC: 02HV33Z Insertion of Infusion Device into Superior Vena Cava, Percutaneous Approach (ICD-10-PCS; 2019-01-18)
PROC: 5A09357 Assistance with Respiratory Ventilation, Less than 24 Consecutive Hours, Continuous Positive Airway Pressure (ICD-10-PCS; principal; 2019-01-19)
PROC: 5A1D70Z Performance of Urinary Filtration, Intermittent, Less than 6 Hours Per Day (ICD-10-PCS; 2019-01-21)
DX: E11.00 Type 2 diabetes mellitus with hyperosmolarity without nonketotic hyperglycemic-hyperosmolar coma (NKHHC) (principal); N18.6 End stage renal disease; I50.23 Acute on chronic systolic (congestive) heart failure; J96.00 Acute respiratory failure, unspecified whether with hypoxia or hypercapnia; I13.2 Hypertensive heart and chronic kidney disease with heart failure and with stage 5 chronic kidney disease, or end stage renal disease; I42.9 Cardiomyopathy, unspecified; J98.11 Atelectasis; J84.9 Interstitial pulmonary disease, unspecified; D63.1 Anemia in chronic kidney disease; E11.51 Type 2 diabetes mellitus with diabetic peripheral angiopathy without gangrene; E87.6 Hypokalemia; E11.22 Type 2 diabetes mellitus with diabetic chronic kidney disease; E11.42 Type 2 diabetes mellitus with diabetic polyneuropathy; K80.20 Calculus of gallbladder without cholecystitis without obstruction; E11.65 Type 2 diabetes mellitus with hyperglycemia; J84.10 Pulmonary fibrosis, unspecified; I25.10 Atherosclerotic heart disease of native coronary artery without angina pectoris; E78.5 Hyperlipidemia, unspecified; Z99.2 Dependence on renal dialysis; Z79.899 Other long term (current) drug therapy; Z88.2 Allergy status to sulfonamides; Z89.512 Acquired absence of left leg below knee; Z88.8 Allergy status to other drugs, medicaments and biological substances; Z95.1 Presence of aortocoronary bypass graft; Z79.4 Long term (current) use of insulin; Z82.49 Family history of ischemic heart disease and other diseases of the circulatory system; Z82.5 Family history of asthma and other chronic lower respiratory diseases

== ENCOUNTER 2019-02-18 13:50 | Inpatient (IN) | payer MEDICARE ==
[~2019-02-18] VITALS: Ht 152.4 cm; Wt 95.1 kg
[~2019-02-18 13:50] MED LIST changes: +1ST TIER UNILE1 EAC1 SUBQ; +AZITHROMYCIN 2250 MG PO; +CARVEDILOL3.125 MG PO; +CEFUROXIME250 MG PO; +LIPITOR 20 MG T20 M1 PO; +PREDNISONE 20 M20 MG PO
[2019-02-18 13:51] VITALS: BP 103/54
[2019-02-18] MEDS ORDERED: CLONIDINE0.1 PO (14:00)
[2019-02-18] MEDS ORDERED: CARVEDILOL12.5 MG PO (14:00)
[2019-02-18] MEDS ORDERED: HUMALOG100 UNIT/1 SUBQ (14:01)
[2019-02-18] MEDS ORDERED: PLAVIX 75 MG TA75 M1 PO (14:01)
[2019-02-18] MEDS ORDERED: GABAPENTIN 100100 MG PO (14:01)
[2019-02-18] MEDS ORDERED: LANTUS100 UNIT/M SUBQ (14:02)
[2019-02-18] MEDS ORDERED: OMEGA-31000 M1 PO (14:02)
[2019-02-18] MEDS ORDERED: IMDUR 60 MG TAB60 M1 PO (14:02)
[2019-02-18] MEDS ORDERED: NITROGLYCERIN0.4 MG SUBLING (14:02)
[2019-02-18] MEDS ORDERED: RENAL CAPS SOFTG1 MG PO (14:03)
[2019-02-18 14:26] LABS: ABSOLUTE LYMPHOCYTES 1.1 thou/uL (0.8-5.3); ABSOLUTE MONOCYTES 0.5 thou/uL (0.0-1.2); BASOPHILS 0.6 %; EOSINOPHILS 0.6 %; HEMOGLOBIN 11.5 gm/dL (14.0-18.0); LYMPHOCYTES 14.4 %; MCH 31.1 pg (26.0-34.0); MCHC 32.9 g/dL (28.0-37.0); MCV 94.7 fL (80.0-100.0); MONOCYTES 6.8 %; MPV 9.3 fl. (7.2-11.1); NUCLEATED RBCS 0 /100WBC; PLATELET COUNT* 127 thou/uL (150-400); POLYS 77.6 %; RBC 3.69 mil/uL (4.50-6.00); WBC 7.7 thou/uL (4.0-11.0)
[2019-02-18 14:36] LABS: ANION GAP 7 mmol/L (7-16); BUN 29 mg/dL (7-18); CALCIUM 8.7 mg/dL (8.5-10.1); CHLORIDE 100 mmol/L (98-107); CO2 32 mmol/L (21-32); CREATININE 3.8 mg/dL (0.6-1.3); GLUCOSE 86 mg/dL (70-99); SODIUM 139 mmol/L (136-145)
[2019-02-18 14:37] LABS: APTT 25.9 Seconds (25.0-31.3); INR 1.1; PROTIME 11.2 Seconds (9.20-11.50)
[2019-02-18 14:49] LABS: ALBUMIN 3.3 g/dL (3.4-5.0); ALKALINE PHOSPHATASE 105 U/L (46-116); CK-MB MASS 3.8 ng/mL (<0.5-3.6); NT-PRO BRAIN NAT PEPTIDE > 35000 pg/mL (<300); SGOT 45 U/L (15-37); SGPT 57 U/L (30-65); TOTAL BILIRUBIN 0.8 mg/dL (<0.1-1.0); TOTAL PROTEIN 6.8 g/dL (6.4-8.2); TROPONIN-I LEVEL 0.21 ng/mL (<0.06)
--- NOTE | 2019-02-18 16:32 | EKG ---
[place] [address] ELECTROCARDIOGRAM REPORT Name: GARCESJESSICA Room: [place] [address] ADM IN .R.#: [id number] Admission: 02/18/19 Attend Phys: Alexis Chavez MD Discharge: Date of : 53 Report #: [id number] THIS REPORT FOR: //name// [facility] ED Test Date: 2019-02-18 Test Time: 13:55:09 Pat Name: JESSICA GARCES Department: Room: [facility] Gender: M Vacuum Cooker Operator: TDOWNS : 1955 Requested By: Gus Sheridan Order Number: [id number] MD: Vikas Gifford Measurements Intervals [place] Rate: 58 P: 34 NM: 174 QRS: -30 QRSD: 141 T: 148 QT: 526 QTc: 517 Interpretive Statements Sinus rhythm Left bundle branch block Artifact in lead(s) V1 and baseline wander in lead(s) V1 Compared to ECG 01/18/2019 17:04:35 No significant changes Electronically Signed On 02-18-2019 16:32:39 CDT by Vikas Gifford [email or web address] <ELECTRONICALLY SIGNED> By: Vikas Gifford MD, [facility] 02/18/19 1632 1355 [id number] Vikas Gifford MD, [facility] /EPI
[2019-02-18 17:17] VITALS: BP 113/61
[2019-02-18 18:00] VITALS: BP 105/56
--- NOTE | 2019-02-18 18:49 | NUR ---
PT ADMITTED TO TELE FROM ER. AOX4 . ATE DINER. SR ON ROLL MACHINE OPERATOR. ON RA. PICTURE OF SCALP SCAR TAKEN. L ABOVE KNEE AMPUTAION. VSS. ADMISSION ASSESSMENT AND HX PERFORMED. R A/C S.L. PATENT. ARTERIAL CLAMP IN L ARM REMOVED. L ARM DRESSING IS INTACT. WILL CONTINUE TO MONITOR. CALL LIGHT AT REACH
[2019-02-18 20:15] VITALS: BP 97/51
[2019-02-19] VITALS (7 sets, daily range): BP systolic 96–138; BP diastolic 48–57
[2019-02-19 04:58] LABS: ABSOLUTE BASOPHILS 0.1 thou/uL (0.0-0.2); ABSOLUTE EOSINOPHILS 0.1 thou/uL (0.0-0.7); ABSOLUTE LYMPHOCYTES 1.2 thou/uL (0.8-5.3); ABSOLUTE MONOCYTES 0.6 thou/uL (0.0-1.2); ABSOLUTE NEUTROPHILS 4.8 thou/uL (1.6-8.1); BASOPHILS 0.8 %; EOSINOPHILS 1.6 %; HEMOGLOBIN 10.6 gm/dL (14.0-18.0); LYMPHOCYTES 17.5 %; MCH 31.2 pg (26.0-34.0); MCHC 33.2 g/dL (28.0-37.0); MCV 94.1 fL (80.0-100.0); MONOCYTES 8.6 %; MPV 9.2 fl. (7.2-11.1); NUCLEATED RBCS 0 /100WBC; PLATELET COUNT* 126 thou/uL (150-400); POLYS 71.5 %; RBC 3.41 mil/uL (4.50-6.00); RDW-CV 16.9 % (10.5-14.5); WBC 6.7 thou/uL (4.0-11.0)
[2019-02-19 05:26] LABS: CALCIUM 8.5 mg/dL (8.5-10.1); POTASSIUM 4.5 mmol/L (3.5-5.1)
[2019-02-19 05:29] LABS: CREATININE 5.3 mg/dL (0.6-1.3)
[2019-02-19 06:35] LABS: URINE BLOOD 3+ (Negative); URINE CLARITY CLEAR; URINE COLOR YELLOW; URINE GLUCOSE-RANDOM NEGATIVE (Negative); URINE KETONES TRACE (Negative); URINE NITRITE-REFLEX NEGATIVE (Negative); URINE PROTEIN 3+ (Negative); URINE SPECIFIC GRAVITY 1.025 (1.005-1.030); URINE UROBILINOGEN 0.2 E.U./dl (0.2-1.0)
[2019-02-19 06:41] LABS: ICTOTEST (BILI CONFIRMATORY) Negative (Negative); URINE BILIRUBIN 1+ (Negative); URINE LEUKOCYTES-REFLEX 2+ (Negative)
[2019-02-19 06:49] LABS: SQUAMOUS 0-3 Few /LPF (0-3)
[2019-02-19 06:50] LABS: CASTS None Seen /LPF (None Seen); CRYSTALS None Seen /LPF (None Seen); MUCUS 0-3 Light strn/LPF (None Seen)
--- NOTE | 2019-02-19 07:02 | NUR ---
PT SLEPT MOST OF SHIFT. ASSESSMENT DOCUMENTED. MEDS GIVEN PER E-MAR. IV PATENT. NO REPORT OF PAIN. PT BECOME MORE ALERT THIS AM, BUT DOES NOT REMEMBER HOW HE GOT HERE. PT STATES HE STRAIGHT CATHS SELF. WILL CONTINUE WITH PLAN OF CARE.
--- NOTE | 2019-02-19 12:03 | NUR ---
ASSUMED CARE OF PATIENT THIS AM AT 0730. PATIENT IS ALERT AND ORIENTED X 4. HE DENIES PAIN THIS AM. TELE SHOWS SR WITH A BBB AND PVCS. PATIENT STATED THAT HE SELF STRAIGHT CATHS HIMSELF. PATIENT GIVEN STRAIGHT CATH KIT. PROCESS OKAYED BY DR ANDRE. DR LINTON CONSULTED ABOUT POSSIBLE SURGERY SUNDAY. BP LOW THIS AM. ALL BP MEDICATIONS HELD. DR ANDRE NOTIFIED. WILL CONTINUE TO MONITOR. PATIENT TO DIALYZE TOMMORROW.
--- NOTE | 2019-02-19 16:21 | NUR ---
WOUND CARE NOTE: CONSULT RECEIVED FOR WOUND ON HEAD. PATIENT PRESENTS WITH A RAISED LESION TO THE VERY TOP OF HIS HEAD. WHITE, PEARLY IN APPEARANCE, BUT DOES HAVE PARTIAL THICKNESS BREAKDOWN WITH A DRY, RED SCAB. LEFT OPEN TO AIR, NO DRAINAGE, NO S/S OF INFECTION. POSSIBLY MALIGNANCY? PATIENT'S RN UPDATED PHYSICIAN ON FINDINGS. RIGHT FOOT WITH A FULL THICKNESS ULCERATION MEASURING 1X0.5X0.2. MOIST, RED WOUND BED. CHONG-WOUND MACERATED. PETICHIAL LESIONS NOTED TO THE DORSAL ASPECT OF HIS FOOT, MORE ON THE LATERAL ASPECT. CLEANSED WITH WOUND CLEANSER, PATTED DRY. APPLIED AQUACEL AG INTO WOUND BED AND SECURED WITH A BORDERED GAUZE. PATIENT WAS SEEN WITH DR. NIETO. RECOMMEND DAILY CHANGES OF RIGHT FOOT DRESSING. ENCOURAGE GOOD NUTRTION/HYDRATION TIGHT BLOOD GLUCOSE CONTROL. BIOPSY OF LESION ON HEAD
[2019-02-19 23:06] LABS: GLYCOHEMOGLOBIN (HGB A1C) 9.9 % (4.8-5.6)
[2019-02-20] VITALS: BP 133/68
[2019-02-20 04:00] VITALS: BP 121/60
[2019-02-20 04:37] LABS: ABSOLUTE BASOPHILS 0.1 thou/uL (0.0-0.2); ABSOLUTE EOSINOPHILS 0.2 thou/uL (0.0-0.7); ABSOLUTE LYMPHOCYTES 1.4 thou/uL (0.8-5.3); ABSOLUTE MONOCYTES 0.6 thou/uL (0.0-1.2); ABSOLUTE NEUTROPHILS 3.9 thou/uL (1.6-8.1); EOSINOPHILS 2.5 %; HEMATOCRIT 31.8 % (42.0-52.0); HEMOGLOBIN 10.5 gm/dL (14.0-18.0); LYMPHOCYTES 22.9 %; MCHC 32.9 g/dL (28.0-37.0); MONOCYTES 10.3 %; MPV 9.3 fl. (7.2-11.1); NUCLEATED RBCS 0 /100WBC; PLATELET COUNT* 123 thou/uL (150-400); POLYS 63.3 %; RBC 3.38 mil/uL (4.50-6.00); RDW-CV 17.2 % (10.5-14.5); WBC 6.2 thou/uL (4.0-11.0)
--- NOTE | 2019-02-20 04:56 | NUR ---
ASSUMED PT CARE AT APPROX 1930. PT IS AWAKE AND ORIENTED X4. VSS ON ROOM AIR. PRE PLANNING ADVISOR TRACING SR w/ BBB. PT DENIES PAIN OF THIS SHIFT. ASSESSMENT DONE AND CHARTED. POSITION CHANGES DONE. URINARY STRAIGHT CATHETERIZATION DONE ASEPTICALLY FOR RETENTION. PROCEDURE WELL TOLERATED. AVF ON LEFT ARM INTACT, BRUITS AND THRILLS PALPABLE. PT IS ABLE TO SLEEP MOST OF THE NIGHT. CALL LIGHT WITHIN REACH. HOURLY ROUNDING DONE FOR PT SAFETY. HIGH FALL PRECAUTIONS IN PLACE.
[2019-02-20 05:04] LABS: CALCIUM 8.2 mg/dL (8.5-10.1); POTASSIUM 4.3 mmol/L (3.5-5.1)
[2019-02-20 05:07] LABS: CREATININE 6.7 mg/dL (0.6-1.3)
--- NOTE | 2019-02-20 07:00 | NUR ---
CHNAGE OF SHIFT, BEDSIDE REPORT GIVEN PATIENT SEEN AT BEDSIDE, IN BED ASLEEP ASSUMED PATIENT CARE
[2019-02-20 08:00] VITALS: BP 113/62
--- NOTE | 2019-02-20 10:14 | NUR ---
Pt out of room when CM went to assess, will f/u later
--- NOTE | 2019-02-20 11:44 | CON ---
[address] [address] CONSULTATION Name: JESSICA GARCES OCTAVIANO Room: [address] IN M.R.#: [id number] Admission: 02/18/19 Attend Phys: Alexis Chavez MD Discharge: Date of : 53 Report #: [id number] THIS REPORT FOR: //name// CC: Alexis Suresh REASON FOR CONSULTATION: The patient is seen in consultation for end-stage renal disease. Consult is obtained by Dr. Chavez. HISTORY OF PRESENT ILLNESS: The patient is well known to us with history of end-stage renal disease, he is on hemodialysis at the [facility] [place] on Tuesdays, and Saturdays. He had his last treatment yesterday. He was on dialysis yesterday and was found to be more confused and was sent to the hospital. He also had an episode of diaphoresis. The patient is wide awake today. He is able to tell me his symptoms yesterday. He tells me his right foot has a bad toe, which needs to be worked on. His diabetes has been fairly reasonable control in the past few days. He has history of brittle diabetes and has multiple admissions over the past many months. PAST MEDICAL HISTORY: Significant for end-stage renal disease, on hemodialysis Sunday, and Sunday schedule, last dialysis yesterday; diabetes mellitus with brittle control, coronary artery disease, history of CABG, history of left vigax-otf-qfea amputation and multiple toe amputations on the right, multiple episodes of myocardial infarction, history of CVA x 2, dyslipidemia, peripheral vascular disease, chronic systolic and diastolic congestive heart failure. PERSONAL, SOCIAL AND FAMILY HISTORY: Reviewed from the chart, nothing different, unchanged. He does not smoke. No alcohol reported. REVIEW OF SYSTEMS: No fevers, chills or rigors this morning. No abdominal pain. He is hungry and wants to eat. PHYSICAL EXAMINATION: VITAL SIGNS: On examination this morning, his blood pressure is 105/51, pulse of 66 and temperature is 36.7. GENERAL: He is awake. He is alert. He denies any acute complaints. LUNGS: Diminished, but clear. HEART: Regular S1, S2. ABDOMEN: Soft. EXTREMITIES: Show no edema on the right leg, right foot is dressed up. Left above-knee amputation, left upper arm brachiocephalic fistula with good bruit and thrill. LABORATORY DATA: Hematology shows white count is 6.7 and hemoglobin 10.6. [place] [address] CONSULTATION Name: JESSICA GARCES Room: [address] IN [facility].#: [id number] Admission: 02/18/19 Attend Phys: Alexis Chavez MD Discharge: Date of : 53 Report #: [id number] Sodium is 130, potassium is 4.5, BUN 40 and creatinine is 5.3. Calcium is 8.5. ASSESSMENT: 1. End-stage renal disease, on hemodialysis. 2. Brittle diabetes mellitus. 3. Altered mental status, on dialysis yesterday, much improved this morning. 4. Left above-knee amputation. 5. Right forefoot infections apparently needing from debridement. PLAN: 1. End-stage renal disease. He will be dialyzed tomorrow morning on his scheduled day. 2. No indications for dialysis today. 3. Follow up with his primary care's plans for intervention on his right foot. 4. Diabetes management per primary team. Thank you for the consultation. We will continue to follow and provide necessary support during the hospital stay. <ELECTRONICALLY SIGNED> By: Maximilian Oden MD 02/20/19 1144 [id number] [id number] Oden MD /nt
[2019-02-20 12:19] VITALS: BP 113/62
--- NOTE | 2019-02-20 12:22 | NUR ---
Pt discharging to home today for planned outpt surgery tomorrow at [facility]. set up with [facility], faxed referral and orders. CM to fax flowsheets to [facility] once Pt returns to his room from dialysis. Following.
[2019-02-20 14:54] VITALS: BP 113/62
--- NOTE | 2019-02-20 15:36 | NUR ---
Pt A&O. Pt has been in skilled at [facility], Pt was sent to the hospital via his dialysis clinic. CM spoke with Leatha from [facility], she confirmed that Pt was preparing to dc to home with HH, but informed that Pt can return to skilled if he wants to, Pt has approx 52 more skilled days. Pt is requesting to dc to home today with HH for his surgery tomorrow. and Pt plan to reeval tomorrow post surgery, whether Pt will return home or go back to skilled. is prepared for Pt to return home this evening. Updated nurse. Pt uses a wc for mobility, Pt states that he is able to transfer himself, assists as needed. Pt has prothesis that he does not currently use. Referral and orders faxed to [facility].
--- NOTE | 2019-02-20 16:51 | NUR ---
PATIENT DCD TO HOME WITH H/H DISCHARGE INSTRUCTIONS GIVEN, ACKNOWLEDGED, SIGNED COPIES GIVEN IV AND HEART MONITOR REMOVED PERSONAL BELONGINGS RETURNED PATIENT ASSISTED OUT VIA WC TO WAITING CAR
--- NOTE | 2019-02-21 12:28 | NUR ---
PT ORDERS RECEIVED ON 02/20/19 AT 1524. PT DISCHARGED FROM FACILITY PRIOR TO COMPLETION OF PT EVALUATION AND INTERVENTIONS.
--- NOTE | 2019-02-22 10:37 | CON ---
[address] [address] CONSULTATION Name: DEZJESSICA OCTAVIANO Room: [address] IN M.R.#: [id number] Admission: 02/18/19 Attend Phys: Alexis Chavez MD Discharge: 02/20/19 Date of : 53 Report #: [id number] THIS REPORT FOR: //name// CC: Alexis Suresh DATE OF SERVICE: 02/19/2019 ADMISSION DIAGNOSES: Altered mental status/confusion, hypotension. HISTORY OF PRESENT ILLNESS: A 64-year-old male admitted from dialysis due to hypotension and decreased cognition. He has a chronic ulceration to the remaining portion of the right distal second toe, the distal portion of which was amputated likely several years ago. The patient is well known to me from outpatient wound care and prior surgery. I previously amputated his right third, fourth and fifth toes at the metatarsophalangeal joint with primary closure with no postoperative complications. He has also had a right hallux amputation performed by another physician at some point. He has a UTI. He denies fevers, chills or malaise. He has not been following me for the current toe wound. Blood cultures are pending x 2. PHYSICAL EXAMINATION: EXTREMITIES: Ulceration to the stump of the right second toe that measures 0.8 x 1.0 cm, red granulation with a thin film of pale slough and surrounding callus. No exposed bone or tendon. No inflammation or cardinal signs of infection. The foot is warm with no pallor, cyanosis or signs of acute vascular embarrassment. No dependent rubor to the right foot. IMPRESSION: Chronic ulceration, right second toe amputation site, with no clinical infection. PLAN: An excisional ulcer debridement was performed with a #10 scalpel to remove subcutaneous tissue, slough and callus. Bleeding was stopped with pressure. The wound was cleansed and dressed with Aquacel Ag and bordered foam. I do not recommend surgical intervention at this point since there is no clinical infection and the patient is recovering from hypotension and decreased cognitive state. He is conversant and alert and oriented x 3, but cannot remember details of his recent toe wound treatment. Apparently, he spoke with another physician about having the remaining right second toe amputated. He says he is scheduled for surgery in 2 days, but it is unclear with what surgeon and where. I will follow the patient during his hospitalization. <ELECTRONICALLY SIGNED> By: Holden Vee DPM 02/22/19 1037 0732 [id number] Vee DPM /ana
== END 2019-02-20 16:56 | disposition home health service (06) | DRG 622 ==
LOC: M.ERS 13:50 → M.2W 15:17 → M.TBA-ER 15:17 → M.2W 17:28
PROVIDERS: Family Medicine; Internal Medicine Nephrology; ADMIT Internal Medicine
PROC: 0JBQ0ZZ Excision of Right Foot Subcutaneous Tissue and Fascia, Open Approach (ICD-10-PCS; principal; 2019-02-18)
PROC: 5A1D70Z Performance of Urinary Filtration, Intermittent, Less than 6 Hours Per Day (ICD-10-PCS; 2019-02-20)
DX: E11.621 Type 2 diabetes mellitus with foot ulcer (principal); G93.41 Metabolic encephalopathy; I50.43 Acute on chronic combined systolic (congestive) and diastolic (congestive) heart failure; I13.2 Hypertensive heart and chronic kidney disease with heart failure and with stage 5 chronic kidney disease, or end stage renal disease; N18.6 End stage renal disease; E11.51 Type 2 diabetes mellitus with diabetic peripheral angiopathy without gangrene; E11.42 Type 2 diabetes mellitus with diabetic polyneuropathy; E11.22 Type 2 diabetes mellitus with diabetic chronic kidney disease; I25.10 Atherosclerotic heart disease of native coronary artery without angina pectoris; Z95.1 Presence of aortocoronary bypass graft; Z89.421 Acquired absence of other right toe(s); Z86.14 Personal history of Methicillin resistant Staphylococcus aureus infection; Z95.820 Peripheral vascular angioplasty status with implants and grafts; Z86.73 Personal history of transient ischemic attack (TIA), and cerebral infarction without residual deficits; Z89.612 Acquired absence of left leg above knee; Z88.2 Allergy status to sulfonamides; Z88.8 Allergy status to other drugs, medicaments and biological substances; Z82.49 Family history of ischemic heart disease and other diseases of the circulatory system; Z83.6 Family history of other diseases of the respiratory system; Z79.4 Long term (current) use of insulin; Z79.899 Other long term (current) drug therapy